=== PATIENT | female | born 1945 | race Caucasian/White ===

== ENCOUNTER 2016-03-25 10:36 | Inpatient (IN) | payer MEDICARE ==
[2016-03-25] VITALS (8 sets, daily range): BP systolic 100–186; BP diastolic 42–78; PULSE 87–133; RESP 12–24; TEMP 100–102.9; O2SAT 95–100
[~2016-03-25] VITALS: Ht 157.5 cm; Wt 115.1 kg
[~2016-03-25 10:36] MED LIST: ASPI325T PO; CALC.25 PO; CARV25TA PO; FURO10S TUBE; FURO8SOL PO; KCL10C PO; LEVO88TA2 PO; LIPI40TA PO; NOVO7030P2 SQ; NOVOLOGMXP SQ; PRAM0.12 PO; PRAM1TAB PO; PROT40TA PO; SERT100 PO; SITA100 PO; [UNRECOGNIZED DRUG - CODE] IP
--- NOTE | 2016-03-25 14:29 | PD ---
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 Patient states that she had noticed a painful lesion and it was soft so she was soaking it and caring for it and she thought that it would go away on its own however over the last 2 days it has become larger and hardened. Denies any vaginal discharge or bleeding. She is uncertain if it has drained she cannot adequately visualize it. She denies any urinary symptoms. She states the pain does radiate into her right lower quadrant. She denies any chest pain or shortness of breath. She has had no nausea or vomiting. She has no other symptoms to report. History Social History Alcohol Use: No Tobacco Use: No Allergies-Medications (Allergen,Severity, Reaction): Coded Allergies: Codeine (Verified Allergy, Severe, HALLUCINATIONS, 10/04/15) Ofloxacin (Verified Allergy, Severe, FLOXIN, 10/04/15) Reported Meds & Prescriptions Reported Meds & Active Scripts Active Reported Heparin (Heparin Sodium (Porcine)) 1,000 Units/Ml Inj 30 Ml IP ONCE PRN Rocaltrol (Calcitriol) 0.25 Mcg Cap 0.5 Mcg PO DAILY KCl 10 Meq Cap (Potassium Chloride) 10 Meq Capcr 10 Meq PO BID Protonix (Pantoprazole Sodium) 40 Mg Tabdr 40 Mg PO HS Levothyroxine 88 mcg (Levothyroxine Sodium) 88 Mcg Tab 88 Mcg PO DAILY Pramipexole Dihydrochlori (Pramipexole Dihydrochloride) 0.75 Mg Tab 0.75 Mg PO HS Pramipexole Dihydrochlori (Pramipexole Dihydrochloride) 0.125 Mg Tab 0.25 Mg PO DAILY Furosemide 10 Mg/Ml Radha 20 Mg TUBE Furosemide 8 Mg/Ml Radha 40 Mg PO DAILY Aspirin 325 mg (Aspirin) 325 Mg Tab 325 Mg PO DAILY Novolin 70/30 (Insulin Human Isoph/Insulin Regular) 100 Units/Ml Inj 14 Units SQ DAILY@1600 Carvedilol 25 mg (Carvedilol) 25 Mg Tab 1 Tab PO BID Novolog Mix 70/30 (Insulin Aspart Prota 70%/Aspart 30%) 100 Units/Ml Inj 32 Units SQ DAILY Lipitor (Atorvastatin Calcium) 40 Mg Tab 40 Mg PO DAILY Zoloft (Sertraline HCl) 100 Mg Tab 100 Mg PO DAILY Januvia (Sitagliptin Phosphate) 100 Mg Tab 100 Mg PO DAILY Review of Systems Except as stated in HPI: all other systems reviewed are Neg Physical Exam Narrative GENERAL: Well-nourished elderly female patient, lying in bed, in no acute distress SKIN: Warm and dry. HEAD: Atraumatic. Normocephalic. EYES: Pupils equal and round. No scleral icterus. No injection or drainage. ENT: No nasal bleeding or discharge. Mucous membranes pink and moist. NECK: Trachea midline. No JVD. CARDIOVASCULAR: Tachycardic rate and rhythm. No murmur appreciated. RESPIRATORY: No accessory muscle use. Diminished to auscultation. Breath sounds equal bilaterally. GASTROINTESTINAL: Abdomen soft and nondistended. Patient does have tenderness to palpation along the lower abdomen. No rebound or guarding. Patient also has her peritoneal catheter dressing is intact.. Hepatic and splenic margins not palpable. GENITOURINARY: Assessment done in presence of female tech. There is swelling of the right side of the perineum, specifically the labia majora. No obvious discharge. There is associated lymphadenopathy. Patient also has a darkened ecchymotic-looking area on the posterior thigh not far from this area and I am uncertain if there is any relation. MUSCULOSKELETAL: No obvious deformities. No clubbing. No cyanosis. NEUROLOGICAL: Awake and alert. No obvious cranial nerve deficits. Motor grossly within normal limits. Normal speech. PSYCHIATRIC: Appropriate mood and affect; insight and judgment normal. Data Data Last Documented VS Vital Signs Date Time Temp Pulse Resp B/P Pulse Ox O2 Delivery O2 Flow Rate FiO2 03/25/16 10:40 100.0 133 24 186/78 95 Room Air Orders Electrocardiogram (03/25/16 14:34) Complete Blood Count With Diff (03/25/16 14:34) Comprehensive Metabolic Panel (03/25/16 14:34) Prothrombin Time / Inr (Pt) (03/25/16 14:34) Act Partial Throm Time (Ptt) (03/25/16 14:34) Lactic Acid Sepsis Protocol (03/25/16 14:34) Magnesium (Mg) (03/25/16 14:34) Ckmb (Isoenzyme) Profile (03/25/16 14:34) Troponin I (03/25/16 14:34) Urinalysis - C+S If Indicated (03/25/16 14:34) Blood Culture (03/25/16 14:34) Chest, Single Ap (03/25/16 14:34) Blood Glucose (03/25/16 14:34) Ecg Monitoring (03/25/16 14:34) Iv Access Insert/Monitor (03/25/16 14:34) Oximetry (03/25/16 14:34) Oxygen Administration (03/25/16 14:34) Labs Laboratory Tests Test 03/25/16 14:45 White Blood Count 14.4 TH/MM3 Red Blood Count 3.07 MIL/MM3 Hemoglobin 9.8 GM/DL Hematocrit 29.4 % Mean Corpuscular Volume 95.5 FL Mean Corpuscular Hemoglobin 31.9 PG Mean Corpuscular Hemoglobin 33.4 % Concent Red Cell Distribution Width 13.8 % Platelet Count 190 TH/MM3 Mean Platelet Volume 9.0 FL Neutrophils (%) (Auto) 87.8 % Lymphocytes (%) (Auto) 3.0 % Monocytes (%) (Auto) 8.8 % Eosinophils (%) (Auto) 0.1 % Basophils (%) (Auto) 0.3 % Neutrophils # (Auto) 12.6 TH/MM3 Lymphocytes # (Auto) 0.4 TH/MM3 Monocytes # (Auto) 1.3 TH/MM3 Eosinophils # (Auto) 0.0 TH/MM3 Basophils # (Auto) 0.0 TH/MM3 CBC Comment AUTO DIFF MDM Medical Decision Making Medical Screen Exam Complete: Yes Emergency Medical Condition: Yes Medical Record Reviewed: Yes Differential Diagnosis Abscess versus cellulitis versus cyst versus peritonitis versus sepsis Narrative Course 71-year-old female presents to the emergency department for evaluation. Patient appears to have swelling of the right labia majora however she is tachycardic with a low-grade temperature. Patient also has abdominal tenderness to palpation in the right lower quadrant. She is on peritoneal dialysis and has history of peritonitis. Workup will be initiated here in the emergency department triage. Once a medical bed becomes available, patient will be transferred. Diagnosis Primary Impression: Labial swelling Additional Impressions: Abdominal pain Qualified Code: R10.30 - Lower abdominal pain Tachycardia End stage kidney disease Condition: Stable Ashley Summers Mar 25, 2016 14:29
[2016-03-25 15:02] LABS: AUTOMATED NEUTROPHIL # 12.6 TH/MM3 (1.8-7.7); BASOPHIL % 0.3 % (0.0-2.0); EOSINOPHIL % 0.1 % (0.0-4.0); HEMATOCRIT 29.4 % (35.0-46.0); LYMPHOCYTE # 0.4 TH/MM3 (1.0-4.8); MEAN CELL VOLUME 95.5 FL (80.0-100.0); MEAN CORPUSCULAR HEMOGLOBIN 31.9 PG (27.0-34.0); MEAN CORPUSCULAR HGB CONC 33.4 % (32.0-36.0); MONO % 8.8 % (0.0-8.0); NEUT % 87.8 % (16.0-70.0); PLATELET COUNT 190 TH/MM3 (150-450); RED BLOOD COUNT 3.07 MIL/MM3 (4.00-5.30); RED CELL DISTRIBUTION WIDTH 13.8 % (11.6-17.2); WHITE BLOOD COUNT 14.4 TH/MM3 (4.0-11.0)
[2016-03-25 15:09] LABS: HEMO FLAGS AUTO DIFF
--- NOTE | 2016-03-25 15:16 | RADRPT ---
EXAM DATE/TIME: 03/25/2016 14:45 [facility] COMPARISON: No previous studies available for comparison. INDICATIONS : Fever, Evaluate heart and lungs. MEDICAL HISTORY : Hypertension. SURGICAL HISTORY : CABG. Carotid stent. ENCOUNTER: Initial ACUITY: 1 day PAIN SCORE: 0/10 LOCATION: chest FINDINGS: A single view of the chest demonstrates the lungs to be symmetrically aerated without evidence of mas s, infiltrate or effusion. The patient is post median sternotomy. The cardiomediastinal contours dem onstrate mild cardiomegaly. Osseous structures are intact. CONCLUSION: 1. Mild cardiomegaly. 2. Postsurgical changes. 3. No acute abnormality. Surya Christianson MD on March 25, 2016 at 15:13 Board Certified Radiologist. This report was verified electronically.
[2016-03-25 15:24] LABS: APTT (PATIENT) 30.3 SEC (24.3-30.1); PROTHROMBIN TIME - PATIENT 11.5 SEC (9.8-11.6)
[2016-03-25 15:25] LABS: ALT (GPT) 40 U/L (10-53); ANION GAP 14 MEQ/L (5-15); AST (GOT) 49 U/L (15-37); BICARBONATE 23.9 MEQ/L (21.0-32.0); BLOOD UREA NITROGEN 52 MG/DL (7-18); CHLORIDE 92 MEQ/L (98-107); GLOMERULAR FILTRATION RATE 7 ML/MIN (>89); MAGNESIUM 1.5 MG/DL (1.5-2.5); SODIUM (NA) 130 MEQ/L (136-145)
[2016-03-25 15:29] LABS: ALKALINE PHOSPHATASE 118 U/L (45-117); CREATINE KINASE 271 U/L (26-192); TOTAL BILIRUBIN ADULT 0.6 MG/DL (0.2-1.0)
[2016-03-25 15:41] LABS: CKMB 0.8 NG/ML (0.5-3.6)
[2016-03-25 15:55] LABS: BANDS 20 % (0-6); DOHLE BODIES PRESENT (NONE SEEN); NEUTROPHIL # MANUAL DIFF 13.2 TH/MM3 (1.8-7.7); PLATELET ESTIMATE SMEAR NORMAL (NORMAL); PLATELET MORPHOLOGY NORMAL (NORMAL); POLYS (SEG NEUTROPHILS) 72 % (16-70); SCAN/DIFF FINAL DIFF MANUAL; TOXIC GRANULATION 1+ (NORMAL); WBC DIFF SAMPLE 100
[2016-03-25] MEDS ORDERED: ACETAMINOPHEN 325 MG TAB PO ONE (16:00)
--- NOTE | 2016-03-25 16:04 | PD ---
Physical Exam Time Seen by Provider: 13:30 Narrative Initial evaluation the patient was performed by Ashley Summers DNP. See her note for initial evaluation and documentation. The patient reports she's had swelling to her right labia majora 3 days. Reports MAXIMUM TEMPERATURE at the 101.5 at home today. Reports vomiting 2 days; has vomited twice today. She is on peritoneal dialysis daily and completed dialysis last night. Denies vaginal discharge, odor, itch. Denies urinary symptoms. Denies abdominal pain. Does have history of peritonitis. Dr. Lexus Nolasco is her primary care provider. She does not have an TAXICAB COORDINATOR. Allergies to codeine and ofloxacin. History of diabetes, CABG, hypertension. Data Data Last Documented VS Vital Signs Date Time Temp Pulse Resp B/P Pulse Ox O2 Delivery O2 Flow Rate FiO2 03/25/16 16:32 102.9 03/25/16 10:40 133 24 186/78 95 Room Air Orders Electrocardiogram (03/25/16 14:34) Complete Blood Count With Diff (03/25/16 14:34) Comprehensive Metabolic Panel (03/25/16 14:34) Prothrombin Time / Inr (Pt) (03/25/16 14:34) Act Partial Throm Time (Ptt) (03/25/16 14:34) Lactic Acid Sepsis Protocol (03/25/16 14:34) Magnesium (Mg) (03/25/16 14:34) Ckmb (Isoenzyme) Profile (03/25/16 14:34) Troponin I (03/25/16 14:34) Urinalysis - C+S If Indicated (03/25/16 14:34) Blood Culture (03/25/16 14:34) Chest, Single Ap (03/25/16 14:34) Blood Glucose (03/25/16 14:34) Ecg Monitoring (03/25/16 14:34) Iv Access Insert/Monitor (03/25/16 14:34) Oximetry (03/25/16 14:34) Oxygen Administration (03/25/16 14:34) CKMB (03/25/16 14:45) CKMB% (03/25/16 14:45) Acetaminophen (Tylenol) (03/25/16 16:00) Vancomycin Inj (Vancomycin Inj) (03/25/16 16:15) Cefepime Inj (Maxipime Inj) (03/25/16 16:15) Clindamycin Inj (Cleocin Inj) (03/25/16 16:15) Consult Gynecology (03/25/16 ) Admit Order (Ed Use Only) (03/25/16 16:43) Labs Laboratory Tests Test 03/25/16 14:45 White Blood Count 14.4 TH/MM3 Red Blood Count 3.07 MIL/MM3 Hemoglobin 9.8 GM/DL Hematocrit 29.4 % Mean Corpuscular Volume 95.5 FL Mean Corpuscular Hemoglobin 31.9 PG Mean Corpuscular Hemoglobin 33.4 % Concent Red Cell Distribution Width 13.8 % Platelet Count 190 TH/MM3 Mean Platelet Volume 9.0 FL Neutrophils (%) (Auto) 87.8 % Lymphocytes (%) (Auto) 3.0 % Monocytes (%) (Auto) 8.8 % Eosinophils (%) (Auto) 0.1 % Basophils (%) (Auto) 0.3 % Neutrophils # (Auto) 12.6 TH/MM3 Lymphocytes # (Auto) 0.4 TH/MM3 Monocytes # (Auto) 1.3 TH/MM3 Eosinophils # (Auto) 0.0 TH/MM3 Basophils # (Auto) 0.0 TH/MM3 CBC Comment AUTO DIFF Differential Total Cells 100 Counted Neutrophils % (Manual) 72 % Band Neutrophils % 20 % Lymphocytes % 1 % Monocytes % 7 % Neutrophils # (Manual) 13.2 TH/MM3 Differential Comment FINAL DIFF MANUAL Toxic Granulation 1+ Dohle Bodies PRESENT Platelet Estimate NORMAL Platelet Morphology Comment NORMAL Red Cell Morphology Comment NORMAL Prothrombin Time 11.5 SEC Prothromb Time International 1.0 RATIO Ratio Activated Partial 30.3 SEC Thromboplast Time Sodium Level 130 MEQ/L Potassium Level 3.0 MEQ/L Chloride Level 92 MEQ/L Carbon Dioxide Level 23.9 MEQ/L Anion Gap 14 MEQ/L Blood Urea Nitrogen 52 MG/DL Creatinine 6.31 MG/DL Estimat Glomerular Filtration 7 ML/MIN Rate Random Glucose 294 MG/DL Lactic Acid Level 2.4 mmol/L Calcium Level 8.7 MG/DL Magnesium Level 1.5 MG/DL Total Bilirubin 0.6 MG/DL Aspartate Amino Transf 49 U/L (AST/SGOT) Alanine Aminotransferase 40 U/L (ALT/SGPT) Alkaline Phosphatase 118 U/L Total Creatine Kinase 271 U/L Creatine Kinase MB 0.8 NG/ML Creatine Kinase MB % 0.3 % Troponin I 0.38 NG/ML Total Protein 7.3 GM/DL Albumin 2.3 GM/DL [facility] Medical Record Reviewed: Yes Supervised Visit with JULIAN: Yes Narrative Course Right labia majora with edema, erythema, tenderness to palpation, warmth to touch. Patient febrile with 100.0 fever. Patient was initially assessed in triage by Ashley frazier DNP. See her note for initial assessment. Patient placed on cardiopulmonary monitor. IV site obtained. Dr. Vargas, my attending physician, recommended to call TAXICAB COORDINATOR hospitalist to evaluate the patient for possible debridement of the area. 1555: I spoke with Dr. Banegas, TAXICAB COORDINATOR hospitalist and she will come to evaluate the patient. 1612: Dr. Vargas recommended to admit Mr. Vancomycin, cefepime, and clindamycin. Peritoneal dialysis dosages verified via up-to-date and all medications recommended no dosage adjustment as necessary. I verified dosages with Dr. Vargas and she agreed with administration of recommended dosages. 1615: Chest x-ray concludes Mild cardiomegaly; 2. Postsurgical changes; 3. No acute abnormality. WBC 14.4. Potassium 3.0. BUN 52. Creatinine 6.31. GFR 7. Lactic acid 2.4. 1630: Dr. Banegas evaluated the patient and recommended the patient to be admitted and a consult placed to her. 1641: I spoke with Dr. Bagley, [facility]; report was given and the patient will be admitted. Consult to Dr. Banegas, TAXICAB COORDINATOR hospitalist ordered. Physician Communication Physician Communication Dr. Banegas, Hospitalist OBGYN Dr. Bagley, [facility] Diagnosis Primary Impression: Vulval cellulitis Additional Impressions: Labial swelling End stage kidney disease Tachycardia Abdominal pain Qualified Code: R10.30 - Lower abdominal pain Admitting Information Admitting Physician Requests: Admit Willow Lima Ariel HOOKS Mar 25, 2016 16:04
--- NOTE | 2016-03-25 16:13 | EKG ---
Date Performed: 03/25/2016 Time Performed: 15:08:57 PTAGE: 71 years EKG: SINUS TACHYCARDIA POSSIBLE LEFT ATRIAL ENLARGEMENT MODERATE INTRAVENTRICULAR CONDUCTION DEL AY Nonspecific ST-T wave changes ABNORMAL ECG COMPARED TO PRIOR ELECTROCARDIOGRAM, Rate has increased and ST-T wave changes are more marked. PREVIOUS TRACING : 09/19/2008 15.40 DOCTOR: Colten Kramer Interpretating Date/Time 03/25/2016 16:11:21
[2016-03-25] MEDS ORDERED: CLINDAMYCIN INJ 600 MG in SODIUM CHLORIDE 0.9% INJ 100 ML IV ONE (16:15)
[2016-03-25] MEDS ORDERED: VANCOMYCIN INJ 1,000 MG in SODIUM CHLOR 0.9% 250 ML INJ 250 ML IV ONE (16:15)
[2016-03-25] MEDS ORDERED: CEFEPIME INJ 2,000 MG in SODIUM CHLORIDE 0.9% INJ 100 ML IV ONE (16:15)
[2016-03-25] MEDS ORDERED: ACETAMINOPHEN 325 MG TAB PO PRN (16:45)
[2016-03-25] MEDS ORDERED: SODIUM CHLORIDE 0.9% FLUSH 5 ML FLUSH FLUSH PRN (16:45)
[2016-03-25] MEDS ORDERED: MAGNESIUM HYDROXIDE SUSP 30 ML CUP PO PRN (16:45)
[2016-03-25] MEDS ORDERED: ONDANSETRON HCL 4 MG/2 ML VIAL IVP PRN (16:45)
[2016-03-25] MEDS ORDERED: NALOXONE HCL 0.4 MG/ML AMP IV PRN (16:45)
--- NOTE | 2016-03-25 16:51 | PD.CONS ---
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 consult requested secondary to vulvar swelling; This patient is a 71-year-old 2 para 2 her last menstrual period was at age between 46 and 51 she has had no irregular spotting or bleeding since that time presently comes to the emergency room with pain in her vaginal area fever and chills and aching legs She states that the swelling in her vagina began about 4 days ago no medication did not see her doctor the pain began about 3 days ago and has progressively gotten worse Associated with fever or chills positive nausea and vomiting she denies any vaginal discharge odors or itching States that she did have something like this when she was younger [employer]ER [employer] ASSEM[employer]ER history onset at age 14 cycles last 4-5 days the interval is every 28-30 days No history of any abnormal Pap smears no previous [employer] 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[employer]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 surgery Denies any sexually transmitted diseases Is not sexually active OB history in 1966 and 1972 vaginal delivery 21 of her children Past medical history; patient is allergic to codeine and Floxin She is an insulin-dependent diabetic she is on 30 units of 7030 NovoLog in the morning and 20 units of 7030 NovoLog in the evening History of hypertension she is on no medications as her blood pressure has been normal Heart disease Surgery includes knee replacement gallbladder and breast reduction Her social history is negative Her medications include insulins Tarastatin and aspirin and she is on no blood pressure medication On physical exam her temperature is 102.9 pulse is 133 blood pressures 186/78 O2 sat is 95% Well-nourished well-developed white female in no acute distress but reporting pain in the vaginal area Physical examination confined to the external genitalia please see complete history and physical by the emergency room physician Examination of the external genitalia shows swelling of the right labia majora and minora with induration that spreads cephalad towards the mons pubis and towards the right inguinal ligament area This area is not fluctuant is painful to palpation Vaginal area is atrophic There is a small what appears to be hair follicle bump along the lower edge of the labia right labia that feels somewhat fluctuant very small No discharge odors or bleeding Laboratory data her white count is 14.4 Potassium is 3.0 Lactic acid is 2.4 Her SGOT is slightly elevated at 49 Assessment; 71-year-old postmenopausal female with a right vulvar cellulitis Insulin-dependent diabetes History of hypertension Recommendations; antibiotic coverage for MRSA Warm pads and sits baths Pain management Infectious disease consult Control of the diabetes Correction of the low potassium Monitoring of the blood pressure Blood cultures to rule out bacteremia Urine culture and sensitivity to rule out UTI Chest x-ray If no improvement in the cellulitis with antibiotic coverage over the next 24- 48 hours and it seems to be spreading recommend evaluation by Dr. Bryant [employer] ASSEM[employer]ER oncology Hermila Nelson MD Mar 25, 2016 16:51
[2016-03-25 16:53] LABS: LACTIC ACID GHOST NOT REPORTABLE
--- NOTE | 2016-03-25 17:10 | HHI.HP ---
HPI Service [facility] Hospitalists Primary Care Physician Lexus Nolasco MD Admission Diagnosis vulval cellulitis Chief Complaint: Cellulitis Travel History International Travel<30 Days: No Contact w/Intl Traveler <30 Da: No Traveled to Known Affected Are: No History of Present Illness Ms. Garrison is a pleasant 71 y/o WF with multiple medical problems including IDDM, HTN, CAD, ESRD on peritoneal dialysis since May 2015. [place] [facility] [place] of a painful swollen lesion in her perineal area that started 4 days ago with subjective fever and chills and generalized weakness worsening over last 2 days. Patient states that she had noticed a painful lesion in her right vulvar area which was soft. She was soaking it at home but over the last 2 days it has become larger and hardened. Denies any vaginal discharge or bleeding. She is uncertain if it has drained as she cannot adequately visualize it. She states the pain does radiate into her right lower quadrant. She denies any chest pain or shortness of breath. Pt reports having vomiting 2 days and did vomited twice today. She is on peritoneal dialysis daily and completed dialysis last night. Denies vaginal discharge, odor, itch. Denies urinary symptoms. Denies abdominal pain. Does have history of peritonitis. Dr. Lexus Nolasco is her primary care provider. Pt was noted to have an elevated WBC count of 14.4, elevated Lactic acid of 2.4. She was noted to be tachycardic and febrile at admission as well. Pt was given IV Vancomycin, Cefepime, and Clindamycin in the ER. Review of Systems Constitutional: COMPLAINS OF: Fever, Chills Gastrointestinal: COMPLAINS OF: Nausea, Vomiting Integumentary: COMPLAINS OF: Abnormal pigmentation Past Family Social History Past Medical History CAD Anemia of CKD CHF ESRD on dialysis since May 2015. DM I Major Depression HTN Hyperlipidemia Hypothyroidism Pulmonary HTN Secondary hyperparathyroidism Past Surgical History Breast reduction CABG 1996, 2004 Coronary stent placement Cholecystectomy 1996 Peritoneal catheter 05/2015 Left TKA 2009 Reported Medications -ASA 325mg po daily -Atorvastatin 40mg po daily -Calcitriol 0.25mcg po daily -Coreg 12.5mg po BID Imodium 2 tablets QID PRN diarrhea Humalog 75/25 Kwikpen 28 units SQ in AM and 18units SQ in PM Lasix 40mg po daily -Levoxyl 88mcg po daily NovoLog Mix 70/30 FlexPen 26 units SQ in AM before breakfast and 16 units SQ before dinner -Protonix 40mg po daily Pramipexole Dihydrochloride 0.75mc HS Procrit 10,000units as directed -Sertraline 100mg daily -Vitamin D3 5000unit Allergies: Coded Allergies: Codeine (Verified Allergy, Severe, HALLUCINATIONS, 03/25/16) Ofloxacin (Verified Allergy, Severe, FLOXIN, 03/25/16) Family History Mother had AAA, HTN Father had CAD Several family members with DM Social History No tobacco or alcohol No illicit drug use Retired from [employer] Physical Exam Vital Signs Vital Signs Date Time Temp Pulse Resp B/P Pulse Ox O2 Delivery O2 Flow Rate FiO2 03/25/16 16:32 102.9 03/25/16 10:40 100.0 133 24 186/78 95 Room Air Physical Exam GENERAL: This is a well-nourished, well-developed patient, in no apparent distress. HEENT: Atraumatic. Normocephalic. No temporal or scalp tenderness. No scleral icterus. Airway patent. NECK: Trachea midline, supple, nontender. CARDIO: Regular. RESP: CTA bilaterally. No wheezes, rales, or rhonchi. ABD: +BS, soft, non-tender, nondistended. : Swelling of the right labia majora and minora with induration that spreads cephalad towards the mons pubis and towards the right inguinal ligament area which is painful to palpation EXT: Extremities without clubbing, cyanosis, or edema. NEURO: Awake and alert. Motor and sensory grossly within normal limits. Normal speech. Laboratory Laboratory Tests Test 03/25/16 14:45 White Blood Count 14.4 Red Blood Count 3.07 Hemoglobin 9.8 Hematocrit 29.4 Mean Corpuscular Volume 95.5 Mean Corpuscular Hemoglobin 31.9 Mean Corpuscular Hemoglobin 33.4 Concent Red Cell Distribution Width 13.8 Platelet Count 190 Mean Platelet Volume 9.0 Neutrophils (%) (Auto) 87.8 Lymphocytes (%) (Auto) 3.0 Monocytes (%) (Auto) 8.8 Eosinophils (%) (Auto) 0.1 Basophils (%) (Auto) 0.3 Neutrophils # (Auto) 12.6 Lymphocytes # (Auto) 0.4 Monocytes # (Auto) 1.3 Eosinophils # (Auto) 0.0 Basophils # (Auto) 0.0 CBC Comment AUTO DIFF Differential Total Cells 100 Counted Neutrophils % (Manual) 72 Band Neutrophils % 20 Lymphocytes % 1 Monocytes % 7 Neutrophils # (Manual) 13.2 Differential Comment FINAL DIFF MANUAL Toxic Granulation 1+ Dohle Bodies PRESENT Platelet Estimate NORMAL Platelet Morphology Comment NORMAL Red Cell Morphology Comment NORMAL Prothrombin Time 11.5 Prothromb Time International 1.0 Ratio Activated Partial 30.3 Thromboplast Time Sodium Level 130 Potassium Level 3.0 Chloride Level 92 Carbon Dioxide Level 23.9 Anion Gap 14 Blood Urea Nitrogen 52 Creatinine 6.31 Estimat Glomerular Filtration 7 Rate Random Glucose 294 Lactic Acid Level 2.4 Calcium Level 8.7 Magnesium Level 1.5 Total Bilirubin 0.6 Aspartate Amino Transf 49 (AST/SGOT) Alanine Aminotransferase 40 (ALT/SGPT) Alkaline Phosphatase 118 Total Creatine Kinase 271 Creatine Kinase MB 0.8 Creatine Kinase MB % 0.3 Troponin I 0.38 Total Protein 7.3 Albumin 2.3 Date/Time Procedure Status Source Growth 03/25/16 14:45 Aerobic Blood Culture Received Blood Peripheral Pending 03/25/16 14:45 Anaerobic Blood Culture Received Blood Peripheral Pending Result Diagram: 03/25/16 1445 03/25/16 1445 Imaging Last Impressions Chest X-Ray 03/25/16 1434 Signed Impressions: Service Date/Time: Friday, March 25, 2016 14:45 - CONCLUSION: 1. Mild cardiomegaly. 2. Postsurgical changes. 3. No acute abnormality. Surya Christianson MD Septic Shock Reassessment Lungs: Clear Skin: Warm Assessment and Plan Problem List: (1) Vulval cellulitis Status: Acute Plan: - Pt admitted with cellulitis of the right labia/vulva and into the right inguinal region which began around 4 days ago - Pt had a noted elevated WBC count of 14.4 at admission with a Lactic acid of 2.4 - Pt was given IV Vancomycin, Cefepime and Clindamycin - BOOTH MANAGER has evaluated the pt and has consulted ID - Cont. Vancomycin with pharmacy to dose - Check CT abd/pelvis to assess for abscess - Tylenol PRN for fever - Zofran PRN - Pain control PRN - Warm compresses - Supportive care - DVT prophylaxis with SCDs (2) Labial swelling Status: Acute Plan: - See above (3) ESRD (end stage renal disease) on dialysis Status: Chronic Plan: - Pt is on PD since 05/2015 - Consult Nephrology - Monitor labs - Pt has not been eating and drinking well and electrolyte abnormality is likely related to some degree of dehydration in the setting of her ESRD - Encourage oral intake - Monitor labs closely (4) DM (diabetes mellitus) Status: Chronic Plan: - NovoLog SSI - Accu checks (5) Hypothyroidism Status: Chronic Plan: - Home meds continued (6) Hypertension Status: Chronic Plan: - Home meds continued (7) Anemia Status: Chronic Plan: - Related to pts ESRD - Labs are stable currently - Monitor - Pt receives Procrit periodically Assessment and Plan Patient examined. Assessment and plan formulated with Sharon Swenson PA-C. I agree with the above. Physician Certification 2 Midnight Certification Type: Admission for Inpatient Services Order for Inpatient Services The services are ordered in accordance with Medicare regulations or non- Medicare payer requirements, as applicable. In the case of services not specified as inpatient-only, they are appropriately provided as inpatient services in accordance with the 2-midnight benchmark. Estimated LOS (days): 3 3 days is the estimated time the patient will need to remain in the hospital, assuming treatment plan goals are met and no additional complications. Post-Hospital Plan: Not yet determined Problem Qualifiers (1) DM (diabetes mellitus): Sharon Swenson Mar 25, 2016 17:10 Kong Bagley DO Mar 28, 2016 22:48
--- NOTE | 2016-03-25 17:14 | PD ---
Data Data Last Documented VS Vital Signs Date Time Temp Pulse Resp B/P Pulse Ox O2 Delivery O2 Flow Rate FiO2 03/25/16 16:32 102.9 03/25/16 10:40 133 24 186/78 95 Room Air Orders Electrocardiogram (03/25/16 14:34) Complete Blood Count With Diff (03/25/16 14:34) Comprehensive Metabolic Panel (03/25/16 14:34) Prothrombin Time / Inr (Pt) (03/25/16 14:34) Act Partial Throm Time (Ptt) (03/25/16 14:34) Lactic Acid Sepsis Protocol (03/25/16 14:34) Magnesium (Mg) (03/25/16 14:34) Ckmb (Isoenzyme) Profile (03/25/16 14:34) Troponin I (03/25/16 14:34) Urinalysis - C+S If Indicated (03/25/16 14:34) Blood Culture (03/25/16 14:34) Chest, Single Ap (03/25/16 14:34) Blood Glucose (03/25/16 14:34) Ecg Monitoring (03/25/16 14:34) Iv Access Insert/Monitor (03/25/16 14:34) Oximetry (03/25/16 14:34) Oxygen Administration (03/25/16 14:34) CKMB (03/25/16 14:45) CKMB% (03/25/16 14:45) Acetaminophen (Tylenol) (03/25/16 16:00) Vancomycin Inj (Vancomycin Inj) (03/25/16 16:15) Cefepime Inj (Maxipime Inj) (03/25/16 16:15) Clindamycin Inj (Cleocin Inj) (03/25/16 16:15) Consult Gynecology (03/25/16 ) Admit Order (Ed Use Only) (03/25/16 16:43) Us Soft Tissue (03/25/16 ) Complete Blood Count With Diff (03/26/16 06:00) Basic Metabolic Panel (Bmp) (03/26/16 06:00) Magnesium (Mg) (03/26/16 06:00) Labs Laboratory Tests Test 03/25/16 14:45 White Blood Count 14.4 TH/MM3 Red Blood Count 3.07 MIL/MM3 Hemoglobin 9.8 GM/DL Hematocrit 29.4 % Mean Corpuscular Volume 95.5 FL Mean Corpuscular Hemoglobin 31.9 PG Mean Corpuscular Hemoglobin 33.4 % Concent Red Cell Distribution Width 13.8 % Platelet Count 190 TH/MM3 Mean Platelet Volume 9.0 FL Neutrophils (%) (Auto) 87.8 % Lymphocytes (%) (Auto) 3.0 % Monocytes (%) (Auto) 8.8 % Eosinophils (%) (Auto) 0.1 % Basophils (%) (Auto) 0.3 % Neutrophils # (Auto) 12.6 TH/MM3 Lymphocytes # (Auto) 0.4 TH/MM3 Monocytes # (Auto) 1.3 TH/MM3 Eosinophils # (Auto) 0.0 TH/MM3 Basophils # (Auto) 0.0 TH/MM3 CBC Comment AUTO DIFF Differential Total Cells 100 Counted Neutrophils % (Manual) 72 % Band Neutrophils % 20 % Lymphocytes % 1 % Monocytes % 7 % Neutrophils # (Manual) 13.2 TH/MM3 Differential Comment FINAL DIFF MANUAL Toxic Granulation 1+ Dohle Bodies PRESENT Platelet Estimate NORMAL Platelet Morphology Comment NORMAL Red Cell Morphology Comment NORMAL Prothrombin Time 11.5 SEC Prothromb Time International 1.0 RATIO Ratio Activated Partial 30.3 SEC Thromboplast Time Sodium Level 130 MEQ/L Potassium Level 3.0 MEQ/L Chloride Level 92 MEQ/L Carbon Dioxide Level 23.9 MEQ/L Anion Gap 14 MEQ/L Blood Urea Nitrogen 52 MG/DL Creatinine 6.31 MG/DL Estimat Glomerular Filtration 7 ML/MIN Rate Random Glucose 294 MG/DL Lactic Acid Level 2.4 mmol/L Calcium Level 8.7 MG/DL Magnesium Level 1.5 MG/DL Total Bilirubin 0.6 MG/DL Aspartate Amino Transf 49 U/L (AST/SGOT) Alanine Aminotransferase 40 U/L (ALT/SGPT) Alkaline Phosphatase 118 U/L Total Creatine Kinase 271 U/L Creatine Kinase MB 0.8 NG/ML Creatine Kinase MB % 0.3 % Troponin I 0.38 NG/ML Total Protein 7.3 GM/DL Albumin 2.3 GM/DL MDM Supervised Visit with JULIAN: Yes Narrative Course The history, exam, and medical decision-making in the associated midlevel provider note were completed with my assistance. I reviewed and agree with the findings presented. I attest that I had a [id number] encounter with the patient on the same day, and personally performed and documented my assessment and findings in the medical record. *My assessment and Findings: This is a dialysis patient who presents to the emergency department with a vulvar cellulitis and abscess, septic with a fever and bandemia. She was placed on a monitor and an IV was established. She was given vancomycin, cefepime and clindamycin. Dr. Banegas on-call for the hospitalists came to see the patient and agreed with continued antibiotics. If she doesn't improve she'll consider incision and drainage in the operating room tomorrow. Patient will be admitted under the [facility] for further management. Diagnosis Primary Impression: Vulval cellulitis Additional Impressions: End stage kidney disease Labial swelling Tachycardia Abdominal pain Qualified Code: R10.30 - Lower abdominal pain Lita Meyers MD Mar 25, 2016 17:14
[2016-03-25] MEDS ORDERED: HYDROmorphone HCL PF 1 MG/ML VIAL IV PUSH ONE (17:15)
[2016-03-25] MEDS ORDERED: DIATRIZOATE MEGLUM/DIATRIZOATE SOD 9 ML CUP ONE (18:22)
[2016-03-25] MEDS ORDERED: DIATRIZOATE MEGLUM/DIATRIZOATE SOD 9 ML CUP PO ONE (18:45)
--- NOTE | 2016-03-25 19:14 | RADRPT ---
EXAM DATE/TIME: 03/25/2016 17:25 [facility] COMPARISON: No previous studies available for comparison. INDICATIONS : Right labia abscess. MEDICAL HISTORY : Hypertension. Hypercholesterolemia. CHF. Peritoneal dialysis. Coronary artery disease. SURGICAL HISTORY : CABG. Cholecystectomy. Left knee replacement. Breast reduction 1979. ENCOUNTER: Initial ACUITY: 4-6 days PAIN SCORE: 7/10 LOCATION: Right labia. AREA EVALUATED: Right labia. FINDINGS: Diffuse soft tissue swelling noted within the right labia and right groin. MASSES: None. FLUID COLLECTIONS: None. OTHER: Negative. CONCLUSION: Diffuse soft tissue swelling in the right labia and right groin. Enrique Snyder MD on March 25, 2016 at 19:11 Board Certified Radiologist. This report was verified electronically.
[2016-03-25] MEDS ORDERED: NOVOLOGMXP SQ ×2 (19:17)
[2016-03-25] MEDS ORDERED: SERT-129 PO (19:18)
[2016-03-25] MEDS ORDERED: MIRA0.75 PO (19:18)
[2016-03-25] MEDS ORDERED: PANT40TA3 PO (19:21)
[2016-03-25] MEDS ORDERED: ROCA0.5C PO (19:21)
[2016-03-25] MEDS ORDERED: FURO1TAB61 PO (19:21)
[2016-03-25] MEDS ORDERED: POTA1TAB4 PO (19:21)
[2016-03-25] MEDS ORDERED: LEVO88TA2 PO (19:21)
[2016-03-25] MEDS ORDERED: ASPI325T PO (19:22)
[2016-03-25] MEDS ORDERED: ATOR40TA16 PO (19:22)
--- NOTE | 2016-03-25 20:05 | RADRPT ---
EXAM DATE/TIME: 03/25/2016 19:39 [facility] COMPARISON: No previous studies available for comparison. INDICATIONS : Right labia cellulitis extending into the right inguinal region. ORAL CONTRAST: Prescribed oral contrast ingested. RADIATION DOSE: 20.68 CTDIvol (mGy) MEDICAL HISTORY : Cardiovascular disease. Hypertension. diabetes, dialysis, renal failure SURGICAL HISTORY : Cholecystectomy. ENCOUNTER: Initial ACUITY: 1 day PAIN SCALE: 5/10 LOCATION: abdomen TECHNIQUE: Volumetric scanning of the abdomen and pelvis was performed. Using automated exposure control and ad justment of the mA and/or kV according to patient size, radiation dose was kept as low as reasonably achievable to obtain optimal diagnostic quality images. FINDINGS: LOWER LUNGS: The visualized lower lungs are clear. LIVER: Homogeneous density without lesion. There is no dilation of the biliary tree. Cholecystectomy. SPLEEN: Normal size without lesion. PANCREAS: Within normal limits. KIDNEYS: Normal in size and shape. There is no mass, stone, or hydronephrosis. ADRENAL GLANDS: Within normal limits. VASCULAR: There is no aortic aneurysm. BOWEL/MESENTERY: The stomach, small bowel, and colon demonstrate no acute abnormality. There is no free intraperitone al air or fluid. Dialysis catheter with tip in the pelvis. Scattered diverticulosis. Minimal pelvic a scites. ABDOMINAL WALL: Within normal limits. RETROPERITONEUM: There is no lymphadenopathy. BLADDER: No wall thickening or mass. REPRODUCTIVE: Within normal limits. INGUINAL: There is no lymphadenopathy or hernia. MUSCULOSKELETAL: Cellulitic changes in the right groin and right perineum extending into the right labia. No abscess o r fluid collection. CONCLUSION: 1. Cellulitic changes in the right groin, right perineum and right labia. No abscess or fluid collect ion. 2. Dialysis catheter and minimal pelvic ascites. 3. Diverticulosis without diverticulitis. 4. Status post cholecystectomy. Enrique Snyder MD on March 25, 2016 at 20:02 Board Certified Radiologist. This report was verified electronically.
[2016-03-25] MEDS: ATORVASTATIN 40 MG TAB PO SCH (20:56)
[2016-03-25] MEDS: CARVEDILOL 12.5 MG TAB PO SCH (20:56)
[2016-03-25] MEDS: INSULIN ASPART SUPPLEMENTAL SCALE SQ SCH (20:56)
[2016-03-25] MEDS: PRAMIPEXOLE DIHYDROCHLORIDE 0.25 MG TAB PO SCH (20:56)
[2016-03-25] MEDS: SODIUM CHLORIDE 0.9% FLUSH 5 ML FLUSH FLUSH SCH (20:57)
[2016-03-25] MEDS ORDERED: HEPARIN SODIUM - IV 10,000 UNITS/10 ML VIAL IVF PRN (22:45)
[2016-03-25] MEDS ORDERED: SODIUM CHLORIDE 0.9% 10 ML VIAL IV PRN (22:45)
[2016-03-25] MEDS ORDERED: POTASSIUM CHLORIDE 20 MEQ CONTROLLED RELEASE TAB PO ONE (23:30)
[2016-03-25] MEDS: HYDROmorphone HCL PF 1 MG/ML VIAL IV PUSH PRN (23:30)
[2016-03-26] VITALS (7 sets, daily range): BP systolic 91–142; BP diastolic 43–64; PULSE 84–107; RESP 18–22; TEMP 98.3–99.2; O2SAT 96–100
[2016-03-26] MEDS: HYDROmorphone HCL PF 1 MG/ML VIAL IV PUSH PRN ×3 (04:27→18:36)
[2016-03-26 04:34] LABS: AUTOMATED NEUTROPHIL # 8.9 TH/MM3 (1.8-7.7); BASOPHIL % 0.2 % (0.0-2.0); EOSINOPHIL % 0.2 % (0.0-4.0); HEMATOCRIT 29.2 % (35.0-46.0); HEMO FLAGS DIFF FINAL; LYMPH % 3.2 % (9.0-44.0); LYMPHOCYTE # 0.3 TH/MM3 (1.0-4.8); MEAN CELL VOLUME 97.2 FL (80.0-100.0); MEAN CORPUSCULAR HEMOGLOBIN 32.2 PG (27.0-34.0); MEAN CORPUSCULAR HGB CONC 33.1 % (32.0-36.0); MONO % 10.9 % (0.0-8.0); NEUT % 85.5 % (16.0-70.0); PLATELET COUNT 163 TH/MM3 (150-450); WHITE BLOOD COUNT 10.5 TH/MM3 (4.0-11.0)
[2016-03-26 05:27] LABS: MAGNESIUM 1.5 MG/DL (1.5-2.5)
[2016-03-26] MEDS: LEVOTHYROXINE SODIUM 88 MCG TAB PO SCH (06:33)
[2016-03-26] MEDS: INSULIN ASPART SUPPLEMENTAL SCALE SQ SCH ×4 (06:34→22:00)
[2016-03-26] MEDS: PANTOPRAZOLE SOD 40 MG DELAYED RELEASE TAB PO SCH (09:39)
[2016-03-26] MEDS: CARVEDILOL 12.5 MG TAB PO SCH ×2 (09:40→21:00)
[2016-03-26] MEDS: ASPIRIN EC 325 MG TABEC PO SCH (09:40)
[2016-03-26] MEDS: SERTRALINE HCL 100 MG TAB PO SCH (09:40)
[2016-03-26] MEDS: CHOLECALCIFEROL (VIT D3) 5000 UNIT CAP PO SCH (09:40)
[2016-03-26] MEDS: SODIUM CHLORIDE 0.9% FLUSH 5 ML FLUSH FLUSH SCH (09:42)
--- NOTE | 2016-03-26 12:09 | PD.CONS ---
HPI Service Nephrology Consult Requested By Reason for Consult ESRD on PD Primary Care Physician Lexus Nolasco MD History of Present Illness This is a 71 y/o female who came to ER for vaginal pain and fever. Admitted for vulvar abscess, she was admitted for treatment. PMH of HTN, ESRD on PD, DM I, secondary hyperparathyroidism, we were consulted for renal management. She is in no distress. PD has been going well, discussed PD regimen with outpatient clinic. She is a full code. (Brenna Lopez) Review of Systems Genitourinary: DENIES: Urinary frequency, Urgency, Hematuria, Vaginal discharge Integumentary: COMPLAINS OF: Rash (Brenna Lopez) Past Family Social History Allergies: Coded Allergies: Codeine (Verified Allergy, Severe, HALLUCINATIONS, 03/25/16) Ofloxacin (Verified Allergy, Severe, FLOXIN, 03/25/16) Past Medical History ESRD on dialysis since May 2015. CAD Anemia of CKD CHF DM I Major Depression HTN Hyperlipidemia Hypothyroidism Pulmonary HTN Secondary hyperparathyroidism Past Surgical History Breast reduction CABG 1996, 2004 Coronary stent placement Cholecystectomy 1996 Peritoneal catheter 05/2015 Left TKA 2009 Reported Medications -ASA 325mg po daily -Atorvastatin 40mg po daily -Calcitriol 0.25mcg po daily -Coreg 12.5mg po BID Imodium 2 tablets QID PRN diarrhea Humalog 75/25 Kwikpen 28 units SQ in AM and 18units SQ in PM Lasix 40mg po daily -Levoxyl 88mcg po daily NovoLog Mix 70/30 FlexPen 26 units SQ in AM before breakfast and 16 units SQ before dinner -Protonix 40mg po daily Pramipexole Dihydrochloride 0.75mc HS Procrit 10,000units as directed -Sertraline 100mg daily -Vitamin D3 5000unit Active Ordered Medications Current Medications Medications (Trade) Dose Ordered Sig/Hilary Route Start Time Stop Time Status Last Admin (NS Flush) 2 ml UNSCH PRN FLUSH 03/25/16 16:45 (NS Flush) 2 ml BID FLUSH 03/25/16 21:00 03/26/16 09:42 (Tylenol) 650 mg Q4H PRN PO 03/25/16 16:45 (Zofran Inj) 4 mg Q6H PRN IVP 03/25/16 16:45 (Milk Of Magnesia Liq) 30 ml Q12H PRN PO 03/25/16 16:45 (Narcan Inj) 0.4 mg UNSCH PRN IV 03/25/16 16:45 (Zoloft) 100 mg DAILY PO 03/26/16 09:00 03/26/16 09:40 (Coreg) 12.5 mg Q12HR PO 03/25/16 21:00 03/26/16 09:40 (Ecotrin Ec) 325 mg DAILY PO 03/26/16 09:00 03/26/16 09:40 (Lipitor) 40 mg HS PO 03/25/16 21:00 03/25/16 20:56 (Rocaltrol) 0.25 mcg DAILY PO 03/26/16 09:00 (Synthroid) 88 mcg DAILY@0600 PO 03/26/16 06:00 03/26/16 06:33 (Protonix) 40 mg DAILY PO 03/26/16 09:00 03/26/16 09:39 (Vitamin D3) 5,000 units DAILY PO 03/26/16 09:00 03/26/16 09:40 Pramipexole Dihydrochloride 0.75 mg 0.75 mg HS PO 03/25/16 21:00 03/25/16 20:56 (Vancomycin Inj/ NS 250 ml Inj) 250 ml @ 250 mls/hr Q24H IV 03/26/16 17:00 (Dilaudid Pf Inj) 0.5 mg Q4H PRN IV PUSH 03/25/16 18:00 03/26/16 08:37 Family History Mother had AAA, HTN Father had CAD Several family members with DM Social History in past year Lives locally with sister no smoking history functionally independent retired full 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 (Brenna Lopez) Physical Exam Vital Signs Vital Signs Date Time Temp Pulse Resp B/P Pulse Ox O2 Delivery O2 Flow Rate FiO2 03/26/16 09:42 17 03/26/16 09:38 90 18 117/55 97 Nasal Cannula 2 03/26/16 08:44 98.3 105 22 135/60 96 Nasal Cannula 1 03/26/16 06:22 98.4 107 18 142/64 98 Room Air 03/25/16 23:34 92 18 145/63 100 Room Air 03/25/16 20:58 93 18 158/68 99 Nasal Cannula 2 03/25/16 19:54 87 18 148/63 98 Nasal Cannula 2 03/25/16 19:18 87 18 144/62 96 03/25/16 18:00 92 18 100/46 96 Room Air 03/25/16 17:57 100.0 93 12 106/42 95 Nasal Cannula 2 03/25/16 16:32 102.9 Physical Exam Young appearing elderly female awake/oriented x 3 S1/s2, regular rate/rhythm, no murmurs Lungs clear abdomen round, soft; PD catheter lower quad no extremity edema deferred vaginal exam Laboratory Laboratory Tests Test 03/25/16 03/25/16 03/26/16 14:45 18:31 04:00 White Blood Count 14.4 10.5 Red Blood Count 3.07 3.00 Hemoglobin 9.8 9.7 Hematocrit 29.4 29.2 Mean Corpuscular Volume 95.5 97.2 Mean Corpuscular Hemoglobin 31.9 32.2 Mean Corpuscular Hemoglobin 33.4 33.1 Concent Red Cell Distribution Width 13.8 14.0 Platelet Count 190 163 Mean Platelet Volume 9.0 9.1 Neutrophils (%) (Auto) 87.8 85.5 Lymphocytes (%) (Auto) 3.0 3.2 Monocytes (%) (Auto) 8.8 10.9 Eosinophils (%) (Auto) 0.1 0.2 Basophils (%) (Auto) 0.3 0.2 Neutrophils # (Auto) 12.6 8.9 Lymphocytes # (Auto) 0.4 0.3 Monocytes # (Auto) 1.3 1.1 Eosinophils # (Auto) 0.0 0.0 Basophils # (Auto) 0.0 0.0 CBC Comment AUTO DIFF DIFF FINAL Differential Total Cells 100 Counted Neutrophils % (Manual) 72 Band Neutrophils % 20 Lymphocytes % 1 Monocytes % 7 Neutrophils # (Manual) 13.2 Differential Comment FINAL DIFF MANUAL Toxic Granulation 1+ Dohle Bodies PRESENT Platelet Estimate NORMAL Platelet Morphology Comment NORMAL Red Cell Morphology Comment NORMAL Prothrombin Time 11.5 Prothromb Time International 1.0 Ratio Activated Partial 30.3 Thromboplast Time Sodium Level 130 128 Potassium Level 3.0 4.0 Chloride Level 92 92 Carbon Dioxide Level 23.9 24.0 Anion Gap 14 12 Blood Urea Nitrogen 52 58 Creatinine 6.31 6.56 Estimat Glomerular Filtration 7 6 Rate Random Glucose 294 352 Lactic Acid Level 2.4 1.3 Calcium Level 8.7 8.1 Magnesium Level 1.5 1.5 Total Bilirubin 0.6 Aspartate Amino Transf 49 (AST/SGOT) Alanine Aminotransferase 40 (ALT/SGPT) Alkaline Phosphatase 118 Total Creatine Kinase 271 Creatine Kinase MB 0.8 Creatine Kinase MB % 0.3 Troponin I 0.38 Total Protein 7.3 Albumin 2.3 Date/Time Procedure Status Source Growth 03/25/16 14:45 Aerobic Blood Culture - Preliminary Resulted Blood Peripheral NO GROWTH IN 1 DAY 03/25/16 14:45 Anaerobic Blood Culture - Preliminary Resulted Blood Peripheral NO GROWTH IN 1 DAY (Brenna Lopez) Result Diagram: 03/26/16 0400 03/26/16 0400 Imaging Last 24 hours Impressions Chest X-Ray 03/25/16 1434 Signed Impressions: Service Date/Time: Friday, March 25, 2016 14:45 - CONCLUSION: 1. Mild cardiomegaly. 2. Postsurgical changes. 3. No acute abnormality. Surya Christianson MD (Brenna Lopez) Assessment and Plan Problem List: (1) ESRD (end stage renal disease) on dialysis Plan: Nightly PD (outpatient regimen consists of 4 cycles, 2500 ml fill volume , 9 hr time, no last fill, 1.5% dextrose solution) K low, oral replacement given no current dialysis concerns check phosphorus periodically continue calcitriol for secondary hyperparathyroidism (2) Vulval cellulitis Plan: given cefepime and clindamycin, now on vancomycin to cover MRSA SOLUTIONS DEVELOPMENT ANALYST following, appreciate recommendations pain control,sitz bath monitor drug levels when appropriate (3) DM (diabetes mellitus) Plan: continue insulin as ordered monitor glucose, goal 140-180 mg/dL (4) Hypertension Plan: oral medications as ordered follow blood pressure, adjust medications as needed (5) Anemia Plan: check iron profile may give a dose of epogen (Brenna Lopez) Assessment and Plan patient was seen and examined. Agree with above assessment and plan. Continue CCPD. Orders were reviewed. On antibiotic for Vulval cellulitis (Filemon Mar MD) Problem Qualifiers (1) DM (diabetes mellitus): Brenna Lopez Mar 26, 2016 12:09 Filemon Mar MD Mar 26, 2016 16:34
[2016-03-26] MEDS: PIPERACIL-TAZO 2.25 GM PREMIX 50 ML IV SCH (13:42)
[2016-03-26] MEDS: CALCITRIOL 0.25 MCG CAP PO SCH (13:42)
[2016-03-26] MEDS: INSULIN DETEMIR 100 UNITS/ML VIAL SQ SCH ×2 (13:43→22:00)
--- NOTE | 2016-03-26 13:59 | HHI.PR ---
Subjective Remarks Pt reports that she is still having a lot of discomfort in the groin area Pt has been afebrile Objective Vitals Vital Signs Date Time Temp Pulse Resp B/P Pulse Ox O2 Delivery O2 Flow Rate FiO2 03/26/16 11:00 98.5 92 20 108/63 100 03/26/16 09:42 17 03/26/16 09:38 90 18 117/55 97 Nasal Cannula 2 03/26/16 08:44 98.3 105 22 135/60 96 Nasal Cannula 1 03/26/16 06:22 98.4 107 18 142/64 98 Room Air 03/25/16 23:34 92 18 145/63 100 Room Air 03/25/16 20:58 93 18 158/68 99 Nasal Cannula 2 03/25/16 19:54 87 18 148/63 98 Nasal Cannula 2 03/25/16 19:18 87 18 144/62 96 03/25/16 18:00 92 18 100/46 96 Room Air 03/25/16 17:57 100.0 93 12 106/42 95 Nasal Cannula 2 03/25/16 16:32 102.9 Result Diagram: 03/26/16 0400 03/26/16 0400 Other Results Laboratory Tests Test 03/25/16 03/25/16 03/26/16 14:45 18:31 04:00 White Blood Count 14.4 TH/MM3 10.5 TH/MM3 Red Blood Count 3.07 MIL/MM3 3.00 MIL/MM3 Hemoglobin 9.8 GM/DL 9.7 GM/DL Hematocrit 29.4 % 29.2 % Mean Corpuscular Volume 95.5 FL 97.2 FL Mean Corpuscular Hemoglobin 31.9 PG 32.2 PG Mean Corpuscular Hemoglobin 33.4 % 33.1 % Concent Red Cell Distribution Width 13.8 % 14.0 % Platelet Count 190 TH/MM3 163 TH/MM3 Mean Platelet Volume 9.0 FL 9.1 FL Neutrophils (%) (Auto) 87.8 % 85.5 % Lymphocytes (%) (Auto) 3.0 % 3.2 % Monocytes (%) (Auto) 8.8 % 10.9 % Eosinophils (%) (Auto) 0.1 % 0.2 % Basophils (%) (Auto) 0.3 % 0.2 % Neutrophils # (Auto) 12.6 TH/MM3 8.9 TH/MM3 Lymphocytes # (Auto) 0.4 TH/MM3 0.3 TH/MM3 Monocytes # (Auto) 1.3 TH/MM3 1.1 TH/MM3 Eosinophils # (Auto) 0.0 TH/MM3 0.0 TH/MM3 Basophils # (Auto) 0.0 TH/MM3 0.0 TH/MM3 CBC Comment AUTO DIFF DIFF FINAL Differential Total Cells 100 Counted Neutrophils % (Manual) 72 % Band Neutrophils % 20 % Lymphocytes % 1 % Monocytes % 7 % Neutrophils # (Manual) 13.2 TH/MM3 Differential Comment FINAL DIFF MANUAL Toxic Granulation 1+ Dohle Bodies PRESENT Platelet Estimate NORMAL Platelet Morphology Comment NORMAL Red Cell Morphology Comment NORMAL Prothrombin Time 11.5 SEC Prothromb Time International 1.0 RATIO Ratio Activated Partial 30.3 SEC Thromboplast Time Sodium Level 130 MEQ/L 128 MEQ/L Potassium Level 3.0 MEQ/L 4.0 MEQ/L Chloride Level 92 MEQ/L 92 MEQ/L Carbon Dioxide Level 23.9 MEQ/L 24.0 MEQ/L Anion Gap 14 MEQ/L 12 MEQ/L Blood Urea Nitrogen 52 MG/DL 58 MG/DL Creatinine 6.31 MG/DL 6.56 MG/DL Estimat Glomerular Filtration 7 ML/MIN 6 ML/MIN Rate Random Glucose 294 MG/DL 352 MG/DL Lactic Acid Level 2.4 mmol/L 1.3 mmol/L Calcium Level 8.7 MG/DL 8.1 MG/DL Magnesium Level 1.5 MG/DL 1.5 MG/DL Total Bilirubin 0.6 MG/DL Aspartate Amino Transf 49 U/L (AST/SGOT) Alanine Aminotransferase 40 U/L (ALT/SGPT) Alkaline Phosphatase 118 U/L Total Creatine Kinase 271 U/L Creatine Kinase MB 0.8 NG/ML Creatine Kinase MB % 0.3 % Troponin I 0.38 NG/ML Total Protein 7.3 GM/DL Albumin 2.3 GM/DL Imaging Last Impressions Chest X-Ray 03/25/16 1434 Signed Impressions: Service Date/Time: Friday, March 25, 2016 14:45 - CONCLUSION: 1. Mild cardiomegaly. 2. Postsurgical changes. 3. No acute abnormality. Surya Christianson MD Soft Tissue Ultrasound 03/25/16 0000 Signed Impressions: Service Date/Time: Friday, March 25, 2016 17:25 - CONCLUSION: Diffuse soft tissue swelling in the right labia and right groin. Enrique Snyder MD Abdomen/Pelvis CT 03/25/16 0000 Signed Impressions: Service Date/Time: Friday, March 25, 2016 19:39 - CONCLUSION: 1. Cellulitic changes in the right groin, right perineum and right labia. No abscess or fluid collection. 2. Dialysis catheter and minimal pelvic ascites. 3. Diverticulosis without diverticulitis. 4. Status post cholecystectomy. Enrique Snyder MD Last Impressions Chest X-Ray 03/25/16 1434 Signed Impressions: Service Date/Time: Friday, March 25, 2016 14:45 - CONCLUSION: 1. Mild cardiomegaly. 2. Postsurgical changes. 3. No acute abnormality. Surya Christianson MD Objective Remarks General: NAD, AAOx3 Chest: CTA bilaterally Cardiac: Regular Abd: +BS, soft ND/NT : erythema, tenderness and swelling of the right labia and right inguinal area Ext: No edema A/P Problem List: (1) Vulval cellulitis Status: Acute Plan: - Pt admitted with cellulitis of the right labia/vulva and into the right inguinal region which began around 4 days ago - Pt had a noted elevated WBC count of 14.4 at admission with a Lactic acid of 2.4 - Pt was given IV Vancomycin, Cefepime and Clindamycin - HEALTH UNIT CLERK has evaluated - Appreciate ID consultation - Cont. Vancomycin with pharmacy to dose - Zosyn added (03/26/16) - CT abd/pelvis (03/25/16) --> Cellulitic changes in the right groin, right perineum and right labia. No abscess or fluid collection. Dialysis catheter and minimal pelvic ascites. Diverticulosis without diverticulitis. Status post cholecystectomy. - Tylenol PRN for fever - Zofran PRN - Pain control PRN - Warm compresses - Supportive care - DVT prophylaxis with SCDs (2) Labial swelling Status: Acute Plan: - See above (3) ESRD (end stage renal disease) on dialysis Status: Chronic Plan: - Pt is on PD since 05/2015 - Appreciate Nephrology consultation - Monitor labs - Pt has not been eating and drinking well and electrolyte abnormality is likely related to some degree of dehydration in the setting of her ESRD - Encourage oral intake - Monitor labs closely (4) DM (diabetes mellitus) Status: Chronic Plan: - NovoLog SSI - Add Levemir 15units BID - Accu checks (5) Hypothyroidism Status: Chronic Plan: - Home meds continued (6) Hypertension Status: Chronic Plan: - Home meds continued (7) Anemia Status: Chronic Plan: - Related to pts ESRD - Labs are stable currently - Monitor - Pt receives Procrit periodically Assessment and Plan Patient examined. Assessment and plan formulated with Sharon Swenson PA-C. I agree with the above. Problem Qualifiers (1) DM (diabetes mellitus): Sharon Swenson Mar 26, 2016 13:59 oKng Bagley DO Mar 28, 2016 16:08
[2016-03-26] MEDS ORDERED: VANCOMYCIN INJ 1,000 MG in SODIUM CHLOR 0.9% 250 ML INJ 250 ML IV SCH (17:00)
[2016-03-26 20:27] LABS: C. DIFF EPI 027 PRESUMPTIVE NEGATIVE (NEGATIVE); C. DIFF TOXIN PCR NEGATIVE (NEGATIVE)
--- NOTE | 2016-03-26 21:48 | PD.ID.CON ---
History of Present Illness Service ID Consult Requested By Dr Bagley Reason for Consult R labial infection Primary Care Physician Lexus Nolasco MD Diagnoses: History of Present Illness 71 year-old morbidly obese female with history diabetes, end-stage renal disease on peritoneal dialysis, presents yday to emergency department for evaluation of a painful swollen R labia over last 2 days. She has subjective fever and chills and generalized weakness worsening No vaginal discharge or bleeding. 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 Very weak TUBES/LINES/DRAINS: SKIN: No jaundice, rashes, or lesions. Skin temperature appropriate. Not diaphoretic. HEAD: Atraumatic. Normocephalic. EYES: Pupils equal and round and reactive. Extraocular motions intact. No scleral icterus. No injection or drainage. Fundi not examined. ENT: Hearing grossly normal. Nose without bleeding or purulent drainage. Oral mucosae without visible erythema, exudates, masses, or lesions. NECK: Trachea midline. Supple, nontender. CARDIOVASCULAR: Regular rate and rhythm without murmurs, gallops, or rubs. No JVD. Peripheral pulses symmetric. RESPIRATORY/CHEST: Symmetric, unlabored respirations. Clear to auscultation. Breath sounds equal bilaterally. No wheezes, rales, or rhonchi. GASTROINTESTINAL: Abdomen soft, non-tender, nondistended. No hepato-splenomegaly , or palpable masses. No guarding. Bowel sounds present. PD cath in place RLQ with clear peritoneal fluid in tubing GENITOURINARY: Without palpable bladder distension. R labia major is erthematous, indurated very tender to palpation no crepitus no purulence or fluctuance Erythema spreding to inner thigh area MUSCULOSKELETAL: Extremities without clubbing, cyanosis, or edema. No mottling or clubbing. LYMPHATICS: No palpable inguinal, cervical or supraclavicular adenopathy. NEUROLOGICAL: Lethargic. Motor and sensory grossly within normal limits. Follows commands. Normal speech. Moves all extremities. PSYCHIATRIC: flat affect Laboratory Laboratory Tests Test 03/26/16 03/26/16 04:00 18:30 White Blood Count 10.5 Red Blood Count 3.00 Hemoglobin 9.7 Hematocrit 29.2 Mean Corpuscular Volume 97.2 Mean Corpuscular Hemoglobin 32.2 Mean Corpuscular Hemoglobin 33.1 Concent Red Cell Distribution Width 14.0 Platelet Count 163 Mean Platelet Volume 9.1 Neutrophils (%) (Auto) 85.5 Lymphocytes (%) (Auto) 3.2 Monocytes (%) (Auto) 10.9 Eosinophils (%) (Auto) 0.2 Basophils (%) (Auto) 0.2 Neutrophils # (Auto) 8.9 Lymphocytes # (Auto) 0.3 Monocytes # (Auto) 1.1 Eosinophils # (Auto) 0.0 Basophils # (Auto) 0.0 CBC Comment DIFF FINAL Differential Comment Sodium Level 128 Potassium Level 4.0 Chloride Level 92 Carbon Dioxide Level 24.0 Anion Gap 12 Blood Urea Nitrogen 58 Creatinine 6.56 Estimat Glomerular Filtration 6 Rate Random Glucose 352 Calcium Level 8.1 Magnesium Level 1.5 Stool C. difficile Toxin (PCR) NEGATIVE Stl C. difficile Toxin PRESUMPTIVE Epiderm 027 NEGATIVE Date/Time Procedure Status Source Growth 03/25/16 14:45 Aerobic Blood Culture - Preliminary Resulted Blood Peripheral NO GROWTH IN 1 DAY 03/25/16 14:45 Anaerobic Blood Culture - Preliminary Resulted Blood Peripheral NO GROWTH IN 1 DAY Result Diagram: 03/26/16 0400 03/26/16 0400 Imaging Last Impressions Chest X-Ray 03/25/16 1434 Signed Impressions: Service Date/Time: Friday, March 25, 2016 14:45 - CONCLUSION: 1. Mild cardiomegaly. 2. Postsurgical changes. 3. No acute abnormality. Surya Christianson MD Soft Tissue Ultrasound 03/25/16 0000 Signed Impressions: Service Date/Time: Friday, March 25, 2016 17:25 - CONCLUSION: Diffuse soft tissue swelling in the right labia and right groin. Enrique Snyder MD Abdomen/Pelvis CT 03/25/16 0000 Signed Impressions: Service Date/Time: Friday, March 25, 2016 19:39 - CONCLUSION: 1. Cellulitic changes in the right groin, right perineum and right labia. No abscess or fluid collection. 2. Dialysis catheter and minimal pelvic ascites. 3. Diverticulosis without diverticulitis. 4. Status post cholecystectomy. Enrique Snyder MD Assessment and Plan Assessment and Plan Labial cellulitis, phlegmone R Sepsis, E.coli bacteremia - 2/2 to above Abcx associated diarrhea, C.diff negative Multiple med problems, including ESRD/PD and morbid obesity - switched to zosyn, vanocmyicn - monito clinically for the need of debridement Discussed Condition With Dr Kevyn mcculloughtr Radha Robbins MD Mar 26, 2016 21:48
[2016-03-26] MEDS: PRAMIPEXOLE DIHYDROCHLORIDE 0.25 MG TAB PO SCH (23:29)
[2016-03-26] MEDS: ATORVASTATIN 40 MG TAB PO SCH (23:30)
[2016-03-27] VITALS (7 sets, daily range): BP systolic 94–127; BP diastolic 49–59; PULSE 55–88; RESP 16–20; TEMP 97.6–101.4; O2SAT 91–98
[2016-03-27] MEDS: PIPERACIL-TAZO 2.25 GM PREMIX 50 ML IV SCH ×4 (01:34→21:00)
[2016-03-27] MEDS: HYDROmorphone HCL PF 1 MG/ML VIAL IV PUSH PRN ×2 (01:36→09:14)
[2016-03-27] MEDS: SODIUM CHLORIDE 0.9% FLUSH 5 ML FLUSH FLUSH SCH ×3 (01:36→20:48)
[2016-03-27] MEDS: LEVOTHYROXINE SODIUM 88 MCG TAB PO SCH (06:08)
[2016-03-27 07:24] LABS: AUTOMATED NEUTROPHIL # 6.9 TH/MM3 (1.8-7.7); BASOPHIL % 0.3 % (0.0-2.0); EOSINOPHIL # 0.1 TH/MM3 (0-0.4); EOSINOPHIL % 1.4 % (0.0-4.0); HEMATOCRIT 24.1 % (35.0-46.0); HEMO FLAGS DIFF FINAL; LYMPH % 4.5 % (9.0-44.0); LYMPHOCYTE # 0.4 TH/MM3 (1.0-4.8); MEAN CELL VOLUME 95.3 FL (80.0-100.0); MEAN CORPUSCULAR HEMOGLOBIN 31.6 PG (27.0-34.0); MEAN CORPUSCULAR HGB CONC 33.1 % (32.0-36.0); NEUT % 81.8 % (16.0-70.0); PLATELET COUNT 166 TH/MM3 (150-450); RED BLOOD COUNT 2.52 MIL/MM3 (4.00-5.30); WHITE BLOOD COUNT 8.4 TH/MM3 (4.0-11.0)
[2016-03-27] MEDS: INSULIN ASPART SUPPLEMENTAL SCALE SQ SCH ×4 (07:27→20:51)
[2016-03-27 07:33] LABS: ANION GAP 13 MEQ/L (5-15); BICARBONATE 25.4 MEQ/L (21.0-32.0); BLOOD UREA NITROGEN 60 MG/DL (7-18); CHLORIDE 91 MEQ/L (98-107); GLOMERULAR FILTRATION RATE 7 ML/MIN (>89); MAGNESIUM 1.4 MG/DL (1.5-2.5); POTASSIUM 3.8 MEQ/L (3.5-5.1); SODIUM (NA) 129 MEQ/L (136-145); TRANSFERRIN IRON PROFILE 101 MG/DL (200-360)
[2016-03-27] MEDS: SERTRALINE HCL 100 MG TAB PO SCH (09:00)
[2016-03-27] MEDS: CHOLECALCIFEROL (VIT D3) 5000 UNIT CAP PO SCH (09:00)
[2016-03-27] MEDS: PANTOPRAZOLE SOD 40 MG DELAYED RELEASE TAB PO SCH (09:01)
[2016-03-27] MEDS: INSULIN DETEMIR 100 UNITS/ML VIAL SQ SCH ×2 (09:01→20:50)
[2016-03-27] MEDS: CARVEDILOL 12.5 MG TAB PO SCH ×2 (09:01→20:47)
[2016-03-27] MEDS: CALCITRIOL 0.25 MCG CAP PO SCH (09:01)
[2016-03-27] MEDS: ASPIRIN EC 325 MG TABEC PO SCH (09:01)
[2016-03-27] MEDS ORDERED: MAGNESIUM OXIDE 400 MG TAB PO ONE (09:30)
[2016-03-27] MEDS: ACETAMINOPHEN/HYDROcodone 325 MG/5 MG TAB PO PRN (11:20)
[2016-03-27] MEDS: FERROUS SULFATE 325 MG (65 MG ELEMENTAL IRON) TAB PO SCH (11:20)
--- NOTE | 2016-03-27 13:17 | HHI.NPPN ---
Subjective General Problems: Hypertension Renal Failure: Chronic, End Stage Renal Disease Interval History PD going well. Now with bacteremia. Vaginal pain continues. (Brenna Lopez) Review of Systems Skin Skin Remarks vaginal abscess, labial swelling (Brenna Lopez) Objective Data Data 03/26/16 03/27/16 19:00 07:00 Intake Total 580 ml Balance 580 ml Intake Oral 480 ml IV Total 100 ml # Voids 0 # Bowel Movements 1 1 Vital Signs Date Time Temp Pulse Resp B/P Pulse Ox O2 Delivery O2 Flow Rate FiO2 03/27/16 08:00 98.7 82 17 127/59 95 03/27/16 04:00 97.6 78 18 121/55 97 03/27/16 02:36 18 03/27/16 01:00 99.8 55 17 106/49 96 03/27/16 00:00 99.0 82 20 94/51 98 03/26/16 19:45 99.2 92 20 91/46 100 03/26/16 18:00 95 131/57 03/26/16 16:00 99.2 84 20 119/43 100 (Brenna Lopez) -: 03/27/16 0629 03/27/16 0639 Imaging Last 48 hours Impressions Chest X-Ray 03/25/16 1434 Signed Impressions: Service Date/Time: Friday, March 25, 2016 14:45 - CONCLUSION: 1. Mild cardiomegaly. 2. Postsurgical changes. 3. No acute abnormality. Surya Christianson MD Tubes & Lines: Tenckhoff Catheter (Brenna Lopez) Physical Exam General Appearance: Well Developed, Well Nourished, No Acute Distress, Comfortable, Obese (Brenna Lopez) Throat Throat Exam: Oral Mucosa [place] & Moist (Brenna Lopez) Neck Neck Exam: Neck Supple (Brenna Lopez) Pulmonary Resp Exam: Clear Bilaterally, Breath Sounds Equal, No Distress (Brenna Lopez) Cardiology CV Exam: Regular, Normal Sinus Rhythm, Good Perfusion (Brenna Lopez) Gastrointestinal/Abdomen GI Exam: Soft, Non-Tender, Bowel Sounds Present (Brenna Lopez) Musculoskeletal MS Exam: Joints Intact, Good Strength (Brenna Lopez) Integumentary Skin Exam: Clear, Warm, Dry, Intact (Brenna Lopez) Extremeties Extremities Exam: No Edema, Pedal Pulses Palpable (Brenna Lopez) Neurologic Neuro Exam: Alert, Awake, Oriented, Speech Clear, Moving All Extremities ( Brenna Lopez) Psychiatric Psych Exam: Appropriate Responses (Brenna Lopez) Assessment/Plan Assessment Summary: Anemia of CKD, Hypertension, Diabetes Mellitus, End Stage Renal Disease Electrolyte Assessment: Hypocalcemia, Hyponatremia Problem List: (1) ESRD (end stage renal disease) on dialysis Plan: continue Nightly PD (outpatient regimen consists of 4 cycles, 2500 ml fill volume, 9 hr time, no last fill, 1.5% dextrose solution) K corrected, magnesium replaced no current dialysis concerns check phosphorus periodically continue calcitriol for secondary hyperparathyroidism (2) Vulval cellulitis Plan: with sepsis, + E coli in 1/4 bottles Abx per ID: now on Zosyn and vancomycin , monitor levels when appropriate DESIGN ENGINEER following, appreciate recommendations pain control,sitz bath will send for peritoneal fluid culture (3) DM (diabetes mellitus) Plan: continue insulin as ordered monitor glucose, goal 140-180 mg/dL (4) Hypertension Plan: oral medications as ordered follow blood pressure, adjust medications as needed (5) Anemia Plan: labs indicating iron deficiency avoid Venofer in light of sepsis, oral iron started follow hemoglobin, may given a dose of Epogen (Brenna Lopez) Plan patient was seen and examined. Bacteremia is noted. Also peritoneal WBC more than 100. Dialysate apparently cloudy as per brim ironer hand. Also a lot of fibrin. May have peritonitis. Antibiotics can be given IP. Vancomycin can be given once weekly IP. (Filemon Mar MD) Problem Qualifiers (1) DM (diabetes mellitus): Brenna Lopez Mar 27, 2016 13:17 Filemon Mar MD Mar 27, 2016 14:58
[2016-03-27 14:10] LABS: PERITONEAL HISTIOCYTES 5 %; PERITONEAL LYMPHS 8 %; PERITONEAL MONOS 10 %; PERITONEAL POLYS(SEGS) 75 %; PERITONEAL WBC 106 /MM3 (0-10)
--- NOTE | 2016-03-27 16:13 | HHI.PR ---
Subjective Remarks No new complaints. Objective Vitals Vital Signs Date Time Temp Pulse Resp B/P Pulse Ox O2 Delivery O2 Flow Rate FiO2 03/27/16 08:00 98.7 82 17 127/59 95 03/27/16 04:00 97.6 78 18 121/55 97 03/27/16 02:36 18 03/27/16 01:00 99.8 55 17 106/49 96 03/27/16 00:00 99.0 82 20 94/51 98 03/26/16 19:45 99.2 92 20 91/46 100 03/26/16 18:00 95 131/57 03/26/16 03/26/16 03/27/16 15:00 23:00 07:00 Intake Total 580 ml Balance 580 ml Intake Oral 480 ml IV Total 100 ml # Voids 0 # Bowel Movements 1 1 Result Diagram: 03/27/16 0629 03/27/16 0639 Other Results Laboratory Tests Test 03/25/16 03/26/16 03/26/16 03/27/16 18:31 04:00 18:30 06:29 Lactic Acid Level 1.3 mmol/L White Blood Count 10.5 TH/MM3 8.4 TH/MM3 Red Blood Count 3.00 MIL/MM3 2.52 MIL/MM3 Hemoglobin 9.7 GM/DL 8.0 GM/DL Hematocrit 29.2 % 24.1 % Mean Corpuscular Volume 97.2 FL 95.3 FL Mean Corpuscular Hemoglobin 32.2 PG 31.6 PG Mean Corpuscular Hemoglobin 33.1 % 33.1 % Concent Red Cell Distribution Width 14.0 % 14.0 % Platelet Count 163 TH/MM3 166 TH/MM3 Mean Platelet Volume 9.1 FL 8.8 FL Neutrophils (%) (Auto) 85.5 % 81.8 % Lymphocytes (%) (Auto) 3.2 % 4.5 % Monocytes (%) (Auto) 10.9 % 12.0 % Eosinophils (%) (Auto) 0.2 % 1.4 % Basophils (%) (Auto) 0.2 % 0.3 % Neutrophils # (Auto) 8.9 TH/MM3 6.9 TH/MM3 Lymphocytes # (Auto) 0.3 TH/MM3 0.4 TH/MM3 Monocytes # (Auto) 1.1 TH/MM3 1.0 TH/MM3 Eosinophils # (Auto) 0.0 TH/MM3 0.1 TH/MM3 Basophils # (Auto) 0.0 TH/MM3 0.0 TH/MM3 CBC Comment DIFF FINAL DIFF FINAL Differential Comment Sodium Level 128 MEQ/L Potassium Level 4.0 MEQ/L Chloride Level 92 MEQ/L Carbon Dioxide Level 24.0 MEQ/L Anion Gap 12 MEQ/L Blood Urea Nitrogen 58 MG/DL Creatinine 6.56 MG/DL Estimat Glomerular Filtration 6 ML/MIN Rate Random Glucose 352 MG/DL Calcium Level 8.1 MG/DL Magnesium Level 1.5 MG/DL Stool C. difficile Toxin (PCR) NEGATIVE Stl C. difficile Toxin PRESUMPTIVE Epiderm 027 NEGATIVE Test 03/27/16 03/27/16 06:39 08:45 Sodium Level 129 MEQ/L Potassium Level 3.8 MEQ/L Chloride Level 91 MEQ/L Carbon Dioxide Level 25.4 MEQ/L Anion Gap 13 MEQ/L Blood Urea Nitrogen 60 MG/DL Creatinine 6.13 MG/DL Estimat Glomerular Filtration 7 ML/MIN Rate Random Glucose 250 MG/DL Calcium Level 7.6 MG/DL Phosphorus Level 4.9 MG/DL Magnesium Level 1.4 MG/DL Iron Level 8 MCG/DL Total Iron Binding Capacity 141 MCG/DL Percent Iron Saturation 5.7 % Albumin 1.6 GM/DL Peritoneal Fluid WBC 106 /MM3 Peritoneal Fluid RBC 0 /MM3 Peritoneal Fluid Neutrophils 75 % Peritoneal Fluid Lymphocytes 8 % Peritoneal Fluid Monocytes 10 % Peritoneal Fluid Histiocytes 5 % Peritoneal Fluid Other Cells 2 % Imaging Last Impressions Chest X-Ray 03/25/16 1434 Signed Impressions: Service Date/Time: Friday, March 25, 2016 14:45 - CONCLUSION: 1. Mild cardiomegaly. 2. Postsurgical changes. 3. No acute abnormality. Surya Christianson MD Soft Tissue Ultrasound 03/25/16 0000 Signed Impressions: Service Date/Time: Friday, March 25, 2016 17:25 - CONCLUSION: Diffuse soft tissue swelling in the right labia and right groin. Enrique Snyder MD Abdomen/Pelvis CT 03/25/16 0000 Signed Impressions: Service Date/Time: Friday, March 25, 2016 19:39 - CONCLUSION: 1. Cellulitic changes in the right groin, right perineum and right labia. No abscess or fluid collection. 2. Dialysis catheter and minimal pelvic ascites. 3. Diverticulosis without diverticulitis. 4. Status post cholecystectomy. Enrique Snyder MD Last Impressions Chest X-Ray 03/25/16 1434 Signed Impressions: Service Date/Time: Friday, March 25, 2016 14:45 - CONCLUSION: 1. Mild cardiomegaly. 2. Postsurgical changes. 3. No acute abnormality. Surya Christianson MD Objective Remarks General: NAD, AAOx3 Chest: CTA bilaterally Cardiac: Regular Abd: +BS, soft ND/NT : erythema, tenderness and swelling of the right labia and right inguinal area Ext: No edema A/P Problem List: (1) Vulval cellulitis Status: Acute Plan: - Pt admitted with cellulitis of the right labia/vulva and into the right inguinal region which began around 4 days ago - Pt had a noted elevated WBC count of 14.4 at admission with a Lactic acid of 2.4 - Pt was given IV Vancomycin, Cefepime and Clindamycin - BRAND ADVISOR has evaluated - Appreciate ID consultation - Cont. Vancomycin (started 03/25/16) - Zosyn added (started 03/26/16) - CT abd/pelvis (03/25/16) --> Cellulitic changes in the right groin, right perineum and right labia. No abscess or fluid collection. Dialysis catheter and minimal pelvic ascites. Diverticulosis without diverticulitis. Status post cholecystectomy. - Blood cultures with one out of 4 growing E. coli - Peritoneal fluid culture is pending. - Tylenol PRN for fever - Zofran PRN - Pain control PRN - Warm compresses - Supportive care - DVT prophylaxis with SCDs (2) Bacteremia Status: Acute Plan: - Blood cultures with one out of 4 growing E. coli, likely secondary to above. - Per Nephrology notes the pts dialysate was reportedly cloudy with over peritoneal WBC count over 100. - There is concern for possible peritonitis. - Peritoneal fluid culture is pending. - ID following. - Cont. abx recommendations per ID (3) ESRD (end stage renal disease) on dialysis Status: Chronic Plan: - Pt is on PD since 05/2015 - Appreciate Nephrology consultation - Monitor labs - Pt has not been eating and drinking well and electrolyte abnormality is likely related to some degree of dehydration in the setting of her ESRD - Encourage oral intake - Monitor labs closely (4) DM (diabetes mellitus) Status: Chronic Plan: - NovoLog SSI - Add Levemir 15units BID - Accu checks (5) Hypothyroidism Status: Chronic Plan: - Home meds continued (6) Hypertension Status: Chronic Plan: - Home meds continued (7) Anemia Status: Chronic Plan: - Related to pts ESRD - Labs are stable currently - Monitor - Pt receives Procrit periodically Assessment and Plan Patient examined. Assessment and plan formulated with Sharon Swenson PA-C. I agree with the above. Problem Qualifiers (1) DM (diabetes mellitus): Sharon Swenson Mar 27, 2016 16:13 Kong Bagley DO Mar 28, 2016 16:09
[2016-03-27] MEDS: ACETAMINOPHEN/HYDROcodone 325 MG/10 MG TAB PO PRN (17:39)
[2016-03-27] MEDS ORDERED: HYDROmorphone HCL PF 1 MG/ML VIAL IV PUSH PRN (18:00)
[2016-03-27] MEDS ORDERED: PROMETHAZINE HCL 25 MG SUPP RECTAL PRN (18:00)
--- NOTE | 2016-03-27 20:14 | HHI.IDPN ---
Subjective Subjective Remarks feels about the same No fever No diarrhea BP stable Antibiotics zosyn, vancomycin Allergies: Coded Allergies: Codeine (Verified Allergy, Severe, HALLUCINATIONS, 03/25/16) Ofloxacin (Verified Allergy, Severe, FLOXIN, 03/25/16) Objective . Vital Signs Date Time Temp Pulse Resp B/P Pulse Ox O2 Delivery O2 Flow Rate FiO2 03/27/16 16:00 98.0 80 16 102/51 94 03/27/16 12:00 98.4 82 16 107/53 94 03/27/16 08:00 98.7 82 17 127/59 95 03/27/16 04:00 97.6 78 18 121/55 97 03/27/16 02:36 18 03/27/16 01:00 99.8 55 17 106/49 96 03/27/16 00:00 99.0 82 20 94/51 98 03/26/16 03/26/16 03/27/16 15:00 23:00 07:00 Intake Total 580 ml Balance 580 ml Intake Oral 480 ml IV Total 100 ml # Voids 0 # Bowel Movements 1 1 . Laboratory Tests Test 03/26/16 03/27/16 04:00 06:29 White Blood Count 10.5 TH/MM3 8.4 TH/MM3 Red Blood Count 3.00 MIL/MM3 2.52 MIL/MM3 Hemoglobin 9.7 GM/DL 8.0 GM/DL Hematocrit 29.2 % 24.1 % Mean Corpuscular Volume 97.2 FL 95.3 FL Mean Corpuscular Hemoglobin 32.2 PG 31.6 PG Mean Corpuscular Hemoglobin 33.1 % 33.1 % Concent Red Cell Distribution Width 14.0 % 14.0 % Platelet Count 163 TH/MM3 166 TH/MM3 Mean Platelet Volume 9.1 FL 8.8 FL Neutrophils (%) (Auto) 85.5 % 81.8 % Lymphocytes (%) (Auto) 3.2 % 4.5 % Monocytes (%) (Auto) 10.9 % 12.0 % Eosinophils (%) (Auto) 0.2 % 1.4 % Basophils (%) (Auto) 0.2 % 0.3 % Neutrophils # (Auto) 8.9 TH/MM3 6.9 TH/MM3 Lymphocytes # (Auto) 0.3 TH/MM3 0.4 TH/MM3 Monocytes # (Auto) 1.1 TH/MM3 1.0 TH/MM3 Eosinophils # (Auto) 0.0 TH/MM3 0.1 TH/MM3 Basophils # (Auto) 0.0 TH/MM3 0.0 TH/MM3 CBC Comment DIFF FINAL DIFF FINAL Differential Comment Laboratory Tests Test 03/26/16 03/27/16 04:00 06:39 Sodium Level 128 MEQ/L 129 MEQ/L Potassium Level 4.0 MEQ/L 3.8 MEQ/L Chloride Level 92 MEQ/L 91 MEQ/L Carbon Dioxide Level 24.0 MEQ/L 25.4 MEQ/L Anion Gap 12 MEQ/L 13 MEQ/L Blood Urea Nitrogen 58 MG/DL 60 MG/DL Creatinine 6.56 MG/DL 6.13 MG/DL Estimat Glomerular Filtration 6 ML/MIN 7 ML/MIN Rate Random Glucose 352 MG/DL 250 MG/DL Calcium Level 8.1 MG/DL 7.6 MG/DL Magnesium Level 1.5 MG/DL 1.4 MG/DL Phosphorus Level 4.9 MG/DL Iron Level 8 MCG/DL Total Iron Binding Capacity 141 MCG/DL Percent Iron Saturation 5.7 % Albumin 1.6 GM/DL Microbiology Date/Time Procedure Status Source Growth 03/25/16 14:45 Aerobic Blood Culture - Preliminary Resulted Blood Peripheral Escherichia Coli 03/25/16 14:45 Anaerobic Blood Culture - Preliminary Resulted Blood Peripheral NO GROWTH IN 2 DAYS 03/25/16 14:45 Aerobic Blood Culture - Preliminary Resulted Blood Peripheral NO GROWTH IN 2 DAYS 03/25/16 14:45 Anaerobic Blood Culture - Preliminary Resulted Blood Peripheral NO GROWTH IN 2 DAYS 03/27/16 08:45 Gram Stain - Final Resulted Fluid Peritoneal Fluid 03/27/16 08:45 Body Fluid Culture Resulted Fluid Peritoneal Fluid Pending Imaging Last Impressions Chest X-Ray 03/25/16 1434 Signed Impressions: Service Date/Time: Friday, March 25, 2016 14:45 - CONCLUSION: 1. Mild cardiomegaly. 2. Postsurgical changes. 3. No acute abnormality. Surya Christianson MD Soft Tissue Ultrasound 03/25/16 0000 Signed Impressions: Service Date/Time: Friday, March 25, 2016 17:25 - CONCLUSION: Diffuse soft tissue swelling in the right labia and right groin. Enrique Snyder MD Abdomen/Pelvis CT 03/25/16 0000 Signed Impressions: Service Date/Time: Friday, March 25, 2016 19:39 - CONCLUSION: 1. Cellulitic changes in the right groin, right perineum and right labia. No abscess or fluid collection. 2. Dialysis catheter and minimal pelvic ascites. 3. Diverticulosis without diverticulitis. 4. Status post cholecystectomy. Enrique Snyder MD Physical Exam CONSTITUTIONAL/GENERAL: This is a morbidly obese elderly ill appearing patient , in no apparent distress. SKIN: No jaundice, rashes, or lesions. HEAD: Atraumatic. Normocephalic. EYES: Pupils equal and round and reactive. No scleral icterus. No injection or drainage. ENT: Hearing grossly normal. Nose without bleeding or purulent drainage. Oral mucosae without visible erythema, exudates, masses, or lesions. CARDIOVASCULAR: Regular rate and rhythm without murmurs, gallops, or rubs. No JVD. Peripheral pulses symmetric. RESPIRATORY/CHEST: Symmetric, unlabored respirations. Clear to auscultation. Breath sounds equal bilaterally. No wheezes, rales, or rhonchi. GASTROINTESTINAL: Abdomen soft, non-tender, nondistended. No hepato-splenomegaly , or palpable masses. No guarding. Bowel sounds present. PD cath in place RLQ with clear peritoneal fluid in tubing GENITOURINARY: Without palpable bladder distension. R labia major is much less erthematous, less indurated and less tender to palpation no crepitus no purulence or fluctuance decreased erythema to inner thigh area MUSCULOSKELETAL: Extremities without clubbing, cyanosis, + 2 BLE edema. No mottling or clubbing. NEUROLOGICAL: Awake alert. Non focal. Normal speech Assessment & Plan Remarks Labial cellulitis, phlegmone R - improving Sepsis, E.coli bacteremia - 2/2 to above Abcx associated diarrhea, C.diff negative - switched to zosyn, vanocmyicn - monito clinically for the need of debridement ESRD/PD - fu PD fluid clx (Gstain negative) Discussed Condition With Radha Patiño MD Mar 27, 2016 20:14
[2016-03-27] MEDS: PRAMIPEXOLE DIHYDROCHLORIDE 0.25 MG TAB PO SCH (20:47)
[2016-03-27] MEDS: ATORVASTATIN 40 MG TAB PO SCH (20:47)
[2016-03-28] VITALS: BP 117/55; PULSE 81; RESP 16; TEMP 97.8; O2SAT 96
[2016-03-28] MEDS: LEVOTHYROXINE SODIUM 88 MCG TAB PO SCH (03:57)
[2016-03-28] MEDS: ACETAMINOPHEN/HYDROcodone 325 MG/5 MG TAB PO PRN (03:58)
[2016-03-28] MEDS: PIPERACIL-TAZO 2.25 GM PREMIX 50 ML IV SCH ×3 (03:59→20:10)
[2016-03-28 04:00] VITALS: BP 115/56; PULSE 84; RESP 16; TEMP 98.1; O2SAT 95
[2016-03-28] MEDS: INSULIN ASPART SUPPLEMENTAL SCALE SQ SCH ×4 (05:55→20:18)
[2016-03-28 08:00] VITALS: BP 96/44; PULSE 77; RESP 22; TEMP 100; O2SAT 92
[2016-03-28] MEDS: INSULIN DETEMIR 100 UNITS/ML VIAL SQ SCH ×2 (09:49→20:12)
[2016-03-28] MEDS: CARVEDILOL 12.5 MG TAB PO SCH (09:49)
[2016-03-28] MEDS: SERTRALINE HCL 100 MG TAB PO SCH (09:49)
[2016-03-28] MEDS: ASPIRIN EC 325 MG TABEC PO SCH (09:49)
[2016-03-28] MEDS: PANTOPRAZOLE SOD 40 MG DELAYED RELEASE TAB PO SCH (09:49)
[2016-03-28] MEDS: FERROUS SULFATE 325 MG (65 MG ELEMENTAL IRON) TAB PO SCH (09:50)
[2016-03-28] MEDS: SODIUM CHLORIDE 0.9% FLUSH 5 ML FLUSH FLUSH SCH ×2 (09:50→20:10)
[2016-03-28] MEDS: CALCITRIOL 0.25 MCG CAP PO SCH (09:54)
[2016-03-28] MEDS: CHOLECALCIFEROL (VIT D3) 5000 UNIT CAP PO SCH (09:54)
[2016-03-28 12:00] VITALS: BP 114/45; PULSE 81; RESP 22; TEMP 98.7; O2SAT 91
--- NOTE | 2016-03-28 12:08 | HHI.NPPN ---
Subjective General Problems: Hypertension Renal Failure: Chronic, End Stage Renal Disease Interval History complains of back pain, generally feels very weak. Review of Systems General Constitutional: Fatigue Gastrointestinal Gastrointestinal: Abdominal Pain Musculoskeletal MS: Pain/Stiffness Skin Skin Remarks vaginal abscess, labial swelling Objective Data Data 03/27/16 03/28/16 19:00 07:00 Intake Total 120 ml 120 ml Balance 120 ml 120 ml Intake Oral 120 ml 120 ml # Voids 2 # Bowel Movements 1 3 Vital Signs Date Time Temp Pulse Resp B/P Pulse Ox O2 Delivery O2 Flow Rate FiO2 03/28/16 08:00 100.0 77 22 96/44 92 03/28/16 04:00 98.1 84 16 115/56 95 03/28/16 00:00 97.8 81 16 117/55 96 03/27/16 20:00 101.4 88 17 120/55 91 03/27/16 16:00 98.0 80 16 102/51 94 -: 03/27/16 0629 03/27/16 0639 Tubes & Lines: Tenckhoff Catheter Physical Exam General Appearance: Well Developed, Well Nourished, No Acute Distress, Comfortable, Obese Throat Throat Exam: Oral Mucosa [place] & Moist Neck Neck Exam: Neck Supple Pulmonary Resp Exam: Clear Bilaterally, Breath Sounds Equal, No Distress Cardiology CV Exam: Regular, Normal Sinus Rhythm, Good Perfusion Gastrointestinal/Abdomen GI Exam: Soft, Non-Tender, Bowel Sounds Present Musculoskeletal MS Exam: Joints Intact, Good Strength Integumentary Skin Exam: Clear, Warm, Dry, Intact Extremeties Extremities Exam: No Edema, Pedal Pulses Palpable Neurologic Neuro Exam: Alert, Awake, Oriented, Speech Clear, Moving All Extremities Psychiatric Psych Exam: Appropriate Responses Assessment/Plan Assessment Summary: Anemia of CKD, Hypertension, Diabetes Mellitus, End Stage Renal Disease Electrolyte Assessment: Hypocalcemia, Hyponatremia Problem List: (1) ESRD (end stage renal disease) on dialysis Plan: continue Nightly PD (outpatient regimen consists of 4 cycles, 2500 ml fill volume, 9 hr time, no last fill, 1.5% dextrose solution) continue CCPD. Monitor fluid and electrolytes. (2) Vulval cellulitis Plan: with sepsis, + E coli in 1/4 bottles ID following. On Zosyn, has received IV Vancomycin. May switch to IP antibiotics if ID is OK with it. Dialysate WBC count was more than 100, suggestive of peritonitis. Seen by Gynecology. Supportive care, sitz baths recommended. (3) DM (diabetes mellitus) Plan: continue insulin as ordered monitor glucose, goal 140-180 mg/dL (4) Hypertension Plan: oral medications as ordered follow blood pressure, adjust medications as needed (5) Anemia Plan: labs indicating iron deficiency avoid IV Iron in light of sepsis, oral iron started Monitor Hemoglobin. Epogen dose ordered today. Problem Qualifiers (1) DM (diabetes mellitus): Filemon Mar MD Mar 28, 2016 12:08
[2016-03-28] MEDS ORDERED: EPOETIN ALFA 20,000 UNITS/ML VIAL SQ ONE (13:00)
[2016-03-28 16:00] VITALS: BP 109/84; PULSE 81; RESP 20; TEMP 98.2; O2SAT 97
--- NOTE | 2016-03-28 16:14 | HHI.PR ---
Subjective Remarks No new complaints. Poor PO intake. sleepy today but readily awakens to voice. Objective Vitals Vital Signs Date Time Temp Pulse Resp B/P Pulse Ox O2 Delivery O2 Flow Rate FiO2 03/28/16 12:00 98.7 81 22 114/45 91 03/28/16 08:00 100.0 77 22 96/44 92 03/28/16 04:00 98.1 84 16 115/56 95 03/28/16 00:00 97.8 81 16 117/55 96 03/27/16 20:00 101.4 88 17 120/55 91 03/27/16 03/27/16 03/28/16 15:00 23:00 07:00 Intake Total 120 ml 120 ml Balance 120 ml 120 ml Intake Oral 120 ml 120 ml # Voids 1 1 # Bowel Movements 1 3 Result Diagram: 03/27/16 0629 03/27/16 0639 Imaging Last Impressions Chest X-Ray 03/25/16 1434 Signed Impressions: Service Date/Time: Friday, March 25, 2016 14:45 - CONCLUSION: 1. Mild cardiomegaly. 2. Postsurgical changes. 3. No acute abnormality. Surya Christianson MD Soft Tissue Ultrasound 03/25/16 0000 Signed Impressions: Service Date/Time: Friday, March 25, 2016 17:25 - CONCLUSION: Diffuse soft tissue swelling in the right labia and right groin. Enrique Snyder MD Abdomen/Pelvis CT 03/25/16 0000 Signed Impressions: Service Date/Time: Friday, March 25, 2016 19:39 - CONCLUSION: 1. Cellulitic changes in the right groin, right perineum and right labia. No abscess or fluid collection. 2. Dialysis catheter and minimal pelvic ascites. 3. Diverticulosis without diverticulitis. 4. Status post cholecystectomy. Enrique Snyder MD Last Impressions Chest X-Ray 03/25/16 1434 Signed Impressions: Service Date/Time: Friday, March 25, 2016 14:45 - CONCLUSION: 1. Mild cardiomegaly. 2. Postsurgical changes. 3. No acute abnormality. Surya Christianson MD Objective Remarks General: NAD, AAOx3 Chest: CTA bilaterally Cardiac: Regular Abd: +BS, soft ND/NT : erythema, tenderness and swelling of the right labia and right inguinal area Ext: No edema A/P Problem List: (1) Vulval cellulitis Status: Acute Plan: - comgmt with [employer], ID - Pt admitted with cellulitis of the right labia/vulva and into the right inguinal region which began around 4 days ago - Pt had a noted elevated WBC count of 14.4 at admission with a Lactic acid of 2.4 - Pt was given IV Vancomycin, Cefepime and Clindamycin - CT abd/pelvis (03/25/16) --> Cellulitic changes in the right groin, right perineum and right labia. No abscess or fluid collection. Dialysis catheter and minimal pelvic ascites. Diverticulosis without diverticulitis. Status post cholecystectomy. - Blood cultures with one out of 4 growing E. coli - peritoneal WBC - Peritoneal fluid culture --> NGTD - Cont. Vancomycin (started 03/25/16) - Zosyn added (started 03/26/16) - Tylenol PRN for fever - Zofran PRN - Pain control PRN - Warm compresses - Supportive care - DVT prophylaxis with SCDs (2) Bacteremia Status: Acute Plan: - Blood cultures with one out of 4 growing E. coli, likely secondary to above. - Per Nephrology notes the pts dialysate was reportedly cloudy with over peritoneal WBC count over 100. - see above - Cont. abx recommendations per ID (3) ESRD (end stage renal disease) on dialysis Status: Chronic Plan: - comgmt with nephrology - Pt is on PD since 05/2015 - Monitor labs - Pt has not been eating and drinking well and electrolyte abnormality is likely related to some degree of dehydration in the setting of her ESRD - Encourage oral intake - Monitor labs closely (4) DM (diabetes mellitus) Status: Chronic Plan: - NovoLog SSI - decrease Levemir to 8 units BID - Accu checks (5) Hypothyroidism Status: Chronic Plan: - Home meds continued (6) Hypertension Status: Chronic Plan: - Home meds continued (7) Anemia Status: Chronic Plan: - Related to pts ESRD - received epogen (03/28/16) - repeat CBC in AM Assessment and Plan Patient examined. Assessment and plan formulated with Sharon Swenson PA-C. I agree with the above. Problem Qualifiers (1) DM (diabetes mellitus): Kong Bagley DO Mar 28, 2016 16:14
[2016-03-28] MEDS: ACETAMINOPHEN/HYDROcodone 325 MG/10 MG TAB PO PRN (18:42)
[2016-03-28 20:00] VITALS: BP 142/69; PULSE 87; RESP 18; TEMP 99.1; O2SAT 94
[2016-03-28] MEDS: ATORVASTATIN 40 MG TAB PO SCH (20:09)
[2016-03-28] MEDS: PRAMIPEXOLE DIHYDROCHLORIDE 0.25 MG TAB PO SCH (20:09)
[2016-03-28] MEDS: CARVEDILOL 6.25 MG TAB PO SCH (20:09)
[2016-03-29] VITALS (9 sets, daily range): BP systolic 95–150; BP diastolic 40–65; PULSE 72–88; RESP 16–22; TEMP 96.7–99.4; O2SAT 95–98
[2016-03-29] MEDS: LEVOTHYROXINE SODIUM 88 MCG TAB PO SCH (05:39)
[2016-03-29] MEDS: PIPERACIL-TAZO 2.25 GM PREMIX 50 ML IV SCH ×3 (05:39→20:53)
[2016-03-29] MEDS: INSULIN ASPART SUPPLEMENTAL SCALE SQ SCH ×4 (05:41→21:03)
[2016-03-29 07:44] LABS: AUTOMATED NEUTROPHIL # 7.7 TH/MM3 (1.8-7.7); BASOPHIL % 0.4 % (0.0-2.0); EOSINOPHIL # 0.2 TH/MM3 (0-0.4); EOSINOPHIL % 1.8 % (0.0-4.0); HEMATOCRIT 23.8 % (35.0-46.0); LYMPH % 3.4 % (9.0-44.0); LYMPHOCYTE # 0.3 TH/MM3 (1.0-4.8); MEAN CORPUSCULAR HGB CONC 33.7 % (32.0-36.0); MONO % 9.5 % (0.0-8.0); NEUT % 84.9 % (16.0-70.0); PLATELET COUNT 192 TH/MM3 (150-450); RED CELL DISTRIBUTION WIDTH 14.6 % (11.6-17.2); WHITE BLOOD COUNT 9.1 TH/MM3 (4.0-11.0)
[2016-03-29 08:11] LABS: BICARBONATE 27.8 MEQ/L (21.0-32.0); MAGNESIUM 1.7 MG/DL (1.5-2.5); POTASSIUM 3.6 MEQ/L (3.5-5.1)
[2016-03-29 08:16] LABS: HEMO FLAGS AUTO DIFF
[2016-03-29 08:34] LABS: CALCIUM-PROTEIN CORRECTED 7.6 MG/DL (8.5-10.1)
--- NOTE | 2016-03-29 09:02 | HHI.NPPN ---
Subjective General Problems: Hypertension Renal Failure: Chronic, End Stage Renal Disease Interval History Lethargic, weak appearing. Negative UF with dialysis. Used 1.5 % dextrose PD solution, will use 2.5 % dextrose PD solution today. Given Epogen yesterday. Hemoglobin low. Review of Systems General Constitutional: Fatigue Gastrointestinal Gastrointestinal: Abdominal Pain Musculoskeletal MS: Pain/Stiffness Skin Skin Remarks vaginal abscess, labial swelling Objective Data Data 03/28/16 03/29/16 19:00 07:00 Intake Total 120 ml 290 ml Balance 120 ml 290 ml Intake Oral 120 ml 290 ml # Bowel Movements 2 Vital Signs Date Time Temp Pulse Resp B/P Pulse Ox O2 Delivery O2 Flow Rate FiO2 03/29/16 08:00 98.8 82 20 140/65 97 03/29/16 04:00 99.0 82 16 129/53 97 03/29/16 00:00 99.4 81 16 121/50 95 03/28/16 20:00 99.1 87 18 142/69 94 03/28/16 16:00 98.2 81 20 109/84 97 03/28/16 12:00 98.7 81 22 114/45 91 -: 03/29/16 0606 03/29/16 0606 Tubes & Lines: Tenckhoff Catheter Physical Exam General Appearance: Well Developed, Well Nourished, No Acute Distress, Comfortable, Obese Throat Throat Exam: Oral Mucosa [place] & Moist Neck Neck Exam: Neck Supple Pulmonary Resp Exam: Clear Bilaterally, Breath Sounds Equal, No Distress Cardiology CV Exam: Regular, Normal Sinus Rhythm, Good Perfusion Gastrointestinal/Abdomen GI Exam: Soft, Non-Tender, Bowel Sounds Present Musculoskeletal MS Exam: Joints Intact, Good Strength Integumentary Skin Exam: Clear, Warm, Dry, Intact Extremeties Extremities Exam: No Edema, Pedal Pulses Palpable Neurologic Neuro Exam: Alert, Awake, Oriented, Speech Clear, Moving All Extremities Psychiatric Psych Exam: Appropriate Responses Assessment/Plan Assessment Summary: Anemia of CKD, Hypertension, Diabetes Mellitus, End Stage Renal Disease Electrolyte Assessment: Hypocalcemia, Hyponatremia Problem List: (1) ESRD (end stage renal disease) on dialysis Plan: continue Nightly PD (outpatient regimen consists of 4 cycles, 2500 ml fill volume, 9 hr time, no last fill, 1.5% dextrose solution). To use 2.5 % dextrose PD solution today. continue CCPD. Monitor fluid and electrolytes. (2) Vulval cellulitis Plan: with sepsis, + E coli in 1/4 bottles ID following. On Zosyn, has received IV Vancomycin. May switch to IP antibiotics if ID is OK with it. Dialysate WBC count was more than 100, suggestive of peritonitis. Dialysate is not cloudy, had some fibrin a few days ago, added heparin. Seen by Gynecology. Supportive care, sitz baths recommended. (3) DM (diabetes mellitus) Plan: continue insulin as ordered monitor glucose, goal 140-180 mg/dL (4) Hypertension Plan: oral medications as ordered follow blood pressure, adjust medications as needed (5) Anemia Plan: labs indicating iron deficiency avoid IV Iron in light of sepsis, oral iron started Monitor Hemoglobin. Epogen given on 03/28: 44908 units SC. Consider 1 unit of PRBC. Problem Qualifiers (1) DM (diabetes mellitus): Filemon Mar MD Mar 29, 2016 09:02
[2016-03-29 09:35] LABS: PLATELET ESTIMATE SMEAR NORMAL (NORMAL); PLATELET MORPHOLOGY NORMAL (NORMAL); SCAN/DIFF AUTO DIFF CONFIRMED
[2016-03-29] MEDS: CARVEDILOL 6.25 MG TAB PO SCH ×2 (10:00→20:44)
[2016-03-29] MEDS: FERROUS SULFATE 325 MG (65 MG ELEMENTAL IRON) TAB PO SCH (10:00)
[2016-03-29] MEDS: SERTRALINE HCL 100 MG TAB PO SCH (10:00)
[2016-03-29] MEDS: ASPIRIN EC 325 MG TABEC PO SCH (10:00)
[2016-03-29] MEDS: PANTOPRAZOLE SOD 40 MG DELAYED RELEASE TAB PO SCH (10:01)
[2016-03-29] MEDS: INSULIN DETEMIR 100 UNITS/ML VIAL SQ SCH (10:01)
[2016-03-29] MEDS: CALCITRIOL 0.25 MCG CAP PO SCH (10:10)
[2016-03-29] MEDS: CHOLECALCIFEROL (VIT D3) 5000 UNIT CAP PO SCH (10:10)
[2016-03-29] MEDS: SODIUM CHLORIDE 0.9% FLUSH 5 ML FLUSH FLUSH SCH ×2 (10:12→21:00)
[2016-03-29] MEDS: ACETAMINOPHEN/HYDROcodone 325 MG/5 MG TAB PO PRN ×2 (10:12→21:02)
--- NOTE | 2016-03-29 13:11 | HHI.PR ---
Subjective Remarks Pt remains sleepy and fatigued. Poor PO intake. Pt does readily awaken & answers questions appropriately. Objective Vitals Vital Signs Date Time Temp Pulse Resp B/P Pulse Ox O2 Delivery O2 Flow Rate FiO2 03/29/16 12:00 97.1 88 20 97/44 97 110/43 03/29/16 08:00 98.8 82 20 140/65 97 03/29/16 04:00 99.0 82 16 129/53 97 03/29/16 00:00 99.4 81 16 121/50 95 03/28/16 20:00 99.1 87 18 142/69 94 03/28/16 16:00 98.2 81 20 109/84 97 03/28/16 03/28/16 03/29/16 15:00 23:00 07:00 Intake Total 120 ml 240 ml 50 ml Balance 120 ml 240 ml 50 ml Intake Oral 120 ml 240 ml 50 ml # Bowel Movements 2 0 Result Diagram: 03/29/16 0606 03/29/16 0606 Imaging Last Impressions Chest X-Ray 03/25/164 Signed Impressions: Service Date/Time: Friday, March 25, 2016 14:45 - CONCLUSION: 1. Mild cardiomegaly. 2. Postsurgical changes. 3. No acute abnormality. Surya Christianson MD Soft Tissue Ultrasound 03/25/16 0000 Signed Impressions: Service Date/Time: Friday, March 25, 2016 17:25 - CONCLUSION: Diffuse soft tissue swelling in the right labia and right groin. Enrique Snyder MD Abdomen/Pelvis CT 03/25/16 0000 Signed Impressions: Service Date/Time: Friday, March 25, 2016 19:39 - CONCLUSION: 1. Cellulitic changes in the right groin, right perineum and right labia. No abscess or fluid collection. 2. Dialysis catheter and minimal pelvic ascites. 3. Diverticulosis without diverticulitis. 4. Status post cholecystectomy. Enrique Snyder MD Last Impressions Chest X-Ray 03/25/16 1434 Signed Impressions: Service Date/Time: Friday, March 25, 2016 14:45 - CONCLUSION: 1. Mild cardiomegaly. 2. Postsurgical changes. 3. No acute abnormality. Surya Christianson MD Objective Remarks General: NAD, AAOx3 Chest: CTA bilaterally Cardiac: Regular Abd: +BS, soft ND/NT : erythema, tenderness and swelling of the right labia and right inguinal area Ext: No edema A/P Problem List: (1) Anemia Status: Chronic Plan: - Related to pts ESRD - received epogen (03/28/16) - Hg 8.0 (03/29/16) - transfuse 1 units PRBC to avoid volume overload - repeat CBC in AM - pt may require additional 1 unit PRBC - case d/w Dr. Mar (03/29/16) (2) Vulval cellulitis Status: Acute Plan: - comgmt with [employer], ID - Pt admitted with cellulitis of the right labia/vulva and into the right inguinal region which began around 4 days ago - Pt had a noted elevated WBC count of 14.4 at admission with a Lactic acid of 2.4 - Pt was given IV Vancomycin, Cefepime and Clindamycin - CT abd/pelvis (03/25/16) --> Cellulitic changes in the right groin, right perineum and right labia. No abscess or fluid collection. Dialysis catheter and minimal pelvic ascites. Diverticulosis without diverticulitis. Status post cholecystectomy. - Blood cultures with one out of 4 growing E. coli - peritoneal WBC - Peritoneal fluid culture --> NGTD - Cont. Vancomycin (started 03/25/16) - Zosyn added (started 03/26/16) - Tylenol PRN for fever - Zofran PRN - Pain control PRN - Warm compresses - Supportive care - DVT prophylaxis with SCDs (3) Bacteremia Status: Acute Plan: - Blood cultures with one out of 4 growing E. coli, likely secondary to above. - Per Nephrology notes the pts dialysate was reportedly cloudy with over peritoneal WBC count over 100. - see above - Cont. abx recommendations per ID (4) ESRD (end stage renal disease) on dialysis Status: Chronic Plan: - comgmt with nephrology - Pt is on PD since 05/2015 - Monitor labs - Pt has not been eating and drinking well and electrolyte abnormality is likely related to some degree of dehydration in the setting of her ESRD - Encourage oral intake - Monitor labs closely (5) DM (diabetes mellitus) Status: Chronic Plan: - NovoLog SSI - poor PO intake - stop Levemir - Accu checks (6) Hypothyroidism Status: Chronic Plan: - Home meds continued (7) Hypertension Status: Chronic Plan: - Home meds continued Problem Qualifiers (1) Anemia: Qualified Code: N18.9 - Anemia in chronic kidney disease (2) DM (diabetes mellitus): Kong Bagley DO Mar 29, 2016 13:11
[2016-03-29] MEDS: ATORVASTATIN 40 MG TAB PO SCH (20:53)
[2016-03-29] MEDS: PRAMIPEXOLE DIHYDROCHLORIDE 0.25 MG TAB PO SCH (20:53)
[2016-03-30 00:02] VITALS: BP 141/65; PULSE 83; RESP 18; TEMP 100.1; O2SAT 96
[2016-03-30 04:00] VITALS: BP 116/50; PULSE 87; RESP 18; TEMP 99.2; O2SAT 95
[2016-03-30] MEDS: LEVOTHYROXINE SODIUM 88 MCG TAB PO SCH (05:25)
[2016-03-30] MEDS: PIPERACIL-TAZO 2.25 GM PREMIX 50 ML IV SCH ×3 (05:25→20:27)
[2016-03-30] MEDS: INSULIN ASPART SUPPLEMENTAL SCALE SQ SCH ×4 (06:35→20:27)
[2016-03-30 07:12] LABS: BASOPHIL % 0.1 % (0.0-2.0); EOSINOPHIL # 0.1 TH/MM3 (0-0.4); EOSINOPHIL % 1.3 % (0.0-4.0); HEMATOCRIT 25.3 % (35.0-46.0); HEMO FLAGS DIFF FINAL; LYMPH % 2.2 % (9.0-44.0); LYMPHOCYTE # 0.2 TH/MM3 (1.0-4.8); MEAN CELL VOLUME 92.2 FL (80.0-100.0); MEAN CORPUSCULAR HEMOGLOBIN 31.1 PG (27.0-34.0); MEAN CORPUSCULAR HGB CONC 33.7 % (32.0-36.0); MONO % 4.4 % (0.0-8.0); PLATELET COUNT 186 TH/MM3 (150-450); RED BLOOD COUNT 2.75 MIL/MM3 (4.00-5.30); RED CELL DISTRIBUTION WIDTH 17.2 % (11.6-17.2); WHITE BLOOD COUNT 10.8 TH/MM3 (4.0-11.0)
[2016-03-30 07:44] LABS: BICARBONATE 26.2 MEQ/L (21.0-32.0); MAGNESIUM 1.7 MG/DL (1.5-2.5); POTASSIUM 3.8 MEQ/L (3.5-5.1)
[2016-03-30 07:58] LABS: CALCIUM-PROTEIN CORRECTED 7.7 MG/DL (8.5-10.1)
[2016-03-30 08:00] VITALS: BP 115/56; PULSE 74; RESP 22; TEMP 97.5; O2SAT 97
[2016-03-30] MEDS: PANTOPRAZOLE SOD 40 MG DELAYED RELEASE TAB PO SCH (08:36)
[2016-03-30] MEDS: ASPIRIN EC 325 MG TABEC PO SCH (08:36)
[2016-03-30] MEDS: CALCITRIOL 0.25 MCG CAP PO SCH (08:36)
[2016-03-30] MEDS: CARVEDILOL 6.25 MG TAB PO SCH ×2 (08:37→20:27)
[2016-03-30] MEDS: SERTRALINE HCL 100 MG TAB PO SCH (08:37)
[2016-03-30] MEDS: CHOLECALCIFEROL (VIT D3) 5000 UNIT CAP PO SCH (08:37)
[2016-03-30] MEDS: SODIUM CHLORIDE 0.9% FLUSH 5 ML FLUSH FLUSH SCH ×2 (08:37→20:27)
[2016-03-30] MEDS: FERROUS SULFATE 325 MG (65 MG ELEMENTAL IRON) TAB PO SCH (08:37)
[2016-03-30] MEDS: ACETAMINOPHEN/HYDROcodone 325 MG/5 MG TAB PO PRN ×2 (08:41→20:26)
--- NOTE | 2016-03-30 09:35 | HHI.PR ---
Subjective Remarks awake. no new complaints Objective Vitals heart reg lung cta abd dialysis catheter. rlq tender right labial erythema/induration/tenderness extending to right medial thigh/groin with denuded buttock skin/breakdown. Vital Signs Date Time Temp Pulse Resp B/P Pulse Ox O2 Delivery O2 Flow Rate FiO2 03/30/16 08:00 97.5 74 22 115/56 97 03/30/16 04:00 99.2 87 18 116/50 95 03/30/16 00:02 100.1 83 18 141/65 96 03/29/16 20:00 98.3 73 18 106/50 98 03/29/16 18:26 96.8 73 22 108/46 98 03/29/16 16:32 97.7 72 16 95/42 98 03/29/16 16:03 96.7 72 16 104/40 98 03/29/16 12:00 97.1 88 20 97/44 97 110/43 03/29/16 03/29/16 03/30/16 15:00 23:00 07:00 Intake Total 120 ml 305 ml 360 ml Balance 120 ml 305 ml 360 ml Intake Oral 120 ml 240 ml 360 ml IV Total 65 ml # Bowel Movements 2 1 5 Result Diagram: 03/30/16 0625 03/30/16 0625 Imaging Last Impressions Chest X-Ray 03/25/161433 Signed Impressions: Service Date/Time: Friday, March 25, 2016 14:45 - CONCLUSION: 1. Mild cardiomegaly. 2. Postsurgical changes. 3. No acute abnormality. Surya Christianson MD Soft Tissue Ultrasound 03/25/16 0000 Signed Impressions: Service Date/Time: Friday, March 25, 2016 17:25 - CONCLUSION: Diffuse soft tissue swelling in the right labia and right groin. Enrique Snyder MD Abdomen/Pelvis CT 03/25/16 0000 Signed Impressions: Service Date/Time: Friday, March 25, 2016 19:39 - CONCLUSION: 1. Cellulitic changes in the right groin, right perineum and right labia. No abscess or fluid collection. 2. Dialysis catheter and minimal pelvic ascites. 3. Diverticulosis without diverticulitis. 4. Status post cholecystectomy. Enrique Snyder MD Last Impressions Chest X-Ray 03/25/161433 Signed Impressions: Service Date/Time: Friday, March 25, 2016 14:45 - CONCLUSION: 1. Mild cardiomegaly. 2. Postsurgical changes. 3. No acute abnormality. Surya Christianson MD A/P Problem List: (1) Vulval cellulitis Status: Acute Plan: - comgmt with [employer], ID - Pt admitted with cellulitis of the right labia/vulva and into the right inguinal region which began around 4 days ago - Pt had a noted elevated WBC count of 14.4 at admission with a Lactic acid of 2.4 - Pt was given IV Vancomycin, Cefepime and Clindamycin - CT abd/pelvis (03/25/16) --> Cellulitic changes in the right groin, right perineum and right labia. No abscess or fluid collection. Dialysis catheter and minimal pelvic ascites. Diverticulosis without diverticulitis. Status post cholecystectomy. - Blood cultures with one out of 4 growing E. coli - peritoneal WBC 106 - Peritoneal fluid culture --> NGTD - Cont. Vancomycin (started 03/25/16) and Zosyn added (started 03/26/16) per ID - Pain control PRN - Warm compresses - Supportive care - DVT prophylaxis with SCDs -PT consult (2) Bacteremia Status: Acute Plan: - Blood cultures with one out of 4 growing E. coli, likely secondary to above. - Per Nephrology notes the pts dialysate was reportedly cloudy with over peritoneal WBC count over 100. - see above - Cont. abx recommendations per ID (3) Anemia Status: Chronic Plan: - Related to pts ESRD - received epogen (03/28/16) - Hg 8.0 (03/29/16) - 1 units PRBC (4) ESRD (end stage renal disease) on dialysis Status: Chronic Plan: - comgmt with nephrology - Pt is on PD since 05/2015 - Monitor labs - Pt has not been eating and drinking well and electrolyte abnormality is likely related to some degree of dehydration in the setting of her ESRD - Encourage oral intake - Monitor labs closely (5) DM (diabetes mellitus) Status: Chronic Plan: - NovoLog SSI - poor PO intake - stop Levemir - Accu checks (6) Hypothyroidism Status: Chronic Plan: - Home meds continued (7) Hypertension Status: Chronic Plan: - Home meds continued Problem Qualifiers (1) Anemia: Qualified Code: N18.9 - Anemia in chronic kidney disease (2) DM (diabetes mellitus): Humza Mejia MD Mar 30, 2016 09:35
--- NOTE | 2016-03-30 10:11 | HHI.NPPN ---
Subjective General Problems: Hypertension Renal Failure: Chronic, End Stage Renal Disease Interval History patient is weak appearing. Needs physical therapy. Received 1 unit of PRBC yesterday. Review of Systems General Constitutional: Fatigue Gastrointestinal Gastrointestinal: Abdominal Pain Musculoskeletal MS: Pain/Stiffness Skin Skin Remarks vaginal abscess, labial swelling Objective Data Data 03/29/16 03/30/16 19:00 07:00 Intake Total 425 ml 360 ml Balance 425 ml 360 ml Intake Oral 360 ml 360 ml IV Total 65 ml # Bowel Movements 3 5 Vital Signs Date Time Temp Pulse Resp B/P Pulse Ox O2 Delivery O2 Flow Rate FiO2 03/30/16 08:00 97.5 74 22 115/56 97 03/30/16 04:00 99.2 87 18 116/50 95 03/30/16 00:02 100.1 83 18 141/65 96 03/29/16 20:00 98.3 73 18 106/50 98 03/29/16 18:26 96.8 73 22 108/46 98 03/29/16 16:32 97.7 72 16 95/42 98 03/29/16 16:03 96.7 72 16 104/40 98 03/29/16 12:00 97.1 88 20 97/44 97 110/43 -: 03/30/16 0625 03/30/16 0625 Tubes & Lines: Tenckhoff Catheter Physical Exam General Appearance: Well Developed, Well Nourished, No Acute Distress, Comfortable, Obese Throat Throat Exam: Oral Mucosa [place] & Moist Neck Neck Exam: Neck Supple Pulmonary Resp Exam: Clear Bilaterally, Breath Sounds Equal, No Distress Cardiology CV Exam: Regular, Normal Sinus Rhythm, Good Perfusion Gastrointestinal/Abdomen GI Exam: Soft, Non-Tender, Bowel Sounds Present Musculoskeletal MS Exam: Joints Intact, Good Strength Integumentary Skin Exam: Clear, Warm, Dry, Intact Extremeties Extremities Exam: No Edema, Pedal Pulses Palpable Neurologic Neuro Exam: Alert, Awake, Oriented, Speech Clear, Moving All Extremities Psychiatric Psych Exam: Appropriate Responses Assessment/Plan Assessment Summary: Anemia of CKD, Hypertension, Diabetes Mellitus, End Stage Renal Disease Electrolyte Assessment: Hypocalcemia, Hyponatremia Problem List: (1) ESRD (end stage renal disease) on dialysis Plan: Continue CCPD. Used 2.5 % dextrose PD solution yesterday. (2) Vulval cellulitis Plan: with sepsis, + E coli in 1/4 bottles ID following. On Zosyn, has received IV Vancomycin. May switch to IP antibiotics if ID is OK with it. Dialysate WBC count was more than 100, suggestive of peritonitis. Dialysate is not cloudy, had some fibrin a few days ago, added heparin. Seen by Gynecology. Supportive care, sitz baths recommended. (3) DM (diabetes mellitus) Plan: continue insulin as ordered monitor glucose, goal 140-180 mg/dL (4) Hypertension Plan: oral medications as ordered follow blood pressure, adjust medications as needed (5) Anemia Plan: labs indicating iron deficiency avoid IV Iron in light of sepsis, oral iron started Monitor Hemoglobin. Epogen given on 03/28: 70901 units SC. Consider 1 unit of PRBC. (6) Hyponatremia Plan: needs to restrict fluid intake. Problem Qualifiers (1) DM (diabetes mellitus): (2) Anemia: Qualified Code: N18.9 - Anemia in chronic kidney disease Filemon Mar MD Mar 30, 2016 10:11
[2016-03-30 12:00] VITALS: BP 103/53; PULSE 68; RESP 20; TEMP 98; O2SAT 99
[2016-03-30 16:00] VITALS: BP 113/57; PULSE 71; RESP 16; TEMP 97.2; O2SAT 97
[2016-03-30] MEDS: ATORVASTATIN 40 MG TAB PO SCH (20:26)
[2016-03-30] MEDS: PRAMIPEXOLE DIHYDROCHLORIDE 0.25 MG TAB PO SCH (20:26)
[2016-03-30 20:38] VITALS: BP 114/53; PULSE 78; RESP 20; TEMP 96; O2SAT 96
[2016-03-31] VITALS: BP 110/51; PULSE 80; RESP 16; TEMP 97.9; O2SAT 94
[2016-03-31 04:00] VITALS: BP 116/50; PULSE 76; RESP 16; TEMP 98; O2SAT 99
[2016-03-31] MEDS: LEVOTHYROXINE SODIUM 88 MCG TAB PO SCH (06:43)
[2016-03-31] MEDS: PIPERACIL-TAZO 2.25 GM PREMIX 50 ML IV SCH ×3 (06:43→20:48)
[2016-03-31] MEDS: INSULIN ASPART SUPPLEMENTAL SCALE SQ SCH ×4 (06:43→20:58)
[2016-03-31 07:42] LABS: BICARBONATE 28.2 MEQ/L (21.0-32.0); POTASSIUM 3.5 MEQ/L (3.5-5.1)
[2016-03-31 07:51] VITALS: BP 151/64; PULSE 76; RESP 20; TEMP 98.9; O2SAT 98
[2016-03-31 07:58] LABS: CALCIUM-PROTEIN CORRECTED 8.1 MG/DL (8.5-10.1)
--- NOTE | 2016-03-31 09:48 | HHI.PR ---
Subjective Remarks was oob for 4 hrs yesterday Objective Vitals heart reg lung cta abd pd cath. lower abdomen tender ext no edema right labia/groin/inner thigh swollen/red/indurated some blistering and sloughing of skin buttock/perineum overall seems less indurated and red. Vital Signs Date Time Temp Pulse Resp B/P Pulse Ox O2 Delivery O2 Flow Rate FiO2 03/31/16 07:51 98.9 76 20 151/64 98 Automatic Cuff 03/31/16 04:00 98.0 76 16 116/50 99 03/31/16 00:00 97.9 80 16 110/51 94 03/30/16 20:38 96.0 78 20 114/53 96 03/30/16 16:00 97.2 71 16 113/57 97 03/30/16 12:00 98.0 68 20 103/53 99 03/30/16 03/30/16 03/31/16 15:00 23:00 07:00 Intake Total 220 ml Output Total 0 ml Balance 220 ml Intake Oral 120 ml IV Total 100 ml Peritoneal Fluid 0 ml # Bowel Movements 1 Result Diagram: 03/30/16 0625 03/31/16 0630 Imaging Last Impressions Chest X-Ray 03/25/16 1434 Signed Impressions: Service Date/Time: Friday, March 25, 2016 14:45 - CONCLUSION: 1. Mild cardiomegaly. 2. Postsurgical changes. 3. No acute abnormality. Surya Christianson MD Soft Tissue Ultrasound 03/25/16 0000 Signed Impressions: Service Date/Time: Friday, March 25, 2016 17:25 - CONCLUSION: Diffuse soft tissue swelling in the right labia and right groin. Enrique Snyder MD Abdomen/Pelvis CT 03/25/16 0000 Signed Impressions: Service Date/Time: Friday, March 25, 2016 19:39 - CONCLUSION: 1. Cellulitic changes in the right groin, right perineum and right labia. No abscess or fluid collection. 2. Dialysis catheter and minimal pelvic ascites. 3. Diverticulosis without diverticulitis. 4. Status post cholecystectomy. Enrique Snyder MD Last Impressions Chest X-Ray 03/25/16 1434 Signed Impressions: Service Date/Time: Friday, March 25, 2016 14:45 - CONCLUSION: 1. Mild cardiomegaly. 2. Postsurgical changes. 3. No acute abnormality. 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 No abscess or fluid collection. Dialysis catheter and minimal pelvic ascites. Diverticulosis without diverticulitis. Status post cholecystectomy. - Blood cultures with one out of 4 growing E. coli - peritoneal WBC 106 - Peritoneal fluid culture --> NGTD - Cont. Vancomycin (started 03/25/16) and Zosyn added (started 03/26/16) per ID -local wound care for skin breakdown. - Pain control PRN - DVT prophylaxis with SCDs -PT consulted (2) Bacteremia Status: Acute Plan: - Blood cultures with one out of 4 growing E. coli, likely secondary to above. - Cont. abx recommendations per ID (3) Anemia Status: Chronic Plan: - Related to pts ESRD - received epogen (03/28/16) - Hg 8.0 (03/29/16) - 1 units PRBC (4) ESRD (end stage renal disease) on dialysis Status: Chronic Plan: - comgmt with nephrology - Pt is on PD since 05/2015 - Monitor labs - Pt has not been eating and drinking well and electrolyte abnormality is likely related to some degree of dehydration in the setting of her ESRD - Encourage oral intake - Monitor labs closely (5) DM (diabetes mellitus) Status: Chronic Plan: hyperglycemia resume levemir and titrate ssi (6) Hypothyroidism Status: Chronic Plan: - Home meds continued (7) Hypertension Status: Chronic Plan: - Home meds continued Problem Qualifiers (1) Anemia: Qualified Code: N18.9 - Anemia in chronic kidney disease (2) DM (diabetes mellitus): Humza Mejia MD Mar 31, 2016 09:47
[2016-03-31] MEDS: SERTRALINE HCL 100 MG TAB PO SCH (09:50)
[2016-03-31] MEDS: INSULIN DETEMIR 100 UNITS/ML VIAL SQ SCH ×2 (09:50→20:58)
[2016-03-31] MEDS: PANTOPRAZOLE SOD 40 MG DELAYED RELEASE TAB PO SCH (09:50)
[2016-03-31] MEDS: FERROUS SULFATE 325 MG (65 MG ELEMENTAL IRON) TAB PO SCH (09:50)
[2016-03-31] MEDS: ASPIRIN EC 325 MG TABEC PO SCH (09:50)
[2016-03-31] MEDS: CALCITRIOL 0.25 MCG CAP PO SCH (09:50)
[2016-03-31] MEDS: CARVEDILOL 6.25 MG TAB PO SCH ×2 (09:50→20:49)
[2016-03-31] MEDS: CHOLECALCIFEROL (VIT D3) 5000 UNIT CAP PO SCH (09:50)
[2016-03-31] MEDS: SODIUM CHLORIDE 0.9% FLUSH 5 ML FLUSH FLUSH SCH ×2 (09:58→20:48)
--- NOTE | 2016-03-31 11:14 | HHI.NPPN ---
Subjective General Problems: Hypertension Renal Failure: Chronic, End Stage Renal Disease Interval History patient was seen and examined. Lethargic, weak appearing. Review of Systems General Constitutional: Fatigue Gastrointestinal Gastrointestinal: Abdominal Pain Musculoskeletal MS: Pain/Stiffness Skin Skin Remarks vaginal abscess, labial swelling Objective Data Data 03/30/16 03/31/16 19:00 07:00 Intake Total 220 ml Output Total 0 ml Balance 220 ml Intake Oral 120 ml IV Total 100 ml Peritoneal Fluid 0 ml # Bowel Movements 1 Vital Signs Date Time Temp Pulse Resp B/P Pulse Ox O2 Delivery O2 Flow Rate FiO2 03/31/16 07:51 98.9 76 20 151/64 98 Automatic Cuff 03/31/16 04:00 98.0 76 16 116/50 99 03/31/16 00:00 97.9 80 16 110/51 94 03/30/16 20:38 96.0 78 20 114/53 96 03/30/16 16:00 97.2 71 16 113/57 97 03/30/16 12:00 98.0 68 20 103/53 99 -: 03/30/16 0625 03/31/16 0630 Tubes & Lines: Tenckhoff Catheter Physical Exam General Appearance: Well Developed, Well Nourished, No Acute Distress, Comfortable, Obese Throat Throat Exam: Oral Mucosa [place] & Moist Neck Neck Exam: Neck Supple Pulmonary Resp Exam: Clear Bilaterally, Breath Sounds Equal, No Distress Cardiology CV Exam: Regular, Normal Sinus Rhythm, Good Perfusion Gastrointestinal/Abdomen GI Exam: Soft, Non-Tender, Bowel Sounds Present Musculoskeletal MS Exam: Joints Intact, Good Strength Integumentary Skin Exam: Clear, Warm, Dry, Intact Extremeties Extremities Exam: No Edema, Pedal Pulses Palpable Neurologic Neuro Exam: Alert, Awake, Oriented, Speech Clear, Moving All Extremities Psychiatric Psych Exam: Appropriate Responses Assessment/Plan Assessment Summary: Anemia of CKD, Hypertension, Diabetes Mellitus, End Stage Renal Disease Electrolyte Assessment: Hypocalcemia, Hyponatremia Problem List: (1) ESRD (end stage renal disease) on dialysis Plan: Continue CCPD. Monitor fluid and electrolytes. (2) Vulval cellulitis Plan: with sepsis, + E coli in 1/4 bottles ID following. On Zosyn, has received IV Vancomycin. May switch to IP antibiotics if ID is OK with it. Dialysate WBC count was more than 100, suggestive of peritonitis. Dialysate is not cloudy, had some fibrin a few days ago, added heparin. Seen by Gynecology. Supportive care, sitz baths recommended. (3) DM (diabetes mellitus) Plan: continue insulin as ordered monitor glucose, goal 140-180 mg/dL (4) Hypertension Plan: oral medications as ordered follow blood pressure, adjust medications as needed (5) Anemia Plan: labs indicating iron deficiency avoid IV Iron in light of sepsis, oral iron started Monitor Hemoglobin. Epogen given on 03/28: 08345 units SC. Consider 1 unit of PRBC. (6) Hyponatremia Plan: needs to restrict fluid intake. Plan continue physical therapy. Needs ID followup. Problem Qualifiers (1) DM (diabetes mellitus): (2) Anemia: Qualified Code: N18.9 - Anemia in chronic kidney disease Filemon Mar MD Mar 31, 2016 11:14
[2016-03-31 12:00] VITALS: BP 130/58; PULSE 75; RESP 20; TEMP 98
[2016-03-31] MEDS: ACETAMINOPHEN/HYDROcodone 325 MG/5 MG TAB PO PRN (13:32)
[2016-03-31 16:00] VITALS: BP 101/49; PULSE 67; RESP 20; TEMP 97.8; O2SAT 92
--- NOTE | 2016-03-31 16:06 | HHI.IDPN ---
Subjective Subjective Remarks feels about the same No fever No diarrhea BP stable + pain Antibiotics zosyn, vancomycin Allergies: Coded Allergies: Codeine (Verified Allergy, Severe, HALLUCINATIONS, 03/25/16) Ofloxacin (Verified Allergy, Severe, FLOXIN, 03/25/16) Objective . Vital Signs Date Time Temp Pulse Resp B/P Pulse Ox O2 Delivery O2 Flow Rate FiO2 03/31/16 07:51 98.9 76 20 151/64 98 Automatic Cuff 03/31/16 04:00 98.0 76 16 116/50 99 03/31/16 00:00 97.9 80 16 110/51 94 03/30/16 20:38 96.0 78 20 114/53 96 03/30/16 03/30/16 03/31/16 15:00 23:00 07:00 Intake Total 220 ml Output Total 0 ml Balance 220 ml Intake Oral 120 ml IV Total 100 ml Peritoneal Fluid 0 ml # Bowel Movements 1 . Laboratory Tests Test 03/30/16 06:25 White Blood Count 10.8 TH/MM3 Red Blood Count 2.75 MIL/MM3 Hemoglobin 8.5 GM/DL Hematocrit 25.3 % Mean Corpuscular Volume 92.2 FL Mean Corpuscular Hemoglobin 31.1 PG Mean Corpuscular Hemoglobin 33.7 % Concent Red Cell Distribution Width 17.2 % Platelet Count 186 TH/MM3 Mean Platelet Volume 8.0 FL Neutrophils (%) (Auto) 92.0 % Lymphocytes (%) (Auto) 2.2 % Monocytes (%) (Auto) 4.4 % Eosinophils (%) (Auto) 1.3 % Basophils (%) (Auto) 0.1 % Neutrophils # (Auto) 10.0 TH/MM3 Lymphocytes # (Auto) 0.2 TH/MM3 Monocytes # (Auto) 0.5 TH/MM3 Eosinophils # (Auto) 0.1 TH/MM3 Basophils # (Auto) 0.0 TH/MM3 CBC Comment DIFF FINAL Differential Comment Laboratory Tests Test 03/30/16 03/31/16 06:25 06:30 Sodium Level 127 MEQ/L 127 MEQ/L Potassium Level 3.8 MEQ/L 3.5 MEQ/L Chloride Level 88 MEQ/L 88 MEQ/L Carbon Dioxide Level 26.2 MEQ/L 28.2 MEQ/L Anion Gap 13 MEQ/L 11 MEQ/L Blood Urea Nitrogen 60 MG/DL 60 MG/DL Creatinine 5.08 MG/DL 5.24 MG/DL Estimat Glomerular Filtration 8 ML/MIN 8 ML/MIN Rate Random Glucose 225 MG/DL 302 MG/DL Calcium Level 7.0 MG/DL 7.4 MG/DL Protein Corrected Calcium 7.7 MG/DL 8.1 MG/DL Phosphorus Level 6.8 MG/DL Magnesium Level 1.7 MG/DL Total Protein 5.8 GM/DL 5.9 GM/DL Imaging Last Impressions Chest X-Ray 03/25/16 1434 Signed Impressions: Service Date/Time: Friday, March 25, 2016 14:45 - CONCLUSION: 1. Mild cardiomegaly. 2. Postsurgical changes. 3. No acute abnormality. Surya Christianson MD Soft Tissue Ultrasound 03/25/16 0000 Signed Impressions: Service Date/Time: Friday, March 25, 2016 17:25 - CONCLUSION: Diffuse soft tissue swelling in the right labia and right groin. Enrique Snyder MD Abdomen/Pelvis CT 03/25/16 0000 Signed Impressions: Service Date/Time: Friday, March 25, 2016 19:39 - CONCLUSION: 1. Cellulitic changes in the right groin, right perineum and right labia. No abscess or fluid collection. 2. Dialysis catheter and minimal pelvic ascites. 3. Diverticulosis without diverticulitis. 4. Status post cholecystectomy. Enrique Snyder MD Physical Exam CONSTITUTIONAL/GENERAL: This is a morbidly obese elderly ill appearing patient , in no apparent distress. SKIN: No jaundice, rashes, or lesions. HEAD: Atraumatic. Normocephalic. EYES: Pupils equal and round and reactive. No scleral icterus. No injection or drainage. ENT: Hearing grossly normal. Nose without bleeding or purulent drainage. Oral mucosae without visible erythema, exudates, masses, or lesions. CARDIOVASCULAR: Regular rate and rhythm without murmurs, gallops, or rubs. No JVD. Peripheral pulses symmetric. RESPIRATORY/CHEST: Symmetric, unlabored respirations. Clear to auscultation. Breath sounds equal bilaterally. No wheezes, rales, or rhonchi. GASTROINTESTINAL: Abdomen soft, non-tender, nondistended. No hepato-splenomegaly , or palpable masses. No guarding. Bowel sounds present. PD cath in place RLQ with clear peritoneal fluid in tubing GENITOURINARY: Without palpable bladder distension. R labia major is moderately erthematous, indurated and tender to palpation Induration, erythema of R groin area with small dusky area + palpable fluctuance no crepitus no purulence or fluctuance decreased erythema to inner thigh area MUSCULOSKELETAL: Extremities without clubbing, cyanosis, + 2 BLE edema. No mottling or clubbing. NEUROLOGICAL: Awake alert. Non focal. Normal speech Assessment & Plan Remarks Labial cellulitis, phlegmone R - improving ? 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
[2016-03-31] MEDS ORDERED: VANCOMYCIN INJ 1,000 MG in SODIUM CHLOR 0.9% 250 ML INJ 250 ML IV ONE (17:00)
[2016-03-31 20:00] VITALS: BP 132/56; PULSE 71; RESP 18; TEMP 96.5; O2SAT 97
[2016-03-31] MEDS: PRAMIPEXOLE DIHYDROCHLORIDE 0.25 MG TAB PO SCH (20:49)
[2016-03-31] MEDS: ATORVASTATIN 40 MG TAB PO SCH (20:49)
[2016-04-01] VITALS (7 sets, daily range): BP systolic 114–159; BP diastolic 54–68; PULSE 56–79; RESP 16–20; TEMP 96.1–98.4; O2SAT 94–100
[2016-04-01] MEDS: PIPERACIL-TAZO 2.25 GM PREMIX 50 ML IV SCH ×3 (05:02→21:56)
[2016-04-01] MEDS: ACETAMINOPHEN/HYDROcodone 325 MG/10 MG TAB PO PRN (05:02)
[2016-04-01] MEDS: LEVOTHYROXINE SODIUM 88 MCG TAB PO SCH (05:02)
[2016-04-01] MEDS: INSULIN ASPART SUPPLEMENTAL SCALE SQ SCH ×4 (06:57→21:58)
[2016-04-01] MEDS: CARVEDILOL 6.25 MG TAB PO SCH ×2 (08:24→21:00)
[2016-04-01] MEDS: SODIUM CHLORIDE 0.9% FLUSH 5 ML FLUSH FLUSH SCH ×2 (08:24→21:57)
[2016-04-01] MEDS: PANTOPRAZOLE SOD 40 MG DELAYED RELEASE TAB PO SCH (08:24)
[2016-04-01] MEDS: CHOLECALCIFEROL (VIT D3) 5000 UNIT CAP PO SCH (08:24)
[2016-04-01] MEDS: CALCITRIOL 0.25 MCG CAP PO SCH (08:24)
[2016-04-01] MEDS: ASPIRIN EC 325 MG TABEC PO SCH (08:24)
[2016-04-01] MEDS: FERROUS SULFATE 325 MG (65 MG ELEMENTAL IRON) TAB PO SCH (08:24)
[2016-04-01] MEDS: SERTRALINE HCL 100 MG TAB PO SCH (08:24)
[2016-04-01] MEDS: INSULIN DETEMIR 100 UNITS/ML VIAL SQ SCH ×2 (08:35→21:58)
--- NOTE | 2016-04-01 09:25 | HHI.PR ---
Subjective Remarks pt feels extremely weak. Objective Vitals heart reg lung cta abd pd cath. lower abd tender right labia swollen, small area of dusky skin and area of induration right inner thigh induration/redness better buttock excoriation/denuded skin. Vital Signs Date Time Temp Pulse Resp B/P Pulse Ox O2 Delivery O2 Flow Rate FiO2 04/01/16 08:00 98.4 69 20 145/65 97 Automatic Cuff 04/01/16 06:02 16 04/01/16 04:00 97.7 79 16 159/68 94 04/01/16 00:00 98.0 71 18 137/62 98 03/31/16 20:00 96.5 71 18 132/56 97 03/31/16 16:00 97.8 67 20 101/49 92 03/31/16 12:00 98.0 75 20 130/58 03/31/16 12:00 03/31/16 03/31/16 04/01/16 15:00 23:00 07:00 Intake Total 120 ml 521 ml 120 ml Output Total 412 ml Balance -292 ml 521 ml 120 ml Intake Oral 120 ml 240 ml 120 ml IV Total 281 ml Output Urine Total 0 ml Hemodialysis 412 ml # Voids 1 # Bowel Movements 1 1 Result Diagram: 03/30/16 0625 03/31/16 0630 Imaging Last Impressions Chest X-Ray 03/25/16 1434 Signed Impressions: Service Date/Time: Friday, March 25, 2016 14:45 - CONCLUSION: 1. Mild cardiomegaly. 2. Postsurgical changes. 3. No acute abnormality. Surya Christianson MD Soft Tissue Ultrasound 03/25/16 0000 Signed Impressions: Service Date/Time: Friday, March 25, 2016 17:25 - CONCLUSION: Diffuse soft tissue swelling in the right labia and right groin. Enrique Snyder MD Abdomen/Pelvis CT 03/25/16 0000 Signed Impressions: Service Date/Time: Friday, March 25, 2016 19:39 - CONCLUSION: 1. Cellulitic changes in the right groin, right perineum and right labia. No abscess or fluid collection. 2. Dialysis catheter and minimal pelvic ascites. 3. Diverticulosis without diverticulitis. 4. Status post cholecystectomy. Enrique Snyder MD Last Impressions Chest X-Ray 03/25/16 1434 Signed Impressions: Service Date/Time: Friday, March 25, 2016 14:45 - CONCLUSION: 1. Mild cardiomegaly. 2. Postsurgical changes. 3. No acute abnormality. Surya Christianson MD A/P Problem List: (1) Cellulitis of labia Status: Acute Plan: - Pt admitted with cellulitis of the right labia and into the right groin /inner thigh - Pt had a noted elevated WBC count of 14.4 at admission with a Lactic acid of 2.4 - Pt was given IV Vancomycin, Cefepime and Clindamycin - CT abd/pelvis (03/25/16) --> Cellulitic changes in the right groin, right perineum and right labia. No abscess or fluid collection. Dialysis catheter and minimal pelvic ascites. Diverticulosis without diverticulitis. - Blood cultures with one out of 4 growing E. coli - peritoneal WBC 106 - Peritoneal fluid culture --> NGTD - Vancomycin started 03/25/16nd Zosyn added (started 03/26/16) per ID - local wound care for skin breakdown. - Discussed with ID 03/31 who feels the right labia/groin cellulitis is evolving into abscess collection and recommended re-consult to gynecology for possible drainage...reconsult placed and pending - Pain control PRN - DVT prophylaxis with SCDs -PT consulted (2) Bacteremia Status: Acute Plan: see above (3) Anemia Status: Chronic Plan: - Related to pts ESRD - received epogen (03/28/16) - Hg 8.0 (03/29/16) - 1 units PRBC (4) ESRD (end stage renal disease) on dialysis Status: Chronic Plan: - comgmt with nephrology - Pt is on PD since 05/2015 - Pt has not been eating and drinking well and electrolyte abnormality is likely related to some degree of dehydration in the setting of her ESRD -hyponatremia. will add salt tab - Encourage oral intake - Monitor labs closely (5) DM (diabetes mellitus) Status: Chronic Plan: hyperglycemia resume levemir and titrate ssi (6) Hypothyroidism Status: Chronic Plan: - Home meds continued (7) Hypertension Status: Chronic Plan: - Home meds continued Problem Qualifiers (1) Anemia: Qualified Code: N18.9 - Anemia in chronic kidney disease (2) DM (diabetes mellitus): Humza Mejia MD Apr 01, 2016 09:25
[2016-04-01] MEDS ORDERED: SODIUM CHLORIDE 1 GRAM TAB PO ONE (09:30)
--- NOTE | 2016-04-01 11:04 | HHI.NPPN ---
Subjective General Problems: Hypertension Renal Failure: Chronic, End Stage Renal Disease Interval History Sitting up in chair. Having groin pain. PD going well. (Brenna Lopez ) Review of Systems General Constitutional: Fatigue (Brenna Lopez) Gastrointestinal Gastrointestinal: Abdominal Pain (Brenna Lopez) Skin Skin Remarks vaginal abscess, labial swelling with pain (Brenna Lopez) Objective Data Data 03/31/16 04/01/16 19:00 07:00 Intake Total 120 ml 641 ml Output Total 412 ml Balance -292 ml 641 ml Intake Oral 120 ml 360 ml IV Total 281 ml Output Urine Total 0 ml Hemodialysis 412 ml # Voids 1 # Bowel Movements 2 Vital Signs Date Time Temp Pulse Resp B/P Pulse Ox O2 Delivery O2 Flow Rate FiO2 04/01/16 08:00 98.4 69 20 145/65 97 Automatic Cuff 04/01/16 06:02 16 04/01/16 04:00 97.7 79 16 159/68 94 04/01/16 00:00 98.0 71 18 137/62 98 03/31/16 20:00 96.5 71 18 132/56 97 03/31/16 16:00 97.8 67 20 101/49 92 03/31/16 12:00 98.0 75 20 130/58 03/31/16 12:00 (Brenna Lopez) -: 03/30/16 0625 03/31/16 0630 Tubes & Lines: Tenckhoff Catheter (Brenna Lopez) Physical Exam General Appearance: Well Developed, Well Nourished, No Acute Distress, Comfortable, Obese (Brenna Lopez) Throat Throat Exam: Oral Mucosa [place] & Moist (Brenna Lopez) Neck Neck Exam: Neck Supple (Brenna Lopez) Pulmonary Resp Exam: Clear Bilaterally, Breath Sounds Equal, No Distress (Brenna Lopez) Cardiology CV Exam: Regular, Normal Sinus Rhythm, Good Perfusion (Brenna Lopez) Gastrointestinal/Abdomen GI Exam: Soft, Non-Tender, Bowel Sounds Present (Brenna Lopez) Genitourinary Remarks deferred vaginal exam (Brenna Lopez) Musculoskeletal MS Exam: Joints Intact, Good Strength (Brenna Lopez) Integumentary Skin Exam: Clear, Warm, Dry, Intact (Brenna Lopez) Extremeties Extremities Exam: No Edema, Pedal Pulses Palpable (Brenna Lopez) Neurologic Neuro Exam: Alert, Awake, Oriented, Speech Clear, Moving All Extremities ( Brenna Lopez) Psychiatric Psych Exam: Appropriate Responses (Brenna Lopez) Assessment/Plan Assessment Summary: Anemia of CKD, Hypertension, Diabetes Mellitus, End Stage Renal Disease Electrolyte Assessment: Hypocalcemia, Hyponatremia Problem List: (1) ESRD (end stage renal disease) on dialysis Plan: Continue CCPD, currently ongoing without complication will recheck PD fluid cell count monitor PD catheter electrolytes stable aside from hyponatremia, see below continue current plan (2) Vulval cellulitis Plan: with sepsis, + E coli in 1/4 bottles ID following. On Zosyn and IV Vancomycin. May switch to IP antibiotics if ID is in agreement Dialysate WBC count elevated, suggestive of peritonitis. Dialysate is not cloudy , had some fibrin a few days ago, added heparin. 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 (3) Anemia Plan: labs indicating iron deficiency avoid IV Iron in light of sepsis,on oral iron replacement Monitor Hemoglobin. Epogen given (20,000 units SC) on 03/28 transfuse PRN (4) DM (diabetes mellitus) Plan: blood sugars are elevated continue insulin, Levemir dosage increased monitor glucose, goal 140-180 mg/dL (5) Hypertension Plan: oral medications as ordered follow blood pressure, adjust medications as needed (6) Hyponatremia Plan: needs to restrict fluid intake. (Brenna Lopez) Plan patient was seen and examined. ID following. We will repeat dialysate cell count. Gynecology reconsulted. (Filemon Mar MD) Problem Qualifiers (1) Anemia: Qualified Code: N18.9 - Anemia in chronic kidney disease (2) DM (diabetes mellitus): Brenna Lopez Apr 01, 2016 11:04 Filemon Mar MD Apr 02, 2016 08:14
--- NOTE | 2016-04-01 16:48 | PD.CONS ---
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 Vitale be done if there was not sufficient improvement Recommend that Dr. Vitale evaluate the patient for a possible oncologic process will place the consult And discussed the patient with her attending Hermila Nelson MD Apr 01, 2016 16:48
[2016-04-01] MEDS: ATORVASTATIN 40 MG TAB PO SCH (21:58)
[2016-04-01] MEDS: PRAMIPEXOLE DIHYDROCHLORIDE 0.25 MG TAB PO SCH (21:58)
[2016-04-02] VITALS: BP 145/63; PULSE 66; RESP 16; TEMP 97.7; O2SAT 95
[2016-04-02 04:00] VITALS: BP 140/62; PULSE 69; RESP 18; TEMP 97; O2SAT 94
[2016-04-02] MEDS: PIPERACIL-TAZO 2.25 GM PREMIX 50 ML IV SCH ×3 (05:34→22:30)
[2016-04-02] MEDS: LEVOTHYROXINE SODIUM 88 MCG TAB PO SCH (05:35)
[2016-04-02] MEDS: ACETAMINOPHEN/HYDROcodone 325 MG/10 MG TAB PO PRN (05:36)
[2016-04-02] MEDS: INSULIN ASPART SUPPLEMENTAL SCALE SQ SCH ×4 (05:44→22:37)
[2016-04-02 07:18] LABS: BICARBONATE 26.4 MEQ/L (21.0-32.0); POTASSIUM 3.1 MEQ/L (3.5-5.1)
[2016-04-02 08:00] VITALS: BP 155/67; PULSE 68; RESP 16; TEMP 97.4; O2SAT 96
[2016-04-02] MEDS ORDERED: POTASSIUM CHLORIDE 20 MEQ CONTROLLED RELEASE TAB PO ONE ×2 (08:00→21:15)
[2016-04-02] MEDS: FERROUS SULFATE 325 MG (65 MG ELEMENTAL IRON) TAB PO SCH (08:34)
[2016-04-02] MEDS: SERTRALINE HCL 100 MG TAB PO SCH (08:34)
[2016-04-02] MEDS: ASPIRIN EC 325 MG TABEC PO SCH (08:34)
[2016-04-02] MEDS: CALCITRIOL 0.25 MCG CAP PO SCH (08:34)
[2016-04-02] MEDS: CHOLECALCIFEROL (VIT D3) 5000 UNIT CAP PO SCH (08:34)
[2016-04-02] MEDS: PANTOPRAZOLE SOD 40 MG DELAYED RELEASE TAB PO SCH (08:34)
[2016-04-02] MEDS: SODIUM CHLORIDE 1 GRAM TAB PO SCH (08:34)
[2016-04-02] MEDS: INSULIN DETEMIR 100 UNITS/ML VIAL SQ SCH ×2 (08:34→22:37)
[2016-04-02] MEDS: CARVEDILOL 6.25 MG TAB PO SCH ×2 (08:34→22:31)
[2016-04-02] MEDS: SODIUM CHLORIDE 0.9% FLUSH 5 ML FLUSH FLUSH SCH ×2 (08:59→22:38)
--- NOTE | 2016-04-02 10:03 | PD.CONS ---
HPI Chief Complaint vulvar swelling Date Seen: Apr 02, 2016 Time Seen: 09:03 Travel History International Travel<30 Days: No Contact w/Intl Traveler<30Days: No Known Affected Area: No History of Present Illness HPI Patient seen and examined this morning. 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 Patient states she feels the same as yesterday. Endorses some drainage. Voiding without pain or difficulty. States she is in significant pain in her vaginal area. Otherwise, denies any other complaints/concerns. Denies fever/chills, headache, lightheadedness/dizziness, chest pain, SOB, abdominal pain. Para: 2 : 2 Allergies-Medications (Allergen,Severity, Reaction): Coded Allergies: Codeine (Verified Allergy, Severe, HALLUCINATIONS, 03/25/16) Ofloxacin (Verified Allergy, Severe, FLOXIN, 03/25/16) Home Meds Reported Medications Aspirin 325 Mg Ubv041 Mg PO HS #30 TAB Ref 0 03/25/16 Atorvastatin 40 Mg Tab40 Mg PO DAILY #30 TAB Ref 0 03/25/16 Calcitriol (Rocaltrol)0.5 Mcg Cap0.5 Mcg PO DAILY #30 CAP Ref 0 03/25/16 Furosemide (Lasix)80 Mg Tab80 Mg PO BID #60 TAB Ref 0 03/25/16 Levothyroxine 88 Mcg Tab88 Mcg PO DAILY #30 TAB Ref 0 03/25/16 Pantoprazole 40 Mg Tab40 Mg PO HS #30 TAB Ref 0 03/25/16 Potassium Chloride ER (K-Tab)20 Meq Tab20 Meq PO DAILY #30 TAB Ref 0 03/25/16 Pramipexole (Mirapex)0.75 Mg Tab0.75 Mg PO HS #30 TAB Ref 0 03/25/16 Sertraline 100 Mg Agp142 Mg PO DAILY #30 TAB Ref 0 03/25/16 Insulin Aspart Protam-Asp 70-30 Inj (Novolog Mix 70-30 Inj)1,000 Unit/10 Ml Vial20 Units SQ AC DINNER #10 ML Ref 0 03/25/16 Insulin Aspart Protam-Asp 70-30 Inj (Novolog Mix 70-30 Inj)1,000 Unit/10 Ml Vial30 Units SQ AC BREAKFAST #10 ML Ref 0 03/25/16 Review of Systems General / Constitutional: No: Fever, Weight Loss, Chills HENT: No: Headaches, Lightheadedness Cardiovascular: No: Chest Pain or Discomfort Respiratory: No: Cough, Short of Breath Gastrointestinal: No: Nausea, Vomiting, Abdominal Pain Genitourinary: No: Urgency, Frequency, Dysuria Skin: Rash, Itching Neurologic: No: Weakness, Dizziness Physical Exam Narrative GENERAL: Well-nourished, well-developed patient. NAD CARDIOVASCULAR: Regular rate and rhythm without murmurs, gallops, or rubs. RESPIRATORY: Breath sounds equal bilaterally. No accessory muscle use. ABDOMEN/GI: Abdomen soft, non-tender, bowel sounds present, no rebound, no guarding GENITOURINARY: Swollen right labia majora and minora. Induration of right labia. Not fluctuant. Painful to palpation. Indurated and crusted area of lower abdomen. Buttock is erythematous and excoriated. No discharge or vaginal bleeding. EXTREMITIES: No cyanosis or edema. Data Data Vital Signs Reviewed: Yes Orders Peritoneal Cell Count + Diff (04/01/16 11:04) Consult Police And Fire Dispatcher Oncology (04/01/16 ) Consult General Surgery (04/01/16 ) Optifoam Ag, Non-Adhesive 4x4 (04/01/16 19:11) (Hub Use Only)Inp Phy Cons/Ref (04/01/16 ) Potassium Chloride (Kcl) (04/02/16 08:00) Insulin Detemir Inj (Levemir Inj) (04/02/16 21:00) Insulin Detemir Inj (Levemir Inj) (04/02/16 09:00) Underpad, Ultrabsorb Bg (04/02/16 09:05) Sevelamer (Renvela) (04/02/16 12:00) Labs Laboratory Tests Test 04/01/16 04/02/16 11:10 06:00 Random Vancomycin Level 26.0 Sodium Level 128 Potassium Level 3.1 Chloride Level 89 Carbon Dioxide Level 26.4 Anion Gap 13 Blood Urea Nitrogen 58 Creatinine 5.36 Estimat Glomerular Filtration 8 Rate Random Glucose 231 Calcium Level 7.5 MDM Interpretation(s) 71 y/o postmenopausal female with vulvar cellulitis - Continue Zosyn, redosing Vancomycin- appreciate ID recs - Consulted Gen surgery for I&D of possible abscess - Continue wound care - Pain management Admitting diagnosis: vulval cellulitis Saran Arias MD R1 Apr 02, 2016 10:03
--- NOTE | 2016-04-02 10:25 | HHI.PR ---
Subjective Remarks weak. refused ngt for nutrition. family present Objective Vitals weak appearing oriented right groin shows fluctuance with superficial skin sloughing/denuded and some dusky blue area...will redness and induration extending along right inguinal area to flank PD catheter Vital Signs Date Time Temp Pulse Resp B/P Pulse Ox O2 Delivery O2 Flow Rate FiO2 04/02/16 08:00 97.4 68 16 155/67 96 04/02/16 04:00 97.0 69 18 140/62 94 04/02/16 00:00 97.7 66 16 145/63 95 04/01/16 20:00 97.5 58 18 115/56 95 04/01/16 16:00 98.2 62 20 114/54 100 04/01/16 12:00 96.1 56 20 119/57 100 04/01/16 04/01/16 04/02/16 15:00 23:00 07:00 Intake Total 0 ml 240 ml 150 ml Output Total 0 ml Balance 0 ml 240 ml 150 ml Intake Oral 0 ml 240 ml 150 ml Output Urine Total 0 ml # Bowel Movements 1 Result Diagram: 03/30/16 0625 04/02/16 0600 Imaging Last Impressions Chest X-Ray 03/25/16 1434 Signed Impressions: Service Date/Time: Friday, March 25, 2016 14:45 - CONCLUSION: 1. Mild cardiomegaly. 2. Postsurgical changes. 3. No acute abnormality. Surya Christianson MD Soft Tissue Ultrasound 03/25/16 0000 Signed Impressions: Service Date/Time: Friday, March 25, 2016 17:25 - CONCLUSION: Diffuse soft tissue swelling in the right labia and right groin. Enrique Snyder MD Abdomen/Pelvis CT 03/25/16 0000 Signed Impressions: Service Date/Time: Friday, March 25, 2016 19:39 - CONCLUSION: 1. Cellulitic changes in the right groin, right perineum and right labia. No abscess or fluid collection. 2. Dialysis catheter and minimal pelvic ascites. 3. Diverticulosis without diverticulitis. 4. Status post cholecystectomy. Enrique Snyder MD Last Impressions Chest X-Ray 03/25/16 1434 Signed Impressions: Service Date/Time: Friday, March 25, 2016 14:45 - CONCLUSION: 1. Mild cardiomegaly. 2. Postsurgical changes. 3. No acute abnormality. Surya Christianson MD A/P Problem List: (1) Cellulitis of labia Status: Acute Plan: - Pt admitted with cellulitis of the right labia and into the right groin /inner thigh - Pt had a noted elevated WBC count of 14.4 at admission with a Lactic acid of 2.4 - Pt was given IV Vancomycin, Cefepime and Clindamycin - CT abd/pelvis (03/25/16) --> Cellulitic changes in the right groin, right perineum and right labia. No abscess or fluid collection. Dialysis catheter and minimal pelvic ascites. Diverticulosis without diverticulitis. - Blood cultures with one out of 4 growing E. coli - peritoneal WBC 106 - Peritoneal fluid culture --> NGTD - Vancomycin started 03/25/16nd Zosyn added (started 03/26/16) per ID - local wound care for skin breakdown. - Discussed with ID 03/31 who feels the right labia/groin cellulitis is evolving into abscess collection - Pt seen at bedide with Dr Rodas today....Pt will need to proceed to OR tomorrow for exploration of her infection and drainage as needed. -she is very malnourished with poor po. difficult to do tpn...discussed dht and tf's..pt refusing so far but family interested. - Pain control PRN - DVT prophylaxis with SCDs -PT consulted (2) Bacteremia Status: Acute Plan: see above (3) Anemia Status: Chronic Plan: - Related to pts ESRD - received epogen (03/28/16) - Hg 8.0 (03/29/16) - 1 units PRBC (4) ESRD (end stage renal disease) on dialysis Status: Chronic Plan: - comgmt with nephrology - Pt is on PD since 05/2015 - Pt has not been eating and drinking well and electrolyte abnormality is likely related to some degree of dehydration in the setting of her ESRD -hyponatremia. will add salt tab - Encourage oral intake - Monitor labs closely (5) DM (diabetes mellitus) Status: Chronic Plan: hyperglycemia resume levemir and titrate ssi (6) Hypothyroidism Status: Chronic Plan: - Home meds continued (7) Hypertension Status: Chronic Plan: - Home meds continued Problem Qualifiers (1) Anemia: Qualified Code: N18.9 - Anemia in chronic kidney disease (2) DM (diabetes mellitus): Humza Mejia MD Apr 02, 2016 10:25
--- NOTE | 2016-04-02 10:36 | PD.CONS ---
HPI Service General surgery Consult Requested By Dr. Mejia Reason for Consult Labial and perineal abscess Primary Care Physician Lexus Nolasco MD History of Present Illness This is a 71-year-old female with end-stage renal disease on peritoneal dialysis who developed right labial and inner thigh cellulitis about 1 week ago. She has been treated with IV antibiotics since that time. She has been seen by infectious disease. Over the last couple of days it was noted that she may have developing abscesses and therefore I was consulted to consider incision and drainage. On admission on March 25 the patient had soft tissue ultrasound showing diffuse edema and a CT of the pelvis showing evidence of cellulitis but no abscess in the right groin, right perineum, and right labia. She has had no further imaging. The patient is currently accompanied by her sister and cousin. Reportedly she has had poor appetite and poor oral intake. Review of Systems Constitutional: DENIES: Fever, Chills Eyes: DENIES: Eye inflammation, Eye pain Respiratory: DENIES: Cough, Wheezing Cardiovascular: DENIES: Chest pain Gastrointestinal: DENIES: Abdominal pain Integumentary: DENIES: Pruritus, Rash Past Family Social History Past Medical History CAD Anemia of CKD CHF ESRD on dialysis since May 2015. DM I Major Depression HTN Hyperlipidemia Hypothyroidism Pulmonary HTN Secondary hyperparathyroidism Past Surgical History Breast reduction CABG 1996, 2004 Coronary stent placement Cholecystectomy 1996 Peritoneal catheter 05/2015 Left TKA 2009 Reported Medications Reported Meds & Active Scripts Active Reported Aspirin 325 Mg Tab 325 Mg PO HS Atorvastatin (Atorvastatin Calcium) 40 Mg Tab 40 Mg PO DAILY Rocaltrol (Calcitriol) 0.5 Mcg Cap 0.5 Mcg PO DAILY Lasix (Furosemide) 80 Mg Tab 80 Mg PO BID Levothyroxine (Levothyroxine Sodium) 88 Mcg Tab 88 Mcg PO DAILY Pantoprazole (Pantoprazole Sodium) 40 Mg Tab 40 Mg PO HS K-Tab (Potassium Chloride) 20 Meq Tab 20 Meq PO DAILY Mirapex (Pramipexole Dihydrochloride) 0.75 Mg Tab 0.75 Mg PO HS Sertraline (Sertraline HCl) 100 Mg Tab 100 Mg PO DAILY Novolog Mix 70-30 Inj (Insulin Aspart Prota 70%/Aspart 30%) 1,000 Unit/10 Ml Vial 20 Units SQ AC DINNER Novolog Mix 70-30 Inj (Insulin Aspart Prota 70%/Aspart 30%) 1,000 Unit/10 Ml Vial 30 Units SQ AC BREAKFAST Allergies: Coded Allergies: Codeine (Verified Allergy, Severe, HALLUCINATIONS, 03/25/16) Ofloxacin (Verified Allergy, Severe, FLOXIN, 03/25/16) Active Ordered Medications Current Medications Medications (Trade) Dose Ordered Sig/Hilary Route Start Time Stop Time Status Last Admin (NS Flush) 2 ml UNSCH PRN FLUSH 03/25/16 16:45 03/28/16 14:07 (NS Flush) 2 ml BID FLUSH 03/25/16 21:00 04/02/16 08:59 (Tylenol) 650 mg Q4H PRN PO 03/25/16 16:45 03/27/16 20:47 (Zofran Inj) 4 mg Q6H PRN IVP 03/25/16 16:45 03/27/16 11:45 (Milk Of Magnesia Liq) 30 ml Q12H PRN PO 03/25/16 16:45 (Narcan Inj) 0.4 mg UNSCH PRN IV 03/25/16 16:45 (Zoloft) 100 mg DAILY PO 03/26/16 09:00 04/02/16 08:34 (Ecotrin Ec) 325 mg DAILY PO 03/26/16 09:00 04/02/16 08:34 (Lipitor) 40 mg HS PO 03/25/16 21:00 04/01/16 21:58 (Rocaltrol) 0.25 mcg DAILY PO 03/26/16 09:00 04/02/16 08:34 (Synthroid) 88 mcg DAILY@0600 PO 03/26/16 06:00 04/02/16 05:35 (Protonix) 40 mg DAILY PO 03/26/16 09:00 04/02/16 08:34 (Vitamin D3) 5,000 units DAILY PO 03/26/16 09:00 04/02/16 08:34 (Mirapex) 0.75 mg HS PO 03/25/16 21:00 04/01/16 21:58 ([place] 5-325 Mg) 1 tab Q4H PRN PO 03/26/16 14:00 03/31/16 13:32 Ferrous Sulfate 325 mg 325 mg DAILY PO 03/27/16 09:30 04/02/16 08:34 (Zosyn 2.25 Gm Premix) 50 ml @ 100 mls/hr Q8H IV 03/27/16 21:00 04/02/16 05:34 (Phenergan Supp) 25 mg Q6H PRN RECTAL 03/27/16 18:00 ([place] 10-325 Mg) 1 tab Q6H PRN PO 03/27/16 18:00 04/02/16 05:36 (Coreg) 6.25 mg Q12HR PO 03/28/16 21:00 04/02/16 08:34 (Sodium Chloride) 1 gm DAILY PO 04/02/16 09:00 04/02/16 08:34 (Levemir Inj) 30 units HS SQ 04/02/16 21:00 (Levemir Inj) 20 units DAILY SQ 04/02/16 09:00 04/02/16 08:34 (Renvela) 1,600 mg TIDAC PO 04/02/16 12:00 Family History Noncontributory Social History No tobacco or alcohol No illicit drug use Physical Exam Vital Signs Vital Signs Date Time Temp Pulse Resp B/P Pulse Ox O2 Delivery O2 Flow Rate FiO2 04/02/16 08:00 97.4 68 16 155/67 96 04/02/16 04:00 97.0 69 18 140/62 94 04/02/16 00:00 97.7 66 16 145/63 95 04/01/16 20:00 97.5 58 18 115/56 95 04/01/16 16:00 98.2 62 20 114/54 100 04/01/16 12:00 96.1 56 20 119/57 100 Physical Exam GENERAL: Awake and alert. No acute distress. Cooperative. HEAD: Normocephalic. Atraumatic. EYES: Pupils equal round and reactive to light bilaterally. No scleral icterus. CHEST: Lungs clear to auscultation bilaterally with no wheezing or rhonchi. No respiratory distress. CARDIOVASCULAR: Regular rate and rhythm. ABDOMEN: round, soft. PD cath in place. EXTREMITIES: No cyanosis or edema. SKIN: mild induration right pannus, induration and fluctuance in right mons, right inner thigh and perineum. A couple of areas of skin necrosis. Laboratory Laboratory Tests Test 04/01/16 04/02/16 11:10 06:00 Random Vancomycin Level 26.0 Sodium Level 128 Potassium Level 3.1 Chloride Level 89 Carbon Dioxide Level 26.4 Anion Gap 13 Blood Urea Nitrogen 58 Creatinine 5.36 Estimat Glomerular Filtration 8 Rate Random Glucose 231 Calcium Level 7.5 Result Diagram: 03/30/16 0625 04/02/16 0600 Assessment and Plan Assessment and Plan 71 yo F with multiple medical comorbidities with groin and perineal abscesses. I recommend OR for I and D. I discussed this with Dr. Mejia as well as the patient and family. They agree and she desires to proceed. I will check EKG , CXR, and am labs due to her comorbidities. She is on ASA but we can proceed with this relatively small procedure. ClarkHaroldo MD Apr 02, 2016 10:36
--- NOTE | 2016-04-02 11:04 | RADRPT ---
EXAM DATE/TIME: 04/02/2016 10:31 [facility] COMPARISON: CHEST SINGLE AP, March 25, 2016, 14:45. INDICATIONS: Pulmonary disease. MEDICAL HISTORY: Congestive heart failure. Diabetes mellitus type II. Hypertension. GERD. SURGICAL HISTORY: CABG. ENCOUNTER: Subsequent ACUITY: 1 week PAIN SCORE: 0/10 LOCATION: Bilateral chest FINDINGS: Median sternotomy wires are noted status post cardiac surgery. The heart is enlarged. Moderate pulm onary vascular congestion is noted bilaterally. CONCLUSION: 1. Moderate pulmonary vascular congestion bilaterally. 2. Cardiomegaly. Leonides Root MD on April 02, 2016 at 10:59 Board Certified Radiologist. This report was verified electronically.
--- NOTE | 2016-04-02 11:50 | HHI.NPPN ---
Subjective General Problems: Hypertension Renal Failure: Chronic, End Stage Renal Disease Interval History Pt is fatigued. Family at bedside. PD going well. (Brenna Lopez) Review of Systems General Constitutional: Fatigue (Brenna Lopez) Gastrointestinal Gastrointestinal: Abdominal Pain (Brenna Lopez) Skin Skin Remarks vaginal abscess, labial swelling with pain (Brenna Lopez) Objective Data Data 04/01/16 04/02/16 19:00 07:00 Intake Total 0 ml 390 ml Output Total 0 ml Balance 0 ml 390 ml Intake Oral 0 ml 390 ml Output Urine Total 0 ml # Bowel Movements 1 Vital Signs Date Time Temp Pulse Resp B/P Pulse Ox O2 Delivery O2 Flow Rate FiO2 04/02/16 08:00 97.4 68 16 155/67 96 04/02/16 04:00 97.0 69 18 140/62 94 04/02/16 00:00 97.7 66 16 145/63 95 04/01/16 20:00 97.5 58 18 115/56 95 04/01/16 16:00 98.2 62 20 114/54 100 04/01/16 12:00 96.1 56 20 119/57 100 (Brenna Lopez) -: 03/30/16 0625 04/02/16 0600 Imaging Last 72 hours Impressions Chest X-Ray 04/02/16 0000 Signed Impressions: Service Date/Time: March 10:31 - CONCLUSION: 1. Moderate pulmonary vascular congestion bilaterally. 2. Cardiomegaly. Leonides Root MD Tubes & Lines: Tenckhoff Catheter (Brenna Lopez) Physical Exam General Appearance: Well Developed, Well Nourished, No Acute Distress, Comfortable, Obese (Brenna Lopez) Throat Throat Exam: Oral Mucosa [place] & Moist (Brenna Lopez) Neck Neck Exam: Neck Supple (Brnena Lopez) Pulmonary Resp Exam: Clear Bilaterally, Breath Sounds Equal, No Distress (Brenna Lopez) Cardiology CV Exam: Regular, Normal Sinus Rhythm, Good Perfusion (Brenna Lopez) Gastrointestinal/Abdomen GI Exam: Soft, Non-Tender, Bowel Sounds Present (Brenna Lopez) Genitourinary Remarks deferred vaginal exam (Brenna Lopez) Musculoskeletal MS Exam: Joints Intact, Good Strength (Brenna Lopez) Integumentary Skin Exam: Clear, Warm, Dry, Intact (Brenna Lopez) Extremeties Extremities Exam: No Edema, Pedal Pulses Palpable (Brenna Lopez) Neurologic Neuro Exam: Alert, Awake, Oriented, Speech Clear, Moving All Extremities ( Brenna Lopez) Psychiatric Psych Exam: Appropriate Responses (Brenna Lopez) Assessment/Plan Assessment Summary: Anemia of CKD, Hypertension, Diabetes Mellitus, End Stage Renal Disease Electrolyte Assessment: Hypocalcemia, Hyponatremia Problem List: (1) ESRD (end stage renal disease) on dialysis Plan: Continue CCPD, currently ongoing without complication some lower extremity present , on 2.5% PD fluid monitor PD catheter K stable phosphorus elevated, she was not on binders at home, Renvela started and we discussed medication timing continue current plan (2) Vulval cellulitis Plan: with sepsis, + E coli in 1/4 bottles ID following. On Zosyn and IV Vancomycin. May switch to IP antibiotics if ID is in agreement Pending repeat PD cell count, previously suggesting peritonitis. Dialysate is not cloudy, had some fibrin a few days ago, added heparin. 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 (3) Anemia Plan: labs indicating iron deficiency avoid IV Iron in light of sepsis,on oral iron replacement Monitor Hemoglobin. Epogen SQ weekly, will give a dose today transfuse PRN (4) DM (diabetes mellitus) Plan: blood sugars elevated but improved continue insulin monitor glucose, goal 140-180 mg/dL (5) Hypertension Plan: oral medications as ordered follow blood pressure, adjust medications as needed (6) Hyponatremia Plan: needs to restrict fluid intake. (Brenna Lopez) Plan patient was seen and examined. Repeat dialysate cell count is higher, resistant peritonitis? Very low albumin, discussed with Dr. Mejia. Fluid overload is noted. May have to temporarily switch her to HD for fluid removal, better management of uremia. We will get Vascath placed. (Filemon Mar MD) Problem Qualifiers (1) Anemia: Qualified Code: N18.9 - Anemia in chronic kidney disease (2) DM (diabetes mellitus): Brenna Lopez Apr 02, 2016 11:50 Filemon Mar MD Apr 02, 2016 20:30
[2016-04-02] MEDS: SEVELAMER CARBONATE 800 MG TAB PO SCH ×2 (12:20→16:41)
[2016-04-02] MEDS: ACETAMINOPHEN/HYDROcodone 325 MG/5 MG TAB PO PRN (12:21)
[2016-04-02] MEDS ORDERED: ALBUMIN HUMAN 25% 25 GM/100 ML BAGP IV SCH (12:30)
[2016-04-02 12:46] VITALS: BP 142/65; PULSE 62; RESP 16; TEMP 96.9; O2SAT 99
[2016-04-02] MEDS ORDERED: EPOETIN ALFA 20,000 UNITS/ML VIAL SQ ONE (14:00)
[2016-04-02 16:00] VITALS: BP 140/63; PULSE 65; RESP 16; TEMP 98.3; O2SAT 92
--- NOTE | 2016-04-02 17:46 | HHI.IDPN ---
Subjective Subjective Remarks feels about the same No fever No diarrhea co pain, unchanged Dr Rodas saw the pt who is plannoing to I+D the abscess poor po intake Antibiotics zosyn, vancomycin (through 26 from 04/01) Allergies: Coded Allergies: Codeine (Verified Allergy, Severe, HALLUCINATIONS, 03/25/16) Ofloxacin (Verified Allergy, Severe, FLOXIN, 03/25/16) Objective . Vital Signs Date Time Temp Pulse Resp B/P Pulse Ox O2 Delivery O2 Flow Rate FiO2 04/02/16 16:00 98.3 65 16 140/63 92 04/02/16 12:46 96.9 62 16 142/65 99 04/02/16 08:00 97.4 68 16 155/67 96 04/02/16 04:00 97.0 69 18 140/62 94 04/02/16 00:00 97.7 66 16 145/63 95 04/01/16 20:00 97.5 58 18 115/56 95 04/01/16 04/01/16 04/02/16 15:00 23:00 07:00 Intake Total 0 ml 240 ml 150 ml Output Total 0 ml Balance 0 ml 240 ml 150 ml Intake Oral 0 ml 240 ml 150 ml Output Urine Total 0 ml # Bowel Movements 1 . Laboratory Tests Test 04/02/16 04/02/16 06:00 16:32 Sodium Level 128 MEQ/L Potassium Level 3.1 MEQ/L 3.4 MEQ/L Chloride Level 89 MEQ/L Carbon Dioxide Level 26.4 MEQ/L Anion Gap 13 MEQ/L Blood Urea Nitrogen 58 MG/DL Creatinine 5.36 MG/DL Estimat Glomerular Filtration 8 ML/MIN Rate Random Glucose 231 MG/DL Calcium Level 7.5 MG/DL Imaging Last Impressions Chest X-Ray 04/02/16 0000 Signed Impressions: Service Date/Time: March 10:31 - CONCLUSION: 1. Moderate pulmonary vascular congestion bilaterally. 2. Cardiomegaly. Leonides Root MD Soft Tissue Ultrasound 03/25/16 0000 Signed Impressions: Service Date/Time: Friday, March 25, 2016 17:25 - CONCLUSION: Diffuse soft tissue swelling in the right labia and right groin. Enrique Snyder MD Abdomen/Pelvis CT 03/25/16 0000 Signed Impressions: Service Date/Time: Friday, March 25, 2016 19:39 - CONCLUSION: 1. Cellulitic changes in the right groin, right perineum and right labia. No abscess or fluid collection. 2. Dialysis catheter and minimal pelvic ascites. 3. Diverticulosis without diverticulitis. 4. Status post cholecystectomy. Enrique Snyder MD Physical Exam CONSTITUTIONAL/GENERAL: This is a morbidly obese elderly ill appearing patient , in no apparent distress. SKIN: No jaundice, rashes, Anasarca HEAD: Atraumatic. Normocephalic. EYES: Pupils equal and round and reactive. No scleral icterus. No injection or drainage. CARDIOVASCULAR: Regular rate and rhythm without murmurs, gallops, or rubs. No JVD. Peripheral pulses symmetric. RESPIRATORY/CHEST: Symmetric, unlabored respirations. Clear to auscultation. Breath sounds equal bilaterally. No wheezes, rales, or rhonchi. GASTROINTESTINAL: Abdomen soft, mildly tender, distended. No hepato-splenomegaly , or palpable masses. No guarding. Bowel sounds present. PD cath in place RLQ with clear peritoneal fluid in tubing GENITOURINARY: Without palpable bladder distension. R labia major is markedly erthematous, indurated and tender to palpation; 2 dusky lesions present Induration, erythema of R groin area with small dusky area + palpable fluctuance no crepitus + purulence no fluctuance decreased erythema to inner thigh area MUSCULOSKELETAL: Extremities without clubbing, cyanosis, + 4 tight BLE edema. No mottling or clubbing. NEUROLOGICAL: Awake alert. Non focal. Normal speech Assessment & Plan Remarks Labial cellulitis, phlegmone R - improving ? Forming abscess Sepsis, E.coli bacteremia - 2/2 to above Abcx associated diarrhea, C.diff negative ESRD/PD - fu PD fluid clx (Gstain negative) Massively fluid overload Hypoalbunemia, profound - cont zosyn, - redose vanocmyicn per levels -will fu clx from debridment Discussed Condition With Radha Buchanan MD Apr 02, 2016 17:46
[2016-04-02 19:35] LABS: PERITONEAL LYMPHS 2 %; PERITONEAL MONOS 6 %; PERITONEAL POLYS(SEGS) 92 %; PERITONEAL WBC 415 /MM3 (0-10)
[2016-04-02 20:00] VITALS: BP 140/67; PULSE 68; RESP 16; TEMP 96.8; O2SAT 98
[2016-04-02] MEDS ORDERED: SODIUM CHLOR 0.9% 1000 ML INJ 1,000 ML IV PRN ×2 (20:31)
[2016-04-02] MEDS ORDERED: NITROGLYCERIN 0.4 MG SL 25 TABS/BTL SL PRN (20:45)
[2016-04-02] MEDS ORDERED: cloNIDine HCL 0.1 MG TAB PO PRN (20:45)
[2016-04-02] MEDS ORDERED: ONDANSETRON HCL 4 MG/2 ML VIAL IV PRN (20:45)
[2016-04-02] MEDS ORDERED: ACETAMINOPHEN 325 MG TAB PO PRN (20:45)
[2016-04-02] MEDS ORDERED: MANNITOL 12.5 GM/50 ML VIAL IV PRN (20:45)
[2016-04-02] MEDS ORDERED: diphenhydrAMINE HCL 25 MG CAP PO PRN (20:45)
[2016-04-02] MEDS ORDERED: SODIUM CHLORIDE 0.9% FLUSH 5 ML FLUSH IVF PRN (20:45)
[2016-04-02] MEDS ORDERED: GELATIN 12 MM/7 MM FOAM TOP PRN (20:45)
[2016-04-02] MEDS ORDERED: HEPARIN SODIUM - IV 10,000 UNITS/10 ML VIAL IVF PRN (20:45)
[2016-04-02] MEDS ORDERED: ALBUMIN HUMAN 25% 25 GM/100 ML BAGP IV PRN (20:45)
[2016-04-02] MEDS: PRAMIPEXOLE DIHYDROCHLORIDE 0.25 MG TAB PO SCH (22:31)
[2016-04-02] MEDS: ATORVASTATIN 40 MG TAB PO SCH (22:31)
[2016-04-03] VITALS: BP 154/60; PULSE 65; RESP 16; TEMP 98.6; O2SAT 94
[2016-04-03 04:00] VITALS: BP 151/62; PULSE 98; RESP 15; TEMP 98.8; O2SAT 95
[2016-04-03] MEDS: LEVOTHYROXINE SODIUM 88 MCG TAB PO SCH (05:08)
[2016-04-03] MEDS: PIPERACIL-TAZO 2.25 GM PREMIX 50 ML IV SCH (05:28)
[2016-04-03] MEDS: INSULIN ASPART SUPPLEMENTAL SCALE SQ SCH ×4 (05:34→23:05)
[2016-04-03] MEDS: ASPIRIN EC 325 MG TABEC PO SCH (07:41)
[2016-04-03] MEDS: SEVELAMER CARBONATE 800 MG TAB PO SCH ×4 (07:42→23:43)
[2016-04-03 08:00] VITALS: BP 164/70; PULSE 75; RESP 16; TEMP 97.5; O2SAT 95
[2016-04-03 08:00] LABS: HEMATOCRIT 26.1 % (35.0-46.0); MEAN CELL VOLUME 91.8 FL (80.0-100.0); MEAN CORPUSCULAR HEMOGLOBIN 30.3 PG (27.0-34.0); PLATELET COUNT 168 TH/MM3 (150-450); RED BLOOD COUNT 2.84 MIL/MM3 (4.00-5.30); RED CELL DISTRIBUTION WIDTH 16.1 % (11.6-17.2); REVIEW FLAG FINAL
[2016-04-03] MEDS: INSULIN DETEMIR 100 UNITS/ML VIAL SQ SCH ×2 (08:06→23:17)
[2016-04-03] MEDS: CARVEDILOL 6.25 MG TAB PO SCH ×2 (08:06→21:00)
[2016-04-03 08:23] LABS: BICARBONATE 24.7 MEQ/L (21.0-32.0); POTASSIUM 3.4 MEQ/L (3.5-5.1)
--- NOTE | 2016-04-03 08:43 | HHI.PR ---
Subjective Remarks awake and alert. on stretcher getting ready for surgery Objective Vitals heart reg lung cta abd s/nt ext right labia/groing/inguinal/inner thigh erythema/induration with some fluctuance and skin necrosis in right groin Vital Signs Date Time Temp Pulse Resp B/P Pulse Ox O2 Delivery O2 Flow Rate FiO2 04/03/16 04:00 98.8 98 15 151/62 95 04/03/16 00:00 98.6 65 16 154/60 94 04/02/16 20:00 96.8 68 16 140/67 98 04/02/16 16:00 98.3 65 16 140/63 92 04/02/16 12:46 96.9 62 16 142/65 99 04/02/16 04/02/16 04/03/16 15:00 23:00 07:00 Intake Total 240 ml 120 ml Output Total 258 ml Balance -18 ml 120 ml Intake Oral 240 ml 120 ml Hemodialysis 258 ml # Voids 1 0 1 # Bowel Movements 1 0 0 Result Diagram: 04/03/1612 04/03/16 0712 Imaging Last Impressions Chest X-Ray 03/25/161433 Signed Impressions: Service Date/Time: Friday, March 25, 2016 14:45 - CONCLUSION: 1. Mild cardiomegaly. 2. Postsurgical changes. 3. No acute abnormality. Surya Christianson MD Soft Tissue Ultrasound 03/25/16 0000 Signed Impressions: Service Date/Time: Friday, March 25, 2016 17:25 - CONCLUSION: Diffuse soft tissue swelling in the right labia and right groin. Enrique Snyder MD Abdomen/Pelvis CT 03/25/16 0000 Signed Impressions: Service Date/Time: Friday, March 25, 2016 19:39 - CONCLUSION: 1. Cellulitic changes in the right groin, right perineum and right labia. No abscess or fluid collection. 2. Dialysis catheter and minimal pelvic ascites. 3. Diverticulosis without diverticulitis. 4. Status post cholecystectomy. Enrique Snyder MD Last Impressions Chest X-Ray 03/25/164 Signed Impressions: Service Date/Time: Friday, March 25, 2016 14:45 - CONCLUSION: 1. Mild cardiomegaly. 2. Postsurgical changes. 3. No acute abnormality. Surya Christianson MD A/P Problem List: (1) Cellulitis of labia Status: Acute Plan: - Pt admitted with cellulitis of the right labia and into the right groin /inner thigh - Pt had a noted elevated WBC count of 14.4 at admission with a Lactic acid of 2.4 - Pt was given IV Vancomycin, Cefepime and Clindamycin - CT abd/pelvis (03/25/16) --> Cellulitic changes in the right groin, right perineum and right labia. No abscess or fluid collection. Dialysis catheter and minimal pelvic ascites. Diverticulosis without diverticulitis. - Blood cultures with one out of 4 growing E. coli - peritoneal WBC 106 - Peritoneal fluid culture --> NGTD - Vancomycin started 03/25/16nd Zosyn added (started 03/26/16) per ID - local wound care for skin breakdown. - Discussed with ID 03/31 who feels the right labia/groin cellulitis is evolving into abscess collection - Pt seen at bedide with Dr Rodas 04/02....Pt will need to proceed to OR for exploration of her wounds, drainage of abscess, debridement of necrotic tissues -she is very malnourished with poor po. -I discussed at length with pt about poor wound healing. I discussed changing her dialysis to hemodialysis and if needed placing a peg for nutrition. she wanted to proceed with the plan as above. - Pain control PRN - DVT prophylaxis with SCDs -PT consulted (2) Bacteremia Status: Acute Plan: see above (3) Anemia Status: Chronic Plan: - Related to pts ESRD - received epogen (03/28/16) - Hg 8.0 (03/29/16) - 1 units PRBC (4) ESRD (end stage renal disease) on dialysis Status: Chronic Plan: - comgmt with nephrology - Pt is on PD since 05/2015 - Pt has not been eating and drinking well and electrolyte abnormality is likely related to some degree of dehydration in the setting of her ESRD -hyponatremia. will add salt tab - Encourage oral intake - Monitor labs closely (5) DM (diabetes mellitus) Status: Chronic Plan: hyperglycemia resume levemir and titrate ssi (6) Hypothyroidism Status: Chronic Plan: - Home meds continued (7) Hypertension Status: Chronic Plan: - Home meds continued Problem Qualifiers (1) Anemia: Qualified Code: N18.9 - Anemia in chronic kidney disease (2) DM (diabetes mellitus): Humza Mejia MD Apr 03, 2016 08:42
[2016-04-03] MEDS: SERTRALINE HCL 100 MG TAB PO SCH (09:00)
[2016-04-03] MEDS: SODIUM CHLORIDE 1 GRAM TAB PO SCH (09:00)
[2016-04-03] MEDS: SODIUM CHLORIDE 0.9% FLUSH 5 ML FLUSH FLUSH SCH ×2 (09:00→23:17)
[2016-04-03] MEDS: FERROUS SULFATE 325 MG (65 MG ELEMENTAL IRON) TAB PO SCH (09:00)
[2016-04-03] MEDS: CALCITRIOL 0.25 MCG CAP PO SCH (09:00)
[2016-04-03] MEDS: PANTOPRAZOLE SOD 40 MG DELAYED RELEASE TAB PO SCH (09:00)
[2016-04-03] MEDS: CHOLECALCIFEROL (VIT D3) 5000 UNIT CAP PO SCH (09:00)
--- NOTE | 2016-04-03 09:37 | PD.RAD ---
Post Procedure Progress Note Pre Procedure Diagnosis: (1) ESRD (end stage renal disease) on dialysis Post Procedure Diagnosis: (1) ESRD (end stage renal disease) on dialysis Procedure Date: Apr 03, 2016 Supervising Radiologist: Godfrey Griffith Proceduralist/Assist: Marilee Wyatt RT(R), Ad Durand RT(R) Anesthesia: Local Plan of Activity Patient to Unit: Nursing Unit Patient Condition: Fair See PACS Report for procedural detail/treatment Central Venous Access Device Procedure 1 Left Internal Jugular Hemodialysis Catheter Non-Tunneled Placement dual lumen Estonian: 15 Godfrey Griffith MD Apr 03, 2016 09:37
[2016-04-03] MEDS ORDERED: SODIUM CHLORID 0.9% 500 ML INJ 500 ML IV ONE (09:41)
[2016-04-03] MEDS ORDERED: ONDANSETRON HCL 4 MG/2 ML VIAL IV PUSH ONE (09:41)
[2016-04-03] MEDS ORDERED: PROPOFOL 200 MG/20 ML AMP IV ONE (09:41)
[2016-04-03] MEDS ORDERED: NEOSTIGMINE 3 MG/3 ML SYR IV ONE (09:41)
[2016-04-03] MEDS ORDERED: HEPARIN SODIUM - IV 10,000 UNITS/10 ML VIAL IVF PRN (09:45)
[2016-04-03] MEDS ORDERED: SODIUM CHLORIDE 0.9% FLUSH 5 ML FLUSH IVF PRN (09:45)
[2016-04-03] MEDS ORDERED: FAMOTIDINE 20 MG/2 ML VIAL ONE (10:23)
--- NOTE | 2016-04-03 10:54 | HHI.NPPN ---
Subjective General Problems: Hypertension Renal Failure: Chronic, End Stage Renal Disease Interval History Going for surgical I&D today. She is not feeling well, lethargic. Has fluid overload. (Brenna Lopez) Review of Systems General Constitutional: Fatigue (Brenna Lopez) Gastrointestinal Gastrointestinal: Abdominal Pain (Brenna Lopez) Skin Skin Remarks vaginal abscess, labial swelling with pain (Brenna Lopez) Objective Data Data 04/02/16 04/03/16 19:00 07:00 Intake Total 240 ml 120 ml Output Total 258 ml Balance -18 ml 120 ml Intake Oral 240 ml 120 ml Hemodialysis 258 ml # Voids 1 1 # Bowel Movements 1 0 Vital Signs Date Time Temp Pulse Resp B/P Pulse Ox O2 Delivery O2 Flow Rate FiO2 04/03/16 08:00 97.5 75 16 164/70 95 Manual Cuff/Auscultation 04/03/16 04:00 98.8 98 15 151/62 95 04/03/16 00:00 98.6 65 16 154/60 94 04/02/16 20:00 96.8 68 16 140/67 98 04/02/16 16:00 98.3 65 16 140/63 92 04/02/16 12:46 96.9 62 16 142/65 99 (Brenna Lopez) -: 04/03/16 0712 04/03/16 0712 Imaging Last 72 hours Impressions Chest X-Ray 04/02/16 0000 Signed Impressions: Service Date/Time: March 10:31 - CONCLUSION: 1. Moderate pulmonary vascular congestion bilaterally. 2. Cardiomegaly. Leonides Root MD Tubes & Lines: Tenckhoff Catheter (Brenna Lopez) Physical Exam General Appearance: Well Developed, Well Nourished, No Acute Distress, Comfortable, Obese (Brenna Lopez) Throat Throat Exam: Oral Mucosa [place] & Moist (Brenna Lopez) Neck Neck Exam: Neck Supple (Brenna Lopez) Pulmonary Resp Exam: Clear Bilaterally, Breath Sounds Equal, No Distress (Brenna Lopez) Cardiology CV Exam: Regular, Normal Sinus Rhythm, Good Perfusion (Brenna Lopez) Gastrointestinal/Abdomen GI Exam: Soft, Non-Tender, Bowel Sounds Present (Brenna Lopez) Genitourinary Remarks deferred vaginal exam (Brenna Lopez) Musculoskeletal MS Exam: Joints Intact, Good Strength (Brenna Lopez) Integumentary Skin Exam: Clear, Warm, Dry, Intact (Brenna Lopez) Extremeties Extremities Exam: No Edema, Pedal Pulses Palpable (Brenna Lopez) Neurologic Neuro Exam: Speech Clear, Moving All Extremities Neuro Remarks lethargic (Brenna Lopez) Psychiatric Psych Exam: Appropriate Responses (Brenna Lopez) Assessment/Plan Discussed Condition With: Patient Assessment Summary: Anemia of CKD, Fluid/Volume Overload, Hypertension, Diabetes Mellitus, End Stage Renal Disease Electrolyte Assessment: Hypocalcemia, Hyponatremia Problem List: (1) ESRD (end stage renal disease) on dialysis Plan: On CCPD, however she is not doing well and has signs of fluid overload PD cell count increased, ? peritonitis vascath placed, will do hemodialysis today for fluid removal, orders entered K low, replacement given phosphorus improving, on Renvela monitor PD catheter labs in am, likely dialyze tomorrow as well (2) Vulval cellulitis Plan: with sepsis, + E coli in 1/4 bottles ID following. On Zosyn and IV Vancomycin. May switch to IP antibiotics if ID is in agreement Repeat PD cell count higher, suggesting peritonitis. discussed with ID to OR today for I&D. (3) Anemia Plan: labs indicating iron deficiency avoid IV Iron in light of sepsis,on oral iron replacement Monitor Hemoglobin. Epogen SQ weekly transfuse PRN (4) DM (diabetes mellitus) Plan: blood sugars elevated but improved continue insulin monitor glucose, goal 140-180 mg/dL (5) Hypertension Plan: oral medications as ordered follow blood pressure, adjust medications as needed (6) Hyponatremia Plan: stable needs to restrict fluid intake. (Brenna Lopez) Plan patient was seen and examined during dialysis. HD started today, hopefully on a temporary basis. Dialysis again tomorrow. Discussed with Dr. Robbins. Concerned about increase in dialysate cell count. Ongoing peritonitis? Consider Diflucan. (Filemon Mar MD) Problem Qualifiers (1) Anemia: Qualified Code: N18.9 - Anemia in chronic kidney disease (2) DM (diabetes mellitus): Brenna Lopez Apr 03, 2016 10:54 Filemon Mar MD Apr 03, 2016 16:19
[2016-04-03] MEDS ORDERED: BUPIVACAINE HCL PF 0.5% 30 ML VIAL ONE (11:10)
[2016-04-03] MEDS ORDERED: MIDAZOLAM HCL 2 MG/2 ML VIAL ONE (11:17)
--- NOTE | 2016-04-03 13:10 | PD.OP ---
cc: Haroldo Rodas MD Operative Report Date of Surgery: Apr 03, 2016 Preoperative Diagnosis: (1) Abscess of right thigh (2) Abscess of right groin Postoperative Diagnosis: (1) Abscess of right thigh (2) Abscess of right groin Procedure: Incision and debridement skin and subcutaneous tissue right inguinal abscess with wound VAC placement Incision and debridement skin and subcutaneous tissues tissue right upper inner thigh abscess Anesthesia: YOEL Surgeon: Haroldo Rodas Bottom Cager(s): Kathryn Barboza CFA Operation and Findings: EBL: 50 cc Operative findings: The patient had extensive necrotic skin and especially subcutaneous tissue in the right inguinal region. This tracked along the right inguinal canal and into the superior aspect of the right labia. The wound up being fairly large therefore I placed one VAC. In the right upper inner thigh/ lower labia there was also necrotic skin and subcutaneous tissue which I debrided. There was another small wound near the this one which was debrided. Procedure in detail: The patient was taken to the operating room and placed in supine position. She was placed in [facility]. Gen. endotracheal anesthesia was induced. The perineum and groin was prepped and draped in usual sterile fashion. In the right inguinal area there was an area of necrotic skin. This was debrided. The subcutaneous tissue was noted to be a large amount of necrotic tissue. Therefore the skin required incision and debridement superior medially. The necrotic subcutaneous tissue tracked along the inguinal canal for about 10 cm. It also tracked towards the superior labia. I opened this up sufficiently and debrided the necrotic fat. Hemostasis was achieved and due to the size I opted to place a small wound VAC. This was placed with good seal. In the right upper inner thigh/lower labia there was no area of necrotic skin. This was debrided and underneath again was necrotic subcutaneous tissue fairly extensive. This was debrided and hemostasis achieved. A smaller area medially to this required superficial debridement. These wounds were irrigated with peroxide and saline solution. There were packed with damp gauze. A sterile dressing and mesh panties were applied. The patient tolerated procedure well was x-rayed and taken to PACU in stable condition. Clark,Haroldo PATEL Apr 03, 2016 13:10
--- NOTE | 2016-04-03 13:24 | RADRPT ---
EXAM DATE/TIME: 04/03/2016 08:46 [place] COMPARISON: No previous studies available for comparison. INDICATIONS : Patient with fluid overload in need of temporary dialysis catheter placement. MEDICAL HISTORY : CAD Anemia of CKD HTN CHF ESRD Diabetes Hyperlipidemia Pulmonary HTN Secondary hyperparathyroidism SURGICAL HISTORY : PD catheter placement 06/04 Breast reduction CABG 1996, 2004 Coronary stent placement [id number] Left knee replacement ENCOUNTER: Initial ACUITY: 1 day PAIN SCORE: 10/10 LOCATION: Right groin and inner thigh FLUORO TIME: 0.5 minutes ACCESS: Left internal jugular vein DEVICE(S): 1.) 14 [place] dual lumen 20 cm Schon catheter PROCEDURE : 1. Ultrasound guided venipuncture. 2. Fluoroscopic guidance. 3. Central line placement. The risks, benefits and alternatives to the procedure were explained and verbal and written consent w as obtained. The site was prepped in sterile fashion. Full sterile technique was used, including ca p, mask, sterile gloves and gown and a large sterile sheet. Hand hygiene and 2% chlorhexidine prep w as utilized per protocol for cutaneous antisepsis with appropriate dry time for site. The skin and subcutaneous tissues were infiltrated with local anesthetic solution. A suitable site a hira the vein was selected with ultrasound and fluoroscopic guidance. A small incision was made. Th e vein was accessed under direct ultrasound visualization using the micropuncture technique. The hernan ropuncture set was exchanged for a 0.035 wire. The tract was dilated. The catheter was advanced int o position under direct fluoroscopic visualization. The catheter was fixed in place with suture and a sterile dressing was applied. The patient tolerated the procedure well and there were no complications. CONCLUSION: Uncomplicated line placement as above. Godfrey Griffith MD on April 03, 2016 at 13:22 Board Certified Radiologist. This report was verified electronically.
[2016-04-03] MEDS ORDERED: fentaNYL CITRATE 250 MCG/5 ML AMP ONE (13:32)
[2016-04-03] MEDS ORDERED: DEXTROSE 50% IN WATER 50 ML VIAL(D50) ONE (13:46)
[2016-04-03] MEDS: cefTAZidime INJ 1,000 MG in SODIUM CHLORIDE 0.9% INJ 100 ML IV SCH (13:52)
[2016-04-03] MEDS ORDERED: DEXTROSE 50% IN WATER 50 ML VIAL(D50) IV ONE (14:00)
[2016-04-03] MEDS ORDERED: DO NOT ADM ANY ANTICOAGULANT DRUGS XX PRN (14:00)
[2016-04-03] MEDS: metroNIDAZOLE 500 MG INJ 100 ML IV SCH ×2 (14:25→23:17)
--- NOTE | 2016-04-03 14:54 | HHI.PR ---
Addendum to Inpatient Note Additional Information attempted to see the pt She is in OR will see her tomorrow ABx were changed dw Radha Hernandez MD Apr 03, 2016 14:54
[2016-04-03] MEDS: GENTAMICIN SULFATE (DIALYSIS USE ONLY) 20 MG/2 ML VIAL IV PRN (17:09)
[2016-04-03] MEDS: HEPARIN SODIUM - IV 10,000 UNITS/10 ML VIAL PRN (17:10)
[2016-04-03 17:56] VITALS: O2SAT 99
[2016-04-03 18:00] VITALS: BP 108/50; PULSE 60; RESP 14; TEMP 97; O2SAT 99
[2016-04-03 20:00] VITALS: BP 136/63; PULSE 68; RESP 16; TEMP 97.1; O2SAT 93
[2016-04-03] MEDS ORDERED: POTASSIUM CHLORIDE 20 MEQ CONTROLLED RELEASE TAB PO ONE (21:00)
--- NOTE | 2016-04-03 22:57 | EKG ---
Date Performed: 04/02/2016 Time Performed: 10:55:49 PTAGE: 71 years EKG: SINUS BRADYCARDIA INTRAVENTRICULAR CONDUCTION DELAY NONSPECIFIC ST-T WAVE CHANGES Compared to previous tracing, the sinus tachycardia has resolved. The marked inferolateral ST-T depression lopez s resolved. The sinus bradycardia is new. Significant serial changes have occurred and clinical cor relation will be important. ABNORMAL ECG PREVIOUS TRACING : 03/25/2016 15.08 DOCTOR: Jada Hutton Interpretating Date/Time 04/03/2016 22:57:08
[2016-04-03] MEDS: ATORVASTATIN 40 MG TAB PO SCH (23:15)
[2016-04-03] MEDS: ACETAMINOPHEN/HYDROcodone 325 MG/10 MG TAB PO PRN (23:16)
[2016-04-03] MEDS: PRAMIPEXOLE DIHYDROCHLORIDE 0.25 MG TAB PO SCH (23:16)
[2016-04-04] VITALS (7 sets, daily range): BP systolic 122–154; BP diastolic 60–93; PULSE 58–87; RESP 16–18; TEMP 97.1–99.4; O2SAT 93–98
[2016-04-04] MEDS: metroNIDAZOLE 500 MG INJ 100 ML IV SCH ×3 (05:00→21:52)
[2016-04-04] MEDS: INSULIN ASPART SUPPLEMENTAL SCALE SQ SCH ×4 (05:03→20:28)
[2016-04-04] MEDS: LEVOTHYROXINE SODIUM 88 MCG TAB PO SCH (06:01)
[2016-04-04 07:10] LABS: BICARBONATE 27.2 MEQ/L (21.0-32.0); MAGNESIUM 1.8 MG/DL (1.5-2.5); POTASSIUM 3.6 MEQ/L (3.5-5.1)
[2016-04-04 07:29] LABS: CALCIUM-PROTEIN CORRECTED 8.2 MG/DL (8.5-10.1)
[2016-04-04] MEDS: PANTOPRAZOLE SOD 40 MG DELAYED RELEASE TAB PO SCH (09:41)
[2016-04-04] MEDS: CALCITRIOL 0.25 MCG CAP PO SCH (09:41)
[2016-04-04] MEDS: SODIUM CHLORIDE 1 GRAM TAB PO SCH (09:42)
[2016-04-04] MEDS: SODIUM CHLORIDE 0.9% FLUSH 5 ML FLUSH FLUSH SCH ×2 (09:42→20:23)
[2016-04-04] MEDS: CARVEDILOL 6.25 MG TAB PO SCH ×2 (09:42→20:22)
[2016-04-04] MEDS: FERROUS SULFATE 325 MG (65 MG ELEMENTAL IRON) TAB PO SCH (09:42)
[2016-04-04] MEDS: CHOLECALCIFEROL (VIT D3) 5000 UNIT CAP PO SCH (09:42)
[2016-04-04] MEDS: ASPIRIN EC 325 MG TABEC PO SCH (09:42)
[2016-04-04] MEDS: SERTRALINE HCL 100 MG TAB PO SCH (09:42)
--- NOTE | 2016-04-04 09:54 | HHI.PR ---
Subjective Remarks somewhat lethargic but responds. Objective Vitals mild lethargy heart reg lung cta abd pd cath vascath in chest right groin redness/swelling better and has right groin wound vac. right inner thigh swelling redness better. buttock excoriations. Vital Signs Date Time Temp Pulse Resp B/P Pulse Ox O2 Delivery O2 Flow Rate FiO2 04/04/16 08:00 97.1 64 18 141/93 93 04/04/16 04:00 97.3 58 16 130/61 94 04/04/16 00:57 18 04/04/16 00:00 97.6 71 16 122/77 93 04/03/16 20:00 97.1 68 16 136/63 93 04/03/16 18:00 97.0 60 14 108/50 99 04/03/16 17:56 99 21 04/03/16 14:30 98.0 55 13 102/39 100 Nasal Cannula 2 04/03/16 14:15 60 12 111/42 100 Nasal Cannula 2 04/03/16 14:00 61 15 116/36 100 Nasal Cannula 4 04/03/16 13:45 63 13 132/36 99 Nasal Cannula 4 04/03/16 13:30 61 14 119/39 100 Nasal Cannula 4 04/03/16 13:18 98.3 61 15 130/49 100 T-Piece 15 04/03/16 04/03/16 04/04/16 15:00 23:00 07:00 Intake Total 400 ml 120 ml Output Total 150 ml 2500 ml Balance 250 ml -2500 ml 120 ml Intake Oral 0 ml 120 ml Other 400 ml Hemodialysis 2500 ml Estimated Blood Loss 150 ml # Voids 1 1 1 # Bowel Movements 1 1 0 Result Diagram: 04/03/16 0712 04/04/16 0545 Imaging Last Impressions Chest X-Ray 03/25/16 1434 Signed Impressions: Service Date/Time: Friday, March 25, 2016 14:45 - CONCLUSION: 1. Mild cardiomegaly. 2. Postsurgical changes. 3. No acute abnormality. Surya Christianson MD Soft Tissue Ultrasound 03/25/16 0000 Signed Impressions: Service Date/Time: Friday, March 25, 2016 17:25 - CONCLUSION: Diffuse soft tissue swelling in the right labia and right groin. Enrique Snyder MD Abdomen/Pelvis CT 03/25/16 0000 Signed Impressions: Service Date/Time: Friday, March 25, 2016 19:39 - CONCLUSION: 1. Cellulitic changes in the right groin, right perineum and right labia. No abscess or fluid collection. 2. Dialysis catheter and minimal pelvic ascites. 3. Diverticulosis without diverticulitis. 4. Status post cholecystectomy. Enrique Snyder MD Last Impressions Chest X-Ray 03/25/16 1434 Signed Impressions: Service Date/Time: Friday, March 25, 2016 14:45 - CONCLUSION: 1. Mild cardiomegaly. 2. Postsurgical changes. 3. No acute abnormality. Surya Christianson MD A/P Problem List: (1) Cellulitis of labia Status: Acute Plan: - Pt admitted with cellulitis of the right labia and into the right groin /inner thigh - Pt had a noted elevated WBC count of 14.4 at admission with a Lactic acid of 2.4 - Pt was given IV Vancomycin, Cefepime and Clindamycin - CT abd/pelvis (03/25/16) --> Cellulitic changes in the right groin, right perineum and right labia. No abscess or fluid collection. Dialysis catheter and minimal pelvic ascites. Diverticulosis without diverticulitis. - Blood cultures with one out of 4 growing E. coli - peritoneal WBC 106 - Peritoneal fluid culture --> NGTD - Vancomycin started 03/25/16nd Zosyn added (started 03/26/16) per ID - Abx switched to ceftaz and flagyl on 04/03 - local wound care for skin breakdown. - Pt underwent debridement of necrotic skin/fat/abscess to right groin and inner thigh on 04/03..wound vac placed Discussed with ID 03/31 who feels the right labia/groin cellulitis is evolving into abscess collection - Switched to HD and vascath placed on 04/03 -she is very malnourished with poor po. -I discussed at length with pt about poor wound healing. will encourage po intake over the weekend and consider tube feeding if necessary. - Pain control PRN - DVT prophylaxis with SCDs -PT consulted (2) Bacteremia Status: Acute Plan: see above (3) Anemia Status: Chronic Plan: - Related to pts ESRD - received epogen (03/28/16) - Hg 8.0 (03/29/16) - 1 units PRBC (4) ESRD (end stage renal disease) on dialysis Status: Chronic Plan: - comgmt with nephrology - Pt is on PD since 05/2015 - on HD now..?temporary (5) DM (diabetes mellitus) Status: Chronic Plan: hyperglycemia poor po intake resume levemir as tolerated ssi (6) Hypothyroidism Status: Chronic Plan: - Home meds continued (7) Hypertension Status: Chronic Plan: - Home meds continued Problem Qualifiers (1) Anemia: Qualified Code: N18.9 - Anemia in chronic kidney disease (2) DM (diabetes mellitus): Humza Mejia MD Apr 04, 2016 09:54
[2016-04-04] MEDS: SODIUM CHLOR 0.9% 1000 ML INJ 1,000 ML IV PRN (10:56)
[2016-04-04] MEDS: HEPARIN SODIUM - IV 10,000 UNITS/10 ML VIAL PRN (10:57)
[2016-04-04] MEDS: GENTAMICIN SULFATE (DIALYSIS USE ONLY) 20 MG/2 ML VIAL IV PRN (10:57)
[2016-04-04] MEDS: EPOETIN ALFA 10,000 UNITS/ML VIAL IV PRN (10:58)
--- NOTE | 2016-04-04 11:13 | HHI.NPPN ---
Subjective General Problems: Hypertension Renal Failure: Chronic, End Stage Renal Disease Review of Systems General Constitutional: Fatigue Gastrointestinal Gastrointestinal: Abdominal Pain Skin Skin Remarks vaginal abscess, labial swelling with pain Objective Data Data 04/03/16 04/04/16 19:00 07:00 Intake Total 400 ml 120 ml Output Total 2650 ml Balance -2250 ml 120 ml Intake Oral 0 ml 120 ml Other 400 ml Hemodialysis 2500 ml Estimated Blood Loss 150 ml # Voids 2 1 # Bowel Movements 2 0 Vital Signs Date Time Temp Pulse Resp B/P Pulse Ox O2 Delivery O2 Flow Rate FiO2 04/04/16 08:00 97.1 64 18 141/93 93 04/04/16 04:00 97.3 58 16 130/61 94 04/04/16 00:57 18 04/04/16 00:00 97.6 71 16 122/77 93 04/03/16 20:00 97.1 68 16 136/63 93 04/03/16 18:00 97.0 60 14 108/50 99 04/03/16 17:56 99 21 04/03/16 14:30 98.0 55 13 102/39 100 Nasal Cannula 2 04/03/16 14:15 60 12 111/42 100 Nasal Cannula 2 04/03/16 14:00 61 15 116/36 100 Nasal Cannula 4 04/03/16 13:45 63 13 132/36 99 Nasal Cannula 4 04/03/16 13:30 61 14 119/39 100 Nasal Cannula 4 04/03/16 13:18 98.3 61 15 130/49 100 T-Piece 15 -: 04/03/16 0712 04/04/16 0545 Microbiology 04/03/16 Gram Stain - Final, Resulted 04/03/16 Body Fluid Culture, Resulted Pending 04/03/16 Fungal Smear, Received Pending 04/03/16 Fungal Culture, Received Pending 04/03/16 Gram Stain - Final, Resulted 04/03/16 Wound Culture, Resulted Pending 04/03/16 Acid Fast Stain, Received Pending 04/03/16 Mycobacterial Culture, Received Pending 04/03/16 Fungal Smear - Final, Resulted NO FUNGAL ELEMENTS SEEN. 04/03/16 Fungal Culture, Resulted Pending Tubes & Lines: Tenckhoff Catheter Physical Exam General Appearance: Well Developed, Well Nourished, No Acute Distress, Comfortable, Obese Throat Throat Exam: Oral Mucosa [place] & Moist Neck Neck Exam: Neck Supple Pulmonary Resp Exam: Clear Bilaterally, Breath Sounds Equal, No Distress Cardiology CV Exam: Regular, Normal Sinus Rhythm, Good Perfusion Gastrointestinal/Abdomen GI Exam: Soft, Non-Tender, Bowel Sounds Present Musculoskeletal MS Exam: Joints Intact, Good Strength Integumentary Skin Exam: Clear, Warm, Dry, Intact Extremeties Extremities Exam: No Edema, Pedal Pulses Palpable Neurologic Neuro Exam: Speech Clear, Moving All Extremities Psychiatric Psych Exam: Appropriate Responses Assessment/Plan Discussed Condition With: Patient Assessment Summary: Anemia of CKD, Fluid/Volume Overload, Hypertension, Diabetes Mellitus, End Stage Renal Disease Electrolyte Assessment: Hypocalcemia, Hyponatremia Problem List: (1) ESRD (end stage renal disease) on dialysis Plan: seen during hemodialysis 2L off on 3K/HCO3 phosphorus improving, on Renvela monitor PD catheter (2) Vulval cellulitis Plan: with sepsis, + E coli in 1/4 bottles ID following. On Zosyn and IV Vancomycin. May switch to IP antibiotics if ID is in agreement Repeat PD cell count higher, suggesting peritonitis. discussed with ID to OR today for I&D. (3) Anemia Plan: labs indicating iron deficiency avoid IV Iron in light of sepsis,on oral iron replacement Monitor Hemoglobin. Epogen SQ weekly transfuse PRN (4) DM (diabetes mellitus) Plan: blood sugars elevated but improved continue insulin monitor glucose, goal 140-180 mg/dL (5) Hypertension Plan: oral medications as ordered follow blood pressure, adjust medications as needed (6) Hyponatremia Plan: stable needs to restrict fluid intake. Plan . Problem Qualifiers (1) Anemia: Qualified Code: N18.9 - Anemia in chronic kidney disease (2) DM (diabetes mellitus): Radha Zavala MD Apr 04, 2016 11:13
[2016-04-04] MEDS: SEVELAMER CARBONATE 800 MG TAB PO SCH ×2 (11:40→16:07)
[2016-04-04] MEDS: cefTAZidime INJ 1,000 MG in SODIUM CHLORIDE 0.9% INJ 100 ML IV SCH (13:41)
--- NOTE | 2016-04-04 17:16 | HHI.PR ---
Subjective Subjective Notes pt without complaint Objective Vitals/I&O Vital Signs Date Time Temp Pulse Resp B/P Pulse Ox O2 Delivery O2 Flow Rate FiO2 04/04/16 13:49 94 04/04/16 08:00 97.1 64 18 141/93 04/03/16 17:56 21 04/03/16 14:30 Nasal Cannula 2 Labs Laboratory Tests Test 04/04/16 05:45 Sodium Level 134 Potassium Level 3.6 Chloride Level 96 Carbon Dioxide Level 27.2 Anion Gap 11 Blood Urea Nitrogen 46 Creatinine 4.75 Estimat Glomerular Filtration 9 Rate Random Glucose 74 Calcium Level 7.3 Protein Corrected Calcium 8.2 Magnesium Level 1.8 Total Protein 5.5 Date/Time Procedure Status Source Growth 04/03/16 12:54 Gram Stain - Final Resulted Wound Other 04/03/16 12:54 Wound Culture - Preliminary Resulted Gram Negative [place] 04/03/16 12:54 Fungal Smear - Final Resulted Wound Other NO FUNGAL ELEMENTS SEEN. 04/03/16 12:54 Fungal Culture Resulted Wound Other Pending 04/03/16 12:54 Fungal Smear Received Fluid Peritoneal Fluid Pending 04/03/16 12:54 Fungal Culture Received Fluid Peritoneal Fluid Pending 04/03/16 12:54 Acid Fast Stain Worksheet Wound Other Pending 04/03/16 12:54 Mycobacterial Culture Worksheet Wound Other Pending Extremities: Perfused Narrative Exam vac in place on labia groin wound moderate amount of drainage A/P Assessment and Plan s/p debridement and drainage groin/labia cont local wound card OR Wednesday for second look Shalom Weller MD Apr 04, 2016 17:16
[2016-04-04] MEDS: PRAMIPEXOLE DIHYDROCHLORIDE 0.25 MG TAB PO SCH (20:22)
[2016-04-04] MEDS: ATORVASTATIN 40 MG TAB PO SCH (20:22)
[2016-04-05] VITALS (8 sets, daily range): BP systolic 137–160; BP diastolic 50–74; PULSE 67–88; RESP 16–20; TEMP 96.5–99.7; O2SAT 92–95
[2016-04-05] MEDS: metroNIDAZOLE 500 MG INJ 100 ML IV SCH ×3 (05:09→22:15)
[2016-04-05] MEDS: LEVOTHYROXINE SODIUM 88 MCG TAB PO SCH (05:09)
[2016-04-05] MEDS: INSULIN ASPART SUPPLEMENTAL SCALE SQ SCH ×4 (06:21→21:00)
[2016-04-05 07:31] LABS: BICARBONATE 27.9 MEQ/L (21.0-32.0); POTASSIUM 4.2 MEQ/L (3.5-5.1)
[2016-04-05 07:52] LABS: CALCIUM-PROTEIN CORRECTED 7.9 MG/DL (8.5-10.1)
[2016-04-05] MEDS: SODIUM CHLORIDE 0.9% FLUSH 5 ML FLUSH FLUSH SCH ×2 (09:45→22:13)
[2016-04-05] MEDS: FERROUS SULFATE 325 MG (65 MG ELEMENTAL IRON) TAB PO SCH (09:45)
[2016-04-05] MEDS: SEVELAMER CARBONATE 800 MG TAB PO SCH ×3 (09:45→16:07)
[2016-04-05] MEDS: SERTRALINE HCL 100 MG TAB PO SCH (09:46)
[2016-04-05] MEDS: ASPIRIN EC 325 MG TABEC PO SCH (09:46)
[2016-04-05] MEDS: CALCITRIOL 0.25 MCG CAP PO SCH (09:46)
[2016-04-05] MEDS: INSULIN DETEMIR 100 UNITS/ML VIAL SQ SCH ×2 (09:46→21:00)
[2016-04-05] MEDS: PANTOPRAZOLE SOD 40 MG DELAYED RELEASE TAB PO SCH (09:46)
[2016-04-05] MEDS: SODIUM CHLORIDE 1 GRAM TAB PO SCH (09:46)
[2016-04-05] MEDS: CARVEDILOL 6.25 MG TAB PO SCH ×2 (09:46→22:13)
[2016-04-05] MEDS: CHOLECALCIFEROL (VIT D3) 5000 UNIT CAP PO SCH (09:46)
--- NOTE | 2016-04-05 10:19 | HHI.PR ---
Subjective Remarks more awake. eating a little more. Objective Vitals heart reg lung cta abd pd cath/bs ext right groin edema/erythema better wound vac in place. buttock excoriations Vital Signs Date Time Temp Pulse Resp B/P Pulse Ox O2 Delivery O2 Flow Rate FiO2 04/05/16 07:24 92 21 04/05/16 04:00 99.7 79 16 137/50 93 04/05/16 00:00 99.6 88 16 160/67 94 04/04/16 20:00 99.4 87 18 154/68 94 04/04/16 19:57 94 04/04/16 16:00 98.4 85 18 124/60 98 04/04/16 13:49 94 04/04/16 04/04/16 04/05/16 15:00 23:00 07:00 Intake Total 575 ml 240 ml 103 ml Output Total 2000 ml 0 ml 0 ml Balance -1425 ml 240 ml 103 ml Intake Oral 480 ml 240 ml IV Total 95 ml 103 ml Drainage Total 0 ml 0 ml Hemodialysis 2000 ml # Voids 0 # Bowel Movements 0 Result Diagram: 04/03/16 0712 04/05/16 0616 Imaging Last Impressions Chest X-Ray 03/25/16 1434 Signed Impressions: Service Date/Time: Friday, March 25, 2016 14:45 - CONCLUSION: 1. Mild cardiomegaly. 2. Postsurgical changes. 3. No acute abnormality. Surya Christianson MD Soft Tissue Ultrasound 03/25/16 0000 Signed Impressions: Service Date/Time: Friday, March 25, 2016 17:25 - CONCLUSION: Diffuse soft tissue swelling in the right labia and right groin. Enrique Snyder MD Abdomen/Pelvis CT 03/25/16 0000 Signed Impressions: Service Date/Time: Friday, March 25, 2016 19:39 - CONCLUSION: 1. Cellulitic changes in the right groin, right perineum and right labia. No abscess or fluid collection. 2. Dialysis catheter and minimal pelvic ascites. 3. Diverticulosis without diverticulitis. 4. Status post cholecystectomy. Enrique Snyder MD Last Impressions Chest X-Ray 03/25/16 1434 Signed Impressions: Service Date/Time: Friday, March 25, 2016 14:45 - CONCLUSION: 1. Mild cardiomegaly. 2. Postsurgical changes. 3. No acute abnormality. Surya Christianson MD A/P Problem List: (1) Cellulitis of labia Status: Acute Plan: - Pt admitted with cellulitis of the right labia and into the right groin /inner thigh - Pt had a noted elevated WBC count of 14.4 at admission with a Lactic acid of 2.4 - Pt was given IV Vancomycin, Cefepime and Clindamycin - CT abd/pelvis (03/25/16) --> Cellulitic changes in the right groin, right perineum and right labia. No abscess or fluid collection. Dialysis catheter and minimal pelvic ascites. Diverticulosis without diverticulitis. - Blood cultures with one out of 4 growing E. coli - peritoneal WBC 106 - Peritoneal fluid culture --> NGTD - Vancomycin started 03/25/16nd Zosyn added (started 03/26/16) per ID - Abx switched to ceftaz and flagyl on 04/03 - local wound care for skin breakdown. - Pt underwent debridement of necrotic skin/fat/abscess to right groin and inner thigh on 04/03.. wound vac placed. plan to return to OR 04/06 ..wound cx growing gnr. f/u. - Switched to HD and vascath placed on 04/03 - she is very malnourished with poor po. -I discussed at length with pt about poor wound healing. will encourage po intake . hopefully will not require peg.(can't do if getting PD, but GI says they could place it if necessary.) - DVT prophylaxis with SCDs -PT consulted (2) Bacteremia Status: Acute Plan: see above (3) Anemia Status: Chronic Plan: - Related to pts ESRD - received epogen (03/28/16) - Hg 8.0 (03/29/16) - 1 units PRBC (4) ESRD (end stage renal disease) on dialysis Status: Chronic Plan: - comgmt with nephrology - Pt is on PD since 05/2015 - on HD now..?temporary (5) DM (diabetes mellitus) Status: Chronic Plan: hyperglycemia poor po intake resume levemir as tolerated ssi (6) Hypothyroidism Status: Chronic Plan: - Home meds continued (7) Hypertension Status: Chronic Plan: - Home meds continued Problem Qualifiers (1) Anemia: Qualified Code: N18.9 - Anemia in chronic kidney disease (2) DM (diabetes mellitus): Humza Mejia MD Apr 05, 2016 10:19
[2016-04-05] MEDS: cefTAZidime INJ 1,000 MG in SODIUM CHLORIDE 0.9% INJ 100 ML IV SCH (12:40)
[2016-04-05] MEDS: MEGESTROL ACETATE SUSP 400 MG/10 ML CUP PO SCH (12:40)
--- NOTE | 2016-04-05 12:48 | HHI.NPPN ---
Subjective General Problems: Hypertension Renal Failure: Chronic, End Stage Renal Disease Review of Systems General Constitutional: Fatigue Gastrointestinal Gastrointestinal: Abdominal Pain Skin Skin Remarks vaginal abscess, labial swelling with pain Objective Data Data 04/04/16 04/05/16 19:00 07:00 Intake Total 575 ml 343 ml Output Total 2000 ml 0 ml Balance -1425 ml 343 ml Intake Oral 480 ml 240 ml IV Total 95 ml 103 ml Drainage Total 0 ml Hemodialysis 2000 ml # Voids 0 # Bowel Movements 0 Vital Signs Date Time Temp Pulse Resp B/P Pulse Ox O2 Delivery O2 Flow Rate FiO2 04/05/16 08:00 98.1 73 20 150/68 93 04/05/16 07:24 92 21 04/05/16 04:00 99.7 79 16 137/50 93 04/05/16 00:00 99.6 88 16 160/67 94 04/04/16 20:00 99.4 87 18 154/68 94 04/04/16 19:57 94 04/04/16 16:00 98.4 85 18 124/60 98 04/04/16 13:49 94 -: 04/03/16 0712 04/05/16 0616 Tubes & Lines: Tenckhoff Catheter Physical Exam General Appearance: Well Developed, Well Nourished, No Acute Distress, Comfortable, Obese Throat Throat Exam: Oral Mucosa [place] & Moist Neck Neck Exam: Neck Supple Pulmonary Resp Exam: Clear Bilaterally, Breath Sounds Equal, No Distress Cardiology CV Exam: Regular, Normal Sinus Rhythm, Good Perfusion Gastrointestinal/Abdomen GI Exam: Soft, Non-Tender, Bowel Sounds Present Musculoskeletal MS Exam: Joints Intact, Good Strength Integumentary Skin Exam: Clear, Warm, Dry, Intact Extremeties Extremities Exam: No Edema, Pedal Pulses Palpable Neurologic Neuro Exam: Speech Clear, Moving All Extremities Psychiatric Psych Exam: Appropriate Responses Assessment/Plan Discussed Condition With: Patient Assessment Summary: Anemia of CKD, Fluid/Volume Overload, Hypertension, Diabetes Mellitus, End Stage Renal Disease Electrolyte Assessment: Hypocalcemia, Hyponatremia Problem List: (1) ESRD (end stage renal disease) on dialysis Plan: [facility] hemodialysis 2L off on Wednesday phosphorus improving, on Renvela monitor PD catheter (2) Vulval cellulitis Plan: with sepsis, + E coli in 1/4 bottles ID following. On Zosyn and IV Vancomycin. May switch to IP antibiotics if ID is in agreement Repeat PD cell count higher, suggesting peritonitis. discussed with ID to OR today for I&D. (3) Anemia Plan: labs indicating iron deficiency avoid IV Iron in light of sepsis,on oral iron replacement Monitor Hemoglobin. Epogen SQ weekly transfuse PRN (4) DM (diabetes mellitus) Plan: blood sugars elevated but improved continue insulin monitor glucose, goal 140-180 mg/dL (5) Hypertension Plan: oral medications as ordered follow blood pressure, adjust medications as needed (6) Hyponatremia Plan: stable needs to restrict fluid intake. Plan . Problem Qualifiers (1) Anemia: Qualified Code: N18.9 - Anemia in chronic kidney disease (2) DM (diabetes mellitus): Radha Zavala MD Apr 05, 2016 12:48
[2016-04-05] MEDS: ACETAMINOPHEN/HYDROcodone 325 MG/10 MG TAB PO PRN (14:03)
[2016-04-05] MEDS: ATORVASTATIN 40 MG TAB PO SCH (22:13)
[2016-04-05] MEDS: PRAMIPEXOLE DIHYDROCHLORIDE 0.25 MG TAB PO SCH (22:13)
[2016-04-06] VITALS (7 sets, daily range): BP systolic 109–147; BP diastolic 38–67; PULSE 54–72; RESP 16; TEMP 97.4–98.6; O2SAT 93–100
[2016-04-06] MEDS: INSULIN ASPART SUPPLEMENTAL SCALE SQ SCH ×3 (05:10→22:02)
[2016-04-06] MEDS: CARVEDILOL 6.25 MG TAB PO SCH ×2 (05:16→22:03)
[2016-04-06] MEDS: metroNIDAZOLE 500 MG INJ 100 ML IV SCH ×4 (05:19→22:04)
[2016-04-06] MEDS: LEVOTHYROXINE SODIUM 88 MCG TAB PO SCH (05:47)
[2016-04-06] MEDS: SODIUM CHLORIDE 0.9% FLUSH 5 ML FLUSH FLUSH SCH ×2 (07:39→22:03)
[2016-04-06] MEDS: CALCITRIOL 0.25 MCG CAP PO SCH (07:39)
[2016-04-06] MEDS: SEVELAMER CARBONATE 800 MG TAB PO SCH ×2 (07:39→15:23)
[2016-04-06] MEDS: INSULIN DETEMIR 100 UNITS/ML VIAL SQ SCH ×2 (07:47→22:02)
[2016-04-06] MEDS: SERTRALINE HCL 100 MG TAB PO SCH (07:49)
[2016-04-06] MEDS ORDERED: PROPOFOL 200 MG/20 ML AMP IV ONE (08:49)
[2016-04-06] MEDS ORDERED: NEOSTIGMINE 3 MG/3 ML SYR IV ONE (08:49)
[2016-04-06] MEDS ORDERED: ONDANSETRON HCL 4 MG/2 ML VIAL IV PUSH ONE (08:49)
[2016-04-06] MEDS ORDERED: ePHEDrine/NS 50 MG/5 ML SYR IV ONE (08:49)
--- NOTE | 2016-04-06 10:08 | HHI.NPPN ---
Subjective General Problems: Hypertension Renal Failure: Chronic, End Stage Renal Disease Additional Remarks Patient is alert, no SOB, mild abd. pain. Review of Systems General Constitutional: Fatigue Gastrointestinal Gastrointestinal: Abdominal Pain Skin Skin Remarks vaginal abscess, labial swelling with pain Objective Data Data 04/05/16 04/06/16 19:00 07:00 Intake Total 415 ml 480 ml Balance 415 ml 480 ml Intake Oral 240 ml 480 ml IV Total 175 ml # Voids 0 0 # Bowel Movements 1 0 Vital Signs Date Time Temp Pulse Resp B/P Pulse Ox O2 Delivery O2 Flow Rate FiO2 04/06/16 09:56 94 Nasal Cannula 1.00 04/06/16 08:00 98.1 67 16 126/55 96 04/06/16 04:00 98.1 65 16 127/67 94 04/06/16 00:00 98.6 72 16 147/59 93 04/05/16 20:00 97.9 67 16 151/70 93 04/05/16 19:21 95 04/05/16 16:00 96.5 79 20 154/74 92 04/05/16 12:00 99.0 79 20 158/67 95 -: 04/03/16 0712 04/05/16 0616 Tubes & Lines: Tenckhoff Catheter Physical Exam General Appearance: No Acute Distress, Comfortable, Obese Throat Throat Exam: Oral Mucosa [place] & Moist Neck Neck Exam: Neck Supple Pulmonary Resp Exam: Clear Bilaterally, Breath Sounds Equal, No Distress Cardiology CV Exam: Regular, Normal Sinus Rhythm, Good Perfusion Gastrointestinal/Abdomen GI Exam: Soft, Non-Tender, Bowel Sounds Present GI Remarks dressing Rt. of umbilicus. Musculoskeletal MS Exam: Joints Intact, Good Strength Integumentary Skin Exam: Clear, Warm, Dry, Intact Extremeties Extremities Exam: Trace Edema Neurologic Neuro Exam: Speech Clear, Moving All Extremities Psychiatric Psych Exam: Appropriate Responses Assessment/Plan Discussed Condition With: Patient Assessment Summary: Anemia of CKD, Fluid/Volume Overload, Hypertension, Diabetes Mellitus, End Stage Renal Disease Electrolyte Assessment: Hypocalcemia, Hyponatremia Problem List: (1) ESRD (end stage renal disease) on dialysis Plan: Patient is still has low urine out put. HD will be in AM. Follow urine out put and BMP. (2) Vulval cellulitis Plan: with sepsis, + E coli in 1/4 bottles ID following. On Zosyn and IV Vancomycin. May switch to IP antibiotics if ID is in agreement Repeat PD cell count higher, suggesting peritonitis. discussed with ID to OR today for I&D. (3) Anemia Plan: labs indicating iron deficiency avoid IV Iron in light of sepsis,on oral iron replacement Monitor Hemoglobin. Epogen SQ weekly transfuse PRN (4) DM (diabetes mellitus) Plan: blood sugars elevated but improved continue insulin monitor glucose, goal 140-180 mg/dL (5) Hypertension Plan: oral medications as ordered follow blood pressure, adjust medications as needed (6) Hyponatremia Plan: stable needs to restrict fluid intake. Plan . Problem Qualifiers (1) Anemia: Qualified Code: N18.9 - Anemia in chronic kidney disease (2) DM (diabetes mellitus): Phil Mack MD Apr 06, 2016 10:08
[2016-04-06] MEDS ORDERED: BUPIVACAINE HCL PF 0.5% 30 ML VIAL ONE (11:22)
--- NOTE | 2016-04-06 12:00 | HHI.PR ---
Subjective Subjective Notes She has minimal pain at areas of wounds. Objective Vitals/I&O Vital Signs Date Time Temp Pulse Resp B/P Pulse Ox O2 Delivery O2 Flow Rate FiO2 04/06/16 09:56 94 Nasal Cannula 1.00 04/06/16 08:00 98.1 67 16 126/55 04/05/16 07:24 21 Labs Date/Time Procedure Status Source Growth 04/03/16 12:54 Gram Stain - Final Resulted Wound Other 04/03/16 12:54 Wound Culture - Preliminary Resulted Escherichia Coli Group D Enterococcus 04/03/16 12:54 Fungal Smear - Final Resulted Wound Other NO FUNGAL ELEMENTS SEEN. 04/03/16 12:54 Fungal Culture Resulted Wound Other Pending 04/03/16 12:54 Acid Fast Stain - Final Resulted Wound Other NO ACID FAST BACILLI SEEN 04/03/16 12:54 Mycobacterial Culture Resulted Wound Other Pending Narrative Exam NAD, awake and alert Vac in place good seal A/P Assessment and Plan 71 yo F with right inguinal, thigh soft tissue infections, s/p drainage and debridement. Proceed to OR today for washout and vac change. Haroldo Rodas MD Apr 06, 2016 12:00
[2016-04-06] MEDS: cefTAZidime INJ 1,000 MG in SODIUM CHLORIDE 0.9% INJ 100 ML IV SCH ×2 (12:02→12:04)
[2016-04-06] MEDS ORDERED: FAMOTIDINE 20 MG/2 ML VIAL ONE (12:10)
--- NOTE | 2016-04-06 13:06 | PD.CONS ---
Consult Service Palliative Care Consult Requested By Dr. Mejia. Primary Care Physician Lexus Nolasco MD Reason for Consultation a. To assist with evaluation and management of symptoms including: postsurgical vulvar pain. b. To assist medical decision maker(s) with: better understanding of current medical conditions; weighing benefits/burdens of medical treatment options; making medical treatment decisions. (Jeannine Woods) HPI History of Present Illness Mrs. Garrison is a 71 y/o female with a medical history significant for HTN, Diabetes mellitus, CAD s/p CABG x2 and ESRD, on dialysis since May 2015. Patient presented to the ED on 03/25/16 with reports of perianal pain, fever, n/ v, chills and generalized weakness for the prior 2 days. patient was admitted for management of right labia/vulvar cellulitis and sepsis. Upon admission, patient was found to be tachycardic and febrile with temp max 102.9. WBC 14.4 and lactic acid 2.4. Pt was given IV Vancomycin, Cefepime, and Clindamycin in the ER. [facility] -Dr. Nelson and ID -Dr. Robbins consulted. Recommended [facility] oncology is no improvement. Neprhologhy Consulted, patient to continue with peritoneal dialysis. Patient placed on Zosyn and vancomycin. Additional studies as follow: * CT abdomen/pelvis 03/25/16 suggesting cellulitic changes in the right groin, right perineum and labia. No abscess or fluid collection. Dialysis catheter and minimal pelvic ascites. * CXR 03/25/16 showing mild cardiomegaly. No acute changes. * Blood culture 03/25/16 growing E. Coli. * Wound culture 04/03/16 growing E. Coli and group D enterococcus * Peritoneal fluid 03/27/16 with no growth in 72 hours * Peritoneal fluid 04/03/16 with no growth in 48 hours * Peritoneal WBC 106 * CXR 04/02/16 suggesting moderate pulmonary vascular congestion. On 04/03/16, patient underwent incision and debridement skin and subcutaneous tissue of right inguinal abscess and right upper inner thigh abscess with wound VAC placement. Patient returning to OR this afternoon for I&D. Nephrology following, patient switched to HD and vascath placed on 04/03/16. Repeat PD cell count higher, concerns of peritonitis. Concerns regarding patients poor PO intake, albumin 1.6. Palliative care has been consulted for clarification of goals of care in the setting of ESRD, profound physical deconditioning and malnutrition. . Function/Cognitive Trajectory Patient living independently at baseline. Steady gait with no ambulatory aids. Fully independent with ADL's. Patient does not drive, her sister takes her grocery shopping and to doctors appointment. . (Jeannine Woods) Review of Systems Constitutional: COMPLAINS OF: Fatigue, Change in appetite, Pain, Generalized weakness Endocrine: DENIES: Heat/cold intolerance Eyes: DENIES: Eye inflammation, Eye pain Ears, nose, mouth, throat: DENIES: Hearing loss, Nasal discharge, Throat pain Respiratory: DENIES: Apneas, Cough, Wheezing Cardiovascular: COMPLAINS OF: Dyspnea on Exertion, Lower Extremity Edema, DENIES: Chest pain Gastrointestinal: COMPLAINS OF: Constipation, Anorexia, DENIES: Diarrhea, Nausea, Vomiting, Difficulty Swallowing Genitourinary: DENIES: Vaginal discharge Musculoskeletal: DENIES: Stiffness, Joint Swelling Integumentary: DENIES: Abnormal pigmentation Hematologic/Lymphatics: DENIES: Bruising Neurologic: DENIES: Abnormal gait, Localized weakness, Seizures, Speech Problems, Tremor Psychiatric: DENIES: Anxiety, Agitation (Jeannine Woods) Past Family Social History Coded Allergies: Codeine (Verified Allergy, Severe, HALLUCINATIONS, 03/25/16) Ofloxacin (Verified Allergy, Severe, FLOXIN, 03/25/16) *MDRO Multi-Drug Resistant Organism (Verified Adverse Reaction, Unknown, ) 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 Past Surgical History Peritoneal catheter 2016 Left LKA 2009 CABG, 1996 and 2004 Cholecystectomy 1996 Coronary stent placement Breast reduction . Reported Medications ASA 325mg po daily Atorvastatin 40mg po daily Calcitriol 0.25mcg po daily Coreg 12.5mg po BID Imodium 2 tablets QID PRN diarrhea Humalog 75/25 Kwikpen 28 units SQ in AM and 18units SQ in PM Lasix 40mg po daily Levoxyl 88mcg po daily NovoLog Mix 70/30 FlexPen 26 units SQ in AM before breakfast and 16 units SQ before dinner Protonix 40mg po daily Pramipexole Dihydrochloride 0.75mc HS Procrit 10,000units as directed Sertraline 100mg daily Vitamin D3 5000unit . Current Medications Medications (Trade) Dose Ordered Sig/Hilary Route Start Time Stop Time Status Last Admin (NS Flush) 2 ml UNSCH PRN FLUSH 03/25/16 16:45 03/28/16 14:07 (NS Flush) 2 ml BID FLUSH 03/25/16 21:00 04/06/16 07:39 (Tylenol) 650 mg Q4H PRN PO 03/25/16 16:45 03/27/16 20:47 (Zofran Inj) 4 mg Q6H PRN IVP 03/25/16 16:45 03/27/16 11:45 (Milk Of Magnesia Liq) 30 ml Q12H PRN PO 03/25/16 16:45 (Narcan Inj) 0.4 mg UNSCH PRN IV 03/25/16 16:45 (Zoloft) 100 mg DAILY PO 03/26/16 09:00 04/06/16 07:49 (Ecotrin Ec) 325 mg DAILY PO 03/26/16 09:00 04/05/16 09:46 (Lipitor) 40 mg HS PO 03/25/16 21:00 04/05/16 22:13 (Rocaltrol) 0.25 mcg DAILY PO 03/26/16 09:00 04/05/16 09:46 (Synthroid) 88 mcg DAILY@0600 PO 03/26/16 06:00 04/05/16 05:09 (Protonix) 40 mg DAILY PO 03/26/16 09:00 04/05/16 09:46 (Vitamin D3) 5,000 units DAILY PO 03/26/16 09:00 04/05/16 09:46 (Mirapex) 0.75 mg HS PO 03/25/16 21:00 04/05/16 22:13 ([place] 5-325 Mg) 1 tab Q4H PRN PO 03/26/16 14:00 04/02/16 12:21 (Ferrous Sulfate) 325 mg DAILY PO 03/27/16 09:30 04/05/16 09:45 (Phenergan Supp) 25 mg Q6H PRN RECTAL 03/27/16 18:00 ([place] 10-325 Mg) 1 tab Q6H PRN PO 03/27/16 18:00 04/05/16 14:03 (Coreg) 6.25 mg Q12HR PO 03/28/16 21:00 04/06/16 05:16 (Sodium Chloride) 1 gm DAILY PO 04/02/16 09:00 04/05/16 09:46 Sevelamer Carbonate 1600 mg 1,600 mg TIDAC PO 04/02/16 12:00 04/05/16 16:07 (NS 1000 ml Inj) 1,000 ml @ 0 mls/hr Q0M PRN IV 04/02/16 20:31 04/04/16 10:56 Heparin Sodium (Porcine) 8000 units 8,000 units UNSCH PRN IVF 04/02/16 20:45 Sodium Chloride 1,000 ml @ 200 mls/hr Q5H PRN IV 04/02/16 20:31 04/04/16 10:56 (NS 1000 ml Inj) 1,000 ml @ 0 mls/hr Q0M PRN IV 04/02/16 20:31 (Mannitol Inj) 12.5 gm UNSCH PRN IV 04/02/16 20:45 (Albumin 25% Inj) 25 gm UNSCH PRN IV 04/02/16 20:45 (NS Flush) 5 ml UNSCH PRN IVF 04/02/16 20:45 04/04/16 10:57 (Heparin Inj) UNSCH PRN .XX 04/02/16 20:45 04/04/16 10:57 (Gentamicin (Dialysis) Inj) 20 mg UNSCH PRN IV 04/02/16 20:45 04/04/16 10:57 (Zofran Inj) 4 mg UNSCH PRN IV 04/02/16 20:45 (Tylenol) 650 mg UNSCH PRN PO 04/02/16 20:45 (Benadryl) 25 mg UNSCH PRN PO 04/02/16 20:45 (Nitrostat Sl) 0.4 mg UNSCH PRN SL 04/02/16 20:45 (Catapres) 0.1 mg UNSCH PRN PO 04/02/16 20:45 (Epogen Inj) 10,000 units UNSCH PRN IV 04/02/16 20:45 04/04/16 10:58 (Gelfoam 12 Mm/7 Mm Top) 1 foam UNSCH PRN TOP 04/02/16 20:45 (NS Flush) UNSCH PRN IVF 04/03/16 09:45 Heparin Sodium (Porcine) UNSCH PRN IVF 04/03/16 09:45 Metronidazole 100 ml @ 100 mls/hr Q8HR IV 04/03/16 14:00 04/06/16 05:19 (Fortaz Inj/NS Inj) 100 ml @ 200 mls/hr Q24H IV 04/03/16 13:00 04/05/16 12:40 (Dilaudid Pf Inj) 0.5 mg Q2H PRN IV PUSH 04/03/16 13:00 (Levemir Inj) 20 units DAILY SQ 04/05/16 09:00 04/05/16 09:46 (Levemir Inj) 30 units HS SQ 04/05/16 21:00 (Megace Liq) 800 mg DAILY PO 04/05/16 12:00 04/05/16 12:40 Family History 1 daughter, alive and well Father -CAD Mother -AAA and HTN Substance Use Tobacco: none Alcohol: none Prescription med abuse: none Illicits: none . Psychosocial History Originally from [place]. Moved to [place] in the 's. , last year secondary to brain aneurysm. Patient is now retired. 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 Has 1 daughter, Terri who lives in [place]. Sister Leticia resides locally. . Spiritual/Cultural Factors Yarsani. No lutheran affiliation. . (Jeannine Woods) Living Will: Never completed Health Care Surrogate: Never completed Durable Power of Reserve Officer: Never completed Health Care Surrogate(s): None HCS or living will completed. . Documented care wishes: No living will completed. . Today's verbally stated goals: FULL CODE. Continue current aggressive care to include HD/PD and surgical interventions for vulvar abscess/wound. . Family/friends goals: No family present during my visit. . Ethical and Legal Issues No living will or HCS completed. . (Jeannine Woods) Physical Exam Vital Signs Date Time Temp Pulse Resp B/P Pulse Ox O2 Delivery O2 Flow Rate FiO2 04/06/16 09:56 94 Nasal Cannula 1.00 04/06/16 08:00 98.1 67 16 126/55 96 04/06/16 04:00 98.1 65 16 127/67 94 04/06/16 00:00 98.6 72 16 147/59 93 04/05/16 20:00 97.9 67 16 151/70 93 04/05/16 19:21 95 04/05/16 16:00 96.5 79 20 154/74 92 04/05/16 12:00 99.0 79 20 158/67 95 04/05/16 04/06/16 18:59 06:59 Intake Total 415 ml 480 ml Balance 415 ml 480 ml Intake Oral 240 ml 480 ml IV Total 175 ml # Voids 0 0 # Bowel Movements 1 0 Exam CONSTITUTIONAL/GENERAL: This is an adequately nourished patient, in no apparent distress. TUBES/LINES/DRAINS: LIJ hemodialysis catheter. PIV's. Wound vac to right groin/ labia. SKIN: Pale. No jaundice. Moderate erythema and edema to right groin/inner thigh. Scattered ecchymoses on upper extremities. Skin temperature appropriate. Not diaphoretic. HEAD: Atraumatic. Normocephalic. EYES: Pupils equal and round and reactive. Extraocular motions intact. No scleral icterus. No injection or drainage. Fundi not examined. ENT: Hearing grossly normal. Nose without bleeding or purulent drainage. Throat without visible erythema, exudates, masses, or lesions. NECK: Trachea midline. Supple, nontender. CARDIOVASCULAR: Regular rate and rhythm without murmurs, gallops, or rubs. No JVD. Peripheral pulses symmetric. RESPIRATORY/CHEST: Symmetric, unlabored respirations. Clear to auscultation. Breath sounds equal bilaterally. No wheezes, rales, or rhonchi. GASTROINTESTINAL: Abdominal PD cath in place. Abdomen round, large, soft, non- tender. No hepato-splenomegaly, or palpable masses. No guarding. Bowel sounds present. GENITOURINARY: Without palpable bladder distension. Wound vac on right groin/ labia with moderate amount of drainage. MUSCULOSKELETAL: Weak. Extremities without clubbing, cyanosis, or edema. No mottling or clubbing. NEUROLOGICAL: Awake and alert. Motor and sensory grossly within normal limits. Follows commands. Moves all extremities. PSYCHIATRIC: Calm with no obvious anxiety/depression. no apparent hallucinations or other psychotic thought process. (Jeannine Woods) Diagnostic Tests Laboratory Laboratory Tests Test 04/04/16 04/05/16 05:45 06:16 Sodium Level 134 MEQ/L 133 MEQ/L (136-145) (136-145) Potassium Level 3.6 MEQ/L 4.2 MEQ/L (3.5-5.1) (3.5-5.1) Chloride Level 96 MEQ/L 94 MEQ/L (98-107) (98-107) Carbon Dioxide Level 27.2 MEQ/L 27.9 MEQ/L (21.0-32.0) (21.0-32.0) Anion Gap 11 MEQ/L (5-15) 11 MEQ/L (5-15) Blood Urea Nitrogen 46 MG/DL (7-18) 34 MG/DL (7-18) Creatinine 4.75 MG/DL 4.26 MG/DL (0.50-1.00) (0.50-1.00) Estimat Glomerular Filtration 9 ML/MIN (>89) 10 ML/MIN (>89) Rate Random Glucose 74 MG/DL 191 MG/DL (74-106) (74-106) Calcium Level 7.3 MG/DL 7.1 MG/DL (8.5-10.1) (8.5-10.1) Protein Corrected Calcium 8.2 MG/DL 7.9 MG/DL (8.5-10.1) (8.5-10.1) Magnesium Level 1.8 MG/DL (1.5-2.5) Total Protein 5.5 GM/DL 5.6 GM/DL (6.4-8.2) (6.4-8.2) (Jeannine Woods) Result Diagram: 04/03/16 0712 04/05/16 0616 Microbiology Microbiology Date/Time Procedure Status Source Growth 04/03/16 12:54 Gram Stain - Final Resulted Fluid Peritoneal Fluid 04/03/16 12:54 Body Fluid Culture - Preliminary Resulted Fluid Peritoneal Fluid NO GROWTH IN 48 HOURS. 04/03/16 12:54 Fungal Smear - Final Resulted Fluid Peritoneal Fluid NO FUNGAL ELEMENTS SEEN. 04/03/16 12:54 Fungal Culture Resulted Fluid Peritoneal Fluid Pending 04/03/16 12:54 Gram Stain - Final Resulted Wound Other 04/03/16 12:54 Wound Culture - Preliminary Resulted Escherichia Coli Group D Enterococcus 04/03/16 12:54 Acid Fast Stain - Final Resulted Wound Other NO ACID FAST BACILLI SEEN 04/03/16 12:54 Mycobacterial Culture Resulted Wound Other Pending 04/03/16 12:54 Fungal Smear - Final Resulted Wound Other NO FUNGAL ELEMENTS SEEN. 04/03/16 12:54 Fungal Culture Resulted Wound Other Pending Imaging Last Impressions Catheter Placement X-Ray 04/03/16 0000 Signed Impressions: Service Date/Time: Sunday, April 03, 2016 08:46 - CONCLUSION: Uncomplicated line placement as above. Godfrey Griffith MD Chest X-Ray 04/02/16 0000 Signed Impressions: Service Date/Time: March 10:31 - CONCLUSION: 1. Moderate pulmonary vascular congestion bilaterally. 2. Cardiomegaly. Leonides Root MD Soft Tissue Ultrasound 03/25/16 0000 Signed Impressions: Service Date/Time: Friday, March 25, 2016 17:25 - CONCLUSION: Diffuse soft tissue swelling in the right labia and right groin. Enrique Snyder MD Abdomen/Pelvis CT 03/25/16 0000 Signed Impressions: Service Date/Time: Friday, March 25, 2016 19:39 - CONCLUSION: 1. Cellulitic changes in the right groin, right perineum and right labia. No abscess or fluid collection. 2. Dialysis catheter and minimal pelvic ascites. 3. Diverticulosis without diverticulitis. 4. Status post cholecystectomy. Enrique Snyder MD Procedures * 04/03/16 - Left IJ hemodialysis catheter placement. * 04/03/16 -Incision and debridement skin and subcutaneous tissue right inguinal abscess with wound VAC placement * 04/03/16 -Incision and debridement skin and subcutaneous tissues tissue right upper inner thigh abscess . (Jeannine Woods) Patient/Family Conference Present at Family Conference: no family at bedside. Family Conference Location: Bedside Issues Discussed: * Palliative care role, purpose, approach * Additional medical, psychosocial, and spiritual history * Patients general health, functional status, and cognitive changes in the months leading up to the current hospitalization * Patient/family understanding of the current medical problems * Patient/family understanding of prognosis * Patients goals of care as best understood from advance directives and/or conversations and/or values * Current medical treatment options and benefits/burdens of those options * Questions answered to the best of my ability * Palliative care contact information provided (Jeannine Woods) Assessment and Plan Disease Oriented Problem List: (1) ESRD (end stage renal disease) on dialysis (2) Anemia (3) Abscess of right groin Symptom Scale: (1) Pain 0-10 Scale: 7 Comment: Acute pain to right groin/vulva secondary to abscess/cellulitis s/p surgical debridement and wound vac placement. (2) Decrease in appetite Comment: Progressive during this hospitalization. (3) Weakness Comment: Generalized weakness secondary to current hospitalization. Pertinent Non-Medical Issues Psychosocial: . Residing independently prior to this hospitalization. 1 daughter who resides in [place]. Spiritual: judaism. No lutheran affiliation. Legal: No living will or HCS completed. Ethical issues impacting care: No living will or HCS completed. . Important Contacts Daughter Terri Verdugo . . Prognosis Mrs. Garrison is a 71 y/o female with a medical history significant for HTN, Diabetes mellitus, CAD s/p CABG x2 and ESRD, on dialysis since May 2015. Patient presented to the ED on 03/25/16 and admitted for management of sepsis, vulvar cellulitis. Patient is s/p incision and debridement skin and subcutaneous tissue of right inguinal abscess and right upper inner thigh abscess with wound VAC placement. Patient returning to OR 04/06/16 for I&D. Nephrology following, patient switched to HD and vascath placed on 04/03/16. Repeat PD cell count higher, concerns of peritonitis. Additional concerns regarding impaired wound healing secondary to ERSD, DM, malnutrition with albumin 1.6 and profound physical deconditioning. Patient is at high risk for complications, continue decline and . She is at high risk for developing significant symptom burden. . Code Status: Full Code Plan * FULL CODE * Patient alert and oriented x4, decisional. No Living will or HCS completed. Patient . [place] per [place] statute, patient's healthcare proxy would be her children for which she has 2, only 1 surviving -Daughter Terri. patient wishing to complete HCS and living will during this hospitalization, left forms in room for pt to review and discuss with daughter. * 04/06/16. Met with patient. Goal of care is for continuation of current care to include HD/PD and surgical interventions for management of right groin/ vulvar abscess/wound. Patient to further discuss with her daughter Terri and sister Leticia artificial nutrition via NG/PEG in the setting of PO intake. Discussed that NG tube is temporary and that PEG may not be an option secondary to peritoneal dialysis. Patient to consider discharge to rehab facility for physical strengthening with the goal of returning home for independent living. Patient fully functional and independent prior to this hospitalization. * Right groin/vulvar pain, acute -secondary to abscess/cellulitis s/p surgical debridement and wound vac placement. No history of chronic pain. [place] 5/325 and 10/325 available PRN. Has used 1 dose of 10/325 yesterday. Hydromorphone 0.5mg IV available as needed. None used thus far. Both hydrocodone and hydromorphone are safe to use in renally impaired/dialysis patients. No additional medications or dose adjustments recommended at this time. Patient was encouraged to request medication for pain management. -Morphine not recommended because of known accumulation of potentially toxic metabolites in the setting of ESRD. * Malnutrition. Albumin 1.6. Decreased oral intake. Fair appetite at baseline. Patient reports her appetite is coming back. Discussed concerns related to poor wound healing secondary to malnutrition. Discussed NG tube vs. PEG tube. Discussed that NG tube is temporary and that PEG may not be an option secondary to peritoneal dialysis. Patient to further discuss with her daughter. * Generalized weakness -profound physical deconditioning, multifactorial secondary to hospitalization, acute infectious process and lethargy. Working with PT. Will likely need rehab at discharge. * Palliative care contact information provided. * Palliative care will continue to f/u patient during this hospitalization for further clarification of goals of care, completion of advanced directives and symptom management. . (Jeannine Woods) Time Spent Total Floor Time (mins): 75 (Total time to include review and summarization of available medical records, physical exam and goals of care conversation with patient. ) Face to Face Time (mins): 45 >50% Counseling/Coord of Care: Yes (Jeannine Woods) Thank you for the opportunity to participate in the care of Ms. Garrison. (Jeannine Woods) Attestation To help prompt me to consider important information that might be impacting today's encounter and assessment, information from prior notes written by myself or my colleagues may have been "brought forward" into today's note. My signature on this note, however, is an attestation that I personally performed the exam, history, and/or decision-making noted today, and, unless otherwise indicated, the interactions with patient, family, and staff as well as the review of records all occurred today. I also attest that the listed assessment and stated plan reflect my best clinical judgment today based on the combination of historical information, prior notes, and today's exam/ interactions. When time spent is documented, it refers only to time spent today by the signer, or if indicated, combined time spent today by collaborating physician/nurse practitioner. (Jeannine Woods) Collaborating MD Comments Chart reviewed. Case discussed with palliative care AUTO BUMPER STRAIGHTENER. Above AUTO BUMPER STRAIGHTENER note reviewed and I concur. . (Kee Solo MD) Jeannine Woods Apr 06, 2016 12:57 Kee Solo MD May 09, 2016 14:55
--- NOTE | 2016-04-06 14:06 | PD.OP ---
cc: Haroldo Rodas MD Operative Report Date of Surgery: Apr 06, 2016 Preoperative Diagnosis: (1) Abscess of right thigh (2) Abscess of right groin (3) Right groin wound Postoperative Diagnosis: (1) Abscess of right thigh (2) Abscess of right groin (3) Necrotizing fasciitis (4) Right groin wound Procedure: Incision and debridement skin, subcu tissue, fascia, muscle of right inguinal wound and right labial/buttock wound Anesthesia: YOEL Surgeon: Haroldo Rodas First Assistant Manager(s): Davon Operation and Findings: EBL: 20 cc Operative findings: The patient had necrotic fat in the inguinal wound extending somewhat laterally and also inferiorly into the labia. There was some fascia and muscle of the abductor thigh muscles involved. The right upper thigh/buttock wound also had necrotic fat and muscle. It tracked towards the tunneling from the superior wound in the labia. A smaller wound inferiorly was also debrided. Wound VAC sponges were placed at each site and a Y connector used. Procedure in detail: The patient was taken to the operating room placed in the supine position. She was placed in [facility]. Gen. endotracheal anesthesia was induced. The groin was prepped and draped in usual sterile fashion. The right inguinal wound was evaluated. There was necrotic fat extensively which was debrided. The the incision was carried further laterally due to tracking of the wound. Inferiorly the wound was tracking up tolerated the labia in the inguinal canal. Fascia and muscle from abductor thigh muscles was involved somewhat and gently debrided. Hemostasis was achieved. It was irrigated with peroxide and saline solution. Inferiorly at the superior thigh/ buttock the wound also had a pretty extensive necrosis of fat. This was debrided. Just next to this was a smaller wound which was debrided. The wound VAC sponge was placed in all sites. The 2 lower wounds were bridged. The wound VAC was placed with good seal and a Y connector was used. The patient procedure was extubated and taken to PACU in stable condition. I am going to check a soft tissue ultrasound of the right lower abdominal wall as there is present significant induration in this area. Haroldo Rodas MD Apr 06, 2016 14:06
[2016-04-06] MEDS ORDERED: *morphine SULFATE 8 MG/ML PERIprocedure ONLY ONE (14:23)
[2016-04-06] MEDS ORDERED: DO NOT ADM ANY ANTICOAGULANT DRUGS XX PRN (14:30)
[2016-04-06] MEDS: ACETAMINOPHEN/HYDROcodone 325 MG/10 MG TAB PO PRN (15:21)
[2016-04-06] MEDS: FERROUS SULFATE 325 MG (65 MG ELEMENTAL IRON) TAB PO SCH (15:22)
[2016-04-06] MEDS: SODIUM CHLORIDE 1 GRAM TAB PO SCH (15:22)
[2016-04-06] MEDS: ASPIRIN EC 325 MG TABEC PO SCH (15:22)
[2016-04-06] MEDS: MEGESTROL ACETATE SUSP 400 MG/10 ML CUP PO SCH (15:29)
[2016-04-06] MEDS: PANTOPRAZOLE SOD 40 MG DELAYED RELEASE TAB PO SCH (15:29)
[2016-04-06] MEDS: CHOLECALCIFEROL (VIT D3) 5000 UNIT CAP PO SCH (15:36)
--- NOTE | 2016-04-06 15:51 | RADRPT ---
EXAM DATE/TIME: 04/06/2016 14:50 [facility] COMPARISON: CT ABDOMEN & PELVIS W/O CONTRAST, March 25, 2016, 19:39. ULTRASOUND SOFT TISSUE, March 25, 2016, 17:25. INDICATIONS : Abscess. MEDICAL HISTORY : Congestive heart failure. Hypercholesterolemia. Hypertension. Thyroid disease. CAD. Dyspnea. GERD. Re nal failure. Shingles. Diabetes. PTSD. Depression. SURGICAL HISTORY : Coronary artery stent. CABG. Cholecystectomy. Retinopathy shots. AV shunt. Cardiac cath. Peritoneal d ialysis. Total left knee replacement. Blood transfusions. Breast reduction. ENCOUNTER: Subsequent ACUITY: 1 week PAIN SCORE: 3/10 LOCATION: Right lower quadrant /flank. AREA EVALUATED: Right lower quadrant/flank. FINDINGS: MASSES: None. FLUID COLLECTIONS: None. OTHER: There is nonspecific edema in the subcutaneous soft tissues. CONCLUSION: Nonspecific edema in the subcutaneous soft tissues. No loculated fluid collections to indicate an abs cess. Phong Johnson MD on April 06, 2016 at 15:48 Board Certified Radiologist. This report was verified electronically.
[2016-04-06 18:19] LABS: BASOPHIL % 0.3 % (0.0-2.0); EOSINOPHIL # 0.1 TH/MM3 (0-0.4); EOSINOPHIL % 0.7 % (0.0-4.0); HEMATOCRIT 24.2 % (35.0-46.0); LYMPH % 4.4 % (9.0-44.0); LYMPHOCYTE # 0.7 TH/MM3 (1.0-4.8); MEAN CELL VOLUME 94.6 FL (80.0-100.0); MEAN CORPUSCULAR HEMOGLOBIN 30.6 PG (27.0-34.0); MEAN CORPUSCULAR HGB CONC 32.4 % (32.0-36.0); MONO % 5.8 % (0.0-8.0); NEUT % 88.8 % (16.0-70.0); PLATELET COUNT 128 TH/MM3 (150-450); RED BLOOD COUNT 2.56 MIL/MM3 (4.00-5.30); RED CELL DISTRIBUTION WIDTH 16.6 % (11.6-17.2); WHITE BLOOD COUNT 15.8 TH/MM3 (4.0-11.0)
[2016-04-06 18:54] LABS: BANDS 5 % (0-6); EOSINOPHILS 1 % (0-4); POLYS (SEG NEUTROPHILS) 88 % (16-70); WBC DIFF SAMPLE 100
[2016-04-06 18:56] LABS: PLATELET ESTIMATE SMEAR LOW (NORMAL); PLATELET MORPHOLOGY NORMAL (NORMAL); SCAN/DIFF FINAL DIFF MANUAL
[2016-04-06 19:00] LABS: HEMO FLAGS AUTO DIFF; NEUTROPHIL # MANUAL DIFF 14.7 TH/MM3 (1.8-7.7)
--- NOTE | 2016-04-06 19:07 | HHI.IDPN ---
Subjective Subjective Remarks sp 2 extensived perineal debridement s by Dr Rodas Feels much better growing bowel jose from op clx afebrile started on HD Antibiotics zosyn, vancomycin (through 26 from 04/01) Allergies: Coded Allergies: Codeine (Verified Allergy, Severe, HALLUCINATIONS, 03/25/16) Ofloxacin (Verified Allergy, Severe, FLOXIN, 03/25/16) Objective . Vital Signs Date Time Temp Pulse Resp B/P Pulse Ox O2 Delivery O2 Flow Rate FiO2 04/06/16 16:00 98.0 69 16 109/38 100 118/43 04/06/16 14:30 98.5 61 14 146/54 99 Nasal Cannula 2 04/06/16 14:15 60 14 131/64 99 Nasal Cannula 2 04/06/16 14:00 98.5 65 14 109/45 99 Nasal Cannula 4 04/06/16 09:56 94 Nasal Cannula 1.00 04/06/16 08:00 98.1 67 16 126/55 96 04/06/16 04:00 98.1 65 16 127/67 94 04/06/16 00:00 98.6 72 16 147/59 93 04/05/16 20:00 97.9 67 16 151/70 93 04/05/16 19:21 95 04/05/16 04/05/16 04/06/16 15:00 23:00 07:00 Intake Total 415 ml 480 ml 0 ml Balance 415 ml 480 ml 0 ml Intake Oral 240 ml 480 ml 0 ml IV Total 175 ml # Voids 0 0 # Bowel Movements 1 0 0 . Laboratory Tests Test 04/06/16 17:53 White Blood Count 15.8 TH/MM3 Red Blood Count 2.56 MIL/MM3 Hemoglobin 7.8 GM/DL Hematocrit 24.2 % Mean Corpuscular Volume 94.6 FL Mean Corpuscular Hemoglobin 30.6 PG Mean Corpuscular Hemoglobin 32.4 % Concent Red Cell Distribution Width 16.6 % Platelet Count 128 TH/MM3 Mean Platelet Volume 8.1 FL Neutrophils (%) (Auto) 88.8 % Lymphocytes (%) (Auto) 4.4 % Monocytes (%) (Auto) 5.8 % Eosinophils (%) (Auto) 0.7 % Basophils (%) (Auto) 0.3 % Neutrophils # (Auto) 14.0 TH/MM3 Lymphocytes # (Auto) 0.7 TH/MM3 Monocytes # (Auto) 0.9 TH/MM3 Eosinophils # (Auto) 0.1 TH/MM3 Basophils # (Auto) 0.0 TH/MM3 CBC Comment AUTO DIFF Differential Total Cells 100 Counted Neutrophils % (Manual) 88 % Band Neutrophils % 5 % Lymphocytes % 6 % Eosinophils % 1 % Neutrophils # (Manual) 14.7 TH/MM3 Differential Comment FINAL DIFF MANUAL Platelet Estimate LOW Platelet Morphology Comment NORMAL Ovalocytes Red Cell Morphology Comment NORMAL Laboratory Tests Test 04/05/16 06:16 Sodium Level 133 MEQ/L Potassium Level 4.2 MEQ/L Chloride Level 94 MEQ/L Carbon Dioxide Level 27.9 MEQ/L Anion Gap 11 MEQ/L Blood Urea Nitrogen 34 MG/DL Creatinine 4.26 MG/DL Estimat Glomerular Filtration 10 ML/MIN Rate Random Glucose 191 MG/DL Calcium Level 7.1 MG/DL Protein Corrected Calcium 7.9 MG/DL Total Protein 5.6 GM/DL Imaging Last Impressions Soft Tissue Ultrasound 04/06/16 0000 Signed Impressions: Service Date/Time: Wednesday, April 06, 2016 14:50 - CONCLUSION: Nonspecific edema in the subcutaneous soft tissues. No loculated fluid collections to indicate an abscess. Phong Johnson MD Catheter Placement X-Ray 04/03/16 0000 Signed Impressions: Service Date/Time: Sunday, April 03, 2016 08:46 - CONCLUSION: Uncomplicated line placement as above. Godfrey Griffith MD Chest X-Ray 04/02/16 0000 Signed Impressions: Service Date/Time: March 10:31 - CONCLUSION: 1. Moderate pulmonary vascular congestion bilaterally. 2. Cardiomegaly. Leonides Root MD Abdomen/Pelvis CT 03/25/16 0000 Signed Impressions: Service Date/Time: Friday, March 25, 2016 19:39 - CONCLUSION: 1. Cellulitic changes in the right groin, right perineum and right labia. No abscess or fluid collection. 2. Dialysis catheter and minimal pelvic ascites. 3. Diverticulosis without diverticulitis. 4. Status post cholecystectomy. Enrique Snyder MD Physical Exam CONSTITUTIONAL/GENERAL: This is a morbidly obese elderly ill appearing patient , in no apparent distress. LINES: Vascath L IJ in place - site OK SKIN: No jaundice, rashes, Anasarca HEAD: Atraumatic. Normocephalic. EYES: Pupils equal and round and reactive. No scleral icterus. No injection or drainage. CARDIOVASCULAR: Regular rate and rhythm without murmurs, gallops, or rubs. No JVD. Peripheral pulses symmetric. RESPIRATORY/CHEST: Symmetric, unlabored respirations. Clear to auscultation. Breath sounds equal bilaterally. No wheezes, rales, or rhonchi. GASTROINTESTINAL: Abdomen soft, mildly tender, distended. No hepato-splenomegaly , or palpable masses. No guarding. Bowel sounds present. PD cath in place RLQ with clear peritoneal fluid in tubing GENITOURINARY: Without palpable bladder distension. VAC in place R perineal area with serosang dc MUSCULOSKELETAL: Extremities without clubbing, cyanosis, much improved BLE edema, 2+ soft; tree bark marking+ No mottling or clubbing. NEUROLOGICAL: Awake alert. Non focal. Normal speech Assessment & Plan Remarks Necrotizing fascitis infection of R labia and R perineal area bowel jsoe sp debridement, VAC -Incision and debridement skin, subcu tissue, fascia, muscle of right inguinal wound and right labial/buttock wound Sepsis, E.coli bacteremia - 2/2 to above Abcx associated diarrhea, C.diff negative ESRD/PD - switched to HD Massively fluid overload: improved with HD Hypoalbunemia, profound - cont zosyn, - dc vanocmyicn - anticipate transition to po abx prior to dc Discussed Condition With Radha Patiño MD Apr 06, 2016 19:07
[2016-04-06] MEDS: PRAMIPEXOLE DIHYDROCHLORIDE 0.25 MG TAB PO SCH (22:03)
[2016-04-06] MEDS: ATORVASTATIN 40 MG TAB PO SCH (22:03)
[2016-04-07] VITALS (8 sets, daily range): BP systolic 97–131; BP diastolic 34–70; PULSE 65–83; RESP 16–18; TEMP 96.8–98.8; O2SAT 92–100
[2016-04-07] MEDS: metroNIDAZOLE 500 MG INJ 100 ML IV SCH ×3 (06:32→23:47)
[2016-04-07] MEDS: LEVOTHYROXINE SODIUM 88 MCG TAB PO SCH (06:32)
[2016-04-07] MEDS: INSULIN ASPART SUPPLEMENTAL SCALE SQ SCH ×4 (06:33→21:51)
[2016-04-07] MEDS: SEVELAMER CARBONATE 800 MG TAB PO SCH ×3 (08:00→17:29)
[2016-04-07] MEDS: CHOLECALCIFEROL (VIT D3) 5000 UNIT CAP PO SCH (09:00)
[2016-04-07] MEDS: MEGESTROL ACETATE SUSP 400 MG/10 ML CUP PO SCH (09:00)
[2016-04-07] MEDS: INSULIN DETEMIR 100 UNITS/ML VIAL SQ SCH ×2 (09:00→21:51)
[2016-04-07] MEDS: SODIUM CHLORIDE 0.9% FLUSH 5 ML FLUSH FLUSH SCH ×2 (09:00→21:52)
[2016-04-07] MEDS: CALCITRIOL 0.25 MCG CAP PO SCH (09:00)
--- NOTE | 2016-04-07 10:30 | HHI.PR ---
Subjective Remarks Pt seen down in dialysis. She underwent Incision and debridement skin, subcutaneous tissue, fascia, muscle of right inguinal wound and right labial/buttock wound on 04/06/[address] Rodas Pt with wound vac in place. Overall she states that she feels like she is improving. Still with poor appetite. Objective Vitals Vital Signs Date Time Temp Pulse Resp B/P Pulse Ox O2 Delivery O2 Flow Rate FiO2 04/07/16 10:10 94 Nasal Cannula 1.00 04/07/16 04:00 96.8 69 18 122/70 93 04/07/16 00:00 97.7 65 16 131/56 99 04/06/16 22:33 94 Nasal Cannula 1.00 04/06/16 20:00 97.4 54 16 138/67 100 04/06/16 16:00 98.0 69 16 109/38 100 118/43 04/06/16 14:30 98.5 61 14 146/54 99 Nasal Cannula 2 04/06/16 14:15 60 14 131/64 99 Nasal Cannula 2 04/06/16 14:00 98.5 65 14 109/45 99 Nasal Cannula 4 04/06/16 04/06/16 04/07/16 15:00 23:00 07:00 Intake Total 460 ml 240 ml Output Total 100 ml Balance 360 ml 240 ml Intake Oral 60 ml 240 ml Other 400 ml Estimated Blood Loss 100 ml # Voids 1 Result Diagram: 04/06/16 1753 04/05/16 0616 Other Results Laboratory Tests Test 04/06/16 17:53 White Blood Count 15.8 TH/MM3 Red Blood Count 2.56 MIL/MM3 Hemoglobin 7.8 GM/DL Hematocrit 24.2 % Mean Corpuscular Volume 94.6 FL Mean Corpuscular Hemoglobin 30.6 PG Mean Corpuscular Hemoglobin 32.4 % Concent Red Cell Distribution Width 16.6 % Platelet Count 128 TH/MM3 Mean Platelet Volume 8.1 FL Neutrophils (%) (Auto) 88.8 % Lymphocytes (%) (Auto) 4.4 % Monocytes (%) (Auto) 5.8 % Eosinophils (%) (Auto) 0.7 % Basophils (%) (Auto) 0.3 % Neutrophils # (Auto) 14.0 TH/MM3 Lymphocytes # (Auto) 0.7 TH/MM3 Monocytes # (Auto) 0.9 TH/MM3 Eosinophils # (Auto) 0.1 TH/MM3 Basophils # (Auto) 0.0 TH/MM3 CBC Comment AUTO DIFF Differential Total Cells 100 Counted Neutrophils % (Manual) 88 % Band Neutrophils % 5 % Lymphocytes % 6 % Eosinophils % 1 % Neutrophils # (Manual) 14.7 TH/MM3 Differential Comment FINAL DIFF MANUAL Platelet Estimate LOW Platelet Morphology Comment NORMAL Ovalocytes Red Cell Morphology Comment NORMAL Imaging Last Impressions Soft Tissue Ultrasound 04/06/16 0000 Signed Impressions: Service Date/Time: Wednesday, April 06, 2016 14:50 - CONCLUSION: Nonspecific edema in the subcutaneous soft tissues. No loculated fluid collections to indicate an abscess. Phong Johnson MD Catheter Placement X-Ray 04/03/16 0000 Signed Impressions: Service Date/Time: Sunday, April 03, 2016 08:46 - CONCLUSION: Uncomplicated line placement as above. Godfrey Griffith MD Chest X-Ray 04/02/16 0000 Signed Impressions: Service Date/Time: March 10:31 - CONCLUSION: 1. Moderate pulmonary vascular congestion bilaterally. 2. Cardiomegaly. Leonides Root MD Abdomen/Pelvis CT 03/25/16 0000 Signed Impressions: Service Date/Time: Friday, March 25, 2016 19:39 - CONCLUSION: 1. Cellulitic changes in the right groin, right perineum and right labia. No abscess or fluid collection. 2. Dialysis catheter and minimal pelvic ascites. 3. Diverticulosis without diverticulitis. 4. Status post cholecystectomy. Enrique Snyder MD Last Impressions Chest X-Ray 03/25/16 1434 Signed Impressions: Service Date/Time: Friday, March 25, 2016 14:45 - CONCLUSION: 1. Mild cardiomegaly. 2. Postsurgical changes. 3. No acute abnormality. Surya Christianson MD Soft Tissue Ultrasound 03/25/16 0000 Signed Impressions: Service Date/Time: Friday, March 25, 2016 17:25 - CONCLUSION: Diffuse soft tissue swelling in the right labia and right groin. Enrique Snyder MD Last Impressions Chest X-Ray 03/25/16 1434 Signed Impressions: Service Date/Time: Friday, March 25, 2016 14:45 - CONCLUSION: 1. Mild cardiomegaly. 2. Postsurgical changes. 3. No acute abnormality. Surya Christianson MD Objective Remarks General: NAD, AAOx3 Chest: CTA Cardiac: Regular Abd: +BS, soft, wound vac in place in right groin area Ext: No edema A/P Problem List: (1) Cellulitis of labia Status: Acute Plan: - Pt admitted with cellulitis of the right labia and into the right groin /inner thigh - Pt had a noted elevated WBC count of 14.4 at admission with a Lactic acid of 2.4 - Pt was given IV Vancomycin, Cefepime and Clindamycin - CT abd/pelvis (03/25/16) --> Cellulitic changes in the right groin, right perineum and right labia. No abscess or fluid collection. Dialysis catheter and minimal pelvic ascites. Diverticulosis without diverticulitis. - Blood cultures with one out of 4 growing E. coli - peritoneal WBC 106 - Peritoneal fluid culture --> NGTD - Vancomycin started 03/25/16nd Zosyn added (started 03/26/16) per ID - Abx switched to Ceftaz and Flagyl on 04/03 - Pt underwent debridement of necrotic skin/fat/abscess to right groin and inner thigh on 04/03. Wound vac placed. - Wound cx growing (04/03) E. coli and VRE - Switched to HD and Vascath placed on 04/03 - Pt returned to OR on 04/06 and had repeat incision and debridement skin, subcu tissue, fascia, muscle of right inguinal wound and right labial/buttock wound - She is very malnourished with poor po. - Cont. to encourage po intake. She hopefully will not require peg.(can't do if getting PD, but GI says they could place it if necessary.) - DVT prophylaxis with SCDs (2) Bacteremia Status: Acute Plan: - See above (3) Anemia Status: Chronic Plan: - Related to pts ESRD - received epogen (03/28/16) - Hg 8.0 (03/29/16) - 1 units PRBC on 03/29/16 - Hgb decreased to 7.8 on 04/06, await repeat labs today (4) ESRD (end stage renal disease) on dialysis Status: Chronic Plan: - comgmt with nephrology - Pt was started on PD in 05/2015 - Pt had Vas cath placed on 04/03 and is on HD currently.?temporary (5) DM (diabetes mellitus) Status: Chronic Plan: - Poor po intake but stable blood sugars - NovoLog SSI - Levemir 20 units SQ daily - Accu checks (6) Hypothyroidism Status: Chronic Plan: - Home meds continued (7) Hypertension Status: Chronic Plan: - Home meds continued Assessment and Plan Patient examined. Assessment and plan formulated with Sharon Swenson PA-C. I agree with the above. Problem Qualifiers (1) Anemia: Qualified Code: N18.9 - Anemia in chronic kidney disease (2) DM (diabetes mellitus): Qualified Code: E10.8 - Type 1 diabetes mellitus with complication (3) Hypertension: Qualified Code: I10 - Essential hypertension Sharon Swenson Apr 07, 2016 10:30 Kong Bagley DO Apr 09, 2016 06:38
[2016-04-07] MEDS: GENTAMICIN SULFATE (DIALYSIS USE ONLY) 20 MG/2 ML VIAL IV PRN (10:50)
[2016-04-07] MEDS: EPOETIN ALFA 10,000 UNITS/ML VIAL IV PRN (10:50)
[2016-04-07] MEDS: HEPARIN SODIUM - IV 10,000 UNITS/10 ML VIAL PRN (10:51)
--- NOTE | 2016-04-07 13:27 | HHI.PR ---
Addendum to Inpatient Note Addendum Reason: Additional Documentation Additional Information cluture + for VRE - dapto added - monitor CKs at least weekly while on dapto Radha Robbins MD Apr 07, 2016 13:27
[2016-04-07] MEDS: ACETAMINOPHEN/HYDROcodone 325 MG/10 MG TAB PO PRN (13:34)
[2016-04-07] MEDS: PANTOPRAZOLE SOD 40 MG DELAYED RELEASE TAB PO SCH (13:35)
[2016-04-07] MEDS: ASPIRIN EC 325 MG TABEC PO SCH (13:35)
[2016-04-07] MEDS: SERTRALINE HCL 100 MG TAB PO SCH (13:35)
[2016-04-07] MEDS: FERROUS SULFATE 325 MG (65 MG ELEMENTAL IRON) TAB PO SCH (13:35)
[2016-04-07] MEDS: DAPTOmycin INJ 500 MG in SODIUM CHLORIDE 0.9% INJ 100 ML IV SCH (13:36)
[2016-04-07] MEDS: SODIUM CHLORIDE 1 GRAM TAB PO SCH (13:36)
[2016-04-07] MEDS: CARVEDILOL 6.25 MG TAB PO SCH ×2 (13:36→21:00)
[2016-04-07] MEDS: cefTAZidime INJ 1,000 MG in SODIUM CHLORIDE 0.9% INJ 100 ML IV SCH (14:31)
--- NOTE | 2016-04-07 14:54 | HHI.HCPN ---
Reason for visit a. To assist with evaluation and management of symptoms including: postsurgical vulvar pain and debility. b. To assist medical decision maker(s) with: better understanding of current medical conditions; weighing benefits/burdens of medical treatment options; making medical treatment decisions. (Jeannine Woods) Subjective/Interval History Patient seen in her room. She was sitting up in bed eating lunch. Daughter Terri and sister Leticia at bedside. Patient endorsing perineal pain that is sharp and well localized. Currently rated at 8/10. Also endorsing oral pain but denies odynophagia or dysphagia. Pt feels that her tong is "raw" as she is a heavy mouth breather. Pt reports that her appetite is somewhat improving, ate 90% of dinner yesterday. No acute events overnight. Went to OR yesterday for I & D of labia and right groin, wound vac change. Afebrile, stable BP. HD today. Patient reports that she is scheduled for OR tomorrow. Spoke with patient, daughter Terri and sister Leticia at bedside. Medical update provided. In this visit, reviewed the role of palliative care in advanced illness in regards to pain and symptom management as well as support surrounding goals of care and advanced care planning. Family familiar with palliative care services as pt's spouse last year. Reviewed patient's functional status prior to this acute event. daughter tells me that patient was fully functional and independent prior to this hospitalization. patient's goal is to return to independent living, however, is aware that she may require rehab for straightening. Discussed code status in the setting of ESRD, patient and family wishing for FULL code but would like to set time limitations/trail periods. Encouraged pt and family to discuss this limitations and to put them in writing. provided HCS and living will forms for pt and family to complete. Palliative care contact information provided to family. All questions were answered in great detail. . Family/friend interactions See interval note. . (Jeannine Woods) Advance Directives Living Will: Never completed Health Care Surrogate: Never completed Durable Power of Telephonic Case Manager: Never completed (Jeannine Woods) Advance Directive Specifics Health Care Surrogate(s): None HCS or living will completed. . Documented care wishes: No living will completed. . Significant change in goals: FULL CODE. goals remain unchanged. . (Jeannine Woods) Objective Vital Signs Date Time Temp Pulse Resp B/P Pulse Ox O2 Delivery O2 Flow Rate FiO2 04/07/16 13:28 97.9 79 16 107/34 100 04/07/16 10:10 94 Nasal Cannula 1.00 04/07/16 08:00 97.9 67 16 119/53 100 04/07/16 04:00 96.8 69 18 122/70 93 04/07/16 00:00 97.7 65 16 131/56 99 04/06/16 22:33 94 Nasal Cannula 1.00 04/06/16 20:00 97.4 54 16 138/67 100 04/06/16 16:00 98.0 69 16 109/38 100 118/43 04/06/16 14:30 98.5 61 14 146/54 99 Nasal Cannula 2 Intake & Output 04/07/16 04/07/16 07:00 19:00 Intake Total 240 ml Output Total 2700 ml Balance 240 ml -2700 ml Intake Oral 240 ml Hemodialysis 2700 ml # Voids 1 Physical Exam CONSTITUTIONAL/GENERAL: This is an adequately nourished patient, in no apparent distress. TUBES/LINES/DRAINS: LIJ hemodialysis catheter. PIV's. Wound vac to right groin/ labia. SKIN: Pale. No jaundice. Moderate erythema and edema to right groin/inner thigh. Scattered ecchymoses on upper extremities. Skin temperature appropriate. Not diaphoretic. HEAD: Atraumatic. Normocephalic. EYES: Pupils equal and round and reactive. No injection or drainage. ENT: Hearing grossly normal. Nose without bleeding or purulent drainage. Throat without visible erythema, exudates, masses, or lesions. Erythema to tongue without sores or lesions noted. NECK: Trachea midline. Supple, nontender. CARDIOVASCULAR: Regular rate and rhythm without murmurs, gallops, or rubs. No JVD. Peripheral pulses symmetric. RESPIRATORY/CHEST: Symmetric, unlabored respirations. Clear to auscultation. Breath sounds equal bilaterally. No wheezes, rales, or rhonchi. GASTROINTESTINAL: Abdominal PD cath in place. Abdomen round, large, soft, non- tender. No guarding. Bowel sounds present. GENITOURINARY: Without palpable bladder distension. Wound vac on right groin/ labia with moderate amount of drainage. MUSCULOSKELETAL: Weak. Extremities without clubbing, cyanosis, or edema. No mottling or clubbing. NEUROLOGICAL: Awake and alert. Motor and sensory grossly within normal limits. Follows commands. Moves all extremities. PSYCHIATRIC: Calm with no obvious anxiety/depression. no apparent hallucinations or other psychotic thought process. . (Jeannine Woods) Diagnostic Tests Laboratory Laboratory Tests Test 04/05/16 04/06/16 06:16 17:53 Sodium Level 133 MEQ/L (136-145) Potassium Level 4.2 MEQ/L (3.5-5.1) Chloride Level 94 MEQ/L (98-107) Carbon Dioxide Level 27.9 MEQ/L (21.0-32.0) Anion Gap 11 MEQ/L (5-15) Blood Urea Nitrogen 34 MG/DL (7-18) Creatinine 4.26 MG/DL (0.50-1.00) Estimat Glomerular Filtration 10 ML/MIN (>89) Rate Random Glucose 191 MG/DL (74-106) Calcium Level 7.1 MG/DL (8.5-10.1) Protein Corrected Calcium 7.9 MG/DL (8.5-10.1) Total Protein 5.6 GM/DL (6.4-8.2) White Blood Count 15.8 TH/MM3 (4.0-11.0) Red Blood Count 2.56 MIL/MM3 (4.00-5.30) Hemoglobin 7.8 GM/DL (11.6-15.3) Hematocrit 24.2 % (35.0-46.0) Mean Corpuscular Volume 94.6 FL (80.0-100.0) Mean Corpuscular Hemoglobin 30.6 PG (27.0-34.0) Mean Corpuscular Hemoglobin 32.4 % Concent (32.0-36.0) Red Cell Distribution Width 16.6 % (11.6-17.2) Platelet Count 128 TH/MM3 (150-450) Mean Platelet Volume 8.1 FL (7.0-11.0) Neutrophils (%) (Auto) 88.8 % (16.0-70.0) Lymphocytes (%) (Auto) 4.4 % (9.0-44.0) Monocytes (%) (Auto) 5.8 % (0.0-8.0) Eosinophils (%) (Auto) 0.7 % (0.0-4.0) Basophils (%) (Auto) 0.3 % (0.0-2.0) Neutrophils # (Auto) 14.0 TH/MM3 (1.8-7.7) Lymphocytes # (Auto) 0.7 TH/MM3 (1.0-4.8) Monocytes # (Auto) 0.9 TH/MM3 (0-0.9) Eosinophils # (Auto) 0.1 TH/MM3 (0-0.4) Basophils # (Auto) 0.0 TH/MM3 (0-0.2) CBC Comment AUTO DIFF Differential Total Cells 100 Counted Neutrophils % (Manual) 88 % (16-70) Band Neutrophils % 5 % (0-6) Lymphocytes % 6 % (9-44) Eosinophils % 1 % (0-4) Neutrophils # (Manual) 14.7 TH/MM3 (1.8-7.7) Differential Comment FINAL DIFF MANUAL Platelet Estimate LOW (NORMAL) Platelet Morphology Comment NORMAL (NORMAL) Ovalocytes (NORMAL) Red Cell Morphology Comment NORMAL (NORMAL) (Jeannine Woods) Result Diagram: 04/06/16 1753 04/05/16 0616 Procedures * 04/06/16 - Debridement of labia and right groin with would vac change. * 04/03/16 - Left IJ hemodialysis catheter placement. * 04/03/16 - Incision and debridement skin and subcutaneous tissue right inguinal abscess with wound VAC placement. * 04/03/16 - Incision and debridement skin and subcutaneous tissues tissue right upper inner thigh abscess. . (Jeannine Woods) Assessment and Plan Disease Oriented Problem List: (1) ESRD (end stage renal disease) on dialysis (2) Anemia (3) Abscess of right groin Symptom Scale: (1) Pain 0-10 Scale: 7 Comment: Acute pain to right groin/vulva secondary to abscess/cellulitis s/p surgical debridement and wound vac placement. (2) Decrease in appetite Comment: Progressive during this hospitalization. (3) Weakness Comment: Generalized weakness secondary to current hospitalization. Pertinent Non-Medical Issues Psychosocial: . Residing independently prior to this hospitalization. 1 daughter who resides in [place]. Spiritual: zoroastrianism. No congregation affiliation. Legal: No living will or HCS completed. Ethical issues impacting care: No living will or HCS completed. . Important Contacts Daughter Terri Verdugo . . Prognosis Mrs. Garrison is a 71 y/o female with a medical history significant for HTN, Diabetes mellitus, CAD s/p CABG x2 and ESRD, on dialysis since May 2015. Patient presented to the ED on 03/25/16 and admitted for management of sepsis, vulvar cellulitis. Patient is s/p incision and debridement skin and subcutaneous tissue of right inguinal abscess and right upper inner thigh abscess with wound VAC placement. Patient returning to OR 04/06/16 for I&D. Nephrology following, patient switched to HD and vascath placed on 04/03/16. Repeat PD cell count higher, concerns of peritonitis. Additional concerns regarding impaired wound healing secondary to ERSD, DM, malnutrition with albumin 1.6 and profound physical deconditioning. Patient is at high risk for complications, continue decline and . She is at high risk for developing significant symptom burden. . Code Status: Full Code Plan * FULL CODE * Patient alert and oriented x4, decisional. No Living will or HCS completed. Patient . As per [place] statute, patient's healthcare proxy would be her children for which she has 2, only 1 surviving -Daughter Terri. patient wishing to complete HCS and living will during this hospitalization, left forms in room for pt and family to discuss and complete. * 04/07/16. Met with patient. Goal of care is for continuation of current care to include HD/PD and surgical interventions for management of right groin/ vulvar abscess/wound. Met with patient, daughter Terri and sister Leticia at bedside. Patient's goal is to return to independent living, however, is aware that she may require rehab for straightening. Discussed code status in the setting of ESRD, patient and family wishing for FULL code but would like to set time limitations/trail periods. Encouraged pt and family to discuss this limitations and to put them in writing. provided HCS and living will forms for pt and family to complete. Palliative care contact information provided to family. All questions were answered in great detail. * Right groin/vulvar pain, acute -secondary to abscess/cellulitis s/p surgical debridement and wound vac placement. No history of chronic pain. [place] 5/325 and 10/325 available PRN. Has used 1 dose of 10/325 yesterday. Hydromorphone 0.5mg IV available as needed. None used thus far. Both hydrocodone and hydromorphone are safe to use in renally impaired/dialysis patients. No additional medications or dose adjustments recommended at this time. Patient was encouraged to request medication for pain management. -Morphine not recommended because of known accumulation of potentially toxic metabolites in the setting of ESRD. * Malnutrition. Albumin 1.6. Decreased oral intake. Fair appetite at baseline. Patient reports her appetite is improving. Discussed concerns related to poor wound healing secondary to malnutrition. Discussed NG tube vs. PEG tube. Discussed that NG tube is temporary and that PEG may not be an option secondary to peritoneal dialysis. Patient to further discuss with her family. * Generalized weakness -profound physical deconditioning, multifactorial secondary to hospitalization, acute infectious process and lethargy. Working with PT. Will likely need rehab at discharge. * Oral discomfort/Glossitis, likely secondary to dry mouth vs. allergic reaction to food/med vs. anemia of chronic disease. No fungal plaques or sores noted. Encouraged pt to avoid irritants such as hot or spicy foods. * Palliative care contact information provided. * Palliative care will continue to f/u patient during this hospitalization for further clarification of goals of care, completion of advanced directives and symptom management. . (Jeannine Woods) Time Spent Total Floor Time (mins): 40 (Total care to include review and summarization of medical records, physical exam and bedside conversation with pt & family. ) Face to Face Time (mins): 30 >50% Counseling/Coord of Care: Yes (Jeannine Woods) Attestation To help prompt me to consider important information that might be impacting today's encounter and assessment, information from prior notes written by myself or my colleagues may have been "brought forward" into today's note. My signature on this note, however, is an attestation that I personally performed the exam, history, and/or decision-making noted today, and, unless otherwise indicated, the interactions with patient, family, and staff as well as the review of records all occurred today. I also attest that the listed assessment and stated plan reflect my best clinical judgment today based on the combination of historical information, prior notes, and today's exam/ interactions. When time spent is documented, it refers only to time spent today by the signer, or if indicated, combined time spent today by collaborating physician/nurse practitioner. (Jeannine Woods) Collaborating MD Comments Chart reviewed. Case discussed with palliative care FEED HANDLER. Above FEED HANDLER note reviewed and I concur. . (Kee Solo MD) Jeannine Woods Apr 07, 2016 14:54 Kee Solo MD May 10, 2016 07:41
[2016-04-07] MEDS: HYDROmorphone HCL PF 1 MG/ML VIAL IV PUSH PRN (15:05)
--- NOTE | 2016-04-07 16:42 | HHI.NPPN ---
Subjective General Problems: Hypertension Renal Failure: Chronic, End Stage Renal Disease Additional Remarks Patient is alert, started eating some, has mild abd. pain. Review of Systems General Constitutional: Fatigue Gastrointestinal Gastrointestinal: Abdominal Pain Skin Skin Remarks vaginal abscess, labial swelling with pain Objective Data Data 04/06/16 04/07/16 19:00 07:00 Intake Total 460 ml 240 ml Output Total 100 ml Balance 360 ml 240 ml Intake Oral 60 ml 240 ml Other 400 ml Estimated Blood Loss 100 ml # Voids 1 Vital Signs Date Time Temp Pulse Resp B/P Pulse Ox O2 Delivery O2 Flow Rate FiO2 04/07/16 13:28 97.9 79 16 107/34 100 04/07/16 10:10 94 Nasal Cannula 1.00 04/07/16 08:00 97.9 67 16 119/53 100 04/07/16 04:00 96.8 69 18 122/70 93 04/07/16 00:00 97.7 65 16 131/56 99 04/06/16 22:33 94 Nasal Cannula 1.00 04/06/16 20:00 97.4 54 16 138/67 100 -: 04/06/16 1753 04/05/16 0616 Tubes & Lines: Tenckhoff Catheter Physical Exam General Appearance: No Acute Distress, Comfortable, Obese Throat Throat Exam: Oral Mucosa [place] & Moist Neck Neck Exam: Neck Supple Pulmonary Resp Exam: Clear Bilaterally, Breath Sounds Equal, No Distress Cardiology CV Exam: Regular, Normal Sinus Rhythm, Good Perfusion Gastrointestinal/Abdomen GI Exam: Soft, Non-Tender, Bowel Sounds Present GI Remarks dressing Rt. of umbilicus. Musculoskeletal MS Exam: Joints Intact, Good Strength Integumentary Skin Exam: Clear, Warm, Dry, Intact Extremeties Extremities Exam: Trace Edema Neurologic Neuro Exam: Speech Clear, Moving All Extremities Psychiatric Psych Exam: Appropriate Responses Assessment/Plan Discussed Condition With: Patient Assessment Summary: Anemia of CKD, Fluid/Volume Overload, Hypertension, Diabetes Mellitus, End Stage Renal Disease Electrolyte Assessment: Hypocalcemia, Hyponatremia Problem List: (1) ESRD (end stage renal disease) on dialysis Plan: HD was done in AM. Will need PermCath and out patient HD arrangements. Family wants her to go back on PD if possible. (2) Vulval cellulitis Plan: with sepsis, + E coli in 1/4 bottles ID following. On Zosyn and IV Vancomycin. May switch to IP antibiotics if ID is in agreement Repeat PD cell count higher, suggesting peritonitis. discussed with ID to OR today for I&D. (3) Anemia Plan: labs indicating iron deficiency avoid IV Iron in light of sepsis,on oral iron replacement Monitor Hemoglobin. Epogen SQ weekly transfuse PRN (4) DM (diabetes mellitus) Plan: blood sugars elevated but improved continue insulin monitor glucose, goal 140-180 mg/dL (5) Hypertension Plan: oral medications as ordered follow blood pressure, adjust medications as needed (6) Hyponatremia Plan: stable needs to restrict fluid intake. Plan . Problem Qualifiers (1) Anemia: Qualified Code: N18.9 - Anemia in chronic kidney disease (2) DM (diabetes mellitus): Phil Mack MD Apr 07, 2016 16:42
[2016-04-07] MEDS: PRAMIPEXOLE DIHYDROCHLORIDE 0.25 MG TAB PO SCH (21:51)
[2016-04-07] MEDS: ATORVASTATIN 40 MG TAB PO SCH (21:52)
[2016-04-07 21:54] LABS: AUTOMATED NEUTROPHIL # 12.8 TH/MM3 (1.8-7.7); BASOPHIL # 0.1 TH/MM3 (0-0.2); BASOPHIL % 0.4 % (0.0-2.0); EOSINOPHIL # 0.1 TH/MM3 (0-0.4); EOSINOPHIL % 0.9 % (0.0-4.0); HEMATOCRIT 22.4 % (35.0-46.0); LYMPH % 5.8 % (9.0-44.0); LYMPHOCYTE # 0.9 TH/MM3 (1.0-4.8); MEAN CELL VOLUME 94.6 FL (80.0-100.0); MEAN CORPUSCULAR HEMOGLOBIN 30.3 PG (27.0-34.0); MONO % 7.1 % (0.0-8.0); NEUT % 85.8 % (16.0-70.0); PLATELET COUNT 129 TH/MM3 (150-450); RED BLOOD COUNT 2.37 MIL/MM3 (4.00-5.30); RED CELL DISTRIBUTION WIDTH 16.1 % (11.6-17.2); WHITE BLOOD COUNT 14.9 TH/MM3 (4.0-11.0)
[2016-04-07 22:02] LABS: HEMO FLAGS AUTO DIFF
[2016-04-07 22:25] LABS: PLATELET ESTIMATE SMEAR LOW (NORMAL); PLATELET MORPHOLOGY NORMAL (NORMAL); SCAN/DIFF AUTO DIFF CONFIRMED
[2016-04-07 22:29] LABS: BICARBONATE 29.9 MEQ/L (21.0-32.0); POTASSIUM 4.3 MEQ/L (3.5-5.1)
[2016-04-07 22:53] LABS: CALCIUM-PROTEIN CORRECTED 7.9 MG/DL (8.5-10.1)
[2016-04-08] VITALS (9 sets, daily range): BP systolic 100–130; BP diastolic 56–66; PULSE 66–79; RESP 16–18; TEMP 97.7–99.1; O2SAT 98–100
[2016-04-08] MEDS: ACETAMINOPHEN/HYDROcodone 325 MG/10 MG TAB PO PRN ×2 (03:34→22:54)
[2016-04-08] MEDS: SODIUM CHLORID 0.9% 500 ML IV SCH ×2 (04:45→21:25)
[2016-04-08] MEDS: LACTATED RINGER'S 1000 ML IV SCH (04:45)
[2016-04-08] MEDS: INSULIN ASPART SUPPLEMENTAL SCALE SQ SCH ×4 (06:07→21:00)
[2016-04-08] MEDS: LEVOTHYROXINE SODIUM 88 MCG TAB PO SCH (06:08)
[2016-04-08] MEDS: metroNIDAZOLE 500 MG INJ 100 ML IV SCH ×4 (06:08→21:23)
[2016-04-08] MEDS: SEVELAMER CARBONATE 800 MG TAB PO SCH ×3 (07:42→21:22)
[2016-04-08 08:42] LABS: AUTOMATED NEUTROPHIL # 12.6 TH/MM3 (1.8-7.7); BASOPHIL # 0.1 TH/MM3 (0-0.2); BASOPHIL % 0.6 % (0.0-2.0); EOSINOPHIL # 0.2 TH/MM3 (0-0.4); EOSINOPHIL % 1.2 % (0.0-4.0); HEMATOCRIT 21.5 % (35.0-46.0); LYMPH % 5.9 % (9.0-44.0); LYMPHOCYTE # 0.9 TH/MM3 (1.0-4.8); MEAN CELL VOLUME 95.7 FL (80.0-100.0); MEAN CORPUSCULAR HEMOGLOBIN 30.5 PG (27.0-34.0); MEAN CORPUSCULAR HGB CONC 31.9 % (32.0-36.0); MONO % 8.3 % (0.0-8.0); PLATELET COUNT 126 TH/MM3 (150-450); RED BLOOD COUNT 2.25 MIL/MM3 (4.00-5.30); RED CELL DISTRIBUTION WIDTH 16.6 % (11.6-17.2)
[2016-04-08] MEDS: ASPIRIN EC 325 MG TABEC PO SCH (09:00)
[2016-04-08] MEDS: SERTRALINE HCL 100 MG TAB PO SCH (09:00)
[2016-04-08] MEDS: FERROUS SULFATE 325 MG (65 MG ELEMENTAL IRON) TAB PO SCH (09:00)
[2016-04-08] MEDS: INSULIN DETEMIR 100 UNITS/ML VIAL SQ SCH ×2 (09:00→21:22)
[2016-04-08] MEDS: MEGESTROL ACETATE SUSP 400 MG/10 ML CUP PO SCH (09:00)
[2016-04-08] MEDS: SODIUM CHLORIDE 1 GRAM TAB PO SCH (09:00)
[2016-04-08] MEDS: CHOLECALCIFEROL (VIT D3) 5000 UNIT CAP PO SCH (09:00)
[2016-04-08] MEDS: PANTOPRAZOLE SOD 40 MG DELAYED RELEASE TAB PO SCH (09:00)
[2016-04-08 09:05] LABS: MAGNESIUM 1.9 MG/DL (1.5-2.5); POTASSIUM 4.3 MEQ/L (3.5-5.1)
[2016-04-08 09:06] LABS: HEMO FLAGS DIFF FINAL
[2016-04-08 09:28] LABS: CALCIUM-PROTEIN CORRECTED 8.2 MG/DL (8.5-10.1)
[2016-04-08] MEDS: CALCITRIOL 0.25 MCG CAP PO SCH (09:56)
[2016-04-08] MEDS: CARVEDILOL 6.25 MG TAB PO SCH ×2 (09:56→21:21)
[2016-04-08] MEDS: SODIUM CHLORIDE 0.9% FLUSH 5 ML FLUSH FLUSH SCH ×2 (09:57→21:00)
--- NOTE | 2016-04-08 11:16 | HHI.PR ---
Subjective Remarks No new complaints. Objective Vitals Vital Signs Date Time Temp Pulse Resp B/P Pulse Ox O2 Delivery O2 Flow Rate FiO2 04/08/16 08:30 99 Nasal Cannula 2.00 04/08/16 08:00 98.2 78 16 130/58 99 04/08/16 04:00 97.7 75 18 100/64 100 04/08/16 00:00 97.7 75 16 114/63 100 04/07/16 20:44 92 Nasal Cannula 2.50 04/07/16 20:00 98.4 83 16 97/56 97 04/07/16 16:00 98.8 81 16 98/45 97 04/07/16 13:28 97.9 79 16 107/34 100 04/07/16 04/07/16 04/08/16 15:00 23:00 07:00 Intake Total 480 ml 441 ml 100 ml Output Total 2700 ml Balance -2220 ml 441 ml 100 ml Intake Oral 480 ml 200 ml IV Total 241 ml 100 ml Hemodialysis 2700 ml Result Diagram: 04/08/16 0750 04/08/16 0750 Imaging Last Impressions Soft Tissue Ultrasound 04/06/16 0000 Signed Impressions: Service Date/Time: Wednesday, April 06, 2016 14:50 - CONCLUSION: Nonspecific edema in the subcutaneous soft tissues. No loculated fluid collections to indicate an abscess. Phong Johnson MD Catheter Placement X-Ray 04/03/16 0000 Signed Impressions: Service Date/Time: Sunday, April 03, 2016 08:46 - CONCLUSION: Uncomplicated line placement as above. Godfrey Griffith MD Chest X-Ray 04/02/16 0000 Signed Impressions: Service Date/Time: March 10:31 - CONCLUSION: 1. Moderate pulmonary vascular congestion bilaterally. 2. Cardiomegaly. Leonides Root MD Abdomen/Pelvis CT 03/25/16 0000 Signed Impressions: Service Date/Time: Friday, March 25, 2016 19:39 - CONCLUSION: 1. Cellulitic changes in the right groin, right perineum and right labia. No abscess or fluid collection. 2. Dialysis catheter and minimal pelvic ascites. 3. Diverticulosis without diverticulitis. 4. Status post cholecystectomy. Enrique Snyder MD Last Impressions Chest X-Ray 03/25/16 1434 Signed Impressions: Service Date/Time: Friday, March 25, 2016 14:45 - CONCLUSION: 1. Mild cardiomegaly. 2. Postsurgical changes. 3. No acute abnormality. Surya Christianson MD Soft Tissue Ultrasound 03/25/16 0000 Signed Impressions: Service Date/Time: Friday, March 25, 2016 17:25 - CONCLUSION: Diffuse soft tissue swelling in the right labia and right groin. Enrique Snyder MD Last Impressions Chest X-Ray 03/25/16 1434 Signed Impressions: Service Date/Time: Friday, March 25, 2016 14:45 - CONCLUSION: 1. Mild cardiomegaly. 2. Postsurgical changes. 3. No acute abnormality. Surya Christianson MD Objective Remarks General: NAD, AAOx3 Chest: CTA Cardiac: Regular Abd: +BS, soft, wound vac in place in right groin area Ext: edema at RUE A/P Problem List: (1) Cellulitis of labia Status: Acute Plan: - Pt admitted with cellulitis of the right labia and into the right groin /inner thigh - Pt had a noted elevated WBC count of 14.4 at admission with a Lactic acid of 2.4 - Pt was given IV Vancomycin, Cefepime and Clindamycin - CT abd/pelvis (03/25/16) --> Cellulitic changes in the right groin, right perineum and right labia. No abscess or fluid collection. Dialysis catheter and minimal pelvic ascites. Diverticulosis without diverticulitis. - Blood cultures (03/25/16) with one out of 4 growing E. coli - peritoneal WBC 106 - Peritoneal fluid culture --> no growth - Wound culture (04/03/16) --> E. Coli and Enterococcus - Zosyn (03/27-04/03/16) - flagyl (04/03 - present) - Ceftazidine (04/08 - present) - Daptomycin (04/07 - present) - Gentamycin prn with HD (04/03 - present) - Pt underwent debridement of necrotic skin/fat/abscess to right groin and inner thigh on 04/03. Wound vac placed. - Pt returned to OR on 04/06 and had repeat incision and debridement skin, subcu tissue, fascia, muscle of right inguinal wound and right labial/buttock wound - Pt going back to OR today (04/08/16) for further debridement & may need repeat debridement on wednesday (04/10/16) - case d/w Dr. Rodas (04/08/16) - Switched to HD and Vascath placed on 04/03 - She is very malnourished with poor po. - Cont. to encourage po intake. She hopefully will not require peg.(can't do if getting PD, but GI says they could place it if necessary.) - overall prognosis is poor - Palliative is following - DVT prophylaxis with SCDs - pt with RUE edema today (04/08/16) - obtain US RUE to r/o DVT (2) Bacteremia Status: Acute Plan: - See above (3) Anemia Status: Chronic Plan: - Related to pts ESRD - received epogen (03/28/16) - Hg 8.0 (03/29/16) - 1 units PRBC on 03/29/16 - Hg has fallen to 6.9 (04/08/16) - will transfuse 2 units PRBCs (4) ESRD (end stage renal disease) on dialysis Status: Chronic Plan: - comgmt with nephrology - Pt was started on PD in 05/2015 - Pt had Vas cath placed on 04/03 and is on HD currently.?temporary (5) DM (diabetes mellitus) Status: Chronic Plan: - Poor po intake but stable blood sugars - NovoLog SSI - Levemir 20 qPM - Accu checks (6) Hypothyroidism Status: Chronic Plan: - Home meds continued (7) Hypertension Status: Chronic Plan: - Home meds continued Assessment and Plan Patient examined. Assessment and plan formulated with Sharon Swenson PA-C. I agree with the above. Problem Qualifiers (1) Anemia: Qualified Code: N18.9 - Anemia in chronic kidney disease (2) DM (diabetes mellitus): Qualified Code: E10.8 - Type 1 diabetes mellitus with complication (3) Hypertension: Qualified Code: I10 - Essential hypertension Kong Bagley DO Apr 08, 2016 11:15
[2016-04-08] MEDS ORDERED: DEXTROSE 50% IN WATER 50 ML SYRINGE ONE (11:24)
[2016-04-08] MEDS ORDERED: ONDANSETRON HCL 4 MG/2 ML VIAL IV PUSH ONE (12:00)
[2016-04-08] MEDS ORDERED: PHENYLEPH/NS 1000 MCG/10 ML SYR IV ONE (12:00)
[2016-04-08] MEDS ORDERED: PROPOFOL 200 MG/20 ML AMP IV ONE (12:00)
[2016-04-08] MEDS ORDERED: SODIUM CHLOR 0.9% 1000 ML INJ 1,000 ML IV ONE (12:00)
[2016-04-08] MEDS ORDERED: CALCIUM CHLORIDE 10% SOLN 1 GRAM/10 ML SYR IV ONE (12:00)
[2016-04-08] MEDS ORDERED: NEOSTIGMINE 3 MG/3 ML SYR IV ONE (12:00)
--- NOTE | 2016-04-08 12:20 | HHI.PR ---
Subjective Subjective Notes She states she feels pretty good overall. Objective Vitals/I&O Vital Signs Date Time Temp Pulse Resp B/P Pulse Ox O2 Delivery O2 Flow Rate FiO2 04/08/16 08:30 99 Nasal Cannula 2.00 04/08/16 08:00 98.2 78 16 130/58 04/05/16 07:24 21 Labs Laboratory Tests Test 04/07/16 04/08/16 21:34 07:50 White Blood Count 14.9 15.0 Red Blood Count 2.37 2.25 Hemoglobin 7.2 6.9 Hematocrit 22.4 21.5 Mean Corpuscular Volume 94.6 95.7 Mean Corpuscular Hemoglobin 30.3 30.5 Mean Corpuscular Hemoglobin 32.0 31.9 Concent Red Cell Distribution Width 16.1 16.6 Platelet Count 129 126 Mean Platelet Volume 8.1 7.9 Neutrophils (%) (Auto) 85.8 84.0 Lymphocytes (%) (Auto) 5.8 5.9 Monocytes (%) (Auto) 7.1 8.3 Eosinophils (%) (Auto) 0.9 1.2 Basophils (%) (Auto) 0.4 0.6 Neutrophils # (Auto) 12.8 12.6 Lymphocytes # (Auto) 0.9 0.9 Monocytes # (Auto) 1.1 1.2 Eosinophils # (Auto) 0.1 0.2 Basophils # (Auto) 0.1 0.1 CBC Comment AUTO DIFF DIFF FINAL Differential Comment AUTO DIFF CONFIRMED Platelet Estimate LOW Platelet Morphology Comment NORMAL Sodium Level 134 133 Potassium Level 4.3 4.3 Chloride Level 95 94 Carbon Dioxide Level 29.9 31.0 Anion Gap 9 8 Blood Urea Nitrogen 36 41 Creatinine 4.57 5.21 Estimat Glomerular Filtration 9 8 Rate Random Glucose 158 76 Calcium Level 7.0 7.2 Protein Corrected Calcium 7.9 8.2 Total Protein 5.4 5.3 Magnesium Level 1.9 Date/Time Procedure Status Source Growth 04/03/16 12:54 Gram Stain - Final Resulted Fluid Peritoneal Fluid 04/03/16 12:54 Body Fluid Culture - Preliminary Resulted Fluid Peritoneal Fluid NO GROWTH IN 48 HOURS. 04/03/16 12:54 Fungal Smear - Final Resulted Wound Other NO FUNGAL ELEMENTS SEEN. 04/03/16 12:54 Fungal Culture Resulted Wound Other Pending 04/03/16 12:54 Acid Fast Stain - Final Resulted Wound Other NO ACID FAST BACILLI SEEN 04/03/16 12:54 Mycobacterial Culture Resulted Wound Other Pending Narrative Exam NAD, awake and alert Vac in place good seal A/P Assessment and Plan 71 yo F with right inguinal, thigh soft tissue infections, s/p drainage and debridement. Proceed to OR today for washout and vac change. Haroldo Rodas MD Apr 08, 2016 12:20
[2016-04-08] MEDS ORDERED: KETAMINE HCL 500 MG/5 ML VIAL ONE (12:22)
[2016-04-08] MEDS: cefTAZidime INJ 1,000 MG in SODIUM CHLORIDE 0.9% INJ 100 ML IV SCH ×2 (12:45→13:00)
--- NOTE | 2016-04-08 13:51 | RADRPT ---
EXAM DATE/TIME: 04/08/2016 11:35 [facility] COMPARISON: No previous studies available for comparison. INDICATIONS : Swelling. MEDICAL HISTORY : Congestive heart failure. Hypertension. Hypercholesterolemia. 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 Renal failure. SURGICAL HISTORY : CABG Cholecystectomy. Left total knee replacement. Breast reduction. ENCOUNTER: Initial ACUITY: 1 day PAIN SCORE: 7/10 LOCATION: Left arm. FINDINGS: There is occlusive thrombus in the distal side vein close to the IV site. No other thrombus is ident ified. CONCLUSION: Thrombus distal cephalic vein close to the IV site. Jose Enrique Christianson MD FACR on April 08, 2016 at 13:47 Board Certified Radiologist. This report was verified electronically.
[2016-04-08] MEDS ORDERED: DO NOT ADM ANY ANTICOAGULANT DRUGS XX PRN (15:00)
--- NOTE | 2016-04-08 15:08 | PD.OP ---
cc: Haroldo Rodas MD Operative Report Date of Surgery: Apr 08, 2016 Preoperative Diagnosis: (1) Necrotizing fasciitis Postoperative Diagnosis: (1) Necrotizing fasciitis Procedure: Debridement skin and subcutaneous tissue and muscle right lower abdominal wall, right groin, right upper thigh Wound VAC placement right lower abdomen and wound VAC change right groin and right upper thigh Anesthesia: YOEL Surgeon: Haroldo Rodas Mercury Cell Cleaner(s): Ifeoma Operation and Findings: Estimated blood loss: 250 cc Operative findings: The patient had an area of induration and erythema in the right lower abdominal wall. Deep to this area there was pus and necrotic fat and infection tracking along the abdominal wall fascia towards the groin. The right groin and right upper thigh which had been debrided on Wednesday required only moderate amount of further debridement. Procedure in detail: The patient was taken to the operating room placed in the supine position with the legs in yellowfin stirrups. General endotracheal anesthesia was induced. The right lower abdomen and right groin and upper thigh were prepped and draped in usual sterile fashion. There was an area of erythema and induration in the right lower abdomen. Approximately 12 cm incision was made over this area and dissection carried through subcutaneous tissue with electrocautery. Tracking along the fascia of the anterior abdominal wall was pus and necrotic fat and superficial fascia. This was tracking towards the groin wound. Subcutaneous tissue and some superficial fascia was debridement sharply. Hemostasis was achieved and the wound was copiously irrigated with pulse lavage. A wound VAC was applied in 2 layers, one deep and one superficial and subcutaneous layer. In the right groin the wound connected with the abdominal wound. Moderate further debridement was required of subcutaneous fat and minimal muscle and fascia. Hemostasis was achieved and the area was copiously irrigated with pulse lavage. A wound VAC sponge was placed. In the right upper thigh further debridement of skin and subcutaneous tissue and small amount of underlying muscle was required. Again hemostasis was achieved the wound VAC sponge placed. The right groin and right abdominal wound vacs were placed with a Y connector to the same machine in the right upper thigh VAC was placed to a separate machine. The patient received 2 units of packed red blood cells and a 10 pack of platelets. She was extubated and taken to PACU in stable condition. Haroldo Rodas MD Apr 08, 2016 15:08
[2016-04-08] MEDS ORDERED: MIDAZOLAM HCL 2 MG/2 ML VIAL ONE ×2 (15:24)
[2016-04-08] MEDS ORDERED: *morphine SULFATE 8 MG/ML PERIprocedure ONLY ONE (15:28)
[2016-04-08] MEDS ORDERED: DEXTROSE 50% IN WATER 50 ML VIAL(D50) ONE (15:37)
[2016-04-08 15:57] LABS: AUTOMATED NEUTROPHIL # 19.1 TH/MM3 (1.8-7.7); BASOPHIL # 0.1 TH/MM3 (0-0.2); BASOPHIL % 0.3 % (0.0-2.0); EOSINOPHIL # 0.2 TH/MM3 (0-0.4); EOSINOPHIL % 1.1 % (0.0-4.0); HEMATOCRIT 26.7 % (35.0-46.0); HEMO FLAGS DIFF FINAL; LYMPH % 4.3 % (9.0-44.0); LYMPHOCYTE # 0.9 TH/MM3 (1.0-4.8); MEAN CELL VOLUME 91.4 FL (80.0-100.0); MEAN CORPUSCULAR HEMOGLOBIN 29.7 PG (27.0-34.0); MEAN CORPUSCULAR HGB CONC 32.5 % (32.0-36.0); MONO % 7.4 % (0.0-8.0); NEUT % 86.9 % (16.0-70.0); PLATELET COUNT 138 TH/MM3 (150-450); RED BLOOD COUNT 2.92 MIL/MM3 (4.00-5.30); RED CELL DISTRIBUTION WIDTH 18.1 % (11.6-17.2)
[2016-04-08 16:18] LABS: BICARBONATE 28.6 MEQ/L (21.0-32.0); MAGNESIUM 1.9 MG/DL (1.5-2.5); POTASSIUM 4.6 MEQ/L (3.5-5.1)
[2016-04-08] MEDS ORDERED: DEXTROSE 50% IN WATER 50 ML SYRINGE IV ONE (17:00)
[2016-04-08 17:20] LABS: CALCIUM-PROTEIN CORRECTED 8.5 MG/DL (8.5-10.1)
--- NOTE | 2016-04-08 17:50 | HHI.PR ---
Addendum to Inpatient Note Additional Information Chart reviewwd Pt went to OR again today OP findings: Deep to this area there was pus and necrotic fat and infection tracking along the abdominal wall fascia towards the groin. cont dapto - monitor CKs weekly change fortaz to CFTX cont Flagyl Will be OOT thru Apr 30 Dr Dobbs will be covering for me Radha Robbins MD Apr 08, 2016 17:49
--- NOTE | 2016-04-08 18:51 | HHI.NPPN ---
Subjective General Problems: Hypertension Renal Failure: Chronic, End Stage Renal Disease Additional Remarks Patient is alert, seen after the surgery, has pain at site of surgery, no chest pain. Review of Systems General Constitutional: Fatigue Gastrointestinal Gastrointestinal: Abdominal Pain Skin Skin Remarks vaginal abscess, labial swelling with pain Objective Data Data 04/07/16 04/08/16 19:00 07:00 Intake Total 721 ml 300 ml Output Total 2700 ml Balance -1979 ml 300 ml Intake Oral 480 ml 200 ml IV Total 241 ml 100 ml Hemodialysis 2700 ml Vital Signs Date Time Temp Pulse Resp B/P Pulse Ox O2 Delivery O2 Flow Rate FiO2 04/08/16 17:00 63 15 125/38 99 Nasal Cannula 3 04/08/16 16:30 63 17 122/48 99 Nasal Cannula 3 04/08/16 16:00 67 17 126/51 99 Nasal Cannula 3 04/08/16 15:45 72 15 125/53 100 Nasal Cannula 3 04/08/16 15:30 66 15 154/66 99 Nasal Cannula 3 04/08/16 15:15 67 14 153/65 99 Nasal Cannula 3 04/08/16 15:06 97.6 71 14 153/57 99 Nasal Cannula 3 04/08/16 08:30 99 Nasal Cannula 2.00 04/08/16 08:00 98.2 78 16 130/58 99 04/08/16 04:00 97.7 75 18 100/64 100 04/08/16 00:00 97.7 75 16 114/63 100 04/07/16 20:44 92 Nasal Cannula 2.50 04/07/16 20:00 98.4 83 16 97/56 97 -: 04/08/16 1522 04/08/16 1522 Tubes & Lines: Tenckhoff Catheter Physical Exam General Appearance: No Acute Distress, Comfortable, Obese Throat Throat Exam: Oral Mucosa [place] & Moist Neck Neck Exam: Neck Supple Pulmonary Resp Exam: Clear Bilaterally, Breath Sounds Equal, No Distress Cardiology CV Exam: Regular, Normal Sinus Rhythm, Good Perfusion Gastrointestinal/Abdomen GI Exam: Soft, Non-Tender, Bowel Sounds Present GI Remarks dressing Rt. of umbilicus. Musculoskeletal MS Exam: Joints Intact, Good Strength Integumentary Skin Exam: Clear, Warm, Dry, Intact Extremeties Extremities Exam: Trace Edema Neurologic Neuro Exam: Speech Clear, Moving All Extremities Psychiatric Psych Exam: Appropriate Responses Assessment/Plan Discussed Condition With: Patient Assessment Summary: Anemia of CKD, Fluid/Volume Overload, Hypertension, Diabetes Mellitus, End Stage Renal Disease Electrolyte Assessment: Hypocalcemia, Hyponatremia Problem List: (1) ESRD (end stage renal disease) on dialysis Plan: HD was done yesterday. Will need PermCath and out patient HD arrangements. Family wants her to go back on PD if possible. (2) Vulval cellulitis Plan: with sepsis, + E coli in 1/4 bottles ID following. On Ceftriaxone and Daptomycin. (3) Anemia Plan: labs indicating iron deficiency avoid IV Iron in light of sepsis,on oral iron replacement Monitor Hemoglobin. Epogen SQ weekly transfuse PRN (4) DM (diabetes mellitus) Plan: blood sugars elevated but improved continue insulin monitor glucose, goal 140-180 mg/dL (5) Hypertension Plan: oral medications as ordered follow blood pressure, adjust medications as needed (6) Hyponatremia Plan: stable needs to restrict fluid intake. Plan . Problem Qualifiers (1) Anemia: Qualified Code: N18.9 - Anemia in chronic kidney disease (2) DM (diabetes mellitus): Qualified Code: E10.8 - Type 1 diabetes mellitus with complication (3) Hypertension: Qualified Code: I10 - Essential hypertension Phil Mack MD Apr 08, 2016 18:51 Phil Mack MD Apr 08, 2016 18:51
[2016-04-08] MEDS: ATORVASTATIN 40 MG TAB PO SCH (21:21)
[2016-04-08] MEDS: cefTRIAXone INJ 2,000 MG in SODIUM CHLORIDE 0.9% INJ 100 ML IV SCH (21:22)
[2016-04-08] MEDS: PRAMIPEXOLE DIHYDROCHLORIDE 0.25 MG TAB PO SCH (22:54)
[2016-04-09] VITALS (23 sets, daily range): BP systolic 110–122; BP diastolic 43–66; PULSE 68–106; RESP 14–18; TEMP 98.3–99.1; O2SAT 94–100
[2016-04-09] MEDS: LACTATED RINGER'S 1000 ML IV SCH (04:45)
[2016-04-09] MEDS: LEVOTHYROXINE SODIUM 88 MCG TAB PO SCH (05:50)
[2016-04-09] MEDS: metroNIDAZOLE 500 MG INJ 100 ML IV SCH ×2 (05:51→14:00)
[2016-04-09] MEDS: INSULIN ASPART SUPPLEMENTAL SCALE SQ SCH ×4 (06:19→20:45)
[2016-04-09] MEDS: SEVELAMER CARBONATE 800 MG TAB PO SCH ×3 (08:00→17:13)
[2016-04-09] MEDS: INSULIN DETEMIR 100 UNITS/ML VIAL SQ SCH ×2 (08:11→20:45)
[2016-04-09] MEDS: ACETAMINOPHEN/HYDROcodone 325 MG/5 MG TAB PO PRN ×2 (08:11→20:44)
[2016-04-09] MEDS: SODIUM CHLORIDE 0.9% FLUSH 5 ML FLUSH FLUSH SCH ×2 (09:00→20:43)
[2016-04-09] MEDS: SODIUM CHLORIDE 1 GRAM TAB PO SCH (09:00)
[2016-04-09] MEDS: MEGESTROL ACETATE SUSP 400 MG/10 ML CUP PO SCH (09:00)
--- NOTE | 2016-04-09 09:31 | HHI.PR ---
Subjective Remarks No new clinical complaints. Pt's pain is controlled. continued poor PO intake. Objective Vitals Vital Signs Date Time Temp Pulse Resp B/P Pulse Ox O2 Delivery O2 Flow Rate FiO2 04/09/16 08:00 72 16 120/43 94 04/09/16 06:00 75 04/09/16 05:00 68 04/09/16 04:00 72 04/09/16 04:00 98.3 71 122/52 100 04/09/16 03:00 71 04/09/16 02:00 71 04/09/16 01:00 70 04/09/16 00:00 99.1 79 110/66 98 04/09/16 00:00 68 04/08/16 23:00 79 04/08/16 22:00 75 04/08/16 21:00 68 04/08/16 20:00 66 04/08/16 20:00 98.8 72 121/56 100 04/08/16 19:00 72 04/08/16 18:25 98.4 64 15 119/57 99 Nasal Cannula 2 04/08/16 18:00 66 15 119/57 99 Nasal Cannula 3 04/08/16 17:00 63 15 125/38 99 Nasal Cannula 3 04/08/16 16:30 63 17 122/48 99 Nasal Cannula 3 04/08/16 16:00 67 17 126/51 99 Nasal Cannula 3 04/08/16 15:45 72 15 125/53 100 Nasal Cannula 3 04/08/16 15:30 66 15 154/66 99 Nasal Cannula 3 04/08/16 15:15 67 14 153/65 99 Nasal Cannula 3 04/08/16 15:06 97.6 71 14 153/57 99 Nasal Cannula 3 04/08/16 04/08/16 04/09/16 15:00 23:00 07:00 Intake Total 900 ml Output Total 250 ml Balance 650 ml Packed Cells 500 ml Other 400 ml Output Urine Total 0 ml Estimated Blood Loss 250 ml Result Diagram: 04/08/16 1522 04/08/16 1522 Imaging Last Impressions Upper Extremity Ultrasound 04/08/16 0000 Signed Impressions: Service Date/Time: Friday, April 08, 2016 11:35 - CONCLUSION: Thrombus distal cephalic vein close to the IV site. Jose Enrique Christianson MD FACR Soft Tissue Ultrasound 04/06/16 0000 Signed Impressions: Service Date/Time: Wednesday, April 06, 2016 14:50 - CONCLUSION: Nonspecific edema in the subcutaneous soft tissues. No loculated fluid collections to indicate an abscess. Phong Johnson MD Catheter Placement X-Ray 04/03/16 0000 Signed Impressions: Service Date/Time: Sunday, April 03, 2016 08:46 - CONCLUSION: Uncomplicated line placement as above. Godfrey Griffith MD Chest X-Ray 04/02/16 0000 Signed Impressions: Service Date/Time: March 10:31 - CONCLUSION: 1. Moderate pulmonary vascular congestion bilaterally. 2. Cardiomegaly. Leonides Root MD Abdomen/Pelvis CT 03/25/16 0000 Signed Impressions: Service Date/Time: Friday, March 25, 2016 19:39 - CONCLUSION: 1. Cellulitic changes in the right groin, right perineum and right labia. No abscess or fluid collection. 2. Dialysis catheter and minimal pelvic ascites. 3. Diverticulosis without diverticulitis. 4. Status post cholecystectomy. Enrique Snyder MD Objective Remarks General: NAD, AAOx3 Chest: CTA Cardiac: Regular Abd: +BS, soft, wound vac in place in right groin area Ext: edema at RUE A/P Problem List: (1) Cellulitis of labia Status: Acute Plan: - Pt admitted with cellulitis of the right labia and into the right groin /inner thigh - Pt had a noted elevated WBC count of 14.4 at admission with a Lactic acid of 2.4 - Pt was given IV Vancomycin, Cefepime and Clindamycin - CT abd/pelvis (03/25/16) --> Cellulitic changes in the right groin, right perineum and right labia. No abscess or fluid collection. Dialysis catheter and minimal pelvic ascites. Diverticulosis without diverticulitis. - Blood cultures (03/25/16) with one out of 4 growing E. coli - peritoneal WBC 106 - Peritoneal fluid culture --> no growth - Wound culture (04/03/16) --> E. Coli and Enterococcus - Zosyn (03/27-04/03/16) - flagyl (04/03 - present) - Ceftazidine (04/08 - present) - Daptomycin (04/07 - present) - Gentamycin prn with HD (04/03 - present) - Pt underwent debridement of necrotic skin/fat/abscess to right groin and inner thigh on 04/03. Wound vac placed. - Pt returned to OR on 04/06 and had repeat incision and debridement skin, subcu tissue, fascia, muscle of right inguinal wound and right labial/buttock wound - Pt returned to OR 04/[address] Rodas Debridement skin and subcutaneous tissue and muscle right lower abdominal wall, right groin, right upper thigh Wound VAC placement right lower abdomen and wound VAC change right groin and right upper thigh - Case d/w Dr. Rodas (04/08/16) - Dr. Rodas anticipate bringing pt back to the OR on 04/10 & possibly again - Switched to HD and Vascath placed on 04/03 - She is very malnourished with poor po. - Cont. to encourage po intake. She hopefully will not require peg.(can't do if getting PD, but GI says they could place it if necessary.) - overall prognosis is guarded - Palliative is following - poor PO intake - trial of megace - DVT prophylaxis with SCDs (2) Bacteremia Status: Acute Plan: - See above (3) Anemia Status: Chronic Plan: - Related to pts ESRD - received epogen (03/28/16) - Hg 8.0 (03/29/16) - 1 units PRBC on 03/29/16 - Hg 6.9 (04/08/16), pt transfused 2 units PRBCs - 8.7 (04/09/16) (4) ESRD (end stage renal disease) on dialysis Status: Chronic Plan: - comgmt with nephrology - Pt was started on PD in 05/2015 - Pt had Vas cath placed on 04/03 and is on HD currently.?temporary (5) DM (diabetes mellitus) Status: Chronic Plan: - Poor po intake but stable blood sugars - NovoLog SSI - Levemir 20 qPM - Accu checks (6) Hypothyroidism Status: Chronic Plan: - Home meds continued (7) Hypertension Status: Chronic Plan: - Home meds continued (8) Deep vein thrombosis (DVT) of left upper extremity Status: Acute Plan: - distal cephalic vein - IV site changed - heating pad prn Assessment and Plan Patient examined. Assessment and plan formulated with Sharon ARIAS I agree with the above. Problem Qualifiers (1) Anemia: Qualified Code: N18.9 - Anemia in chronic kidney disease (2) DM (diabetes mellitus): (3) Hypertension: Qualified Code: I10 - Essential hypertension Kong Bagley DO Apr 09, 2016 09:31 - Levemir 20 qPM - Accu checks (6) Hypothyroidism Status: Chronic Plan: - Home meds continued (7) Hypertension Status: Chronic Plan: - Home meds continued Assessment and Plan Patient examined. Assessment and plan formulated with Sharon ARIAS I agree with the above. Problem Qualifiers (1) Anemia: Qualified Code: N18.9 - Anemia in chronic kidney disease (2) DM (diabetes mellitus): Qualified Code: E10.8 - Type 1 diabetes mellitus with complication (3) Hypertension: Qualified Code: I10 - Essential hypertension Kong Bagley DO Apr 09, 2016 09:31
[2016-04-09] MEDS: HEPARIN SODIUM - IV 10,000 UNITS/10 ML VIAL PRN (11:33)
[2016-04-09] MEDS: EPOETIN ALFA 10,000 UNITS/ML VIAL IV PRN (11:33)
[2016-04-09] MEDS: GENTAMICIN SULFATE (DIALYSIS USE ONLY) 20 MG/2 ML VIAL IV PRN (11:34)
[2016-04-09] MEDS: SODIUM CHLOR 0.9% 1000 ML INJ 1,000 ML IV PRN (11:34)
--- NOTE | 2016-04-09 11:52 | HHI.HCPN ---
Reason for visit a. To assist with evaluation and management of symptoms including: postsurgical vulvar pain and debility. b. To assist medical decision maker(s) with: better understanding of current medical conditions; weighing benefits/burdens of medical treatment options; making medical treatment decisions. (Jeannine Woods) Subjective/Interval History Patient seen in hemodialysis room. Patient alert and oriented, endorsing perineal pain, burning sensation that is sharp and well localized. Pain worsened with movement, alleviated with pain medications. Pain currently at 6/ 10. Reports feeling weak, tired and with poor appetite. Has not had much to eat since yesterday secondary to poor appetite. Reports decrease in oral pain since starting Magic mouthwash, although reports increase oral dryness. Denies odynophagia or dysphagia. Denies shortness of breath, nausea, vomiting or abdominal pain. No acute events overnight. Went to OR yesterday for I & D of labia and right groin, wound vac change. OR findings including pus and necrotic fat and infection tracking along the abdominal fascia towards the groin. Patient aware of necrotizing fasciitis infection with abdominal wall involvement, plan to return to OR tomorrow for additional I&D. Afebrile, stable BP. Upper extremity venous ultrasound 04/08/16 suggesting distal cephalic vein thrombus on left arm. Discussed with patient completion of living well and healthcare surrogate paperwork, patient asked me to f/u with daughter as she has the paperwork. Telephone call to patient's daughter Terri, left message and voicemail. 13:50. Met with patient and daughter Terri at bedside. Medical update provided to daughter. Shared concerns regarding wound healing secondary to malnutrition with continued poor PO intake, diabetes, ESRD -HD dependent and profound physical deconditioning. Provided [facility] printed information on necrotizing fasciitis to include treatment and complications. Daughter shared concerns related to pt's multiple surgical interventions and plan for OR tomorrow. Daughter tells me that they haven't had a chance to have a meaningful conversation regarding goals of care and her wishes related to CPR and intubation. Reviewed benefits, risks and limitations of CPR in the setting of ESRD with other concomitant chronic comorbidities. Patient verbalized wishing to set limitations to treatment but she is to discuss it with her family. Encouraged patient and daughter to discuss further and complete living will. HCS and living will paperwork left with daughter. . Family/friend interactions Slight interval note. . (Jeannine Woods) Advance Directives Living Will: Never completed Health Care Surrogate: Never completed Durable Power of [employer] Furn[employer] Tender: Never completed (Jeannine Woods) Advance Directive Specifics Health Care Surrogate(s): None HCS or living will completed. . Documented care wishes: No living will completed. . Significant change in goals: FULL CODE. Goal of care is for continuation of current care to include HD/PD and surgical interventions for management of right groin/vulvar necrotizing fasciitis. . (Jeannine Woods) Objective Vital Signs Date Time Temp Pulse Resp B/P Pulse Ox O2 Delivery O2 Flow Rate FiO2 04/09/16 11:00 74 04/09/16 10:03 69 04/09/16 10:00 91 04/09/16 08:04 70 04/09/16 08:00 72 16 120/43 94 04/09/16 06:00 75 04/09/16 05:00 68 04/09/16 04:00 72 04/09/16 04:00 98.3 71 122/52 100 04/09/16 03:00 71 04/09/16 02:00 71 04/09/16 01:00 70 04/09/16 00:00 99.1 79 110/66 98 04/09/16 00:00 68 04/08/16 23:00 79 04/08/16 22:00 75 04/08/16 21:00 68 04/08/16 20:00 66 04/08/16 20:00 98.8 72 121/56 100 04/08/16 19:00 72 04/08/16 18:25 98.4 64 15 119/57 99 Nasal Cannula 2 04/08/16 18:00 66 15 119/57 99 Nasal Cannula 3 04/08/16 17:00 63 15 125/38 99 Nasal Cannula 3 04/08/16 16:30 63 17 122/48 99 Nasal Cannula 3 04/08/16 16:00 67 17 126/51 99 Nasal Cannula 3 04/08/16 15:45 72 15 125/53 100 Nasal Cannula 3 04/08/16 15:30 66 15 154/66 99 Nasal Cannula 3 04/08/16 15:15 67 14 153/65 99 Nasal Cannula 3 04/08/16 15:06 97.6 71 14 153/57 99 Nasal Cannula 3 Physical Exam CONSTITUTIONAL/GENERAL: This is an adequately nourished patient, in no apparent distress. Sleepy. TUBES/LINES/DRAINS: LIJ hemodialysis catheter. PIV's. Wound vac to right groin/ labia. SKIN: Pale. No jaundice. Moderate erythema and edema to right groin/inner thigh. Scattered ecchymoses on upper extremities. Skin temperature appropriate. Not diaphoretic. HEAD: Atraumatic. Normocephalic. EYES: Pupils equal and round and reactive. No injection or drainage. ENT: Hearing grossly normal. Nose without bleeding or purulent drainage. Throat without visible erythema, exudates, masses, or lesions. Erythema to tongue without sores or lesions noted. Dry lips. NECK: Trachea midline. Supple, nontender. CARDIOVASCULAR: Regular rate and rhythm without murmurs, gallops, or rubs. No JVD. Peripheral pulses symmetric. RESPIRATORY/CHEST: Symmetric, unlabored respirations. Clear to auscultation. Breath sounds equal bilaterally. No wheezes, rales, or rhonchi. GASTROINTESTINAL: Abdominal PD cath in place. Abdomen round, large, soft, non- tender. No guarding. Bowel sounds present. GENITOURINARY: Without palpable bladder distension. Wound vac on right groin/ labia with moderate amount of drainage. MUSCULOSKELETAL: Weak. Extremities without clubbing, cyanosis, or edema. No mottling or clubbing. NEUROLOGICAL: Awake and alert. Motor and sensory grossly within normal limits. Follows commands. Moves all extremities. PSYCHIATRIC: Calm with no obvious anxiety/depression. no apparent hallucinations or other psychotic thought process. . (Jeannine Woods) Diagnostic Tests Laboratory Laboratory Tests Test 04/06/16 04/07/16 04/08/16 04/08/16 17:53 21:34 07:50 12:07 White Blood Count 15.8 TH/MM3 14.9 TH/MM3 15.0 TH/MM3 (4.0-11.0) (4.0-11.0) (4.0-11.0) Red Blood Count 2.56 MIL/MM3 2.37 MIL/MM3 2.25 MIL/MM3 (4.00-5.30) (4.00-5.30) (4.00-5.30) Hemoglobin 7.8 GM/DL 7.2 GM/DL 6.9 GM/DL (11.6-15.3) (11.6-15.3) (11.6-15.3) Hematocrit 24.2 % 22.4 % 21.5 % (35.0-46.0) (35.0-46.0) (35.0-46.0) Mean Corpuscular Volume 94.6 FL 94.6 FL 95.7 FL (80.0-100.0) (80.0-100.0) (80.0-100.0) Mean Corpuscular Hemoglobin 30.6 PG 30.3 PG 30.5 PG (27.0-34.0) (27.0-34.0) (27.0-34.0) Mean Corpuscular Hemoglobin 32.4 % 32.0 % 31.9 % Concent (32.0-36.0) (32.0-36.0) (32.0-36.0) Red Cell Distribution Width 16.6 % 16.1 % 16.6 % (11.6-17.2) (11.6-17.2) (11.6-17.2) Platelet Count 128 TH/MM3 129 TH/MM3 126 TH/MM3 (150-450) (150-450) (150-450) Mean Platelet Volume 8.1 FL 8.1 FL 7.9 FL (7.0-11.0) (7.0-11.0) (7.0-11.0) Neutrophils (%) (Auto) 88.8 % 85.8 % 84.0 % (16.0-70.0) (16.0-70.0) (16.0-70.0) Lymphocytes (%) (Auto) 4.4 % 5.8 % 5.9 % (9.0-44.0) (9.0-44.0) (9.0-44.0) Monocytes (%) (Auto) 5.8 % (0.0-8.0) 7.1 % (0.0-8.0) 8.3 % (0.0-8.0) Eosinophils (%) (Auto) 0.7 % (0.0-4.0) 0.9 % (0.0-4.0) 1.2 % (0.0-4.0) Basophils (%) (Auto) 0.3 % (0.0-2.0) 0.4 % (0.0-2.0) 0.6 % (0.0-2.0) Neutrophils # (Auto) 14.0 TH/MM3 12.8 TH/MM3 12.6 TH/MM3 (1.8-7.7) (1.8-7.7) (1.8-7.7) Lymphocytes # (Auto) 0.7 TH/MM3 0.9 TH/MM3 0.9 TH/MM3 (1.0-4.8) (1.0-4.8) (1.0-4.8) Monocytes # (Auto) 0.9 TH/MM3 1.1 TH/MM3 1.2 TH/MM3 (0-0.9) (0-0.9) (0-0.9) Eosinophils # (Auto) 0.1 TH/MM3 0.1 TH/MM3 0.2 TH/MM3 (0-0.4) (0-0.4) (0-0.4) Basophils # (Auto) 0.0 TH/MM3 0.1 TH/MM3 0.1 TH/MM3 (0-0.2) (0-0.2) (0-0.2) CBC Comment AUTO DIFF AUTO DIFF DIFF FINAL Differential Total Cells 100 Counted Neutrophils % (Manual) 88 % (16-70) Band Neutrophils % 5 % (0-6) Lymphocytes % 6 % (9-44) Eosinophils % 1 % (0-4) Neutrophils # (Manual) 14.7 TH/MM3 (1.8-7.7) Differential Comment FINAL DIFF AUTO DIFF MANUAL CONFIRMED Platelet Estimate LOW (NORMAL) LOW (NORMAL) Platelet Morphology Comment NORMAL NORMAL (NORMAL) (NORMAL) Ovalocytes (NORMAL) Red Cell Morphology Comment NORMAL (NORMAL) Sodium Level 134 MEQ/L 133 MEQ/L (136-145) (136-145) Potassium Level 4.3 MEQ/L 4.3 MEQ/L (3.5-5.1) (3.5-5.1) Chloride Level 95 MEQ/L 94 MEQ/L (98-107) (98-107) Carbon Dioxide Level 29.9 MEQ/L 31.0 MEQ/L (21.0-32.0) (21.0-32.0) Anion Gap 9 MEQ/L (5-15) 8 MEQ/L (5-15) Blood Urea Nitrogen 36 MG/DL (7-18) 41 MG/DL (7-18) Creatinine 4.57 MG/DL 5.21 MG/DL (0.50-1.00) (0.50-1.00) Estimat Glomerular Filtration 9 ML/MIN (>89) 8 ML/MIN (>89) Rate Random Glucose 158 MG/DL 76 MG/DL (74-106) (74-106) Calcium Level 7.0 MG/DL 7.2 MG/DL (8.5-10.1) (8.5-10.1) Protein Corrected Calcium 7.9 MG/DL 8.2 MG/DL (8.5-10.1) (8.5-10.1) Total Protein 5.4 GM/DL 5.3 GM/DL (6.4-8.2) (6.4-8.2) Magnesium Level 1.9 MG/DL (1.5-2.5) Blood Type A POSITIVE Antibody Screen NEGATIVE Crossmatch Leukocyte-Reduced Red Blood Cells Blood Bank Comment Test 04/08/16 04/08/16 04/09/16 13:47 15:22 00:26 Blood Bank Comment White Blood Count 22.0 TH/MM3 (4.0-11.0) Red Blood Count 2.92 MIL/MM3 (4.00-5.30) Hemoglobin 8.7 GM/DL (11.6-15.3) Hematocrit 26.7 % (35.0-46.0) Mean Corpuscular Volume 91.4 FL (80.0-100.0) Mean Corpuscular Hemoglobin 29.7 PG (27.0-34.0) Mean Corpuscular Hemoglobin 32.5 % Concent (32.0-36.0) Red Cell Distribution Width 18.1 % (11.6-17.2) Platelet Count 138 TH/MM3 (150-450) Mean Platelet Volume 7.8 FL (7.0-11.0) Neutrophils (%) (Auto) 86.9 % (16.0-70.0) Lymphocytes (%) (Auto) 4.3 % (9.0-44.0) Monocytes (%) (Auto) 7.4 % (0.0-8.0) Eosinophils (%) (Auto) 1.1 % (0.0-4.0) Basophils (%) (Auto) 0.3 % (0.0-2.0) Neutrophils # (Auto) 19.1 TH/MM3 (1.8-7.7) Lymphocytes # (Auto) 0.9 TH/MM3 (1.0-4.8) Monocytes # (Auto) 1.6 TH/MM3 (0-0.9) Eosinophils # (Auto) 0.2 TH/MM3 (0-0.4) Basophils # (Auto) 0.1 TH/MM3 (0-0.2) CBC Comment DIFF FINAL Differential Comment Sodium Level 137 MEQ/L (136-145) Potassium Level 4.6 MEQ/L (3.5-5.1) Chloride Level 98 MEQ/L (98-107) Carbon Dioxide Level 28.6 MEQ/L (21.0-32.0) Anion Gap 10 MEQ/L (5-15) Blood Urea Nitrogen 41 MG/DL (7-18) Creatinine 4.97 MG/DL (0.50-1.00) Estimat Glomerular Filtration 9 ML/MIN (>89) Rate Random Glucose 64 MG/DL (74-106) Calcium Level 7.3 MG/DL (8.5-10.1) Protein Corrected Calcium 8.5 MG/DL (8.5-10.1) Magnesium Level 1.9 MG/DL (1.5-2.5) Total Creatine Kinase 19 U/L (26-192) 15 U/L (26-192) Troponin I 0.13 NG/ML 0.14 NG/ML (0.02-0.05) (0.02-0.05) Total Protein 5.0 GM/DL (6.4-8.2) (Jeannine Woods) Result Diagram: 04/08/16 1522 04/08/16 1522 Imaging Last Impressions Upper Extremity Ultrasound 04/08/16 0000 Signed Impressions: Service Date/Time: Friday, April 08, 2016 11:35 - CONCLUSION: Thrombus distal cephalic vein close to the IV site. Jose Enrique Christianson MD FACR Soft Tissue Ultrasound 04/06/16 0000 Signed Impressions: Service Date/Time: Wednesday, April 06, 2016 14:50 - CONCLUSION: Nonspecific edema in the subcutaneous soft tissues. No loculated fluid collections to indicate an abscess. Phong Johnson MD Catheter Placement X-Ray 04/03/16 0000 Signed Impressions: Service Date/Time: Sunday, April 03, 2016 08:46 - CONCLUSION: Uncomplicated line placement as above. Godfrey Griffith MD Chest X-Ray 04/02/16 0000 Signed Impressions: Service Date/Time: March 10:31 - CONCLUSION: 1. Moderate pulmonary vascular congestion bilaterally. 2. Cardiomegaly. Leonides Root MD Abdomen/Pelvis CT 03/25/16 0000 Signed Impressions: Service Date/Time: Friday, March 25, 2016 19:39 - CONCLUSION: 1. Cellulitic changes in the right groin, right perineum and right labia. No abscess or fluid collection. 2. Dialysis catheter and minimal pelvic ascites. 3. Diverticulosis without diverticulitis. 4. Status post cholecystectomy. Enrique Snyder MD Procedures * 04/08/16 - Debridement skin and subcutaneous tissue and muscle right lower abdominal wall, right groin, right upper thigh. Wound VAC placement right lower abdomen and wound VAC change right groin and right upper thigh. * 04/06/16 - Debridement of labia and right groin with would vac change. * 04/03/16 - Left IJ hemodialysis catheter placement. * 04/03/16 - Incision and debridement skin and subcutaneous tissue right inguinal abscess with wound VAC placement. * 04/03/16 - Incision and debridement skin and subcutaneous tissues tissue right upper inner thigh abscess. . (Jeannine Woods) Assessment and Plan Disease Oriented Problem List: (1) ESRD (end stage renal disease) on dialysis (2) Anemia (3) Abscess of right groin Symptom Scale: (1) Pain 0-10 Scale: 6 Comment: Acute pain to right groin/vulva secondary to necrotizing fasciitis s/ p surgical debridement and wound vac placement x3. (2) Decrease in appetite 0-10 Scale: Unable to quantify Comment: Progressive during this hospitalization. (3) Weakness 0-10 Scale: Unable to quantify Comment: Generalized weakness secondary to current hospitalization. Pertinent Non-Medical Issues Psychosocial: . Residing independently prior to this hospitalization. 1 daughter who resides in [place]. Spiritual: christian. No mandaeism affiliation. Legal: No living will or HCS completed. Ethical issues impacting care: No living will or HCS completed. . Important Contacts Daughter Terri Verdugo . . Prognosis Mrs. Garrison is a 71 y/o female with a medical history significant for HTN, Diabetes mellitus, CAD s/p CABG x2 and ESRD, on dialysis since May 2015. Patient presented to the ED on 03/25/16 and admitted for management of sepsis, vulvar cellulitis. Patient is s/p incision and debridement skin and subcutaneous tissue of right inguinal abscess and right upper inner thigh abscess with wound VAC placement. Now diagnosed with necrotizing fasciitis, s/p I&D x3. Nephrology following, patient switched to HD and vascath placed on . Repeat PD cell count higher, concerns of peritonitis. Additional concerns regarding impaired wound healing secondary to ERSD, DM, malnutrition with albumin 1.6 and profound physical deconditioning. Patient is at high risk for complications, continue decline and . She is at high risk for developing significant symptom burden with a poor prognosis for increased quality of life. . Code Status: Full Code Plan * FULL CODE * Patient alert and oriented x4, decisional. No Living will or HCS completed. Patient . [place] statute, patient's healthcare proxy would be her children for which she has 2, only 1 surviving -Daughter Terri. patient wishing to complete HCS and living will during this hospitalization, left forms in room for pt and family to discuss and complete. * 04/09/16. Goals of care remain unchanged, FULL CODE and continuation of current care to include HD and surgical interventions for management of right groin/vulvar necrotizing fasciitis. Shared concerns regarding wound healing secondary to malnutrition with continued poor PO intake, diabetes, ESRD -HD dependent and profound physical deconditioning. Discussed code status in the setting of ESRD, patient and family wishing for FULL code but would like to set time limitations/trail periods. Encouraged pt and family to discuss this limitations and to put them in writing/complete LW. Provided HCS and living will forms for pt and family to complete. * Right groin/vulvar pain, acute -secondary to necrotizing fascitis s/p surgical debridement and wound vac placement x3. No history of chronic pain. [place] 5/325 and 10/325 available PRN. Has used 2 doses of 10/325 yesterday and 1 dose of 5/325 today. Hydromorphone 0.5mg IV available as needed, 1 dose given. Both hydrocodone and hydromorphone are safe to use in renally impaired/ dialysis patients. No additional medications or dose adjustments recommended at this time. Patient was encouraged to request medication for pain management. * Malnutrition. Albumin 1.6. Decreased oral intake. Fair appetite at baseline. Discussed concerns related to poor wound healing secondary to malnutrition and diabetes. Discussed NG tube vs. PEG tube. Discussed that NG tube is temporary and that PEG may not be an option secondary to peritoneal dialysis. Patient to further discuss with her family. * Generalized weakness -profound physical deconditioning, multifactorial secondary to hospitalization, acute infectious process and lethargy. Working with PT. Will likely need rehab at discharge. * Oral discomfort/Glossitis, likely secondary to dry mouth vs. allergic reaction to food/med vs. anemia of chronic disease. No fungal plaques or sores noted. Encouraged pt to avoid irritants such as hot or spicy foods. Patient started on magic mouthwash. * Case discussed with Dr. Bagley on 04/07/16. * Palliative care will continue to f/u patient during this hospitalization for further clarification of goals of care, completion of advanced directives and symptom management. . (Jeannine Woods) Time Spent Total Floor Time (mins): 42 (Total time to include review of med records, physical exam, beside conversation with pt and daughter and case discussion with Dr. Bagley. ) Face to Face Time (mins): 35 >50% Counseling/Coord of Care: Yes (Jeannine Woods) Attestation To help prompt me to consider important information that might be impacting today's encounter and assessment, information from prior notes written by myself or my colleagues may have been "brought forward" into today's note. My signature on this note, however, is an attestation that I personally performed the exam, history, and/or decision-making noted today, and, unless otherwise indicated, the interactions with patient, family, and staff as well as the review of records all occurred today. I also attest that the listed assessment and stated plan reflect my best clinical judgment today based on the combination of historical information, prior notes, and today's exam/ interactions. When time spent is documented, it refers only to time spent today by the signer, or if indicated, combined time spent today by collaborating physician/nurse practitioner. (Jeannine Woods) Collaborating MD Comments Chart reviewed. 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 Above BAR MACHINE OPERATOR [employer] note reviewed and I concur. . (Kee Solo MD) Jeannine Woods Apr 09, 2016 11:52 Kee Solo MD May 10, 2016 07:55
--- NOTE | 2016-04-09 12:22 | HHI.PR ---
Subjective Subjective Notes No complaints. Objective Vitals/I&O Vital Signs Date Time Temp Pulse Resp B/P Pulse Ox O2 Delivery O2 Flow Rate FiO2 04/09/16 11:00 74 04/09/16 08:00 16 120/43 94 04/09/16 04:00 98.3 04/08/16 18:25 Nasal Cannula 2 04/05/16 07:24 21 Labs Laboratory Tests Test 04/08/16 04/08/16 04/09/16 13:47 15:22 00:26 Blood Bank Comment White Blood Count 22.0 Red Blood Count 2.92 Hemoglobin 8.7 Hematocrit 26.7 Mean Corpuscular Volume 91.4 Mean Corpuscular Hemoglobin 29.7 Mean Corpuscular Hemoglobin 32.5 Concent Red Cell Distribution Width 18.1 Platelet Count 138 Mean Platelet Volume 7.8 Neutrophils (%) (Auto) 86.9 Lymphocytes (%) (Auto) 4.3 Monocytes (%) (Auto) 7.4 Eosinophils (%) (Auto) 1.1 Basophils (%) (Auto) 0.3 Neutrophils # (Auto) 19.1 Lymphocytes # (Auto) 0.9 Monocytes # (Auto) 1.6 Eosinophils # (Auto) 0.2 Basophils # (Auto) 0.1 CBC Comment DIFF FINAL Differential Comment Sodium Level 137 Potassium Level 4.6 Chloride Level 98 Carbon Dioxide Level 28.6 Anion Gap 10 Blood Urea Nitrogen 41 Creatinine 4.97 Estimat Glomerular Filtration 9 Rate Random Glucose 64 Calcium Level 7.3 Protein Corrected Calcium 8.5 Magnesium Level 1.9 Total Creatine Kinase 19 15 Troponin I 0.13 0.14 Total Protein 5.0 Narrative Exam NAD, sleepy and mildly confused Vacs in place good seal A/P Assessment and Plan 71 yo F with right inguinal, thigh soft tissue infections, s/p drainage and debridement. Plan to proceed again to OR tomorrow for debridement. ClarkHaroldo MD Apr 09, 2016 12:22
[2016-04-09] MEDS: DAPTOmycin INJ 500 MG in SODIUM CHLORIDE 0.9% INJ 100 ML IV SCH ×2 (12:40→15:05)
[2016-04-09] MEDS: SERTRALINE HCL 100 MG TAB PO SCH (12:40)
[2016-04-09] MEDS: PANTOPRAZOLE SOD 40 MG DELAYED RELEASE TAB PO SCH (12:40)
[2016-04-09] MEDS: CHOLECALCIFEROL (VIT D3) 5000 UNIT CAP PO SCH (12:41)
[2016-04-09] MEDS: ASPIRIN EC 325 MG TABEC PO SCH (12:41)
[2016-04-09] MEDS: FERROUS SULFATE 325 MG (65 MG ELEMENTAL IRON) TAB PO SCH (12:41)
[2016-04-09] MEDS: CALCITRIOL 0.25 MCG CAP PO SCH (12:41)
[2016-04-09] MEDS: CARVEDILOL 6.25 MG TAB PO SCH ×2 (12:41→20:44)
--- NOTE | 2016-04-09 14:11 | HHI.IDPN ---
Subjective Subjective Remarks ID [id number] for . Inguinal and perineal necrotizing fascitis on admission. s/p extensive perineal debridement by Dr Rodas Undergoing HD. Feels much better Growing VRE and E.coli from wound cultures E.coli bacteremia transient on admission likely sec to necr fascitis. afebrile No diarrhea No rash Antibiotics Dapto IV Ceftriaxone IV Flagyl Lines Line sites with no e/o infection Past Medical History reviewed Allergies: Coded Allergies: Codeine (Verified Allergy, Severe, HALLUCINATIONS, 03/25/16) Ofloxacin (Verified Allergy, Severe, FLOXIN, 03/25/16) *MDRO Multi-Drug Resistant Organism (Verified Adverse Reaction, Unknown, ) VRE (genitals)-04/03/16 Objective . Vital Signs Date Time Temp Pulse Resp B/P Pulse Ox O2 Delivery O2 Flow Rate FiO2 04/09/16 12:00 98.9 77 14 116/60 95 04/09/16 11:00 74 04/09/16 10:03 69 04/09/16 10:00 91 04/09/16 08:04 70 04/09/16 08:00 72 16 120/43 94 04/09/16 06:00 75 04/09/16 05:00 68 04/09/16 04:00 72 04/09/16 04:00 98.3 71 122/52 100 04/09/16 03:00 71 04/09/16 02:00 71 04/09/16 01:00 70 04/09/16 00:00 99.1 79 110/66 98 04/09/16 00:00 68 04/08/16 23:00 79 04/08/16 22:00 75 04/08/16 21:00 68 04/08/16 20:00 66 04/08/16 20:00 98.8 72 121/56 100 04/08/16 19:00 72 04/08/16 18:25 98.4 64 15 119/57 99 Nasal Cannula 2 04/08/16 18:00 66 15 119/57 99 Nasal Cannula 3 04/08/16 17:00 63 15 125/38 99 Nasal Cannula 3 04/08/16 16:30 63 17 122/48 99 Nasal Cannula 3 04/08/16 16:00 67 17 126/51 99 Nasal Cannula 3 04/08/16 15:45 72 15 125/53 100 Nasal Cannula 3 04/08/16 15:30 66 15 154/66 99 Nasal Cannula 3 04/08/16 15:15 67 14 153/65 99 Nasal Cannula 3 04/08/16 15:06 97.6 71 14 153/57 99 Nasal Cannula 3 04/08/16 04/08/16 04/09/16 15:00 23:00 07:00 Intake Total 900 ml Output Total 250 ml Balance 650 ml Packed Cells 500 ml Other 400 ml Output Urine Total 0 ml Estimated Blood Loss 250 ml . Laboratory Tests Test 04/07/16 04/08/16 04/08/16 21:34 07:50 15:22 White Blood Count 14.9 TH/MM3 15.0 TH/MM3 22.0 TH/MM3 Red Blood Count 2.37 MIL/MM3 2.25 MIL/MM3 2.92 MIL/MM3 Hemoglobin 7.2 GM/DL 6.9 GM/DL 8.7 GM/DL Hematocrit 22.4 % 21.5 % 26.7 % Mean Corpuscular Volume 94.6 FL 95.7 FL 91.4 FL Mean Corpuscular Hemoglobin 30.3 PG 30.5 PG 29.7 PG Mean Corpuscular Hemoglobin 32.0 % 31.9 % 32.5 % Concent Red Cell Distribution Width 16.1 % 16.6 % 18.1 % Platelet Count 129 TH/MM3 126 TH/MM3 138 TH/MM3 Mean Platelet Volume 8.1 FL 7.9 FL 7.8 FL Neutrophils (%) (Auto) 85.8 % 84.0 % 86.9 % Lymphocytes (%) (Auto) 5.8 % 5.9 % 4.3 % Monocytes (%) (Auto) 7.1 % 8.3 % 7.4 % Eosinophils (%) (Auto) 0.9 % 1.2 % 1.1 % Basophils (%) (Auto) 0.4 % 0.6 % 0.3 % Neutrophils # (Auto) 12.8 TH/MM3 12.6 TH/MM3 19.1 TH/MM3 Lymphocytes # (Auto) 0.9 TH/MM3 0.9 TH/MM3 0.9 TH/MM3 Monocytes # (Auto) 1.1 TH/MM3 1.2 TH/MM3 1.6 TH/MM3 Eosinophils # (Auto) 0.1 TH/MM3 0.2 TH/MM3 0.2 TH/MM3 Basophils # (Auto) 0.1 TH/MM3 0.1 TH/MM3 0.1 TH/MM3 CBC Comment AUTO DIFF DIFF FINAL DIFF FINAL Differential Comment AUTO DIFF CONFIRMED Platelet Estimate LOW Platelet Morphology Comment NORMAL Laboratory Tests Test 04/07/16 04/08/16 04/08/16 04/09/16 21:34 07:50 15:22 00:26 Sodium Level 134 MEQ/L 133 MEQ/L 137 MEQ/L Potassium Level 4.3 MEQ/L 4.3 MEQ/L 4.6 MEQ/L Chloride Level 95 MEQ/L 94 MEQ/L 98 MEQ/L Carbon Dioxide Level 29.9 MEQ/L 31.0 MEQ/L 28.6 MEQ/L Anion Gap 9 MEQ/L 8 MEQ/L 10 MEQ/L Blood Urea Nitrogen 36 MG/DL 41 MG/DL 41 MG/DL Creatinine 4.57 MG/DL 5.21 MG/DL 4.97 MG/DL Estimat Glomerular Filtration 9 ML/MIN 8 ML/MIN 9 ML/MIN Rate Random Glucose 158 MG/DL 76 MG/DL 64 MG/DL Calcium Level 7.0 MG/DL 7.2 MG/DL 7.3 MG/DL Protein Corrected Calcium 7.9 MG/DL 8.2 MG/DL 8.5 MG/DL Total Protein 5.4 GM/DL 5.3 GM/DL 5.0 GM/DL Magnesium Level 1.9 MG/DL 1.9 MG/DL Total Creatine Kinase 19 U/L 15 U/L Troponin I 0.13 NG/ML 0.14 NG/ML Imaging Last Impressions Soft Tissue Ultrasound 04/06/16 0000 Signed Impressions: Service Date/Time: Wednesday, April 06, 2016 14:50 - CONCLUSION: Nonspecific edema in the subcutaneous soft tissues. No loculated fluid collections to indicate an abscess. Phong Johnson MD Catheter Placement X-Ray 04/03/16 0000 Signed Impressions: Service Date/Time: Sunday, April 03, 2016 08:46 - CONCLUSION: Uncomplicated line placement as above. Godfrey Griffith MD Chest X-Ray 04/02/16 0000 Signed Impressions: Service Date/Time: March 10:31 - CONCLUSION: 1. Moderate pulmonary vascular congestion bilaterally. 2. Cardiomegaly. Leonides Root MD Abdomen/Pelvis CT 03/25/16 0000 Signed Impressions: Service Date/Time: Friday, March 25, 2016 19:39 - CONCLUSION: 1. Cellulitic changes in the right groin, right perineum and right labia. No abscess or fluid collection. 2. Dialysis catheter and minimal pelvic ascites. 3. Diverticulosis without diverticulitis. 4. Status post cholecystectomy. Enrique Snyder MD Physical Exam CONSTITUTIONAL/GENERAL: This is a morbidly obese elderly ill appearing patient , in no apparent distress. LINES: Vascath L IJ in place - site OK SKIN: No jaundice, rashes, Anasarca HEAD: Atraumatic. Normocephalic. EYES: Pupils equal and round and reactive. No scleral icterus. No injection or drainage. CARDIOVASCULAR: Regular rate and rhythm without murmurs, gallops, or rubs. No JVD. Peripheral pulses symmetric. RESPIRATORY/CHEST: Symmetric, unlabored respirations. Clear to auscultation. Breath sounds equal bilaterally. No wheezes, rales, or rhonchi. GASTROINTESTINAL: Abdomen soft, mildly tender, distended. No hepato-splenomegaly , or palpable masses. No guarding. Bowel sounds present. PD cath in place RLQ with clear peritoneal fluid in tubing GENITOURINARY: Without palpable bladder distension. VAC in place R perineal area with serosang dc MUSCULOSKELETAL: Extremities without clubbing, cyanosis, much improved BLE edema, 2+ soft; tree bark marking+ No mottling or clubbing. NEUROLOGICAL: Awake alert. Non focal. Normal speech Assessment & Plan Remarks Necrotizing fascitis infection of R labia and R perineal area bowel jose sp debridement, VAC -Incision and debridement skin, subcu tissue, fascia, muscle of right inguinal wound and right labial/buttock wound Sepsis, E.coli bacteremia - 2/2 to above Abcx associated diarrhea, C.diff negative ESRD/PD - switched to HD Massively fluid overload: improved with HD Hypoalbunemia, profound Recs: Continue Dapto IV Continue Ceftriaxone IV Change Flagyl to oral. Discussed Condition With Gay Muñiz MD Apr 09, 2016 14:11
[2016-04-09] MEDS: MEGESTROL ACETATE 40 MG TAB PO SCH ×2 (15:34→20:44)
[2016-04-09] MEDS: cefTRIAXone INJ 2,000 MG in SODIUM CHLORIDE 0.9% INJ 100 ML IV SCH (17:14)
--- NOTE | 2016-04-09 19:38 | HHI.NPPN ---
Subjective General Problems: Hypertension Renal Failure: Chronic, End Stage Renal Disease Additional Remarks Patient is alert, abd. pain is better, no SOB. Review of Systems General Constitutional: Fatigue Gastrointestinal Gastrointestinal: Abdominal Pain Skin Skin Remarks vaginal abscess, labial swelling with pain Objective Data Data 04/08/16 04/09/16 19:00 07:00 Intake Total 900 ml Output Total 250 ml Balance 650 ml Packed Cells 500 ml Other 400 ml Output Urine Total 0 ml Estimated Blood Loss 250 ml Vital Signs Date Time Temp Pulse Resp B/P Pulse Ox O2 Delivery O2 Flow Rate FiO2 04/09/16 18:10 70 04/09/16 17:20 73 04/09/16 16:00 99.0 70 16 121/48 95 04/09/16 16:00 80 04/09/16 15:00 82 04/09/16 14:00 77 04/09/16 14:00 80 04/09/16 13:00 81 04/09/16 13:00 81 04/09/16 12:00 80 04/09/16 12:00 98.9 77 14 116/60 95 04/09/16 11:00 74 04/09/16 11:00 74 04/09/16 10:03 69 04/09/16 10:00 91 04/09/16 09:00 106 04/09/16 09:00 106 04/09/16 08:04 70 04/09/16 08:00 72 16 120/43 94 04/09/16 07:00 72 04/09/16 06:00 75 04/09/16 05:00 68 04/09/16 04:00 72 04/09/16 04:00 98.3 71 122/52 100 04/09/16 03:00 71 04/09/16 02:00 71 04/09/16 01:00 70 04/09/16 00:00 99.1 79 110/66 98 04/09/16 00:00 68 04/08/16 23:00 79 04/08/16 22:00 75 04/08/16 21:00 68 04/08/16 20:00 66 04/08/16 20:00 98.8 72 121/56 100 -: 04/08/16 1522 04/08/16 1522 Tubes & Lines: Tenckhoff Catheter Physical Exam General Appearance: No Acute Distress, Comfortable, Obese Throat Throat Exam: Oral Mucosa [place] & Moist Neck Neck Exam: Neck Supple Pulmonary Resp Exam: Clear Bilaterally, Breath Sounds Equal, No Distress Cardiology CV Exam: Regular, Normal Sinus Rhythm, Good Perfusion Gastrointestinal/Abdomen GI Exam: Soft, Non-Tender, Bowel Sounds Present GI Remarks dressing Rt. of umbilicus. Musculoskeletal MS Exam: Joints Intact, Good Strength Integumentary Skin Exam: Clear, Warm, Dry, Intact Extremeties Extremities Exam: Trace Edema Neurologic Neuro Exam: Speech Clear, Moving All Extremities Psychiatric Psych Exam: Appropriate Responses Assessment/Plan Discussed Condition With: Patient Assessment Summary: Anemia of CKD, Fluid/Volume Overload, Hypertension, Diabetes Mellitus, End Stage Renal Disease Electrolyte Assessment: Hypocalcemia, Hyponatremia Problem List: (1) ESRD (end stage renal disease) on dialysis Plan: HD done in AM and 2.5 liters removed. Has poor BF via Vascath, cannot get PermCath as she has high WBC. I will discuss with children's nursery assistant in AM. Will need PermCath and out patient HD arrangements. Family wants her to go back on PD if possible. (2) Vulval cellulitis Plan: with sepsis, + E coli in 1/4 bottles ID following. On Ceftriaxone and Daptomycin. (3) Anemia Plan: labs indicating iron deficiency avoid IV Iron in light of sepsis,on oral iron replacement Monitor Hemoglobin. Epogen SQ weekly transfuse PRN (4) DM (diabetes mellitus) Plan: blood sugars elevated but improved continue insulin monitor glucose, goal 140-180 mg/dL (5) Hypertension Plan: oral medications as ordered follow blood pressure, adjust medications as needed (6) Hyponatremia Plan: stable needs to restrict fluid intake. Plan . Problem Qualifiers (1) Anemia: Qualified Code: N18.9 - Anemia in chronic kidney disease (2) DM (diabetes mellitus): Qualified Code: E10.8 - Type 1 diabetes mellitus with complication (3) Hypertension: Qualified Code: I10 - Essential hypertension Phil Mack MD Apr 09, 2016 19:38
[2016-04-09] MEDS: PRAMIPEXOLE DIHYDROCHLORIDE 0.25 MG TAB PO SCH (20:44)
[2016-04-09] MEDS: ATORVASTATIN 40 MG TAB PO SCH (20:44)
[2016-04-09] MEDS: metroNIDAZOLE 500 MG TAB PO SCH (20:44)
--- NOTE | 2016-04-09 21:05 | EKG ---
Date Performed: 04/08/2016 Time Performed: 21:34:26 PTAGE: 71 years EKG: Sinus rhythm Poor R wave progression - probable normal variant Inferior/lateral ST-T changes may be due to myocar dial ischemia Abnormal ECG PREVIOUS TRACING : 04/08/2016 15.11 DOCTOR: Jeremy Moreira Interpretating Date/Time 04/09/2016 21:02:09
--- NOTE | 2016-04-09 21:16 | EKG ---
Date Performed: 04/08/2016 Time Performed: 15:11:41 PTAGE: 71 years EKG: Sinus rhythm MODERATE INTRAVENTRICULAR CONDUCTION DELAY ST DEVIATION AND MODERATE T-WAVE ABNORMALITY, CONSIDER LA TERAL ISCHEMIA ABNORMAL ECG PREVIOUS TRACING : 04/02/2016 10.55 DOCTOR: Jeremy Moreira Interpretating Date/Time 04/09/2016 21:08:10
[2016-04-10] VITALS (10 sets, daily range): BP systolic 122–157; BP diastolic 50–64; PULSE 68–92; RESP 16–24; TEMP 98.4–99.7; O2SAT 94–100
[2016-04-10] MEDS: LEVOTHYROXINE SODIUM 88 MCG TAB PO SCH (06:00)
[2016-04-10] MEDS: ACETAMINOPHEN/HYDROcodone 325 MG/5 MG TAB PO PRN (06:21)
[2016-04-10] MEDS: metroNIDAZOLE 500 MG TAB PO SCH ×3 (06:21→20:52)
[2016-04-10] MEDS: INSULIN ASPART SUPPLEMENTAL SCALE SQ SCH ×4 (06:23→20:49)
[2016-04-10 07:09] LABS: AUTOMATED NEUTROPHIL # 10.4 TH/MM3 (1.8-7.7); BASOPHIL # 0.1 TH/MM3 (0-0.2); BASOPHIL % 0.5 % (0.0-2.0); EOSINOPHIL # 0.2 TH/MM3 (0-0.4); EOSINOPHIL % 1.5 % (0.0-4.0); HEMATOCRIT 23.9 % (35.0-46.0); HEMO FLAGS DIFF FINAL; LYMPH % 9.1 % (9.0-44.0); LYMPHOCYTE # 1.2 TH/MM3 (1.0-4.8); MEAN CELL VOLUME 91.7 FL (80.0-100.0); MEAN CORPUSCULAR HEMOGLOBIN 30.1 PG (27.0-34.0); MEAN CORPUSCULAR HGB CONC 32.8 % (32.0-36.0); MONO % 9.7 % (0.0-8.0); NEUT % 79.2 % (16.0-70.0); PLATELET COUNT 128 TH/MM3 (150-450); RED BLOOD COUNT 2.61 MIL/MM3 (4.00-5.30); RED CELL DISTRIBUTION WIDTH 18.1 % (11.6-17.2); WHITE BLOOD COUNT 13.1 TH/MM3 (4.0-11.0)
[2016-04-10 07:27] LABS: BICARBONATE 28.1 MEQ/L (21.0-32.0); MAGNESIUM 1.8 MG/DL (1.5-2.5); POTASSIUM 4.5 MEQ/L (3.5-5.1)
[2016-04-10] MEDS: SEVELAMER CARBONATE 800 MG TAB PO SCH ×3 (08:00→17:00)
[2016-04-10] MEDS: CALCITRIOL 0.25 MCG CAP PO SCH (08:25)
[2016-04-10] MEDS: INSULIN DETEMIR 100 UNITS/ML VIAL SQ SCH ×2 (08:25→20:52)
[2016-04-10] MEDS: CARVEDILOL 6.25 MG TAB PO SCH ×2 (08:26→20:48)
[2016-04-10] MEDS: CHOLECALCIFEROL (VIT D3) 5000 UNIT CAP PO SCH (08:26)
[2016-04-10] MEDS: PANTOPRAZOLE SOD 40 MG DELAYED RELEASE TAB PO SCH (08:26)
[2016-04-10] MEDS: MEGESTROL ACETATE 40 MG TAB PO SCH ×2 (08:26→20:48)
[2016-04-10] MEDS: FERROUS SULFATE 325 MG (65 MG ELEMENTAL IRON) TAB PO SCH (08:26)
[2016-04-10] MEDS: SERTRALINE HCL 100 MG TAB PO SCH (08:26)
[2016-04-10] MEDS: ASPIRIN EC 325 MG TABEC PO SCH (08:26)
[2016-04-10] MEDS: SODIUM CHLORIDE 0.9% FLUSH 5 ML FLUSH FLUSH SCH ×2 (08:30→20:48)
[2016-04-10] MEDS: MEGESTROL ACETATE SUSP 400 MG/10 ML CUP PO SCH (09:00)
--- NOTE | 2016-04-10 09:35 | HHI.PR ---
Subjective Remarks No new complaints. Afebrile Her wound vac is not adhering well per nursing staff. pt planned to return to OR today Objective Vitals Vital Signs Date Time Temp Pulse Resp B/P Pulse Ox O2 Delivery O2 Flow Rate FiO2 04/10/16 08:00 99.7 82 24 156/62 94 04/10/16 07:00 82 04/10/16 04:00 98.5 83 18 157/64 96 04/10/16 00:10 98.6 92 20 130/53 94 04/10/16 00:00 92 04/09/16 20:16 97 21 04/09/16 20:00 80 04/09/16 20:00 98.3 80 18 121/44 97 04/09/16 18:10 70 04/09/16 17:20 73 04/09/16 16:00 99.0 70 16 121/48 95 04/09/16 16:00 80 04/09/16 15:00 82 04/09/16 14:00 77 04/09/16 14:00 80 04/09/16 13:00 81 04/09/16 13:00 81 04/09/16 12:00 80 04/09/16 12:00 98.9 77 14 116/60 95 04/09/16 11:00 74 04/09/16 11:00 74 04/09/16 10:03 69 04/09/16 10:00 91 04/09/16 04/09/16 04/10/16 15:00 23:00 07:00 Intake Total 240 ml Output Total 2500 ml Balance -2260 ml Intake Oral 240 ml Hemodialysis 2500 ml # Voids 2 Result Diagram: 04/10/16 0530 04/10/16 0530 Other Results Laboratory Tests Test 04/08/16 04/08/16 04/08/16 04/09/16 12:07 13:47 15:22 00:26 Blood Type A POSITIVE Antibody Screen NEGATIVE Crossmatch Leukocyte-Reduced Red Blood Cells Blood Bank Comment White Blood Count 22.0 TH/MM3 Red Blood Count 2.92 MIL/MM3 Hemoglobin 8.7 GM/DL Hematocrit 26.7 % Mean Corpuscular Volume 91.4 FL Mean Corpuscular Hemoglobin 29.7 PG Mean Corpuscular Hemoglobin 32.5 % Concent Red Cell Distribution Width 18.1 % Platelet Count 138 TH/MM3 Mean Platelet Volume 7.8 FL Neutrophils (%) (Auto) 86.9 % Lymphocytes (%) (Auto) 4.3 % Monocytes (%) (Auto) 7.4 % Eosinophils (%) (Auto) 1.1 % Basophils (%) (Auto) 0.3 % Neutrophils # (Auto) 19.1 TH/MM3 Lymphocytes # (Auto) 0.9 TH/MM3 Monocytes # (Auto) 1.6 TH/MM3 Eosinophils # (Auto) 0.2 TH/MM3 Basophils # (Auto) 0.1 TH/MM3 CBC Comment DIFF FINAL Differential Comment Sodium Level 137 MEQ/L Potassium Level 4.6 MEQ/L Chloride Level 98 MEQ/L Carbon Dioxide Level 28.6 MEQ/L Anion Gap 10 MEQ/L Blood Urea Nitrogen 41 MG/DL Creatinine 4.97 MG/DL Estimat Glomerular Filtration 9 ML/MIN Rate Random Glucose 64 MG/DL Calcium Level 7.3 MG/DL Protein Corrected Calcium 8.5 MG/DL Magnesium Level 1.9 MG/DL Total Creatine Kinase 19 U/L 15 U/L Troponin I 0.13 NG/ML 0.14 NG/ML Total Protein 5.0 GM/DL Test 04/10/16 05:30 White Blood Count 13.1 TH/MM3 Red Blood Count 2.61 MIL/MM3 Hemoglobin 7.9 GM/DL Hematocrit 23.9 % Mean Corpuscular Volume 91.7 FL Mean Corpuscular Hemoglobin 30.1 PG Mean Corpuscular Hemoglobin 32.8 % Concent Red Cell Distribution Width 18.1 % Platelet Count 128 TH/MM3 Mean Platelet Volume 7.8 FL Neutrophils (%) (Auto) 79.2 % Lymphocytes (%) (Auto) 9.1 % Monocytes (%) (Auto) 9.7 % Eosinophils (%) (Auto) 1.5 % Basophils (%) (Auto) 0.5 % Neutrophils # (Auto) 10.4 TH/MM3 Lymphocytes # (Auto) 1.2 TH/MM3 Monocytes # (Auto) 1.3 TH/MM3 Eosinophils # (Auto) 0.2 TH/MM3 Basophils # (Auto) 0.1 TH/MM3 CBC Comment DIFF FINAL Differential Comment Sodium Level 133 MEQ/L Potassium Level 4.5 MEQ/L Chloride Level 98 MEQ/L Carbon Dioxide Level 28.1 MEQ/L Anion Gap 7 MEQ/L Blood Urea Nitrogen 38 MG/DL Creatinine 5.24 MG/DL Estimat Glomerular Filtration 8 ML/MIN Rate Random Glucose 83 MG/DL Calcium Level 7.5 MG/DL Magnesium Level 1.8 MG/DL Imaging Last Impressions Upper Extremity Ultrasound 04/08/16 0000 Signed Impressions: Service Date/Time: Friday, April 08, 2016 11:35 - CONCLUSION: Thrombus distal cephalic vein close to the IV site. Jose Enrique Christianson MD FACR Soft Tissue Ultrasound 04/06/16 0000 Signed Impressions: Service Date/Time: Wednesday, April 06, 2016 14:50 - CONCLUSION: Nonspecific edema in the subcutaneous soft tissues. No loculated fluid collections to indicate an abscess. Phong Johnson MD Catheter Placement X-Ray 04/03/16 0000 Signed Impressions: Service Date/Time: Sunday, April 03, 2016 08:46 - CONCLUSION: Uncomplicated line placement as above. Godfrey Griffith MD Chest X-Ray 04/02/16 0000 Signed Impressions: Service Date/Time: March 10:31 - CONCLUSION: 1. Moderate pulmonary vascular congestion bilaterally. 2. Cardiomegaly. Leonides Root MD Abdomen/Pelvis CT 03/25/16 0000 Signed Impressions: Service Date/Time: Friday, March 25, 2016 19:39 - CONCLUSION: 1. Cellulitic changes in the right groin, right perineum and right labia. No abscess or fluid collection. 2. Dialysis catheter and minimal pelvic ascites. 3. Diverticulosis without diverticulitis. 4. Status post cholecystectomy. Enrique Snyder MD Objective Remarks General: NAD, AAOx3 Chest: CTA Cardiac: Regular Abd: +BS, soft, two wound vacs in place in right groin/peroneal area Ext: Bilateral LE edema A/P Problem List: (1) Cellulitis of labia Status: Acute Plan: - Pt admitted with cellulitis of the right labia and into the right groin /inner thigh - Pt had a noted elevated WBC count of 14.4 at admission with a Lactic acid of 2.4 - Pt was given IV Vancomycin, Cefepime and Clindamycin - CT abd/pelvis (03/25/16) --> Cellulitic changes in the right groin, right perineum and right labia. No abscess or fluid collection. Dialysis catheter and minimal pelvic ascites. Diverticulosis without diverticulitis. - Blood cultures (03/25/16) with one out of 4 growing E. coli - peritoneal WBC 106 - Peritoneal fluid culture --> no growth - Wound culture (04/03/16) --> E. Coli and Enterococcus - Zosyn (03/27-04/03/16) - flagyl IV (04/03 - 04/09) changes to Flagyl po (04/09 - present) - Ceftazidime (04/03 - 04/08) - Ceftriaxone (04/08 - present) - Daptomycin (04/07 - present) - Gentamicin prn with HD (04/03 - present) - Pt underwent debridement of necrotic skin/fat/abscess to right groin and inner thigh on 04/03. Wound vac placed. - Pt returned to OR on 04/06 and had repeat incision and debridement skin, subcu tissue, fascia, muscle of right inguinal wound and right labial/buttock wound - Pt returned to OR 04/[address] Rodas for debridement of skin and subcutaneous tissue and muscle right lower abdominal wall, right groin, right upper thigh and wound VAC placement right lower abdomen and wound VAC change right groin and right upper thigh - Anticipate return to the OR on 04/10 & possibly again 04/13/16 - She is very malnourished with poor po. - Cont. to encourage po intake. She hopefully will not require peg.(can't do if getting PD, but GI says they could place it if necessary.) - overall prognosis is guarded - Palliative is following - trial of Megace - DVT prophylaxis with SCDs (2) Bacteremia Status: Acute Plan: - See above (3) Anemia Status: Chronic Plan: - Related to pts ESRD - received epogen (03/28/16) - Hg 8.0 (03/29/16) - 1 units PRBC on 03/29/16 - Hg 6.9 (04/08/16), pt transfused 2 units PRBCs - Repeat labs today with Hgb 7.9 (04/10/16) - Monitor and transfuse as necessary (4) ESRD (end stage renal disease) on dialysis Status: Chronic Plan: - comgmt with nephrology - Pt was started on PD in 05/2015 - Pt had Vas cath placed on 04/03 and is on HD currently.?temporary - Pt was massively fluid overload which has been improving with HD (5) DM (diabetes mellitus) Status: Chronic Plan: - Poor po intake but stable blood sugars - NovoLog SSI - Levemir 20 qPM - Accu checks (6) Hypothyroidism Status: Chronic Plan: - Home meds continued (7) Hypertension Status: Chronic Plan: - Home meds continued (8) Deep vein thrombosis (DVT) of left upper extremity Status: Acute Plan: - distal cephalic vein - IV site changed - heating pad prn Assessment and Plan Patient examined. Assessment and plan formulated with Sharon Swenson PA-C. I agree with the above. Problem Qualifiers (1) Anemia: Qualified Code: N18.9 - Anemia in chronic kidney disease (2) DM (diabetes mellitus): (3) Hypertension: Qualified Code: I10 - Essential hypertension Sharon Swenson Apr 10, 2016 09:35 Kong Bagley DO Apr 17, 2016 10:31
[2016-04-10] MEDS ORDERED: BUPIVACAINE/EPINEPHRINE 0.25% PF 30 ML VIAL ONE (11:23)
[2016-04-10] MEDS ORDERED: PHENYLEPH/NS 1000 MCG/10 ML SYR IV ONE (12:00)
[2016-04-10] MEDS ORDERED: ONDANSETRON HCL 4 MG/2 ML VIAL IV PUSH ONE (12:00)
[2016-04-10] MEDS ORDERED: PROPOFOL 200 MG/20 ML AMP IV ONE (12:00)
[2016-04-10] MEDS ORDERED: NEOSTIGMINE 3 MG/3 ML SYR IV ONE (12:00)
--- NOTE | 2016-04-10 14:07 | PD.OP ---
cc: Haroldo Rodas MD Operative Report Date of Surgery: Apr 10, 2016 Preoperative Diagnosis: (1) Necrotizing fasciitis (2) Abscess of right thigh (3) Abscess of right groin Postoperative Diagnosis: (1) Necrotizing fasciitis (2) Abscess of right thigh (3) Abscess of right groin Procedure: Debridement of right abdominal wall, right groin, and right upper thigh/buttock wounds with wound VAC change Anesthesia: YOEL Surgeon: Haroldo Rodas Revit Drafter(s): Nehal SAPP Operation and Findings: Estimated blood loss: 30cc cc Operative findings: The right lower abdominal wall, right groin, and right upper thigh/buttock wounds required further debridement. Debridement was primarily of fat with a small amount of fascial debridement. Procedure in detail: The patient was taken to the operating room placed in the supine position with the legs in yellowfin stirrups. General endotracheal anesthesia was induced. The right lower abdomen and right groin and upper thigh were prepped and draped in usual sterile fashion. Fatty tissue in the right lower abdomen wound was further debrided. The incision was extended laterally slightly. There did not appear to be a purulent fluid pocket in the right hip area. The necrotic tissue in the right lower abdomen undermined superiorly and medially. This wound connects with the groin wound. This was tracking towards the groin wound. Hemostasis was achieved and the wound was copiously irrigated with pulse lavage. A wound VAC was applied in 2 layers, one deep and one superficial and subcutaneous layer. In the right groin the wound connected with the abdominal wound. Moderate further debridement was required of subcutaneous fat and minimal muscle and fascia. Hemostasis was achieved and the area was copiously irrigated with pulse lavage. A wound VAC sponge was placed. In the right upper thigh further debridement of skin and subcutaneous tissue and small amount of underlying muscle was required. Again hemostasis was achieved the wound VAC sponge placed. The right groin and right abdominal wound vacs were placed with a Y connector to the same machine in the right upper thigh VAC was placed to a separate machine. She was extubated and taken to PACU in stable condition. Haroldo Rodas MD Apr 10, 2016 14:07
[2016-04-10] MEDS ORDERED: DEXTROSE 50% IN WATER 50 ML SYRINGE ONE (14:14)
[2016-04-10] MEDS ORDERED: fentaNYL CITRATE 250 MCG/5 ML AMP ONE (14:24)
[2016-04-10] MEDS ORDERED: *RESP: ALBUTEROL 2.5 MG/3 ML NEB (PRN) PERIprocedural Use ONLY NEB ONE (14:37)
[2016-04-10] MEDS ORDERED: DEXTROSE 50% IN WATER 50 ML SYRINGE IV ONE ×2 (14:58→16:04)
[2016-04-10] MEDS ORDERED: DO NOT ADM ANY ANTICOAGULANT DRUGS XX PRN (15:00)
[2016-04-10] MEDS ORDERED: *morphine SULFATE 8 MG/ML PERIprocedure ONLY ONE (15:01)
--- NOTE | 2016-04-10 15:03 | HHI.HCPN ---
Reason for visit a. To assist with evaluation and management of symptoms including: postsurgical vulvar pain and debility. b. To assist medical decision maker(s) with: better understanding of current medical conditions; weighing benefits/burdens of medical treatment options; making medical treatment decisions. (Jeannine Woods) Subjective/Interval History Patient seen in her room, she was sitting up in a recliner chair in no acute distress. Patient is forgetful, alert to self and situation. Endorsing perineal pain that has improved from yesterday. Continue reporting poor appetite, has been nothing by mouth since midnight last night secondary to return to OR today. Reports decrease in oral pain since starting Magic mouthwash, although continuous reporting increase oral dryness. Denies odynophagia or dysphagia. Denies shortness of breath, nausea, vomiting or abdominal pain. No acute events overnight. Plan for OR today for I & D of labia and right groin , wound vac change.Max temperature 99.7 today, hypertensive with SBP in the 150s. Labs today showing WBC 13.1, hemoglobin 7.9, platelets 128. Na 133, K4.5 , BUN/creatinine 38/5.24. Hemodialysis done yesterday, 2.5 L removed. Concerns about poor blood flow via Vas-Cath, unable to get PermCath at this time due to leukocytosis. Daughter Terri at bedside. Medical update provided. Daughter share concerns about her mother's forgetfulness and confusion this morning. Reviewed concerns regarding wound healing secondary to malnutrition with continued poor PO intake , diabetes, ESRD -HD dependent and profound physical deconditioning. Patient completed healthcare surrogate paperwork electing her daughter Terri as her healthcare surrogate. Encouraged patient and daughter to further discuss goals of care and continuation of treatment such as cardiac resuscitation, intubation and mechanical ventilation in the setting of her chronic conditions and debilitated state. . Family/friend interactions See interval note. . (Jeannine Woods) Advance Directives Living Will: Never completed Health Care Surrogate: Copy in medical record Durable Power of [place]: Never completed (Jeannine Woods) Advance Directive Specifics Date completed: 04/10/2016. Health Care Surrogate(s): Patient completed healthcare surrogate paperwork and listed her daughter Terri as healthcare surrogate. Copy sent for scanning. . Documented care wishes: No living will completed. . Significant change in goals: Remain unchanged. FULL CODE and continuation of current care to include HD and surgical interventions for management of right groin/vulvar necrotizing fasciitis. (Jeannine Woods) Objective Vital Signs Date Time Temp Pulse Resp B/P Pulse Ox O2 Delivery O2 Flow Rate FiO2 04/10/16 08:00 99.7 82 24 156/62 94 04/10/16 07:00 82 04/10/16 04:00 98.5 83 18 157/64 96 04/10/16 00:10 98.6 92 20 130/53 94 04/10/16 00:00 92 04/09/16 20:16 97 21 04/09/16 20:00 80 04/09/16 20:00 98.3 80 18 121/44 97 04/09/16 18:10 70 04/09/16 17:20 73 04/09/16 16:00 99.0 70 16 121/48 95 04/09/16 16:00 80 04/09/16 15:00 82 Physical Exam CONSTITUTIONAL/GENERAL: This is an adequately nourished patient, in no apparent distress. sleepy and confused/forgetful. TUBES/LINES/DRAINS: LIJ hemodialysis catheter. PIV's. Wound vac to right groin/ labia. SKIN: Pale. No jaundice. Scattered ecchymoses on upper extremities. Skin temperature appropriate. Not diaphoretic. HEAD: Atraumatic. Normocephalic. EYES: Pupils equal and round and reactive. No injection or drainage. ENT: Hearing grossly normal. Nose without bleeding or purulent drainage. Throat without visible erythema, exudates, masses, or lesions. Erythema to tongue without sores or lesions noted. Dry lips. NECK: Trachea midline. Supple, nontender. CARDIOVASCULAR: Regular rate and rhythm without murmurs, gallops, or rubs. No JVD. Peripheral pulses symmetric. RESPIRATORY/CHEST: Symmetric, unlabored respirations. Clear to auscultation. Breath sounds equal bilaterally. No wheezes, rales, or rhonchi. GASTROINTESTINAL: Abdominal PD cath in place. Abdomen round, large, soft, non- tender. No guarding. Bowel sounds present. GENITOURINARY: Without palpable bladder distension. Wound vac on right groin/ labia with moderate amount of drainage. MUSCULOSKELETAL: Weak. Extremities without clubbing, cyanosis, or edema. No mottling or clubbing. NEUROLOGICAL: Awake and alert. Sleepy and confused/forgetful/. Motor and sensory grossly within normal limits. Follows commands. Moves all extremities. PSYCHIATRIC: Calm with no obvious anxiety/depression. no apparent hallucinations or other psychotic thought process. . (Jeannine Woods) Diagnostic Tests Laboratory Laboratory Tests Test 04/07/16 04/08/16 04/08/16 04/08/16 21:34 07:50 12:07 13:47 White Blood Count 14.9 TH/MM3 15.0 TH/MM3 (4.0-11.0) (4.0-11.0) Red Blood Count 2.37 MIL/MM3 2.25 MIL/MM3 (4.00-5.30) (4.00-5.30) Hemoglobin 7.2 GM/DL 6.9 GM/DL (11.6-15.3) (11.6-15.3) Hematocrit 22.4 % 21.5 % (35.0-46.0) (35.0-46.0) Mean Corpuscular Volume 94.6 FL 95.7 FL (80.0-100.0) (80.0-100.0) Mean Corpuscular Hemoglobin 30.3 PG 30.5 PG (27.0-34.0) (27.0-34.0) Mean Corpuscular Hemoglobin 32.0 % 31.9 % Concent (32.0-36.0) (32.0-36.0) Red Cell Distribution Width 16.1 % 16.6 % (11.6-17.2) (11.6-17.2) Platelet Count 129 TH/MM3 126 TH/MM3 (150-450) (150-450) Mean Platelet Volume 8.1 FL 7.9 FL (7.0-11.0) (7.0-11.0) Neutrophils (%) (Auto) 85.8 % 84.0 % (16.0-70.0) (16.0-70.0) Lymphocytes (%) (Auto) 5.8 % 5.9 % (9.0-44.0) (9.0-44.0) Monocytes (%) (Auto) 7.1 % (0.0-8.0) 8.3 % (0.0-8.0) Eosinophils (%) (Auto) 0.9 % (0.0-4.0) 1.2 % (0.0-4.0) Basophils (%) (Auto) 0.4 % (0.0-2.0) 0.6 % (0.0-2.0) Neutrophils # (Auto) 12.8 TH/MM3 12.6 TH/MM3 (1.8-7.7) (1.8-7.7) Lymphocytes # (Auto) 0.9 TH/MM3 0.9 TH/MM3 (1.0-4.8) (1.0-4.8) Monocytes # (Auto) 1.1 TH/MM3 1.2 TH/MM3 (0-0.9) (0-0.9) Eosinophils # (Auto) 0.1 TH/MM3 0.2 TH/MM3 (0-0.4) (0-0.4) Basophils # (Auto) 0.1 TH/MM3 0.1 TH/MM3 (0-0.2) (0-0.2) CBC Comment AUTO DIFF DIFF FINAL Differential Comment AUTO DIFF CONFIRMED Platelet Estimate LOW (NORMAL) Platelet Morphology Comment NORMAL (NORMAL) Sodium Level 134 MEQ/L 133 MEQ/L (136-145) (136-145) Potassium Level 4.3 MEQ/L 4.3 MEQ/L (3.5-5.1) (3.5-5.1) Chloride Level 95 MEQ/L 94 MEQ/L (98-107) (98-107) Carbon Dioxide Level 29.9 MEQ/L 31.0 MEQ/L (21.0-32.0) (21.0-32.0) Anion Gap 9 MEQ/L (5-15) 8 MEQ/L (5-15) Blood Urea Nitrogen 36 MG/DL (7-18) 41 MG/DL (7-18) Creatinine 4.57 MG/DL 5.21 MG/DL (0.50-1.00) (0.50-1.00) Estimat Glomerular Filtration 9 ML/MIN (>89) 8 ML/MIN (>89) Rate Random Glucose 158 MG/DL 76 MG/DL (74-106) (74-106) Calcium Level 7.0 MG/DL 7.2 MG/DL (8.5-10.1) (8.5-10.1) Protein Corrected Calcium 7.9 MG/DL 8.2 MG/DL (8.5-10.1) (8.5-10.1) Total Protein 5.4 GM/DL 5.3 GM/DL (6.4-8.2) (6.4-8.2) Magnesium Level 1.9 MG/DL (1.5-2.5) Blood Type A POSITIVE Antibody Screen NEGATIVE Crossmatch Leukocyte-Reduced Red Blood Cells Blood Bank Comment Test 04/08/16 04/09/16 04/10/16 15:22 00:26 05:30 White Blood Count 22.0 TH/MM3 13.1 TH/MM3 (4.0-11.0) (4.0-11.0) Red Blood Count 2.92 MIL/MM3 2.61 MIL/MM3 (4.00-5.30) (4.00-5.30) Hemoglobin 8.7 GM/DL 7.9 GM/DL (11.6-15.3) (11.6-15.3) Hematocrit 26.7 % 23.9 % (35.0-46.0) (35.0-46.0) Mean Corpuscular Volume 91.4 FL 91.7 FL (80.0-100.0) (80.0-100.0) Mean Corpuscular Hemoglobin 29.7 PG 30.1 PG (27.0-34.0) (27.0-34.0) Mean Corpuscular Hemoglobin 32.5 % 32.8 % Concent (32.0-36.0) (32.0-36.0) Red Cell Distribution Width 18.1 % 18.1 % (11.6-17.2) (11.6-17.2) Platelet Count 138 TH/MM3 128 TH/MM3 (150-450) (150-450) Mean Platelet Volume 7.8 FL 7.8 FL (7.0-11.0) (7.0-11.0) Neutrophils (%) (Auto) 86.9 % 79.2 % (16.0-70.0) (16.0-70.0) Lymphocytes (%) (Auto) 4.3 % 9.1 % (9.0-44.0) (9.0-44.0) Monocytes (%) (Auto) 7.4 % (0.0-8.0) 9.7 % (0.0-8.0) Eosinophils (%) (Auto) 1.1 % (0.0-4.0) 1.5 % (0.0-4.0) Basophils (%) (Auto) 0.3 % (0.0-2.0) 0.5 % (0.0-2.0) Neutrophils # (Auto) 19.1 TH/MM3 10.4 TH/MM3 (1.8-7.7) (1.8-7.7) Lymphocytes # (Auto) 0.9 TH/MM3 1.2 TH/MM3 (1.0-4.8) (1.0-4.8) Monocytes # (Auto) 1.6 TH/MM3 1.3 TH/MM3 (0-0.9) (0-0.9) Eosinophils # (Auto) 0.2 TH/MM3 0.2 TH/MM3 (0-0.4) (0-0.4) Basophils # (Auto) 0.1 TH/MM3 0.1 TH/MM3 (0-0.2) (0-0.2) CBC Comment DIFF FINAL DIFF FINAL Differential Comment Sodium Level 137 MEQ/L 133 MEQ/L (136-145) (136-145) Potassium Level 4.6 MEQ/L 4.5 MEQ/L (3.5-5.1) (3.5-5.1) Chloride Level 98 MEQ/L 98 MEQ/L (98-107) (98-107) Carbon Dioxide Level 28.6 MEQ/L 28.1 MEQ/L (21.0-32.0) (21.0-32.0) Anion Gap 10 MEQ/L (5-15) 7 MEQ/L (5-15) Blood Urea Nitrogen 41 MG/DL (7-18) 38 MG/DL (7-18) Creatinine 4.97 MG/DL 5.24 MG/DL (0.50-1.00) (0.50-1.00) Estimat Glomerular Filtration 9 ML/MIN (>89) 8 ML/MIN (>89) Rate Random Glucose 64 MG/DL 83 MG/DL (74-106) (74-106) Calcium Level 7.3 MG/DL 7.5 MG/DL (8.5-10.1) (8.5-10.1) Protein Corrected Calcium 8.5 MG/DL (8.5-10.1) Magnesium Level 1.9 MG/DL 1.8 MG/DL (1.5-2.5) (1.5-2.5) Total Creatine Kinase 19 U/L (26-192) 15 U/L (26-192) Troponin I 0.13 NG/ML 0.14 NG/ML (0.02-0.05) (0.02-0.05) Total Protein 5.0 GM/DL (6.4-8.2) (Jeannine Woods) Result Diagram: 04/10/16 0530 04/10/16 0530 Imaging Last Impressions Upper Extremity Ultrasound 04/08/16 0000 Signed Impressions: Service Date/Time: Friday, April 08, 2016 11:35 - CONCLUSION: Thrombus distal cephalic vein close to the IV site. Jose Enrique Christianson MD FACR Soft Tissue Ultrasound 04/06/16 0000 Signed Impressions: Service Date/Time: Wednesday, April 06, 2016 14:50 - CONCLUSION: Nonspecific edema in the subcutaneous soft tissues. No loculated fluid collections to indicate an abscess. Phong Johnson MD Catheter Placement X-Ray 04/03/16 0000 Signed Impressions: Service Date/Time: Sunday, April 03, 2016 08:46 - CONCLUSION: Uncomplicated line placement as above. Godfrey Griffith MD Chest X-Ray 04/02/16 0000 Signed Impressions: Service Date/Time: March 10:31 - CONCLUSION: 1. Moderate pulmonary vascular congestion bilaterally. 2. Cardiomegaly. Leonides Root MD Abdomen/Pelvis CT 03/25/16 0000 Signed Impressions: Service Date/Time: Friday, March 25, 2016 19:39 - CONCLUSION: 1. Cellulitic changes in the right groin, right perineum and right labia. No abscess or fluid collection. 2. Dialysis catheter and minimal pelvic ascites. 3. Diverticulosis without diverticulitis. 4. Status post cholecystectomy. Enrique Snyder MD Procedures * 04/08/16 - Debridement skin and subcutaneous tissue and muscle right lower abdominal wall, right groin, right upper thigh. Wound VAC placement right lower abdomen and wound VAC change right groin and right upper thigh. * 04/06/16 - Debridement of labia and right groin with would vac change. * 04/03/16 - Left IJ hemodialysis catheter placement. * 04/03/16 - Incision and debridement skin and subcutaneous tissue right inguinal abscess with wound VAC placement. * 04/03/16 - Incision and debridement skin and subcutaneous tissues tissue right upper inner thigh abscess. . (Jeannine Woods) Assessment and Plan Disease Oriented Problem List: (1) ESRD (end stage renal disease) on dialysis (2) Anemia (3) Abscess of right groin Symptom Scale: (1) Pain 0-10 Scale: 6 Comment: Acute pain to right groin/vulva secondary to necrotizing fasciitis s/ p surgical debridement and wound vac placement x3. (2) Decrease in appetite 0-10 Scale: Unable to quantify Comment: Progressive during this hospitalization. (3) Weakness 0-10 Scale: Unable to quantify Comment: Generalized weakness secondary to current hospitalization. Pertinent Non-Medical Issues Psychosocial: . Residing independently prior to this hospitalization. 1 daughter who resides in [place]. Spiritual: mormon. No muslim affiliation. Legal: No living will or HCS completed. Ethical issues impacting care: No living will or HCS completed. . Important Contacts Daughter Terri Verdugo . . Prognosis Mrs. Garrison is a 71 y/o female with a medical history significant for HTN, Diabetes mellitus, CAD s/p CABG x2 and ESRD, on dialysis since May 2015. Patient presented to the ED on 03/25/16 and admitted for management of sepsis, vulvar cellulitis. Patient is s/p incision and debridement skin and subcutaneous tissue of right inguinal abscess and right upper inner thigh abscess with wound VAC placement. Now diagnosed with necrotizing fasciitis, s/p I&D x3. Nephrology following, patient switched to HD and vascath placed on . Repeat PD cell count higher, concerns of peritonitis. Additional concerns regarding impaired wound healing secondary to ERSD, DM, malnutrition with albumin 1.6 and profound physical deconditioning. Patient is at high risk for complications, continue decline and . She is at high risk for developing significant symptom burden with a poor prognosis for increased quality of life. . Code Status: Full Code Plan * FULL CODE * Patient not capacitated at this time secondary to confusion. Unclear if she will regain. [facility] completed and named her daughter Terri as HCS. * 04/10/16. Goals of care remain unchanged, FULL CODE and continuation of current care to include HD and surgical interventions for management of right groin/vulvar necrotizing fasciitis. Shared concerns regarding wound healing secondary to malnutrition with continued poor PO intake, diabetes, ESRD -HD dependent and profound physical deconditioning. Discussed code status in the setting of ESRD, patient and family wishing for FULL code but would like to set time limitations/trail periods. Encouraged pt and family to discuss this limitations and to put them in writing/complete LW. * Right groin/vulvar pain, acute -secondary to necrotizing fascitis s/p surgical debridement and wound vac placement x3. No history of chronic pain. [place] 5/325 and 10/325 available PRN. 1 dose of 5mg given today. Hydromorphone 0.5mg IV available as needed, none given in the past 24h. Both hydrocodone and hydromorphone are safe to use in renally impaired/dialysis patients. No additional medications or dose adjustments recommended at this time. Patient was encouraged to request medication for pain management. * Malnutrition. Albumin 1.6. Decreased oral intake. Fair appetite at baseline. On trial of Megace. Discussed concerns related to poor wound healing secondary to malnutrition and diabetes. Discussed NG tube vs. PEG tube. Discussed that NG tube is temporary and that PEG may not be an option secondary to peritoneal dialysis. Patient to further discuss with her family. * Generalized weakness -profound physical deconditioning, multifactorial secondary to hospitalization, acute infectious process and lethargy. Working with PT. Will likely need rehab at discharge. * Oral discomfort/Glossitis, likely secondary to dry mouth vs. allergic reaction to food/med vs. anemia of chronic disease. No fungal plaques or sores noted. Encouraged pt to avoid irritants such as hot or spicy foods. Improved since stated on magic mouthwash. * Palliative care will continue to f/u patient during this hospitalization for further clarification of goals of care, completion of advanced directives and symptom management. . (Jeannine Woods) Time Spent Total Floor Time (mins): 40 (Total time to include review of medical records, physical exam, and bedside conversation with daughter Terri.) Face to Face Time (mins): 28 >50% Counseling/Coord of Care: Yes (Jeannine Woods) Attestation To help prompt me to consider important information that might be impacting today's encounter and assessment, information from prior notes written by myself or my colleagues may have been "brought forward" into today's note. My signature on this note, however, is an attestation that I personally performed the exam, history, and/or decision-making noted today, and, unless otherwise indicated, the interactions with patient, family, and staff as well as the review of records all occurred today. I also attest that the listed assessment and stated plan reflect my best clinical judgment today based on the combination of historical information, prior notes, and today's exam/ interactions. When time spent is documented, it refers only to time spent today by the signer, or if indicated, combined time spent today by collaborating physician/nurse practitioner. (Jeannine Woods) Collaborating MD Comments Chart reviewed. Case discussed with palliative care BRAID PATTERN SETTER. Above BRAID PATTERN SETTER note reviewed and I concur. . (Kee Solo MD) Jeannine Woods Apr 10, 2016 15:03 Kee Solo MD May 10, 2016 08:09
[2016-04-10] MEDS: cefTRIAXone INJ 2,000 MG in SODIUM CHLORIDE 0.9% INJ 100 ML IV SCH (19:14)
[2016-04-10] MEDS: PRAMIPEXOLE DIHYDROCHLORIDE 0.25 MG TAB PO SCH (20:48)
[2016-04-10] MEDS: ATORVASTATIN 40 MG TAB PO SCH (20:48)
--- NOTE | 2016-04-10 21:08 | HHI.NPPN ---
Subjective General Problems: Hypertension Renal Failure: Chronic, End Stage Renal Disease Additional Remarks Patient is alert, seen post OP in the RR. Review of Systems General Constitutional: Fatigue Gastrointestinal Gastrointestinal: Abdominal Pain Skin Skin Remarks vaginal abscess, labial swelling with pain Objective Data Data 04/09/16 04/10/16 19:00 07:00 Intake Total 240 ml Output Total 2500 ml Balance -2260 ml Intake Oral 240 ml Hemodialysis 2500 ml # Voids 2 Vital Signs Date Time Temp Pulse Resp B/P Pulse Ox O2 Delivery O2 Flow Rate FiO2 04/10/16 17:30 99.5 68 16 126/54 100 04/10/16 17:00 67 20 131/55 99 Nasal Cannula 2 04/10/16 16:45 73 20 112/45 99 Nasal Cannula 2 04/10/16 16:30 71 20 107/43 99 Nasal Cannula 2 04/10/16 16:15 69 20 108/50 99 Nasal Cannula 2 04/10/16 16:00 65 20 103/47 99 Nasal Cannula 2 04/10/16 15:45 66 20 110/44 99 Nasal Cannula 2 04/10/16 15:30 67 20 104/46 98 Nasal Cannula 2 04/10/16 15:15 71 20 103/46 98 Nasal Cannula 2 04/10/16 15:00 70 20 104/46 99 Nasal Cannula 2 04/10/16 14:45 69 20 91/45 98 Nasal Cannula 2 04/10/16 14:30 70 20 98/46 99 Nasal Cannula 2 04/10/16 14:15 75 20 118/59 98 Nasal Cannula 2 04/10/16 14:09 98.1 77 20 105/58 98 Simple Mask 6 04/10/16 08:00 99.7 82 24 156/62 94 04/10/16 07:00 82 04/10/16 04:00 98.5 83 18 157/64 96 04/10/16 00:10 98.6 92 20 130/53 94 04/10/16 00:00 92 -: 04/10/16 0530 04/10/16 0530 Tubes & Lines: Tenckhoff Catheter Physical Exam General Appearance: No Acute Distress, Comfortable, Obese Throat Throat Exam: Oral Mucosa [place] & Moist Neck Neck Exam: Neck Supple Pulmonary Resp Exam: Clear Bilaterally, Breath Sounds Equal, No Distress Cardiology CV Exam: Regular, Normal Sinus Rhythm, Good Perfusion Gastrointestinal/Abdomen GI Exam: Soft, Non-Tender, Bowel Sounds Present GI Remarks dressing Rt. of umbilicus. Musculoskeletal MS Exam: Joints Intact, Good Strength Integumentary Skin Exam: Clear, Warm, Dry, Intact Extremeties Extremities Exam: Trace Edema Neurologic Neuro Exam: Speech Clear, Moving All Extremities Psychiatric Psych Exam: Appropriate Responses Assessment/Plan Discussed Condition With: Patient Assessment Summary: Anemia of CKD, Fluid/Volume Overload, Hypertension, Diabetes Mellitus, End Stage Renal Disease Electrolyte Assessment: Hypocalcemia, Hyponatremia Problem List: (1) ESRD (end stage renal disease) on dialysis Plan: Patient is for HD in AM. To get PermCath once infection is better. Had low grade fever in AM and also has increase WBC. (2) Vulval cellulitis Plan: with sepsis, + E coli in 1/4 bottles ID following. On Ceftriaxone and Daptomycin. (3) Anemia Plan: labs indicating iron deficiency avoid IV Iron in light of sepsis,on oral iron replacement Monitor Hemoglobin. Epogen SQ weekly transfuse PRN (4) DM (diabetes mellitus) Plan: blood sugars elevated but improved continue insulin monitor glucose, goal 140-180 mg/dL (5) Hypertension Plan: oral medications as ordered follow blood pressure, adjust medications as needed (6) Hyponatremia Plan: stable needs to restrict fluid intake. Plan . Problem Qualifiers (1) Anemia: Qualified Code: N18.9 - Anemia in chronic kidney disease (2) DM (diabetes mellitus): Qualified Code: E10.8 - Type 1 diabetes mellitus with complication (3) Hypertension: Qualified Code: I10 - Essential hypertension Phil Mack MD Apr 10, 2016 21:08
[2016-04-11] VITALS (24 sets, daily range): BP systolic 116–134; BP diastolic 46–55; PULSE 70–97; RESP 18–20; TEMP 98.1–99.8; O2SAT 95–100
[2016-04-11 04:57] LABS: AUTOMATED NEUTROPHIL # 10.7 TH/MM3 (1.8-7.7); BASOPHIL # 0.1 TH/MM3 (0-0.2); BASOPHIL % 0.7 % (0.0-2.0); EOSINOPHIL # 0.1 TH/MM3 (0-0.4); EOSINOPHIL % 0.9 % (0.0-4.0); HEMATOCRIT 21.7 % (35.0-46.0); HEMO FLAGS DIFF FINAL; LYMPH % 8.7 % (9.0-44.0); LYMPHOCYTE # 1.1 TH/MM3 (1.0-4.8); MEAN CELL VOLUME 92.3 FL (80.0-100.0); MEAN CORPUSCULAR HEMOGLOBIN 30.3 PG (27.0-34.0); MEAN CORPUSCULAR HGB CONC 32.8 % (32.0-36.0); NEUT % 80.7 % (16.0-70.0); PLATELET COUNT 123 TH/MM3 (150-450); RED BLOOD COUNT 2.35 MIL/MM3 (4.00-5.30); RED CELL DISTRIBUTION WIDTH 18.2 % (11.6-17.2); WHITE BLOOD COUNT 13.2 TH/MM3 (4.0-11.0)
[2016-04-11 05:25] LABS: BICARBONATE 27.5 MEQ/L (21.0-32.0); MAGNESIUM 2.1 MG/DL (1.5-2.5); POTASSIUM 5.5 MEQ/L (3.5-5.1)
[2016-04-11] MEDS: LEVOTHYROXINE SODIUM 88 MCG TAB PO SCH (05:39)
[2016-04-11] MEDS: HYDROmorphone HCL PF 1 MG/ML VIAL IV PUSH PRN (05:39)
[2016-04-11] MEDS: metroNIDAZOLE 500 MG TAB PO SCH ×3 (05:39→20:03)
[2016-04-11 05:51] LABS: CALCIUM-PROTEIN CORRECTED 8.5 MG/DL (8.5-10.1)
[2016-04-11] MEDS: INSULIN ASPART SUPPLEMENTAL SCALE SQ SCH ×4 (05:58→20:04)
[2016-04-11] MEDS: FERROUS SULFATE 325 MG (65 MG ELEMENTAL IRON) TAB PO SCH (10:39)
[2016-04-11] MEDS: MEGESTROL ACETATE 40 MG TAB PO SCH ×2 (10:39→20:04)
[2016-04-11] MEDS: CHOLECALCIFEROL (VIT D3) 5000 UNIT CAP PO SCH (10:39)
[2016-04-11] MEDS: CARVEDILOL 6.25 MG TAB PO SCH ×2 (10:39→20:04)
[2016-04-11] MEDS: SEVELAMER CARBONATE 800 MG TAB PO SCH ×3 (10:39→17:00)
[2016-04-11] MEDS: SERTRALINE HCL 100 MG TAB PO SCH (10:39)
[2016-04-11] MEDS: PANTOPRAZOLE SOD 40 MG DELAYED RELEASE TAB PO SCH (10:39)
[2016-04-11] MEDS: SODIUM CHLORIDE 0.9% FLUSH 5 ML FLUSH FLUSH SCH ×2 (10:40→20:04)
[2016-04-11] MEDS: MEGESTROL ACETATE SUSP 400 MG/10 ML CUP PO SCH (10:40)
[2016-04-11] MEDS: ASPIRIN EC 325 MG TABEC PO SCH (10:40)
[2016-04-11] MEDS: CALCITRIOL 0.25 MCG CAP PO SCH (10:40)
[2016-04-11] MEDS: SODIUM CHLORIDE 1 GRAM TAB PO SCH ×2 (10:45→10:46)
[2016-04-11] MEDS: INSULIN DETEMIR 100 UNITS/ML VIAL SQ SCH ×2 (11:10→20:04)
--- NOTE | 2016-04-11 13:36 | HHI.PR ---
Subjective Remarks No new complaints. Objective Vitals Vital Signs Date Time Temp Pulse Resp B/P Pulse Ox O2 Delivery O2 Flow Rate FiO2 04/11/16 11:46 100 2.00 04/11/16 11:39 98.8 79 18 134/55 100 04/11/16 08:39 98.5 78 20 122/51 97 04/11/16 07:00 97 1.00 04/11/16 07:00 78 04/11/16 06:00 71 04/11/16 05:00 72 04/11/16 04:00 98.9 74 18 131/50 100 04/11/16 04:00 74 04/11/16 04:00 Room Air 2.00 Nasal Cannula 04/11/16 03:00 76 04/11/16 02:00 70 04/11/16 01:00 76 04/11/16 00:00 Room Air 2.00 Nasal Cannula 04/11/16 00:00 74 04/11/16 00:00 98.1 74 18 125/50 99 04/10/16 23:00 74 04/10/16 22:00 68 04/10/16 21:07 Nasal Cannula 2.00 04/10/16 21:00 71 04/10/16 20:00 75 04/10/16 20:00 98.4 75 18 122/50 98 04/10/16 17:30 99.5 68 16 126/54 100 04/10/16 17:00 98.5 67 20 131/55 99 Nasal Cannula 2 04/10/16 16:45 73 20 112/45 99 Nasal Cannula 2 04/10/16 16:30 71 20 107/43 99 Nasal Cannula 2 04/10/16 16:15 69 20 108/50 99 Nasal Cannula 2 04/10/16 16:00 65 20 103/47 99 Nasal Cannula 2 04/10/16 15:45 66 20 110/44 99 Nasal Cannula 2 04/10/16 15:30 67 20 104/46 98 Nasal Cannula 2 04/10/16 15:15 71 20 103/46 98 Nasal Cannula 2 04/10/16 15:00 70 20 104/46 99 Nasal Cannula 2 04/10/16 14:45 69 20 91/45 98 Nasal Cannula 2 04/10/16 14:30 70 20 98/46 99 Nasal Cannula 2 04/10/16 14:15 75 20 118/59 98 Nasal Cannula 2 04/10/16 14:09 98.1 77 20 105/58 98 Simple Mask 6 04/10/16 04/10/16 04/11/16 15:00 23:00 07:00 Intake Total 200 ml 170 ml 340 ml Output Total 100 ml 250 ml Balance 100 ml 170 ml 90 ml Intake Oral 120 ml 240 ml IV Total 50 ml 100 ml Other 200 ml Output Urine Total 0 ml Drainage Total 250 ml Estimated Blood Loss 100 ml # Bowel Movements 0 Result Diagram: 04/11/168 04/11/168 Imaging Last Impressions Upper Extremity Ultrasound 04/08/16 0000 Signed Impressions: Service Date/Time: Friday, April 08, 2016 11:35 - CONCLUSION: Thrombus distal cephalic vein close to the IV site. Jose Enrique Christianson MD FACR Soft Tissue Ultrasound 04/06/16 0000 Signed Impressions: Service Date/Time: Wednesday, April 06, 2016 14:50 - CONCLUSION: Nonspecific edema in the subcutaneous soft tissues. No loculated fluid collections to indicate an abscess. Phong Johnson MD Catheter Placement X-Ray 04/03/16 0000 Signed Impressions: Service Date/Time: Sunday, April 03, 2016 08:46 - CONCLUSION: Uncomplicated line placement as above. Godfrey Griffith MD Chest X-Ray 04/02/16 0000 Signed Impressions: Service Date/Time: March 10:31 - CONCLUSION: 1. Moderate pulmonary vascular congestion bilaterally. 2. Cardiomegaly. Leonides Root MD Abdomen/Pelvis CT 03/25/16 0000 Signed Impressions: Service Date/Time: Friday, March 25, 2016 19:39 - CONCLUSION: 1. Cellulitic changes in the right groin, right perineum and right labia. No abscess or fluid collection. 2. Dialysis catheter and minimal pelvic ascites. 3. Diverticulosis without diverticulitis. 4. Status post cholecystectomy. Enrique Snyder MD Objective Remarks General: NAD, AAOx3 Chest: CTA Cardiac: Regular Abd: +BS, soft, two wound vacs in place in right groin/peroneal area Ext: Bilateral LE edema A/P Problem List: (1) Cellulitis of labia Status: Acute Plan: - comgmt with General Surgery, Palliative Medicine - Pt admitted with cellulitis of the right labia and into the right groin/inner thigh - Pt had a noted elevated WBC count of 14.4 at admission with a Lactic acid of 2.4 - Pt was given IV Vancomycin, Cefepime and Clindamycin - CT abd/pelvis (03/25/16) --> Cellulitic changes in the right groin, right perineum and right labia. No abscess or fluid collection. Dialysis catheter and minimal pelvic ascites. Diverticulosis without diverticulitis. - Blood cultures (03/25/16) with one out of 4 growing E. coli - peritoneal WBC 106 - Peritoneal fluid culture --> no growth - Wound culture (04/03/16) --> E. Coli and Enterococcus - Zosyn (03/27-04/03/16) - flagyl IV (04/03 - 04/09) changes to Flagyl po (04/09 - present) - Ceftazidime (04/03 - 04/08) - Ceftriaxone (04/08 - present) - Daptomycin (04/07 - present) - Gentamicin prn with HD (04/03 - present) - Flagyl PO (04/09-present) - Pt underwent debridement of necrotic skin/fat/abscess to right groin and inner thigh on 04/03. Wound vac placed. - Pt returned to OR on 04/06 and had repeat incision and debridement skin, subcu tissue, fascia, muscle of right inguinal wound and right labial/buttock wound - Pt returned to OR 04/[address] Rodas for debridement of skin and subcutaneous tissue and muscle right lower abdominal wall, right groin, right upper thigh and wound VAC placement right lower abdomen and wound VAC change right groin and right upper thigh - VAC change and debridement (04/10/16) - possible return to OR 04/13/16 for further debridement and VAC change - megace - encourage PO intake - guarded prognosis - DVT prophylaxis with SCDs (2) Bacteremia Status: Acute Plan: - See above (3) Anemia Status: Chronic Plan: - Related to pts ESRD - received epogen (03/28/16) - Hg 8.0 (03/29/16) - 1 units PRBC on 03/29/16 - Hg 6.9 (04/08/16), pt transfused 2 units PRBCs - Repeat labs today with Hgb 7.9 (04/10/16) - Hg 7.1 (04/11/16) - obtain iron indices and stool hemoccult - transfuse 2 units PRBCs - repeat CBC in AM - observe (4) ESRD (end stage renal disease) on dialysis Status: Chronic Plan: - comgmt with nephrology - Pt was started on PD in 05/2015 - Pt had Vas cath placed on 04/03 and is on HD currently.?temporary (5) DM (diabetes mellitus) Status: Chronic Plan: - Poor po intake but stable blood sugars - NovoLog SSI - Levemir 20 qPM - Accu checks (6) Hypothyroidism Status: Chronic Plan: - Home meds continued (7) Hypertension Status: Chronic Plan: - Home meds continued (8) Deep vein thrombosis (DVT) of left upper extremity Status: Acute Plan: - distal cephalic vein - IV site changed - heating pad prn Problem Qualifiers (1) Anemia: Qualified Code: N18.9 - Anemia in chronic kidney disease (2) DM (diabetes mellitus): (3) Hypertension: Qualified Code: I10 - Essential hypertension Kong Bagley DO Apr 11, 2016 13:35
[2016-04-11] MEDS: DAPTOmycin INJ 500 MG in SODIUM CHLORIDE 0.9% INJ 100 ML IV SCH (14:05)
--- NOTE | 2016-04-11 14:24 | HHI.NPPN ---
Subjective General Problems: Hypertension Renal Failure: Chronic, End Stage Renal Disease Additional Remarks Patient sitting in bed, no acute distress Review of Systems General Constitutional: Fatigue Gastrointestinal Gastrointestinal: Abdominal Pain Skin Skin Remarks vaginal abscess, labial swelling with pain Objective Data Data 04/10/16 04/11/16 19:00 07:00 Intake Total 370 ml 340 ml Output Total 100 ml 250 ml Balance 270 ml 90 ml Intake Oral 120 ml 240 ml IV Total 50 ml 100 ml Other 200 ml Output Urine Total 0 ml Drainage Total 250 ml Estimated Blood Loss 100 ml # Bowel Movements 0 Vital Signs Date Time Temp Pulse Resp B/P Pulse Ox O2 Delivery O2 Flow Rate FiO2 04/11/16 11:46 100 2.00 04/11/16 11:39 98.8 79 18 134/55 100 04/11/16 08:39 98.5 78 20 122/51 97 04/11/16 07:00 97 1.00 04/11/16 07:00 78 04/11/16 06:00 71 04/11/16 05:00 72 04/11/16 04:00 98.9 74 18 131/50 100 04/11/16 04:00 74 04/11/16 04:00 Room Air 2.00 Nasal Cannula 04/11/16 03:00 76 04/11/16 02:00 70 04/11/16 01:00 76 04/11/16 00:00 Room Air 2.00 Nasal Cannula 04/11/16 00:00 74 04/11/16 00:00 98.1 74 18 125/50 99 04/10/16 23:00 74 04/10/16 22:00 68 04/10/16 21:07 Nasal Cannula 2.00 04/10/16 21:00 71 04/10/16 20:00 75 04/10/16 20:00 98.4 75 18 122/50 98 04/10/16 17:30 99.5 68 16 126/54 100 04/10/16 17:00 98.5 67 20 131/55 99 Nasal Cannula 2 04/10/16 16:45 73 20 112/45 99 Nasal Cannula 2 04/10/16 16:30 71 20 107/43 99 Nasal Cannula 2 04/10/16 16:15 69 20 108/50 99 Nasal Cannula 2 04/10/16 16:00 65 20 103/47 99 Nasal Cannula 2 04/10/16 15:45 66 20 110/44 99 Nasal Cannula 2 04/10/16 15:30 67 20 104/46 98 Nasal Cannula 2 04/10/16 15:15 71 20 103/46 98 Nasal Cannula 2 04/10/16 15:00 70 20 104/46 99 Nasal Cannula 2 04/10/16 14:45 69 20 91/45 98 Nasal Cannula 2 04/10/16 14:30 70 20 98/46 99 Nasal Cannula 2 -: 04/11/16 0418 04/11/168 Tubes & Lines: Tenckhoff Catheter Physical Exam General Appearance: No Acute Distress, Comfortable, Obese Throat Throat Exam: Oral Mucosa Katie & Moist Neck Neck Exam: Neck Supple Pulmonary Resp Exam: Clear Bilaterally, Breath Sounds Equal, No Distress Cardiology CV Exam: Regular, Normal Sinus Rhythm, Good Perfusion Gastrointestinal/Abdomen GI Exam: Soft, Non-Tender, Bowel Sounds Present Musculoskeletal MS Exam: Joints Intact, Good Strength Integumentary Skin Exam: Clear, Warm, Dry, Intact Extremeties Extremities Exam: Trace Edema Neurologic Neuro Exam: Speech Clear, Moving All Extremities Psychiatric Psych Exam: Appropriate Responses Assessment/Plan Discussed Condition With: Patient Assessment Summary: Anemia of CKD, Fluid/Volume Overload, Hypertension, Diabetes Mellitus, End Stage Renal Disease Electrolyte Assessment: Hypocalcemia, Hyponatremia Problem List: (1) ESRD (end stage renal disease) on dialysis Plan: For dialysis today - non-functioning non-tunneled catheter, and plan is for new catheter and dialysis today, with transfusion of PRBCs. Monitor electrolytes and volume status. HD today, then continue TTS HD. To get PermCath once infection is better. (2) Vulval cellulitis Plan: with sepsis, + E coli in 1/4 bottles ID following. On Ceftriaxone and Daptomycin. (3) Anemia Plan: Transfusion of PRBCs with dialysis today. Labs indicating iron deficiency avoid IV Iron in light of sepsis,on oral iron replacement Monitor Hemoglobin. Epogen SQ weekly transfuse PRN (4) DM (diabetes mellitus) Plan: blood sugars elevated but improved continue insulin monitor glucose, goal 140-180 mg/dL (5) Hypertension Plan: oral medications as ordered follow blood pressure, adjust medications as needed (6) Hyponatremia Plan: stable needs to restrict fluid intake. Plan . Problem Qualifiers (1) Anemia: Qualified Code: N18.9 - Anemia in chronic kidney disease (2) DM (diabetes mellitus): Qualified Code: E10.8 - Type 1 diabetes mellitus with complication (3) Hypertension: Qualified Code: I10 - Essential hypertension Surya Hagen MD Apr 11, 2016 14:24
[2016-04-11] MEDS: ACETAMINOPHEN/HYDROcodone 325 MG/5 MG TAB PO PRN (14:31)
[2016-04-11 15:49] LABS: RETIC % 3.3 % (0.4-3.0); REVIEW FLAG FINAL
[2016-04-11] MEDS ORDERED: IOHEXOL 350 MG/ML 50 ML BTL (for RAD DIAG) IV ONE (16:12)
[2016-04-11 16:16] LABS: LDH SERUM 243 U/L (84-246); TRANSFERRIN IRON PROFILE 75 MG/DL (200-360)
[2016-04-11 16:19] LABS: FERRITIN 561 NG/ML (8-252)
--- NOTE | 2016-04-11 16:20 | PD.RAD ---
Post Procedure Progress Note Pre Procedure Diagnosis: (1) ESRD (end stage renal disease) on dialysis (2) problem with dialysis catheter Post Procedure Diagnosis: (1) problem with dialysis catheter (2) ESRD (end stage renal disease) on dialysis Procedure Date: Apr 11, 2016 Supervising Radiologist: Tyrel Joiner Proceduralist/Assist: Marilee Krishnamurthy, RT(R)(), Raman Karimi RT(R)() Anesthesia: Local Plan of Activity Patient to Unit: Other (Dialysis) Patient Condition: Good See PACS Report for procedural detail/treatment Central Venous Access Device Procedure 1 Left Internal Jugular Hemodialysis Catheter Non-Tunneled Replacement dual lumen Sen[place]e: 14 Findings: Placed modified [address] Permcath thru same access but could not aspirate. Venogram showed no stenosis centrally. Catheter exchanged for a new 20 cm VasCath Tyrel Joiner MD Apr 11, 2016 16:20
[2016-04-11] MEDS ORDERED: SODIUM CHLORIDE 0.9% FLUSH 5 ML FLUSH IVF PRN (16:30)
[2016-04-11] MEDS ORDERED: HEPARIN SODIUM - IV 10,000 UNITS/10 ML VIAL IVF PRN (16:30)
[2016-04-11] MEDS: HEPARIN SODIUM - IV 10,000 UNITS/10 ML VIAL PRN (17:36)
[2016-04-11] MEDS: EPOETIN ALFA 10,000 UNITS/ML VIAL IV PRN (17:37)
[2016-04-11] MEDS: GENTAMICIN SULFATE (DIALYSIS USE ONLY) 20 MG/2 ML VIAL IV PRN (17:37)
[2016-04-11] MEDS: SODIUM CHLOR 0.9% 1000 ML INJ 1,000 ML IV PRN (17:38)
[2016-04-11] MEDS: cefTRIAXone INJ 2,000 MG in SODIUM CHLORIDE 0.9% INJ 100 ML IV SCH (18:00)
--- NOTE | 2016-04-11 19:02 | RADRPT ---
EXAM DATE/TIME: 04/11/2016 15:11 INDICATIONS : Patient with a history of renal disease. MEDICAL HISTORY : CAD Anemia of CKD CHF ESRD Diabetes Depression HTN Hyperlipidemia Hypothyroidism Pulmonary HTN SURGICAL HISTORY : Breast reduction CABG Coronary stent placement Cholecystectomy Peritoneal catheter ENCOUNTER: Subsequent ACUITY: 7-11 months PAIN SCORE: 3/10 LOCATION: abdomen FLUORO TIME: 3.6 minutes CONTRAST: 15 cc Omnipaque (iohexol) 350 ACCESS: Left internal jugular vein DEVICE(S): 1.) 14 Finnish dual lumen 20 cm Schon catheter PROCEDURE: CENTRAL VENOUS CATHETER REPLACEMENT, LT 1. Fluoroscopically guided central venous catheter exchange. 2. SVC venogram The risks, benefits and alternatives to the procedure were explained and verbal and written consent w as obtained. The site was prepped in sterile fashion. Full sterile technique was used, including ca p, mask, sterile gloves and gown and a large sterile sheet. Hand hygiene and 2% chlorhexidine and/or betadine/alcohol prep was utilized per protocol for cutaneous antisepsis. The skin and subcutaneous tissues were infiltrated with local anesthetic solution. With fluoroscopic guidance the previously placed central venous catheter was exchanged initially for a modified 19 cm cuff to tip PermCath catheter with the cuff removed to advance a device further into the central venous system. However, after placement, he still had difficulty aspirating from both th e red and blue ports. Therefore, venography was performed through this catheter which did not demonst rate a significant stenosis. Catheter was advanced into the central venous system but again, and unre liable function. Therefore, this catheter was removed and replaced with a 20 cm Vas-Cath catheter whi ch was advanced as far as possible into the central venous system. This catheter seemed to function a ppropriately. CONCLUSION: Venous catheter change as above. Tyrel Joiner MD on April 11, 2016 at 18:56 Board Certified Radiologist. This report was verified electronically.
[2016-04-11] MEDS: PRAMIPEXOLE DIHYDROCHLORIDE 0.25 MG TAB PO SCH (20:03)
[2016-04-11] MEDS: ATORVASTATIN 40 MG TAB PO SCH (20:04)
[2016-04-11] MEDS: ACETAMINOPHEN/HYDROcodone 325 MG/10 MG TAB PO PRN (22:23)
[2016-04-12] VITALS (20 sets, daily range): BP systolic 98–141; BP diastolic 46–68; PULSE 84–103; RESP 16–20; TEMP 98.8–99.8; O2SAT 96–98
[2016-04-12 05:41] LABS: AUTOMATED NEUTROPHIL # 8.5 TH/MM3 (1.8-7.7); BASOPHIL # 0.1 TH/MM3 (0-0.2); BASOPHIL % 0.5 % (0.0-2.0); EOSINOPHIL # 0.1 TH/MM3 (0-0.4); EOSINOPHIL % 1.2 % (0.0-4.0); HEMATOCRIT 25.1 % (35.0-46.0); HEMO FLAGS DIFF FINAL; LYMPH % 8.1 % (9.0-44.0); LYMPHOCYTE # 0.9 TH/MM3 (1.0-4.8); MEAN CELL VOLUME 89.1 FL (80.0-100.0); MEAN CORPUSCULAR HGB CONC 33.7 % (32.0-36.0); MONO % 11.7 % (0.0-8.0); NEUT % 78.5 % (16.0-70.0); PLATELET COUNT 110 TH/MM3 (150-450); RED BLOOD COUNT 2.81 MIL/MM3 (4.00-5.30); RED CELL DISTRIBUTION WIDTH 16.6 % (11.6-17.2); WHITE BLOOD COUNT 10.8 TH/MM3 (4.0-11.0)
[2016-04-12] MEDS: LEVOTHYROXINE SODIUM 88 MCG TAB PO SCH (05:42)
[2016-04-12] MEDS: metroNIDAZOLE 500 MG TAB PO SCH ×3 (05:42→20:41)
[2016-04-12 05:59] LABS: BICARBONATE 28.8 MEQ/L (21.0-32.0); MAGNESIUM 1.9 MG/DL (1.5-2.5); POTASSIUM 4.3 MEQ/L (3.5-5.1)
[2016-04-12 06:14] LABS: CALCIUM-PROTEIN CORRECTED 8.3 MG/DL (8.5-10.1)
[2016-04-12] MEDS: INSULIN ASPART SUPPLEMENTAL SCALE SQ SCH ×4 (06:22→20:39)
[2016-04-12] MEDS: SODIUM CHLORIDE 0.9% FLUSH 5 ML FLUSH FLUSH SCH ×2 (09:00→20:38)
--- NOTE | 2016-04-12 09:39 | HHI.PR ---
Subjective Remarks No new complaints. Pt still not eating much Pt and family discussing feeding tube. Objective Vitals Vital Signs Date Time Temp Pulse Resp B/P Pulse Ox O2 Delivery O2 Flow Rate FiO2 04/12/16 07:00 98.8 97 16 129/59 97 04/12/16 06:00 92 04/12/16 05:00 87 04/12/16 04:00 Nasal Cannula 2.00 04/12/16 04:00 91 04/12/16 04:00 99.1 91 18 98/46 98 04/12/16 03:00 87 04/12/16 02:00 85 04/12/16 01:00 87 04/12/16 00:00 99.0 95 18 112/49 97 04/12/16 00:00 95 04/12/16 00:00 Nasal Cannula 2.00 04/11/16 23:00 85 04/11/16 22:00 82 04/11/16 21:00 85 04/11/16 20:00 Nasal Cannula 2.00 04/11/16 20:00 98.9 97 18 122/50 95 04/11/16 20:00 97 04/11/16 17:40 98 Nasal Cannula 2.00 04/11/16 15:00 99.8 86 18 116/46 98 04/11/16 15:00 80 04/11/16 14:00 81 04/11/16 13:00 76 04/11/16 12:00 79 04/11/16 11:46 100 2.00 04/11/16 11:39 98.8 79 18 134/55 100 04/11/16 11:00 80 04/11/16 10:00 84 04/11/16 04/11/16 04/12/16 15:00 23:00 07:00 Intake Total 240 ml 480 ml Output Total 200 ml Balance 240 ml 280 ml Intake Oral 240 ml 480 ml Drainage Total 200 ml # Voids 2 2 # Bowel Movements 0 1 Result Diagram: 04/12/1652204/12/16522 Other Results Laboratory Tests Test 04/11/16 04/11/16 04/12/16 04:18 16:30 05:23 White Blood Count 13.2 TH/MM3 10.8 TH/MM3 Red Blood Count 2.35 MIL/MM3 2.81 MIL/MM3 Hemoglobin 7.1 GM/DL 8.5 GM/DL Hematocrit 21.7 % 25.1 % Mean Corpuscular Volume 92.3 FL 89.1 FL Mean Corpuscular Hemoglobin 30.3 PG 30.0 PG Mean Corpuscular Hemoglobin 32.8 % 33.7 % Concent Red Cell Distribution Width 18.2 % 16.6 % Platelet Count 123 TH/MM3 110 TH/MM3 Mean Platelet Volume 7.8 FL 7.8 FL Neutrophils (%) (Auto) 80.7 % 78.5 % Lymphocytes (%) (Auto) 8.7 % 8.1 % Monocytes (%) (Auto) 9.0 % 11.7 % Eosinophils (%) (Auto) 0.9 % 1.2 % Basophils (%) (Auto) 0.7 % 0.5 % Neutrophils # (Auto) 10.7 TH/MM3 8.5 TH/MM3 Lymphocytes # (Auto) 1.1 TH/MM3 0.9 TH/MM3 Monocytes # (Auto) 1.2 TH/MM3 1.3 TH/MM3 Eosinophils # (Auto) 0.1 TH/MM3 0.1 TH/MM3 Basophils # (Auto) 0.1 TH/MM3 0.1 TH/MM3 CBC Comment DIFF FINAL DIFF FINAL Differential Comment Reticulocyte Count 3.3 % Absolute Reticulocyte Count 76.8 MIL/L Sodium Level 133 MEQ/L 137 MEQ/L Potassium Level 5.5 MEQ/L 4.3 MEQ/L Chloride Level 97 MEQ/L 98 MEQ/L Carbon Dioxide Level 27.5 MEQ/L 28.8 MEQ/L Anion Gap 9 MEQ/L 10 MEQ/L Blood Urea Nitrogen 45 MG/DL 29 MG/DL Creatinine 6.10 MG/DL 4.64 MG/DL Estimat Glomerular Filtration 7 ML/MIN 9 ML/MIN Rate Random Glucose 88 MG/DL 104 MG/DL Calcium Level 7.4 MG/DL 7.3 MG/DL Protein Corrected Calcium 8.5 MG/DL 8.3 MG/DL Magnesium Level 2.1 MG/DL 1.9 MG/DL Iron Level 17 MCG/DL Total Iron Binding Capacity 105 MCG/DL Percent Iron Saturation 16.2 % Ferritin 561 NG/ML Lactate Dehydrogenase 243 U/L Total Protein 5.2 GM/DL 5.3 GM/DL Blood Type A POSITIVE Antibody Screen NEGATIVE Crossmatch Leukocyte-Reduced Red Blood Cells Blood Bank Comment Phosphorus Level 4.5 MG/DL Imaging Last Impressions Upper Extremity Ultrasound 1/18/17 0000 Signed Impressions: Service Date/Time: Friday, April 08, 2016 11:35 - CONCLUSION: Thrombus distal cephalic vein close to the IV site. Jose Enrique Christianson MD FACR Soft Tissue Ultrasound 04/06/16 0000 Signed Impressions: Service Date/Time: Wednesday, April 06, 2016 14:50 - CONCLUSION: Nonspecific edema in the subcutaneous soft tissues. No loculated fluid collections to indicate an abscess. Phong Johnson MD Catheter Placement X-Ray 04/03/16 0000 Signed Impressions: Service Date/Time: Sunday, April 03, 2016 08:46 - CONCLUSION: Uncomplicated line placement as above. Godfrey Griffith MD Chest X-Ray 04/02/16 0000 Signed Impressions: Service Date/Time: March 10:31 - CONCLUSION: 1. Moderate pulmonary vascular congestion bilaterally. 2. Cardiomegaly. Leonides Root MD Abdomen/Pelvis CT 03/25/16 0000 Signed Impressions: Service Date/Time: Friday, March 25, 2016 19:39 - CONCLUSION: 1. Cellulitic changes in the right groin, right perineum and right labia. No abscess or fluid collection. 2. Dialysis catheter and minimal pelvic ascites. 3. Diverticulosis without diverticulitis. 4. Status post cholecystectomy. Enrique Snyder MD Objective Remarks General: NAD, AAOx3 Chest: CTA Cardiac: Regular Abd: +BS, soft, two wound vacs in place in right groin/peroneal area Ext: Bilateral LE edema A/P Problem List: (1) Cellulitis of labia Status: Acute Plan: - comgmt with General Surgery, ID, and Palliative Medicine - Pt admitted with cellulitis of the right labia and into the right groin/inner thigh - Pt had a noted elevated WBC count of 14.4 at admission with a Lactic acid of 2.4 - Pt was given IV Vancomycin, Cefepime and Clindamycin - CT abd/pelvis (03/25/16) --> Cellulitic changes in the right groin, right perineum and right labia. No abscess or fluid collection. Dialysis catheter and minimal pelvic ascites. Diverticulosis without diverticulitis. - Blood cultures (03/25/16) with one out of 4 growing E. coli - peritoneal WBC 106 - Peritoneal fluid culture --> no growth - Wound culture (04/03/16) --> E. Coli and Enterococcus - Zosyn (03/27-04/03/16) - Flagyl IV (04/03 - 04/09) changed to Flagyl po (04/09 - present) - Ceftazidime (04/03 - 04/08) - Ceftriaxone (04/08 - present) - Daptomycin (04/07 - present) - Gentamicin prn with HD (04/03 - present) - Pt underwent debridement of necrotic skin/fat/abscess to right groin and inner thigh on 04/03. Wound vac placed. - Pt returned to OR on 04/06 and had repeat incision and debridement skin, subcu tissue, fascia, muscle of right inguinal wound and right labial/buttock wound - Pt returned to OR 04/[address] Rodas for debridement of skin and subcutaneous tissue and muscle right lower abdominal wall, right groin, right upper thigh and wound VAC placement right lower abdomen and wound VAC change right groin and right upper thigh - VAC change and debridement (04/10/16) - Possible return to OR 04/13/16 for further debridement and VAC change - Megace - encourage PO intake - Pt and family considering feeding tube. Discussed the case with GI and they would not recommend G-tube placement as it would continually leak in the setting of her ESRD with PD. Pt has been on HD for over a week. - Check Abd US to see if there is any residual dialysate in the abdomen. - guarded prognosis - DVT prophylaxis with SCDs (2) Bacteremia Status: Acute Plan: - See above (3) Anemia Status: Chronic Plan: - Related to pts ESRD - Hg 8.0 (03/29/16) --> transfused with1 units PRBC on 03/29/16 - Hg 6.9 (04/08/16) --> transfused 2 units PRBCs on 04/08/16 - Hg 7.1 (04/11/16) --> transfused 2 units PRBCs on 04/11/16 - Pt notably iron deficient and has been started on po iron - Pt to receive Epogen weekly with dialysis - Monitor H/H and transfuse as necessary (4) ESRD (end stage renal disease) on dialysis Status: Chronic Plan: - comgmt with nephrology - Pt was started on PD in 05/2015 - Pt had Vas cath placed on 04/03 and is on HD currently. - Vas cath exchanged on 04/11 - Pt to get PermCath once infection is improved - Pt is on dialysis (5) DM (diabetes mellitus) Status: Chronic Plan: - Poor po intake but stable blood sugars - NovoLog SSI - Levemir 20 qPM - Accu checks (6) Hypothyroidism Status: Chronic Plan: - Home meds continued (7) Hypertension Status: Chronic Plan: - Home meds continued (8) Deep vein thrombosis (DVT) of left upper extremity Status: Acute Plan: - distal cephalic vein - IV site changed - heating pad prn Assessment and Plan Patient examined. Assessment and plan formulated with Sharon Swenson PA-C. I agree with the above. Problem Qualifiers (1) Anemia: Qualified Code: N18.9 - Anemia in chronic kidney disease (2) DM (diabetes mellitus): (3) Hypertension: Qualified Code: I10 - Essential hypertension Sharon Swenson Apr 12, 2016 09:39 Kong Bagley DO Apr 17, 2016 10:33
[2016-04-12] MEDS: MEGESTROL ACETATE 40 MG TAB PO SCH ×2 (10:17→20:38)
[2016-04-12] MEDS: SEVELAMER CARBONATE 800 MG TAB PO SCH ×3 (10:17→17:51)
[2016-04-12] MEDS: CALCITRIOL 0.25 MCG CAP PO SCH (10:17)
[2016-04-12] MEDS: SODIUM CHLORIDE 1 GRAM TAB PO SCH (10:18)
[2016-04-12] MEDS: PANTOPRAZOLE SOD 40 MG DELAYED RELEASE TAB PO SCH (10:18)
[2016-04-12] MEDS: ASPIRIN EC 325 MG TABEC PO SCH (10:18)
[2016-04-12] MEDS: SERTRALINE HCL 100 MG TAB PO SCH (10:18)
[2016-04-12] MEDS: FERROUS SULFATE 325 MG (65 MG ELEMENTAL IRON) TAB PO SCH (10:18)
[2016-04-12] MEDS: CARVEDILOL 6.25 MG TAB PO SCH ×2 (10:18→20:38)
[2016-04-12] MEDS: CHOLECALCIFEROL (VIT D3) 5000 UNIT CAP PO SCH (10:18)
--- NOTE | 2016-04-12 13:12 | HHI.NPPN ---
Subjective General Problems: Hypertension Renal Failure: Chronic, End Stage Renal Disease Additional Remarks Patient sitting in bed, no acute distress Review of Systems General Constitutional: Fatigue Gastrointestinal Gastrointestinal: Abdominal Pain Skin Skin Remarks vaginal abscess, labial swelling with pain Objective Data Data 04/11/16 04/12/16 19:00 07:00 Intake Total 240 ml 480 ml Output Total 200 ml Balance 240 ml 280 ml Intake Oral 240 ml 480 ml Drainage Total 200 ml # Voids 2 2 # Bowel Movements 0 1 Vital Signs Date Time Temp Pulse Resp B/P Pulse Ox O2 Delivery O2 Flow Rate FiO2 04/12/16 11:00 94 04/12/16 10:00 103 04/12/16 09:00 103 04/12/16 08:00 97 Nasal Cannula 2.00 04/12/16 08:00 97 04/12/16 07:38 97 Nasal Cannula 1.00 04/12/16 07:30 97 04/12/16 07:00 98.8 97 16 129/59 97 04/12/16 07:00 101 04/12/16 06:00 92 04/12/16 05:00 87 04/12/16 04:00 Nasal Cannula 2.00 04/12/16 04:00 91 04/12/16 04:00 99.1 91 18 98/46 98 04/12/16 03:00 87 04/12/16 02:00 85 04/12/16 01:00 87 04/12/16 00:00 99.0 95 18 112/49 97 04/12/16 00:00 95 04/12/16 00:00 Nasal Cannula 2.00 04/11/16 23:00 85 04/11/16 22:00 82 04/11/16 21:00 85 04/11/16 20:00 Nasal Cannula 2.00 04/11/16 20:00 98.9 97 18 122/50 95 04/11/16 20:00 97 04/11/16 17:40 98 Nasal Cannula 2.00 04/11/16 15:00 99.8 86 18 116/46 98 04/11/16 15:00 80 04/11/16 14:00 81 -: 04/12/16 0523 04/12/16 0523 Microbiology 04/11/16 Stool Occult Blood ([facility]) - Final, Complete HEMOCCULT NEGATIVE Tubes & Lines: Tenckhoff Catheter Physical Exam General Appearance: No Acute Distress, Comfortable, Obese Throat Throat Exam: Oral Mucosa [place] & Moist Neck Neck Exam: Neck Supple Pulmonary Resp Exam: Clear Bilaterally, Breath Sounds Equal, No Distress Cardiology CV Exam: Regular, Normal Sinus Rhythm, Good Perfusion Gastrointestinal/Abdomen GI Exam: Soft, Non-Tender, Bowel Sounds Present Musculoskeletal MS Exam: Joints Intact, Good Strength Integumentary Skin Exam: Clear, Warm, Dry, Intact Extremeties Extremities Exam: Trace Edema Neurologic Neuro Exam: Speech Clear, Moving All Extremities Psychiatric Psych Exam: Appropriate Responses Assessment/Plan Discussed Condition With: Patient Assessment Summary: Anemia of CKD, Fluid/Volume Overload, Hypertension, Diabetes Mellitus, End Stage Renal Disease Electrolyte Assessment: Hypocalcemia, Hyponatremia Problem List: (1) ESRD (end stage renal disease) on dialysis Plan: HD done yesterday via new non-tunneled dialysis catheter (previous catheter non-functional). Plan next HD Wednesday, continue TTS HD. To get PermCath once infection is better. Monitor electrolytes and volume status. (2) Vulval cellulitis Plan: with sepsis, + E coli in 1/4 bottles ID following. On Ceftriaxone and Daptomycin. (3) Anemia Plan: Transfusion of 2U PRBCs with dialysis yesterday. Labs indicating iron deficiency avoid IV Iron in light of sepsis,on oral iron replacement Monitor Hemoglobin. Epogen SQ weekly transfuse PRN (4) DM (diabetes mellitus) Plan: blood sugars elevated but improved continue insulin monitor glucose, goal 140-180 mg/dL (5) Hypertension Plan: oral medications as ordered follow blood pressure, adjust medications as needed (6) Hyponatremia Plan: stable needs to restrict fluid intake. Plan . Problem Qualifiers (1) Anemia: Qualified Code: N18.9 - Anemia in chronic kidney disease (2) DM (diabetes mellitus): Qualified Code: E10.8 - Type 1 diabetes mellitus with complication (3) Hypertension: Qualified Code: I10 - Essential hypertension Surya Hagen MD Apr 12, 2016 13:12
--- NOTE | 2016-04-12 17:09 | RADRPT ---
EXAM DATE/TIME: 04/12/2016 15:41 [facility] COMPARISON: No previous studies available for comparison. INDICATIONS : Ascites. MEDICAL HISTORY : Hypercholesterolemia. Hypertension. Congestive heart failure. Peritoneal dialysis. Coronary artery di sease. SURGICAL HISTORY : CABG. Cholecystectomy. Left knee replacement. Breast reduction 1979 ENCOUNTER: Subsequent ACUITY: 1 day PAIN SCORE: 5/10 LOCATION: Abdomen. AREA EVALUATED: Abdominal quadrants. FINDINGS: Imaging of the abdomen and pelvis was performed to evaluate for ascites for possible paracentesis. N o ascites is seen. CONCLUSION: No ascites. Dada Lora MD on April 12, 2016 at 17:06 Board Certified Radiologist. This report was verified electronically.
[2016-04-12] MEDS: cefTRIAXone INJ 2,000 MG in SODIUM CHLORIDE 0.9% INJ 100 ML IV SCH ×3 (17:51→18:53)
[2016-04-12] MEDS: NYSTAT/DIPHENHY/LIDO MOUTHWASH (Adult) 120ML SWISH-SWAL PRN (18:51)
[2016-04-12] MEDS: ATORVASTATIN 40 MG TAB PO SCH (20:38)
[2016-04-12] MEDS: INSULIN DETEMIR 100 UNITS/ML VIAL SQ SCH (20:38)
[2016-04-12] MEDS: PRAMIPEXOLE DIHYDROCHLORIDE 0.25 MG TAB PO SCH (20:38)
[2016-04-12] MEDS: HYDROmorphone HCL PF 1 MG/ML VIAL IV PUSH PRN (21:02)
[2016-04-13] VITALS (18 sets, daily range): BP systolic 117–139; BP diastolic 45–64; PULSE 64–110; RESP 16–18; TEMP 97.5–99.2; O2SAT 94–100
[2016-04-13] MEDS: HYDROmorphone HCL PF 1 MG/ML VIAL IV PUSH PRN (03:33)
[2016-04-13 05:08] LABS: AUTOMATED NEUTROPHIL # 7.8 TH/MM3 (1.8-7.7); BASOPHIL # 0.1 TH/MM3 (0-0.2); BASOPHIL % 1.2 % (0.0-2.0); EOSINOPHIL # 0.1 TH/MM3 (0-0.4); EOSINOPHIL % 1.3 % (0.0-4.0); HEMATOCRIT 24.8 % (35.0-46.0); LYMPH % 9.4 % (9.0-44.0); LYMPHOCYTE # 0.9 TH/MM3 (1.0-4.8); MEAN CELL VOLUME 90.7 FL (80.0-100.0); MEAN CORPUSCULAR HEMOGLOBIN 29.9 PG (27.0-34.0); MEAN CORPUSCULAR HGB CONC 32.9 % (32.0-36.0); MONO % 10.4 % (0.0-8.0); NEUT % 77.7 % (16.0-70.0); PLATELET COUNT 128 TH/MM3 (150-450); RED BLOOD COUNT 2.74 MIL/MM3 (4.00-5.30); RED CELL DISTRIBUTION WIDTH 16.6 % (11.6-17.2)
[2016-04-13 05:14] LABS: HEMO FLAGS AUTO DIFF
[2016-04-13] MEDS: LEVOTHYROXINE SODIUM 88 MCG TAB PO SCH (05:15)
[2016-04-13] MEDS: metroNIDAZOLE 500 MG TAB PO SCH ×3 (05:15→21:20)
[2016-04-13 05:34] LABS: BICARBONATE 28.5 MEQ/L (21.0-32.0); MAGNESIUM 2.1 MG/DL (1.5-2.5); POTASSIUM 4.5 MEQ/L (3.5-5.1)
[2016-04-13] MEDS: INSULIN ASPART SUPPLEMENTAL SCALE SQ SCH ×4 (06:06→21:00)
[2016-04-13 07:50] LABS: PLATELET ESTIMATE SMEAR LOW (NORMAL); PLATELET MORPHOLOGY NORMAL (NORMAL); SCAN/DIFF AUTO DIFF CONFIRMED
[2016-04-13] MEDS: SEVELAMER CARBONATE 800 MG TAB PO SCH ×3 (08:00→17:20)
[2016-04-13] MEDS: MEGESTROL ACETATE 40 MG TAB PO SCH ×2 (09:00→21:20)
--- NOTE | 2016-04-13 09:34 | HHI.PR ---
Subjective Remarks sleeping. had pain meds prior to my arrival Objective Vitals drowsy heart reg lung course bs abd bs/soft ext right groin/labia/inner thigh 3 wound vacs noted. Vital Signs Date Time Temp Pulse Resp B/P Pulse Ox O2 Delivery O2 Flow Rate FiO2 04/13/16 08:00 90 04/13/16 07:30 98.9 89 17 128/60 94 04/13/16 06:00 78 04/13/16 05:00 85 04/13/16 04:00 83 04/13/16 03:50 98.6 83 18 124/58 97 04/13/16 03:00 87 04/13/16 02:00 79 04/13/16 01:00 86 04/13/16 00:00 99.2 94 18 134/59 97 04/13/16 00:00 94 04/12/16 23:00 89 04/12/16 22:00 85 04/12/16 21:22 Nasal Cannula 1.00 04/12/16 21:00 91 04/12/16 20:00 98.9 84 20 134/60 96 04/12/16 20:00 Nasal Cannula 2.00 04/12/16 20:00 84 04/12/16 16:00 87 04/12/16 16:00 99.8 86 16 141/68 98 04/12/16 12:00 91 04/12/16 12:00 99.0 89 16 131/60 98 04/12/16 11:00 94 04/12/16 10:00 103 04/12/16 04/12/16 04/13/16 15:00 23:00 07:00 Intake Total 242 ml Output Total 200 ml Balance 42 ml Intake Oral 240 ml IV Total 2 ml Drainage Total 200 ml # Voids 2 # Bowel Movements 1 Result Diagram: 04/13/16 0416 04/13/16 0416 Imaging Last Impressions Upper Extremity Ultrasound 04/08/16 0000 Signed Impressions: Service Date/Time: Friday, April 08, 2016 11:35 - CONCLUSION: Thrombus distal cephalic vein close to the IV site. Jose Enrique Christianson MD FACR Soft Tissue Ultrasound 04/06/16 0000 Signed Impressions: Service Date/Time: Wednesday, April 06, 2016 14:50 - CONCLUSION: Nonspecific edema in the subcutaneous soft tissues. No loculated fluid collections to indicate an abscess. Phong Johnson MD Catheter Placement X-Ray 04/03/16 0000 Signed Impressions: Service Date/Time: Sunday, April 03, 2016 08:46 - CONCLUSION: Uncomplicated line placement as above. Godfrey Griffith MD Chest X-Ray 04/02/16 0000 Signed Impressions: Service Date/Time: March 10:31 - CONCLUSION: 1. Moderate pulmonary vascular congestion bilaterally. 2. Cardiomegaly. Leonides Root MD Abdomen/Pelvis CT 03/25/16 0000 Signed Impressions: Service Date/Time: Friday, March 25, 2016 19:39 - CONCLUSION: 1. Cellulitic changes in the right groin, right perineum and right labia. No abscess or fluid collection. 2. Dialysis catheter and minimal pelvic ascites. 3. Diverticulosis without diverticulitis. 4. Status post cholecystectomy. Enrique Snyder MD A/P Problem List: (1) Cellulitis of labia Status: Acute Plan: - comgmt with General Surgery, ID, and Palliative Medicine - Pt admitted with cellulitis of the right labia and into the right groin/inner thigh - Pt had a noted elevated WBC count of 14.4 at admission with a Lactic acid of 2.4 - Pt was given IV Vancomycin, Cefepime and Clindamycin - CT abd/pelvis (03/25/16) --> Cellulitic changes in the right groin, right perineum and right labia. No abscess or fluid collection. Dialysis catheter and minimal pelvic ascites. Diverticulosis without diverticulitis. - Blood cultures (03/25/16) with one out of 4 growing E. coli - peritoneal WBC 106 - Peritoneal fluid culture --> no growth - Wound culture (04/03/16) --> E. Coli and Enterococcus - Zosyn (03/27-04/03/16) - Flagyl IV (04/03 - 04/09) changed to Flagyl po (04/09 - present) - Ceftazidime (04/03 - 04/08) - Ceftriaxone (04/08 - present) - Daptomycin (04/07 - present) - Gentamicin prn with HD (04/03 - present) - Pt underwent debridement of necrotic skin/fat/abscess to right groin and inner thigh on 04/03. Wound vac placed. - Pt returned to OR on 04/06 and had repeat incision and debridement skin, subcu tissue, fascia, muscle of right inguinal wound and right labial/buttock wound - Pt returned to OR 04/[address] Rodas for debridement of skin and subcutaneous tissue and muscle right lower abdominal wall, right groin, right upper thigh and wound VAC placement right lower abdomen and wound VAC change right groin and right upper thigh - VAC change and debridement (04/10/16) - Currently with 3 total wound vacs - Possible OR for further debridement and VAC change today - Megace - encourage PO intake - Pt and family considering feeding tube. Discussed the case with GI and they would not recommend G-tube placement as it would continually leak in the setting of her ESRD with PD. Pt has been on HD for over a week. Discussed peg with IR and they would consider it. will discuss further with family. - guarded prognosis - DVT prophylaxis with SCDs (2) Bacteremia Status: Acute Plan: - See above (3) Anemia Status: Chronic Plan: - Related to pts ESRD - Hg 8.0 (03/29/16) --> transfused with1 units PRBC on 03/29/16 - Hg 6.9 (04/08/16) --> transfused 2 units PRBCs on 04/08/16 - Hg 7.1 (04/11/16) --> transfused 2 units PRBCs on 04/11/16 - Pt notably iron deficient and has been started on po iron - Pt to receive Epogen weekly with dialysis - Monitor H/H and transfuse as necessary (4) ESRD (end stage renal disease) on dialysis Status: Chronic Plan: - comgmt with nephrology - Pt was started on PD in 05/2015 - Pt had Vas cath placed on 04/03 and is on HD currently. - Vas cath exchanged on 04/11 - Pt to get PermCath once infection is improved - Pt is on dialysis (5) DM (diabetes mellitus) Status: Chronic Plan: - Poor po intake but stable blood sugars - NovoLog SSI - Pt has been refusing levemir and bg fluctuating. (6) Hypothyroidism Status: Chronic Plan: - Home meds continued (7) Hypertension Status: Chronic Plan: - Home meds continued (8) Deep vein thrombosis (DVT) of left upper extremity Status: Acute Plan: - distal cephalic vein - IV site changed - heating pad prn Problem Qualifiers (1) Anemia: Qualified Code: N18.9 - Anemia in chronic kidney disease (2) DM (diabetes mellitus): Qualified Code: E10.8 - Type 1 diabetes mellitus with complication (3) Hypertension: Qualified Code: I10 - Essential hypertension Humza Mejia MD Apr 13, 2016 09:34
[2016-04-13] MEDS: CHOLECALCIFEROL (VIT D3) 5000 UNIT CAP PO SCH (10:31)
[2016-04-13] MEDS: PANTOPRAZOLE SOD 40 MG DELAYED RELEASE TAB PO SCH (10:31)
[2016-04-13] MEDS: ASPIRIN EC 325 MG TABEC PO SCH (10:32)
[2016-04-13] MEDS: CALCITRIOL 0.25 MCG CAP PO SCH (10:33)
[2016-04-13] MEDS: SODIUM CHLORIDE 0.9% FLUSH 5 ML FLUSH FLUSH SCH ×2 (10:33→21:21)
[2016-04-13] MEDS: FERROUS SULFATE 325 MG (65 MG ELEMENTAL IRON) TAB PO SCH (10:35)
[2016-04-13] MEDS: SERTRALINE HCL 100 MG TAB PO SCH (10:35)
[2016-04-13] MEDS: SODIUM CHLORIDE 1 GRAM TAB PO SCH (10:35)
[2016-04-13] MEDS: CARVEDILOL 6.25 MG TAB PO SCH ×2 (10:35→21:20)
--- NOTE | 2016-04-13 11:39 | HHI.NPPN ---
Subjective General Problems: Hypertension Renal Failure: Chronic, End Stage Renal Disease Additional Remarks Lying in bed. Lethargic. Ill appearing. Family at the bedside. Review of Systems General Constitutional: Fatigue Skin Skin Remarks vaginal abscess, labial swelling with pain Objective Data Data 04/12/16 04/13/16 19:00 07:00 Intake Total 242 ml Output Total 200 ml Balance 42 ml Intake Oral 240 ml IV Total 2 ml Drainage Total 200 ml # Voids 2 # Bowel Movements 1 Vital Signs Date Time Temp Pulse Resp B/P Pulse Ox O2 Delivery O2 Flow Rate FiO2 04/13/16 08:00 90 04/13/16 07:30 98.9 89 17 128/60 94 04/13/16 06:00 78 04/13/16 05:00 85 04/13/16 04:00 83 04/13/16 03:50 98.6 83 18 124/58 97 04/13/16 03:00 87 04/13/16 02:00 79 04/13/16 01:00 86 04/13/16 00:00 99.2 94 18 134/59 97 04/13/16 00:00 94 04/12/16 23:00 89 04/12/16 22:00 85 04/12/16 21:22 Nasal Cannula 1.00 04/12/16 21:00 91 04/12/16 20:00 98.9 84 20 134/60 96 04/12/16 20:00 Nasal Cannula 2.00 04/12/16 20:00 84 04/12/16 16:00 87 04/12/16 16:00 99.8 86 16 141/68 98 04/12/16 12:00 91 04/12/16 12:00 99.0 89 16 131/60 98 -: 04/13/16 0416 04/13/16 0416 Tubes & Lines: Tenckhoff Catheter Physical Exam General Appearance: No Acute Distress, Comfortable, Obese Throat Throat Exam: Oral Mucosa [place] & Moist Neck Neck Exam: Neck Supple Pulmonary Resp Exam: Clear Bilaterally, Breath Sounds Equal, No Distress Cardiology CV Exam: Regular, Normal Sinus Rhythm, Good Perfusion Gastrointestinal/Abdomen GI Exam: Soft, Non-Tender, Bowel Sounds Present Musculoskeletal MS Exam: Joints Intact, Good Strength Integumentary Skin Exam: Clear, Warm, Dry, Intact Extremeties Extremities Exam: Trace Edema Neurologic Neuro Exam: Moving All Extremities Psychiatric Psych Exam: Appropriate Responses Assessment/Plan Discussed Condition With: Patient Assessment Summary: Anemia of CKD, Fluid/Volume Overload, Hypertension, Diabetes Mellitus, End Stage Renal Disease Electrolyte Assessment: Hypocalcemia, Hyponatremia Problem List: (1) ESRD (end stage renal disease) on dialysis Plan: HD done on Wednesday. Next dialysis will be tomorrow. To get PermCath once infection is better. Monitor electrolytes and volume status. (2) Vulval cellulitis Plan: with sepsis, + E coli in 1/4 bottles ID following. On Ceftriaxone and Daptomycin. (3) Anemia Plan: Epogen with dialysis. Blood transfusion performed on Wednesday. Monitor Hemoglobin. We are avoiding IV iron in this situation due to infection. (4) DM (diabetes mellitus) Plan: blood sugars elevated but improved continue insulin monitor glucose, goal 140-180 mg/dL (5) Hypertension Plan: oral medications as ordered follow blood pressure, adjust medications as needed (6) Hyponatremia Plan: stable needs to restrict fluid intake. Plan . Problem Qualifiers (1) Anemia: Qualified Code: N18.9 - Anemia in chronic kidney disease (2) DM (diabetes mellitus): (3) Hypertension: Qualified Code: I10 - Essential hypertension Filemon Mar MD Apr 13, 2016 11:39
[2016-04-13] MEDS ORDERED: NEOSTIGMINE 3 MG/3 ML SYR IV ONE (12:00)
[2016-04-13] MEDS ORDERED: PROPOFOL 200 MG/20 ML AMP IV ONE (12:00)
[2016-04-13] MEDS: DAPTOmycin INJ 500 MG in SODIUM CHLORIDE 0.9% INJ 100 ML IV SCH ×2 (12:00→13:22)
[2016-04-13] MEDS ORDERED: SODIUM CHLORID 0.9% 500 ML INJ 500 ML IV ONE (12:00)
[2016-04-13] MEDS ORDERED: ONDANSETRON HCL 4 MG/2 ML VIAL IV PUSH ONE (12:00)
[2016-04-13] MEDS ORDERED: LACTATED RINGER'S 1000 ML INJ 1,000 ML IV ONE (12:00)
[2016-04-13] MEDS ORDERED: fentaNYL CITRATE 250 MCG/5 ML AMP ONE (15:58)
--- NOTE | 2016-04-13 16:06 | PD.OP ---
cc: Haroldo Rodas MD Operative Report Date of Surgery: Apr 13, 2016 Preoperative Diagnosis: (1) Necrotizing fasciitis (2) Right groin wound Postoperative Diagnosis: (1) Necrotizing fasciitis (2) Right groin wound Procedure: Wide debridement of right lower abdominal right groin and right upper thigh wound, wound VAC change Anesthesia: GETA Surgeon: Haroldo Rodas Armature Winder Repair(s): Kay Operation and Findings: Estimated blood loss: 300 cc Operative findings: The right lower abdominal wall, right groin, and right upper thigh/buttock wounds required further debridement. The wounds were all connected together as there was continued extensive infection. Wide debridement was performed. Procedure in detail: The patient was taken to the operating room placed in the supine position with the legs in yellowfin stirrups. General endotracheal anesthesia was induced. The right lower abdomen and right groin and upper thigh were prepped and draped in usual sterile fashion. There continued to be persistent infection along the fascial plane of deep fatty tissue. All 3 wounds were connected and the skin and subcutaneous tissue removed. In the right thigh there is quite a large area of necrotic tissue requiring debridement. Hemostasis was achieved and pulse lavage was used to copiously irrigate the entire wound. An extra large wound VAC sponge was placed using 2 separate wound vacs. She was extubated and taken to PACU in stable condition. Haroldo Rodas MD Apr 13, 2016 16:06
[2016-04-13] MEDS ORDERED: DO NOT ADM ANY ANTICOAGULANT DRUGS XX PRN (16:15)
[2016-04-13 16:53] LABS: HEMATOCRIT 28.6 % (35.0-46.0); MEAN CELL VOLUME 91.1 FL (80.0-100.0); MEAN CORPUSCULAR HEMOGLOBIN 29.8 PG (27.0-34.0); MEAN CORPUSCULAR HGB CONC 32.7 % (32.0-36.0); PLATELET COUNT 139 TH/MM3 (150-450); RED BLOOD COUNT 3.14 MIL/MM3 (4.00-5.30); RED CELL DISTRIBUTION WIDTH 15.7 % (11.6-17.2); REVIEW FLAG FINAL; WHITE BLOOD COUNT 10.6 TH/MM3 (4.0-11.0)
[2016-04-13 17:00] LABS: INTERNATIONAL NORMALIZED RATIO 1.2 RATIO; PROTHROMBIN TIME - PATIENT 13.2 SEC (9.8-11.6)
[2016-04-13 17:08] LABS: BICARBONATE 26.3 MEQ/L (21.0-32.0); POTASSIUM 5.1 MEQ/L (3.5-5.1)
[2016-04-13] MEDS: ACETAMINOPHEN/HYDROcodone 325 MG/10 MG TAB PO PRN ×2 (17:19→23:19)
[2016-04-13] MEDS: cefTRIAXone INJ 2,000 MG in SODIUM CHLORIDE 0.9% INJ 100 ML IV SCH (17:19)
--- NOTE | 2016-04-13 20:34 | RADRPT ---
EXAM DATE/TIME: 04/13/2016 19:18 [facility] COMPARISON: No previous studies available for comparison. INDICATIONS : Dobhoff tube placement. MEDICAL HISTORY : None. SURGICAL HISTORY : None. ENCOUNTER: Initial ACUITY: 1 day PAIN SCORE: 0/10 LOCATION: Left abdomen. FINDINGS: Examination of the abdomen demonstrates feeding tube tip overlying stomach. No free air. CONCLUSION: Feeding tube in distal stomach. Faisal Griffith MD on April 13, 2016 at 20:32 Board Certified Radiologist. This report was verified electronically.
[2016-04-13] MEDS: ATORVASTATIN 40 MG TAB PO SCH (21:20)
[2016-04-13] MEDS: PRAMIPEXOLE DIHYDROCHLORIDE 0.25 MG TAB PO SCH (21:21)
[2016-04-14] VITALS (14 sets, daily range): BP systolic 117–135; BP diastolic 52–67; PULSE 70–100; RESP 16–18; TEMP 98.1–98.6; O2SAT 95–100
[2016-04-14] MEDS: LACTATED RINGER'S 1000 ML IV SCH (04:02)
[2016-04-14] MEDS: LEVOTHYROXINE SODIUM 88 MCG TAB PO SCH (05:33)
[2016-04-14] MEDS: metroNIDAZOLE 500 MG TAB PO SCH ×3 (05:33→21:03)
[2016-04-14] MEDS: INSULIN ASPART SUPPLEMENTAL SCALE SQ SCH ×4 (06:29→21:00)
[2016-04-14] MEDS: SODIUM CHLORIDE 1 GRAM TAB PO SCH (08:47)
[2016-04-14] MEDS: CALCITRIOL 0.25 MCG CAP PO SCH (08:47)
[2016-04-14] MEDS: FERROUS SULFATE 325 MG (65 MG ELEMENTAL IRON) TAB PO SCH (08:47)
[2016-04-14] MEDS: MEGESTROL ACETATE 40 MG TAB PO SCH ×2 (08:47→21:03)
[2016-04-14] MEDS: SERTRALINE HCL 100 MG TAB PO SCH (08:47)
[2016-04-14] MEDS: CARVEDILOL 6.25 MG TAB PO SCH ×2 (08:47→21:02)
[2016-04-14] MEDS: SODIUM CHLORIDE 0.9% FLUSH 5 ML FLUSH FLUSH SCH ×2 (08:47→21:00)
[2016-04-14] MEDS: CHOLECALCIFEROL (VIT D3) 5000 UNIT CAP PO SCH (08:47)
[2016-04-14] MEDS: SEVELAMER CARBONATE 800 MG TAB PO SCH ×3 (08:47→17:00)
[2016-04-14] MEDS: ASPIRIN EC 325 MG TABEC PO SCH (08:47)
[2016-04-14] MEDS: PANTOPRAZOLE SOD 40 MG DELAYED RELEASE TAB PO SCH (08:48)
--- NOTE | 2016-04-14 08:56 | HHI.PR ---
Subjective Remarks Pt stable overnight. no new complaints Objective Vitals dobbhoff tube more alert but seems a bit confused heart reg lung good air entry abd s/nt ext right groin wound vac. inner thigh vac. moreira Vital Signs Date Time Temp Pulse Resp B/P Pulse Ox O2 Delivery O2 Flow Rate FiO2 04/14/16 06:50 72 04/14/16 05:00 98.3 72 18 122/52 100 04/14/16 03:00 70 04/13/16 23:31 97.5 70 16 138/63 100 04/13/16 23:00 64 04/13/16 21:15 94 21 04/13/16 19:45 97.9 73 16 135/55 100 04/13/16 19:45 2.00 04/13/16 19:00 68 04/13/16 18:30 72 04/13/16 17:36 99 Nasal Cannula 2.00 04/13/16 17:34 98.7 70 16 117/45 99 04/13/16 16:40 70 16 123/62 99 Nasal Cannula 2 04/13/16 16:30 97.8 71 16 125/60 98 Nasal Cannula 2 04/13/16 16:15 73 15 123/64 98 Nasal Cannula 2 04/13/16 16:00 72 15 122/62 97 Nasal Cannula 2 04/13/16 15:50 98.2 71 16 128/60 100 Nasal Cannula 3 04/13/16 12:00 98.5 83 17 139/64 04/13/16 12:00 96 Nasal Cannula 4.00 21 04/13/16 04/13/16 04/14/16 15:00 23:00 07:00 Intake Total 0 ml 450 ml 0 ml Output Total 75 ml 300 ml 375 ml Balance -75 ml 150 ml -375 ml IV Total 0 ml 0 ml 0 ml Packed Cells 250 ml Other 200 ml Drainage Total 75 ml 375 ml Estimated Blood Loss 300 ml Result Diagram: 04/13/16 1635 04/13/16 1635 Imaging Last Impressions Upper Extremity Ultrasound 04/08/16 0000 Signed Impressions: Service Date/Time: Friday, April 08, 2016 11:35 - CONCLUSION: Thrombus distal cephalic vein close to the IV site. Jose Enrique Christianson MD FACR Soft Tissue Ultrasound 04/06/16 0000 Signed Impressions: Service Date/Time: Wednesday, April 06, 2016 14:50 - CONCLUSION: Nonspecific edema in the subcutaneous soft tissues. No loculated fluid collections to indicate an abscess. Phong Johnson MD Catheter Placement X-Ray 04/03/16 0000 Signed Impressions: Service Date/Time: Sunday, April 03, 2016 08:46 - CONCLUSION: Uncomplicated line placement as above. Godfrey Griffith MD Chest X-Ray 04/02/16 0000 Signed Impressions: Service Date/Time: March 10:31 - CONCLUSION: 1. Moderate pulmonary vascular congestion bilaterally. 2. Cardiomegaly. Leonides Root MD Abdomen/Pelvis CT 03/25/16 0000 Signed Impressions: Service Date/Time: Friday, March 25, 2016 19:39 - CONCLUSION: 1. Cellulitic changes in the right groin, right perineum and right labia. No abscess or fluid collection. 2. Dialysis catheter and minimal pelvic ascites. 3. Diverticulosis without diverticulitis. 4. Status post cholecystectomy. Enrique Snyder MD A/P Problem List: (1) Cellulitis of labia Status: Acute Plan: - comgmt with General Surgery, ID, and Palliative Medicine - Pt admitted with cellulitis of the right labia and into the right groin/inner thigh - Pt had a noted elevated WBC count of 14.4 at admission with a Lactic acid of 2.4 - Pt was given IV Vancomycin, Cefepime and Clindamycin - CT abd/pelvis (03/25/16) --> Cellulitic changes in the right groin, right perineum and right labia. No abscess or fluid collection. Dialysis catheter and minimal pelvic ascites. Diverticulosis without diverticulitis. - Blood cultures (03/25/16) with one out of 4 growing E. coli - peritoneal WBC 106 - Peritoneal fluid culture --> no growth - Wound culture (04/03/16) --> E. Coli and Enterococcus - Zosyn (03/27-04/03/16) - Flagyl IV (04/03 - 04/09) changed to Flagyl po (04/09 - present) - Ceftazidime (04/03 - 04/08) - Ceftriaxone (04/08 - present) - Daptomycin (04/07 - present) - Gentamicin prn with HD (04/03 - present) - Pt underwent debridement of necrotic skin/fat/abscess to right groin and inner thigh on 04/03. Wound vac placed. - Pt returned to OR on 04/06 and had repeat incision and debridement skin, subcu tissue, fascia, muscle of right inguinal wound and right labial/buttock wound - Pt returned to OR 04/[address] Rodas for debridement of skin and subcutaneous tissue and muscle right lower abdominal wall, right groin, right upper thigh and wound VAC placement right lower abdomen and wound VAC change right groin and right upper thigh - VAC change and debridement last done on 04/13 - wound vacs per gen surg - Megace - encourage PO intake - DVT prophylaxis with SCDs - dobbhoff inserted on 04/13...I consulted nutrition for tf reccs and will initiate today. (2) Bacteremia Status: Acute Plan: - See above (3) Anemia Status: Chronic Plan: - Related to pts ESRD - Hg 8.0 (03/29/16) --> transfused with1 units PRBC on 03/29/16 - Hg 6.9 (04/08/16) --> transfused 2 units PRBCs on 04/08/16 - Hg 7.1 (04/11/16) --> transfused 2 units PRBCs on 04/11/16 - Pt notably iron deficient and has been started on po iron - Pt to receive Epogen weekly with dialysis - Monitor H/H and transfuse as necessary (4) ESRD (end stage renal disease) on dialysis Status: Chronic Plan: - comgmt with nephrology - Pt was started on PD in 05/2015 - Pt had Vas cath placed on 04/03 and is on HD currently. - Vas cath exchanged on 04/11 - Pt to get PermCath once infection is improved - Pt is on dialysis (5) DM (diabetes mellitus) Status: Chronic Plan: - Poor po intake but stable blood sugars - NovoLog SSI - Pt has been refusing levemir and bg fluctuating. (6) Hypothyroidism Status: Chronic Plan: - Home meds continued (7) Hypertension Status: Chronic Plan: - Home meds continued (8) Deep vein thrombosis (DVT) of left upper extremity Status: Acute Plan: - distal cephalic vein - IV site changed - heating pad prn Problem Qualifiers (1) Anemia: Qualified Code: N18.9 - Anemia in chronic kidney disease (2) DM (diabetes mellitus): (3) Hypertension: Qualified Code: I10 - Essential hypertension Humza Mejia MD Apr 14, 2016 08:56
--- NOTE | 2016-04-14 12:11 | HHI.NPPN ---
Subjective General Problems: Hypertension Renal Failure: Chronic, End Stage Renal Disease Interval History The pt seems to be doing worse. Lethargic. Dobhoff tube placed to initiate feeding as she has had minimal oral intake. Had repeat I&D of groin yesterday with 2 wound vacs placed. Due for dialysis today. (Brenna Lopez) Review of Systems General Constitutional: Fatigue (Brenna Lopez) Skin Skin Remarks vaginal abscess, labial swelling with pain (Brenna Lopez) Objective Data Data 04/13/16 04/14/16 19:00 07:00 Intake Total 450 ml 0 ml Output Total 375 ml 375 ml Balance 75 ml -375 ml IV Total 0 ml 0 ml Packed Cells 250 ml Other 200 ml Drainage Total 75 ml 375 ml Estimated Blood Loss 300 ml Vital Signs Date Time Temp Pulse Resp B/P Pulse Ox O2 Delivery O2 Flow Rate FiO2 04/14/16 11:20 98.6 74 16 135/58 96 04/14/16 10:32 95 21 04/14/16 09:50 93 04/14/16 09:50 95 Nasal Cannula 2.00 21 04/14/16 08:00 98.5 80 16 128/67 04/14/16 06:50 72 04/14/16 05:00 98.3 72 18 122/52 100 04/14/16 03:00 70 04/13/16 23:31 97.5 70 16 138/63 100 04/13/16 23:00 64 04/13/16 21:15 94 21 04/13/16 19:45 97.9 73 16 135/55 100 04/13/16 19:45 2.00 04/13/16 19:00 68 04/13/16 18:30 72 04/13/16 17:36 99 Nasal Cannula 2.00 04/13/16 17:34 98.7 70 16 117/45 99 04/13/16 16:40 70 16 123/62 99 Nasal Cannula 2 04/13/16 16:30 97.8 71 16 125/60 98 Nasal Cannula 2 04/13/16 16:15 73 15 123/64 98 Nasal Cannula 2 04/13/16 16:00 72 15 122/62 97 Nasal Cannula 2 04/13/16 15:50 98.2 71 16 128/60 100 Nasal Cannula 3 (Brenna Lopez) -: 04/13/16 1635 04/13/16 1635 Imaging Last 72 hours Impressions Abdomen X-Ray 04/13/16 0000 Signed Impressions: Service Date/Time: Wednesday, April 13, 2016 19:18 - CONCLUSION: Feeding tube in distal stomach. Faisal Griffith MD Abdomen Ultrasound 04/12/16 0000 Signed Impressions: Service Date/Time: Tuesday, April 12, 2016 15:41 - CONCLUSION: No ascites. Dada Lora MD Tubes & Lines: Vas-Cath, Tenckhoff Catheter (Brenna Lopez) Physical Exam General Appearance: No Acute Distress, Comfortable, Obese Appearance Remarks lethargic, confused, difficult to understand (Brenna Lopez) Throat Throat Remarks dry mucous membranes (Brenna Lopez) Neck Neck Exam: Neck Supple (Brenna Lopez) Pulmonary Resp Exam: Breath Sounds Equal, No Distress, Rhonchi Resp Remarks coughing (Brenna Lopez) Cardiology CV Exam: Regular, Normal Sinus Rhythm, Good Perfusion (Brenna Lopez) Gastrointestinal/Abdomen GI Exam: Soft, Non-Tender, Bowel Sounds Present (Brenna Lopez) Genitourinary Remarks deferred vaginal exam (Brenna Lopez) Musculoskeletal MS Exam: Joints Intact, Good Strength (Brenna Lopez) Integumentary Skin Exam: Clear, Warm, Dry, Intact Skin Remarks erythema left groin, wound vac in place (Brenna Lopez) Extremeties Extremities Exam: Trace Edema (Brenna Lopez) Neurologic Neuro Exam: Moving All Extremities, Stuporous Neuro Remarks lethargic (Brenna Lopez) Psychiatric Psych Exam: Appropriate Responses (Brenna Lopez) VTE Prophylaxis Device: SCDs (Brenna Lopez) Assessment/Plan Discussed Condition With: Patient Assessment Summary: Anemia of CKD, Fluid/Volume Overload, Hypertension, Diabetes Mellitus, End Stage Renal Disease Electrolyte Assessment: Hypocalcemia Problem List: (1) ESRD (end stage renal disease) on dialysis Plan: Converted to HD 04/03 as she began to develop edema, confusion, ? uremic symptoms has been on T-Th-Wed schedule, she is due today K acceptable monitor vascath function, likely will require PermCath once infection is better. Monitor electrolytes and volume status. labs in am (2) Vulval cellulitis Plan: with sepsis, + E coli in 03/25 bottles wound cx with E. coli and E. Faecalis ID has followed On Ceftriaxone, flagyl, and Daptomycin. has had multiple I&Ds since admission (3) Anemia Plan: continue Epogen with dialysis. Blood transfusion given 04/11, 2 units Monitor Hemoglobin. We are avoiding IV iron in this situation due to infection. (4) DM (diabetes mellitus) Plan: blood sugars improved, continue insulin therapy as needed monitor glucose, goal 140-180 mg/dL (5) Hypertension Plan: oral medications as ordered follow blood pressure, adjust medications as needed (6) Hyponatremia Plan: stable continue oral fluid restriction Plan . (Brenna Lopez) Plan patient was seen and examined. Agree with above assessment and plan. She is doing poorly. Dobhoff tube is placed, patient is trying to pull it. Prognosis is guarded at this time. (Filemon Mar MD) Problem Qualifiers (1) Anemia: Qualified Code: N18.9 - Anemia in chronic kidney disease (2) DM (diabetes mellitus): (3) Hypertension: Qualified Code: I10 - Essential hypertension Brenna Lopez Apr 14, 2016 12:11 Filemon Mar MD Apr 15, 2016 07:40
--- NOTE | 2016-04-14 13:12 | HHI.PR ---
Subjective Subjective Notes No distress but she is lethargic. Dobhoff is in place. Objective Vitals/I&O Vital Signs Date Time Temp Pulse Resp B/P Pulse Ox O2 Delivery O2 Flow Rate FiO2 04/14/16 12:00 96 Nasal Cannula 2.00 21 04/14/16 12:00 76 04/14/16 11:20 98.6 16 135/58 Labs Laboratory Tests Test 04/13/16 04/13/16 15:02 16:35 Blood Type A POSITIVE Crossmatch Leukocyte-Reduced Red Blood Cells Blood Bank Comment White Blood Count 10.6 Red Blood Count 3.14 Hemoglobin 9.4 Hematocrit 28.6 Mean Corpuscular Volume 91.1 Mean Corpuscular Hemoglobin 29.8 Mean Corpuscular Hemoglobin 32.7 Concent Red Cell Distribution Width 15.7 Platelet Count 139 Mean Platelet Volume 8.2 Prothrombin Time 13.2 Prothromb Time International 1.2 Ratio Sodium Level 135 Potassium Level 5.1 Chloride Level 98 Carbon Dioxide Level 26.3 Anion Gap 11 Blood Urea Nitrogen 41 Creatinine 6.47 Estimat Glomerular Filtration 6 Rate Random Glucose 127 Calcium Level 7.5 Date/Time Procedure Status Source Growth 04/11/16 20:50 Stool Occult Blood (MERRILL) - Final Complete Stool Stool HEMOCCULT NEGATIVE Narrative Exam lethargic Vac in place good seal A/P Assessment and Plan 71 yo F with right lower abdominal and groin wound from necrotizing fasciitis s/ p multiple debridements. Plan for repeat debridement tomorrow. Unsure of cause of her lethargy- I stopped all narcotics. I would recommend to go slowly with the tube feeding. ClarkHaroldo MD Apr 14, 2016 13:12
[2016-04-14] MEDS: EPOETIN ALFA 10,000 UNITS/ML VIAL IV PRN (16:59)
[2016-04-14] MEDS: GENTAMICIN SULFATE (DIALYSIS USE ONLY) 20 MG/2 ML VIAL IV PRN (16:59)
[2016-04-14] MEDS: HEPARIN SODIUM - IV 10,000 UNITS/10 ML VIAL PRN (16:59)
[2016-04-14] MEDS: cefTRIAXone INJ 2,000 MG in SODIUM CHLORIDE 0.9% INJ 100 ML IV SCH (17:38)
[2016-04-14] MEDS: ATORVASTATIN 40 MG TAB PO SCH (21:03)
[2016-04-14] MEDS: PRAMIPEXOLE DIHYDROCHLORIDE 0.25 MG TAB PO SCH (21:03)
[2016-04-14] MEDS: NYSTAT/DIPHENHY/LIDO MOUTHWASH (Adult) 120ML SWISH-SWAL PRN (21:05)
[2016-04-15] VITALS (19 sets, daily range): BP systolic 111–149; BP diastolic 52–70; PULSE 78–97; RESP 16–20; TEMP 98.1–98.8; O2SAT 92–98
[2016-04-15] MEDS: LACTATED RINGER'S 1000 ML IV SCH (04:45)
[2016-04-15] MEDS: INSULIN ASPART SUPPLEMENTAL SCALE SQ SCH ×4 (07:00→21:00)
--- NOTE | 2016-04-15 08:43 | HHI.PR ---
Subjective Remarks nursing says tf not started as pt has more surgery today. Objective Vitals confused dht heart reg lung course bs abd s/nt ext right groin/thigh wound vacs Vital Signs Date Time Temp Pulse Resp B/P Pulse Ox O2 Delivery O2 Flow Rate FiO2 04/15/16 08:34 92 21 04/15/16 06:00 86 04/15/16 05:00 83 04/15/16 04:00 88 04/15/16 03:00 98.2 83 18 122/70 98 04/15/16 03:00 88 04/15/16 02:00 82 04/15/16 01:00 79 04/15/16 00:00 98.3 93 18 120/64 98 04/15/16 00:00 78 04/14/16 23:00 84 04/14/16 23:00 98.1 95 18 123/56 98 04/14/16 22:00 88 04/14/16 22:00 98.2 94 18 117/66 98 04/14/16 21:00 90 04/14/16 20:00 88 04/14/16 19:00 88 04/14/16 19:00 98.3 97 18 132/58 98 04/14/16 19:00 98 Nasal Cannula 2.00 04/14/16 17:30 98.5 89 16 122/56 99 04/14/16 17:30 99 Nasal Cannula 2.00 04/14/16 17:30 100 04/14/16 12:00 96 Nasal Cannula 2.00 21 04/14/16 12:00 76 04/14/16 11:20 98.6 74 16 135/58 96 04/14/16 10:32 95 21 04/14/16 09:50 93 04/14/16 09:50 95 Nasal Cannula 2.00 21 04/14/16 04/14/16 04/15/16 15:00 23:00 07:00 Intake Total 90 ml Output Total 2775 ml 0 ml Balance -2775 ml 90 ml Intake Oral 0 ml IV Total 90 ml Output Urine Total 0 ml Drainage Total 275 ml Hemodialysis 2500 ml # Bowel Movements 1 Result Diagram: 04/13/16 1635 04/13/16 1635 Imaging Last Impressions Upper Extremity Ultrasound 04/08/16 0000 Signed Impressions: Service Date/Time: Friday, April 08, 2016 11:35 - CONCLUSION: Thrombus distal cephalic vein close to the IV site. Jose Enrique Christianson MD FACR Soft Tissue Ultrasound 04/06/16 0000 Signed Impressions: Service Date/Time: Wednesday, April 06, 2016 14:50 - CONCLUSION: Nonspecific edema in the subcutaneous soft tissues. No loculated fluid collections to indicate an abscess. Phong Johnson MD Catheter Placement X-Ray 04/03/16 0000 Signed Impressions: Service Date/Time: Sunday, April 03, 2016 08:46 - CONCLUSION: Uncomplicated line placement as above. Godfrey Griffith MD Chest X-Ray 04/02/16 0000 Signed Impressions: Service Date/Time: March 10:31 - CONCLUSION: 1. Moderate pulmonary vascular congestion bilaterally. 2. Cardiomegaly. Leonides Root MD Abdomen/Pelvis CT 03/25/16 0000 Signed Impressions: Service Date/Time: Friday, March 25, 2016 19:39 - CONCLUSION: 1. Cellulitic changes in the right groin, right perineum and right labia. No abscess or fluid collection. 2. Dialysis catheter and minimal pelvic ascites. 3. Diverticulosis without diverticulitis. 4. Status post cholecystectomy. Enrique Snyder MD A/P Problem List: (1) Cellulitis of labia Status: Acute Plan: - comgmt with General Surgery, ID, and Palliative Medicine - Pt admitted with cellulitis of the right labia and into the right groin/inner thigh - Pt had a noted elevated WBC count of 14.4 at admission with a Lactic acid of 2.4 - Pt was given IV Vancomycin, Cefepime and Clindamycin - CT abd/pelvis (03/25/16) --> Cellulitic changes in the right groin, right perineum and right labia. No abscess or fluid collection. Dialysis catheter and minimal pelvic ascites. Diverticulosis without diverticulitis. - Blood cultures (03/25/16) with one out of 4 growing E. coli - peritoneal WBC 106 - Peritoneal fluid culture --> no growth - Wound culture (04/03/16) --> E. Coli and Enterococcus - Zosyn (03/27-04/03/16) - Flagyl IV (04/03 - 04/09) changed to Flagyl po (04/09 - present) - Ceftazidime (04/03 - 04/08) - Ceftriaxone (04/08 - present) - Daptomycin (04/07 - present) - Gentamicin prn with HD (04/03 - present) - Pt underwent debridement of necrotic skin/fat/abscess to right groin and inner thigh on 04/03. Wound vac placed. - Pt returned to OR on 04/06 and had repeat incision and debridement skin, subcu tissue, fascia, muscle of right inguinal wound and right labial/buttock wound - Pt returned to OR 04/[address] Rodas for debridement of skin and subcutaneous tissue and muscle right lower abdominal wall, right groin, right upper thigh and wound VAC placement right lower abdomen and wound VAC change right groin and right upper thigh - VAC change and debridement last done on 04/13 - wound vacs per gen surg - Megace - encourage PO intake - DVT prophylaxis with SCDs - dobbhoff inserted on 04/13...tube feeding ordered but held per nursing as they say she has more surgery today. (2) Bacteremia Status: Acute Plan: - See above (3) Anemia Status: Chronic Plan: - Related to pts ESRD - Hg 8.0 (03/29/16) --> transfused with1 units PRBC on 03/29/16 - Hg 6.9 (04/08/16) --> transfused 2 units PRBCs on 04/08/16 - Hg 7.1 (04/11/16) --> transfused 2 units PRBCs on 04/11/16 - Pt notably iron deficient and has been started on po iron - Pt to receive Epogen weekly with dialysis - Monitor H/H and transfuse as necessary (4) ESRD (end stage renal disease) on dialysis Status: Chronic Plan: - comgmt with nephrology - Pt was started on PD in 05/2015 - Pt had Vas cath placed on 04/03 and is on HD currently. - Vas cath exchanged on 04/11 - Pt to get PermCath once infection is improved - Pt is on dialysis (5) DM (diabetes mellitus) Status: Chronic Plan: - Poor po intake but stable blood sugars - NovoLog SSI - Pt has been refusing levemir and bg fluctuating. (6) Hypothyroidism Status: Chronic Plan: - Home meds continued (7) Hypertension Status: Chronic Plan: - Home meds continued (8) Deep vein thrombosis (DVT) of left upper extremity Status: Acute Plan: - distal cephalic vein - IV site changed - heating pad prn Problem Qualifiers (1) Anemia: Qualified Code: N18.9 - Anemia in chronic kidney disease (2) DM (diabetes mellitus): (3) Hypertension: Qualified Code: I10 - Essential hypertension Humza Mejia MD Apr 15, 2016 08:43
[2016-04-15 08:44] LABS: HEMATOCRIT 25.3 % (35.0-46.0); MEAN CELL VOLUME 92.1 FL (80.0-100.0); MEAN CORPUSCULAR HEMOGLOBIN 30.8 PG (27.0-34.0); MEAN CORPUSCULAR HGB CONC 33.4 % (32.0-36.0); PLATELET COUNT 142 TH/MM3 (150-450); RED BLOOD COUNT 2.74 MIL/MM3 (4.00-5.30); RED CELL DISTRIBUTION WIDTH 15.7 % (11.6-17.2); REVIEW FLAG FINAL; WHITE BLOOD COUNT 10.2 TH/MM3 (4.0-11.0)
[2016-04-15] MEDS: CARVEDILOL 6.25 MG TAB PO SCH ×2 (09:00→20:42)
[2016-04-15] MEDS: CALCITRIOL 0.25 MCG CAP PO SCH (09:49)
[2016-04-15] MEDS: CHOLECALCIFEROL (VIT D3) 5000 UNIT CAP PO SCH (09:49)
[2016-04-15] MEDS: SERTRALINE HCL 100 MG TAB PO SCH (09:49)
[2016-04-15] MEDS: FERROUS SULFATE 325 MG (65 MG ELEMENTAL IRON) TAB PO SCH (09:49)
[2016-04-15] MEDS: PANTOPRAZOLE SOD 40 MG DELAYED RELEASE TAB PO SCH (09:49)
[2016-04-15] MEDS: MEGESTROL ACETATE 40 MG TAB PO SCH ×2 (09:50→20:42)
[2016-04-15] MEDS: ASPIRIN EC 325 MG TABEC PO SCH (09:50)
[2016-04-15] MEDS: SODIUM CHLORIDE 1 GRAM TAB PO SCH (09:50)
[2016-04-15] MEDS: SEVELAMER CARBONATE 800 MG TAB PO SCH ×2 (09:52→17:04)
[2016-04-15] MEDS: SODIUM CHLORIDE 0.9% FLUSH 5 ML FLUSH FLUSH SCH ×2 (09:53→20:42)
--- NOTE | 2016-04-15 10:05 | HHI.NPPN ---
Subjective General Problems: Hypertension Renal Failure: Chronic, End Stage Renal Disease Interval History She is more alert compared to yesterday. To have repeat I&D today. Dialyzed yesterday. (Brenna Lopez) Review of Systems General Constitutional: Fatigue (Brenna Lopez) Skin Skin Remarks vaginal abscess, labial swelling with pain (Brenna Lopez) Objective Data Data 04/14/16 04/15/16 19:00 07:00 Intake Total 90 ml Output Total 2775 ml 0 ml Balance -2775 ml 90 ml Intake Oral 0 ml IV Total 90 ml Output Urine Total 0 ml Drainage Total 275 ml Hemodialysis 2500 ml # Bowel Movements 1 Vital Signs Date Time Temp Pulse Resp B/P Pulse Ox O2 Delivery O2 Flow Rate FiO2 04/15/16 08:34 92 21 04/15/16 06:00 86 04/15/16 05:00 83 04/15/16 04:00 88 04/15/16 03:00 98.2 83 18 122/70 98 04/15/16 03:00 88 04/15/16 02:00 82 04/15/16 01:00 79 04/15/16 00:00 98.3 93 18 120/64 98 04/15/16 00:00 78 04/14/16 23:00 84 04/14/16 23:00 98.1 95 18 123/56 98 04/14/16 22:00 88 04/14/16 22:00 98.2 94 18 117/66 98 04/14/16 21:00 90 04/14/16 20:00 88 04/14/16 19:00 88 04/14/16 19:00 98.3 97 18 132/58 98 04/14/16 19:00 98 Nasal Cannula 2.00 04/14/16 17:30 98.5 89 16 122/56 99 04/14/16 17:30 99 Nasal Cannula 2.00 04/14/16 17:30 100 04/14/16 12:00 96 Nasal Cannula 2.00 21 04/14/16 12:00 76 04/14/16 11:20 98.6 74 16 135/58 96 04/14/16 10:32 95 21 (Brenna Lopez) -: 04/15/16 0824 04/13/16 1635 Tubes & Lines: Vas-Cath, Tenckhoff Catheter (Brenna Lopez) Physical Exam General Appearance: No Acute Distress, Comfortable, Obese (Brenna Lopez) Throat Throat Remarks dry mucous membranes (Brenna Lopez) Neck Neck Exam: Neck Supple (Brenna Lopez) Pulmonary Resp Exam: Breath Sounds Equal, No Distress, Rhonchi Resp Remarks coughing (Brenna Lopez) Cardiology CV Exam: Regular, Normal Sinus Rhythm, Good Perfusion (Brenna Lopez) Gastrointestinal/Abdomen GI Exam: Soft, Non-Tender, Bowel Sounds Present (Brenna Lopez) Genitourinary Remarks deferred vaginal exam (Brenna Lopez) Musculoskeletal MS Exam: Joints Intact, Good Strength (Brenna Lopez) Integumentary Skin Exam: Clear, Warm, Dry, Intact Skin Remarks erythema groin, wound vac in place (Brenna Lopez) Extremeties Extremities Exam: Trace Edema (Brenna Lopez) Neurologic Neuro Exam: Moving All Extremities, Stuporous Neuro Remarks lethargic (Brenna Lopez) Psychiatric Psych Exam: Appropriate Responses (Brenna Lopez) VTE Prophylaxis Device: SCDs (Brenna Lopez) Assessment/Plan Discussed Condition With: Patient Assessment Summary: Anemia of CKD, Fluid/Volume Overload, Hypertension, Diabetes Mellitus, End Stage Renal Disease Electrolyte Assessment: Hypocalcemia Problem List: (1) ESRD (end stage renal disease) on dialysis Plan: Converted to HD 04/03 as she began to develop edema, confusion, ? uremic symptoms has been on T-Th-Wed schedule, 2500 ml UF yesterday K has been acceptable monitor vascath function, likely will require PermCath once infection is better. Monitor electrolytes and volume status. intermittent metabolic profile (2) Vulval cellulitis Plan: with sepsis, + E coli in 1/4 bottles wound cx with E. coli and E. Faecalis ID has followed On Ceftriaxone, flagyl, and Daptomycin. has had multiple I&Ds since admission, repeat today (3) Anemia Plan: continue Epogen with dialysis. Blood transfusion given 04/11, 2 units Monitor Hemoglobin. We are avoiding IV iron in this situation due to infection. (4) DM (diabetes mellitus) Plan: blood sugars improved, continue insulin therapy as needed monitor glucose, goal 140-180 mg/dL (5) Hypertension Plan: oral medications as ordered follow blood pressure, adjust medications as needed (6) Hyponatremia Plan: stable continue oral fluid restriction (Brenna Lopez) Plan patient was seen and examined. Less confusion. More debridement surgery today. Overall poor prognosis. (Filemon Mar MD) Problem Qualifiers (1) Anemia: Qualified Code: N18.9 - Anemia in chronic kidney disease (2) DM (diabetes mellitus): (3) Hypertension: Qualified Code: I10 - Essential hypertension Brenna Lopez Apr 15, 2016 10:05 Filemon Mar MD Apr 16, 2016 14:06
[2016-04-15] MEDS ORDERED: PHENYLEPH/NS 1000 MCG/10 ML SYR IV ONE (10:35)
[2016-04-15] MEDS ORDERED: ePHEDrine/NS 50 MG/5 ML SYR IV ONE (10:35)
[2016-04-15] MEDS ORDERED: PROPOFOL 200 MG/20 ML AMP IV ONE (10:35)
[2016-04-15] MEDS ORDERED: ONDANSETRON HCL 4 MG/2 ML VIAL IV PUSH ONE (10:35)
[2016-04-15] MEDS ORDERED: NEOSTIGMINE 3 MG/3 ML SYR IV ONE (10:35)
[2016-04-15] MEDS: DAPTOmycin INJ 500 MG in SODIUM CHLORIDE 0.9% INJ 100 ML IV SCH (12:00)
--- NOTE | 2016-04-15 12:44 | HHI.HCPN ---
Reason for visit a. To assist with evaluation and management of symptoms including: postsurgical vulvar pain and debility. b. To assist medical decision maker(s) with: better understanding of current medical conditions; weighing benefits/burdens of medical treatment options; making medical treatment decisions. Subjective/Interval History Patient seen in her room, patient in bed in no acute distress. Alert to self but lethargic with periods of confusion. Endorsing abdominal pain that in worsen with movement, she tells me that we are "taking away [her] pain pills". Patient denies shortness of breath, nausea, vomiting of diarrhea. Remains NPO due to scheduled I&D today. DH in place. Daughter Terri at bedside. Plan for OR today for I & D of labia and right groin, wound vac change. Afebrile with stable BP. Labs today showing WBC 10.2, hemoglobin 8.4, platelets 142. BUN/creatinine 41/6.47. Underwent HD yesterday. Concerns about poor blood flow via Vas-Cath, unable to get PermCath at this time due to leukocytosis. Daughter Terri at bedside. Medical update provided. Daughter shared concerns about her mother's lethargy and confusion. Discussed medical treatments up today and prognosis, shared concerns regarding pt's ability to return to already debilitated baseline. Reviewed continuation of aggressive care vs transition to comfort-directed care with hospice. Reviewed patient's prognosis in the setting of necrotizing fasciitis requiring frequent I&D and multiple comorbidities including ESRD on HD, DM, malnutrition and profound physical decline. Daughter inquiring about hospice. Reviewed hospice philosophy and benefits, reviewed life expectancy in the setting of discontinuation HD. Daughter to further discuss goals of care with patient and additional family members. Palliative care to f/u. . Family/friend interactions See interval note. . Advance Directives Living Will: Never completed Health Care Surrogate: Copy in medical record Durable Power of Courier Driver: Never completed Advance Directive Specifics Date completed: 04/10/2016. Health Care Surrogate(s): Patient completed healthcare surrogate paperwork and listed her daughter Terri as healthcare surrogate. Copy sent for scanning. . Documented care wishes: No living will completed. . Significant change in goals: FULL CODE. cont of current plan of care. . Objective Vital Signs Date Time Temp Pulse Resp B/P Pulse Ox O2 Delivery O2 Flow Rate FiO2 04/15/16 08:34 92 21 04/15/16 07:00 98.1 97 18 111/52 97 04/15/16 07:00 90 04/15/16 07:00 97 Nasal Cannula 2.00 04/15/16 06:00 86 04/15/16 05:00 83 04/15/16 04:00 88 04/15/16 03:00 98.2 83 18 122/70 98 04/15/16 03:00 88 04/15/16 02:00 82 04/15/16 01:00 79 04/15/16 00:00 98.3 93 18 120/64 98 04/15/16 00:00 78 04/14/16 23:00 84 04/14/16 23:00 98.1 95 18 123/56 98 04/14/16 22:00 88 04/14/16 22:00 98.2 94 18 117/66 98 04/14/16 21:00 90 04/14/16 20:00 88 04/14/16 19:00 88 04/14/16 19:00 98.3 97 18 132/58 98 04/14/16 19:00 98 Nasal Cannula 2.00 04/14/16 17:30 98.5 89 16 122/56 99 04/14/16 17:30 99 Nasal Cannula 2.00 04/14/16 17:30 100 Intake & Output 04/15/16 04/15/16 07:00 19:00 Intake Total 90 ml Output Total 0 ml Balance 90 ml Intake Oral 0 ml IV Total 90 ml Output Urine Total 0 ml # Bowel Movements 1 Physical Exam CONSTITUTIONAL/GENERAL: This is an adequately nourished patient, in no apparent distress. sleepy and confused/forgetful. TUBES/LINES/DRAINS: LIJ hemodialysis catheter. PIV's. Wound vac to right groin/ labia. SKIN: Pale. No jaundice. Scattered ecchymoses on upper extremities. Skin temperature appropriate. Not diaphoretic. HEAD: Atraumatic. Normocephalic. EYES: Pupils equal and round and reactive. No injection or drainage. ENT: Hearing grossly normal. Nose without bleeding or purulent drainage. Throat without visible erythema, exudates, masses, or lesions. Dry oral mucosa. NECK: Trachea midline. Supple, nontender. CARDIOVASCULAR: Regular rate and rhythm without murmurs, gallops, or rubs. No JVD. Peripheral pulses symmetric. RESPIRATORY/CHEST: Symmetric, unlabored respirations. Clear, diminished lung sounds to auscultation GASTROINTESTINAL: Abdominal PD cath in place. Abdomen round, large, soft, tender. No guarding. Bowel sounds present. GENITOURINARY: Wound vac on right groin/labia with moderate amount of drainage. MUSCULOSKELETAL: Weak. Extremities without clubbing, cyanosis, or edema. No mottling or clubbing. NEUROLOGICAL: Awake. Sleepy and confused/forgetful/. Motor and sensory grossly within normal limits. Follows commands. Moves all extremities. PSYCHIATRIC: Calm with no obvious anxiety/depression. no apparent hallucinations or other psychotic thought process. . Diagnostic Tests Laboratory Laboratory Tests Test 04/13/16 04/13/16 04/13/16 04/15/16 04:16 15:02 16:35 08:24 White Blood Count 10.0 TH/MM3 10.6 TH/MM3 10.2 TH/MM3 (4.0-11.0) (4.0-11.0) (4.0-11.0) Red Blood Count 2.74 MIL/MM3 3.14 MIL/MM3 2.74 MIL/MM3 (4.00-5.30) (4.00-5.30) (4.00-5.30) Hemoglobin 8.2 GM/DL 9.4 GM/DL 8.4 GM/DL (11.6-15.3) (11.6-15.3) (11.6-15.3) Hematocrit 24.8 % 28.6 % 25.3 % (35.0-46.0) (35.0-46.0) (35.0-46.0) Mean Corpuscular Volume 90.7 FL 91.1 FL 92.1 FL (80.0-100.0) (80.0-100.0) (80.0-100.0) Mean Corpuscular Hemoglobin 29.9 PG 29.8 PG 30.8 PG (27.0-34.0) (27.0-34.0) (27.0-34.0) Mean Corpuscular Hemoglobin 32.9 % 32.7 % 33.4 % Concent (32.0-36.0) (32.0-36.0) (32.0-36.0) Red Cell Distribution Width 16.6 % 15.7 % 15.7 % (11.6-17.2) (11.6-17.2) (11.6-17.2) Platelet Count 128 TH/MM3 139 TH/MM3 142 TH/MM3 (150-450) (150-450) (150-450) Mean Platelet Volume 8.1 FL 8.2 FL 8.4 FL (7.0-11.0) (7.0-11.0) (7.0-11.0) Neutrophils (%) (Auto) 77.7 % (16.0-70.0) Lymphocytes (%) (Auto) 9.4 % (9.0-44.0) Monocytes (%) (Auto) 10.4 % (0.0-8.0) Eosinophils (%) (Auto) 1.3 % (0.0-4.0) Basophils (%) (Auto) 1.2 % (0.0-2.0) Neutrophils # (Auto) 7.8 TH/MM3 (1.8-7.7) Lymphocytes # (Auto) 0.9 TH/MM3 (1.0-4.8) Monocytes # (Auto) 1.0 TH/MM3 (0-0.9) Eosinophils # (Auto) 0.1 TH/MM3 (0-0.4) Basophils # (Auto) 0.1 TH/MM3 (0-0.2) CBC Comment AUTO DIFF Differential Comment AUTO DIFF CONFIRMED Platelet Estimate LOW (NORMAL) Platelet Morphology Comment NORMAL (NORMAL) Sodium Level 133 MEQ/L 135 MEQ/L (136-145) (136-145) Potassium Level 4.5 MEQ/L 5.1 MEQ/L (3.5-5.1) (3.5-5.1) Chloride Level 97 MEQ/L 98 MEQ/L (98-107) (98-107) Carbon Dioxide Level 28.5 MEQ/L 26.3 MEQ/L (21.0-32.0) (21.0-32.0) Anion Gap 8 MEQ/L (5-15) 11 MEQ/L (5-15) Blood Urea Nitrogen 37 MG/DL (7-18) 41 MG/DL (7-18) Creatinine 5.92 MG/DL 6.47 MG/DL (0.50-1.00) (0.50-1.00) Estimat Glomerular Filtration 7 ML/MIN (>89) 6 ML/MIN (>89) Rate Random Glucose 118 MG/DL 127 MG/DL (74-106) (74-106) Calcium Level 7.7 MG/DL 7.5 MG/DL (8.5-10.1) (8.5-10.1) Magnesium Level 2.1 MG/DL (1.5-2.5) Blood Type A POSITIVE Crossmatch Leukocyte-Reduced Red Blood Cells Blood Bank Comment Prothrombin Time 13.2 SEC (9.8-11.6) Prothromb Time International 1.2 RATIO Ratio Result Diagram: 04/15/16 0824 04/13/16 1635 Imaging Last Impressions Abdomen X-Ray 04/13/16 0000 Signed Impressions: Service Date/Time: Wednesday, April 13, 2016 19:18 - CONCLUSION: Feeding tube in distal stomach. Faisal Griffith MD Abdomen Ultrasound 04/12/16 0000 Signed Impressions: Service Date/Time: Tuesday, April 12, 2016 15:41 - CONCLUSION: No ascites. Dada Lora MD Catheter Placement X-Ray 04/11/16 0000 Signed Impressions: Service Date/Time: Monday, April 11, 2016 15:11 - CONCLUSION: Venous catheter change as above. Tyrel Joiner MD Upper Extremity Ultrasound 04/08/16 0000 Signed Impressions: Service Date/Time: Friday, April 08, 2016 11:35 - CONCLUSION: Thrombus distal cephalic vein close to the IV site. Jose Enrique Christianson MD FACR Soft Tissue Ultrasound 04/06/16 0000 Signed Impressions: Service Date/Time: Wednesday, April 06, 2016 14:50 - CONCLUSION: Nonspecific edema in the subcutaneous soft tissues. No loculated fluid collections to indicate an abscess. Phong Johnson MD Chest X-Ray 04/02/16 0000 Signed Impressions: Service Date/Time: March 10:31 - CONCLUSION: 1. Moderate pulmonary vascular congestion bilaterally. 2. Cardiomegaly. Leonides Root MD Abdomen/Pelvis CT 03/25/16 0000 Signed Impressions: Service Date/Time: Friday, March 25, 2016 19:39 - CONCLUSION: 1. Cellulitic changes in the right groin, right perineum and right labia. No abscess or fluid collection. 2. Dialysis catheter and minimal pelvic ascites. 3. Diverticulosis without diverticulitis. 4. Status post cholecystectomy. Enrique Snyder MD Procedures * 04/13/16 - Wide debridement of right lower abdominal right groin and right upper thigh wound, wound VAC change. * 04/08/16 - Debridement skin and subcutaneous tissue and muscle right lower abdominal wall, right groin, right upper thigh. Wound VAC placement right lower abdomen and wound VAC change right groin and right upper thigh. * 04/06/16 - Debridement of labia and right groin with would vac change. * 04/03/16 - Left IJ hemodialysis catheter placement. * 04/03/16 - Incision and debridement skin and subcutaneous tissue right inguinal abscess with wound VAC placement. * 04/03/16 - Incision and debridement skin and subcutaneous tissues tissue right upper inner thigh abscess. . Assessment and Plan Disease Oriented Problem List: (1) ESRD (end stage renal disease) on dialysis (2) Anemia (3) Abscess of right groin Symptom Scale: (1) Pain 0-10 Scale: 6 Comment: Acute pain to right groin/vulva secondary to necrotizing fasciitis s/ p surgical debridement and wound vac placement x4. (2) Decrease in appetite 0-10 Scale: Unable to quantify Comment: Progressive during this hospitalization. DH in place, patient to start tube feedings today. (3) Weakness 0-10 Scale: Unable to quantify Comment: Generalized weakness secondary to current hospitalization. Pertinent Non-Medical Issues Psychosocial: . Residing independently prior to this hospitalization. 1 daughter who resides in [place]. Spiritual: congregational. No moravian affiliation. Legal: No living will or HCS completed. Ethical issues impacting care: No living will or HCS completed. . Important Contacts Daughter Terri Verdugo . . Prognosis Mrs. Garrison is a 71 y/o female with a medical history significant for HTN, Diabetes mellitus, CAD s/p CABG x2 and ESRD, on dialysis since May 2015. Patient presented to the ED on 03/25/16 and admitted for management of sepsis, vulvar cellulitis. Patient is s/p incision and debridement skin and subcutaneous tissue of right inguinal abscess and right upper inner thigh abscess with wound VAC placement. Now diagnosed with necrotizing fasciitis, s/p I&D x3. Nephrology following, patient switched to HD and vascath placed on . Repeat PD cell count higher, concerns of peritonitis. Additional concerns regarding impaired wound healing secondary to ERSD, DM, malnutrition with albumin 1.6 and profound physical deconditioning. Patient is at high risk for complications, continue decline and . She is at high risk for developing significant symptom burden with a poor prognosis for increased quality of life. . Code Status: Full Code Plan * FULL CODE * Patient not capacitated at this time secondary to confusion. Unclear if she will regain. [facility] completed and named her daughter Terri as [facility]. * 04/15/16. FULL CODE and continuation of current care to include HD and surgical interventions for management of right groin/vulvar necrotizing fasciitis. Continuation of aggressive care vs. comfort-directed care with hospice has been introduced to daughter in the setting of patient's poor prognosis for an increased quality of life or survival in the setting of necrotizing fasciitis, ESRD -HD dependent, profound physical deconditioning and multiple chronic comorbidities. Daughter to discuss goals of care with patient and additional family member.s Palliative care to f/u. * Right groin/vulvar pain, acute -secondary to necrotizing fascitis s/p surgical debridement and wound vac placement x4. No history of chronic pain. [place] discontinued on 04/14 secondary to lethargy and confusion. Tylenol available as needed. * Malnutrition. Albumin 1.6. Decreased oral intake. DH placed on 04/13, patient to start tube feeding today. * Generalized weakness -profound physical deconditioning, multifactorial secondary to hospitalization, acute infectious process and lethargy. Worsening status. * Palliative care will continue to f/u patient during this hospitalization for further clarification of goals of care, completion of advanced directives and symptom management. . Time Spent Total Floor Time (mins): 38 (Total time to include review of medical records, physical exam,bedside conversation with daughter and case discussion with bedside RN.) Face to Face Time (mins): 30 >50% Counseling/Coord of Care: Yes Attestation To help prompt me to consider important information that might be impacting today's encounter and assessment, information from prior notes written by myself or my colleagues may have been "brought forward" into today's note. My signature on this note, however, is an attestation that I personally performed the exam, history, and/or decision-making noted today, and, unless otherwise indicated, the interactions with patient, family, and staff as well as the review of records all occurred today. I also attest that the listed assessment and stated plan reflect my best clinical judgment today based on the combination of historical information, prior notes, and today's exam/ interactions. When time spent is documented, it refers only to time spent today by the signer, or if indicated, combined time spent today by collaborating physician/nurse practitioner. Jeannine Woods Apr 15, 2016 12:44
--- NOTE | 2016-04-15 13:25 | HHI.PR ---
Subjective Subjective Notes Confused. Her daughter is present with her. Objective Vitals/I&O Vital Signs Date Time Temp Pulse Resp B/P Pulse Ox O2 Delivery O2 Flow Rate FiO2 04/15/16 08:34 92 21 04/15/16 07:00 98.1 97 18 111/52 04/15/16 07:00 Nasal Cannula 2.00 Labs Laboratory Tests Test 04/15/16 08:24 White Blood Count 10.2 Red Blood Count 2.74 Hemoglobin 8.4 Hematocrit 25.3 Mean Corpuscular Volume 92.1 Mean Corpuscular Hemoglobin 30.8 Mean Corpuscular Hemoglobin 33.4 Concent Red Cell Distribution Width 15.7 Platelet Count 142 Mean Platelet Volume 8.4 Date/Time Procedure Status Source Growth 04/11/16 20:50 Stool Occult Blood ([facility]) - Final Complete Stool Stool HEMOCCULT NEGATIVE Narrative Exam lethargic, confused Vac in place good seal A/P Assessment and Plan 71 yo F with right lower abdominal and groin wound from necrotizing fasciitis s/ p multiple debridements. OR today for repeat debridement. Haroldo Rodas MD Apr 15, 2016 13:25
[2016-04-15] MEDS ORDERED: fentaNYL CITRATE 250 MCG/5 ML AMP ONE (15:09)
[2016-04-15] MEDS ORDERED: SUGAMMADEX SODIUM 200 MG/2 ML VIAL IV PUSH ONE ×2 (15:10)
--- NOTE | 2016-04-15 15:34 | PD.OP ---
cc: Haroldo Rodas MD Operative Report Date of Surgery: Apr 15, 2016 Preoperative Diagnosis: (1) Right groin wound (2) Necrotizing fasciitis Postoperative Diagnosis: (1) Right groin wound (2) Necrotizing fasciitis Procedure: Irrigation and debridement right abdominal and groin wound with wound vac change Anesthesia: YOEL Surgeon: Haroldo Rodas Rugby League Footballer(s): Ifeoma Operation and Findings: Estimated blood loss: 30 cc Operative findings: The right lower abdominal wall, right groin, and right upper thigh/buttock wounds required minimal further debridement. The infection is improving. Procedure in detail: The patient was taken to the operating room placed in the supine position with the legs in yellowfin stirrups. General endotracheal anesthesia was induced. The right lower abdomen and right groin and upper thigh were prepped and draped in usual sterile fashion. In right thigh/buttock area skin and SQ tissue was sharply debrided. Otherwise, min continued debridement was required. The entire wound was copiously irrigated with pulse labage. An extra large wound VAC sponge was placed using 2 separate wound vacs. She was extubated and taken to PACU in stable condition. Haroldo Rodas MD Apr 15, 2016 15:34
[2016-04-15] MEDS ORDERED: DO NOT ADM ANY ANTICOAGULANT DRUGS XX PRN (15:44)
--- NOTE | 2016-04-15 16:39 | RADRPT ---
EXAM DATE/TIME: 04/15/2016 16:12 [facility] COMPARISON: CHEST SINGLE AP, April 02, 2016, 10:31. INDICATIONS : Right side attempted central line placement. MEDICAL HISTORY : Hypercholesterolemia. Hypertension. Congestive heart failure. Peritoneal dialysis. Coronary artery di sease SURGICAL HISTORY : CABG. Cholecystectomy. Left knee replacement. Breast reduction 1979 ENCOUNTER: Subsequent ACUITY: 1 day PAIN SCORE: Non-responsive. LOCATION: Bilateral chest FINDINGS: Again noted is evidence of prior median sternotomy with probable left ventricular cardiomegaly dimini shed inspiratory effort with prominent vascularity suggesting pulmonary vascular congestion. The a le ft jugular venous catheter is in place crossing midline terminating history of vena cava with no defi nite evidence of pneumothorax in the right lung is clear with a small nasogastric tube Dobbhoff tube progressing into the stomach. CONCLUSION: There is placement of a multi-lumen left-sided venous catheter terminating in superior vena cava wit h no pneumothorax. NG tube Dobbhoff tube placed into the stomach. Otherwise stable chest. Jairo Knapp MD on April 15, 2016 at 16:35 Board Certified Radiologist. This report was verified electronically.
[2016-04-15] MEDS: cefTRIAXone INJ 2,000 MG in SODIUM CHLORIDE 0.9% INJ 100 ML IV SCH (17:04)
[2016-04-15] MEDS: PRAMIPEXOLE DIHYDROCHLORIDE 0.25 MG TAB PO SCH (20:42)
[2016-04-15] MEDS: metroNIDAZOLE 500 MG TAB PO SCH (20:42)
[2016-04-15] MEDS: ATORVASTATIN 40 MG TAB PO SCH (20:42)
[2016-04-16] VITALS (18 sets, daily range): BP systolic 128–134; BP diastolic 48–63; PULSE 75–100; RESP 20; TEMP 97.8–98.5; O2SAT 98
[2016-04-16] MEDS: LACTATED RINGER'S 1000 ML IV SCH (04:45)
[2016-04-16] MEDS: LEVOTHYROXINE SODIUM 88 MCG TAB PO SCH ×2 (06:00→06:26)
[2016-04-16] MEDS: metroNIDAZOLE 500 MG TAB PO SCH ×2 (06:26→14:00)
[2016-04-16] MEDS: INSULIN ASPART SUPPLEMENTAL SCALE SQ SCH ×2 (06:27→11:00)
[2016-04-16 07:21] LABS: BICARBONATE 22.3 MEQ/L (21.0-32.0); POTASSIUM 5.1 MEQ/L (3.5-5.1)
[2016-04-16] MEDS: SODIUM CHLORIDE 0.9% FLUSH 5 ML FLUSH FLUSH SCH (07:34)
[2016-04-16] MEDS: SEVELAMER CARBONATE 800 MG TAB PO SCH ×2 (08:00→12:06)
[2016-04-16] MEDS: GENTAMICIN SULFATE (DIALYSIS USE ONLY) 20 MG/2 ML VIAL IV PRN (08:50)
[2016-04-16] MEDS: EPOETIN ALFA 10,000 UNITS/ML VIAL IV PRN (08:50)
[2016-04-16] MEDS: HEPARIN SODIUM - IV 10,000 UNITS/10 ML VIAL PRN (08:50)
[2016-04-16] MEDS: SODIUM CHLOR 0.9% 1000 ML INJ 1,000 ML IV PRN (08:51)
--- NOTE | 2016-04-16 08:56 | HHI.PR ---
Subjective Remarks lethargic. brother at bedside. Objective Vitals lethargic seems confused heart reg abd s/bs ext right groin/thigh large wound vac Vital Signs Date Time Temp Pulse Resp B/P Pulse Ox O2 Delivery O2 Flow Rate FiO2 04/16/16 05:00 98 04/16/16 04:00 100 04/16/16 03:08 97.8 98 20 130/63 98 04/16/16 03:00 92 04/16/16 02:00 100 04/16/16 01:00 94 04/16/16 00:01 98.5 99 20 128/51 98 04/16/16 00:00 93 04/15/16 23:00 95 04/15/16 22:00 92 04/15/16 21:00 84 04/15/16 20:00 82 04/15/16 19:26 98 Room Air 04/15/16 19:26 98.5 88 20 131/63 98 04/15/16 19:00 92 04/15/16 18:00 82 04/15/16 17:00 98 Room Air 04/15/16 17:00 78 04/15/16 16:50 80 16 95 Room Air 04/15/16 16:45 97.8 81 16 104/62 95 Room Air 04/15/16 16:30 79 15 102/58 94 Room Air 04/15/16 16:15 78 15 100/56 94 Room Air 04/15/16 16:00 75 15 98/51 93 Room Air 04/15/16 16:00 98.8 78 20 119/56 98 04/15/16 16:00 86 04/15/16 15:45 68 14 102/48 100 Simple Mask 8 04/15/16 15:40 98.0 62 14 111/45 98 Simple Mask 8 04/15/16 13:27 98.3 85 16 149/66 98 04/15/16 13:27 85 04/15/16 04/15/16 04/16/16 15:00 23:00 07:00 Intake Total 863 ml 240 ml Output Total 50 ml 0 ml Balance 813 ml 240 ml Intake Oral 240 ml 240 ml IV Total 423 ml Other 200 ml Output Urine Total 0 ml Estimated Blood Loss 50 ml # Voids 0 # Bowel Movements 0 Result Diagram: 04/15/16 0824 04/16/16 0545 Imaging Last Impressions Upper Extremity Ultrasound 04/08/16 0000 Signed Impressions: Service Date/Time: Friday, April 08, 2016 11:35 - CONCLUSION: Thrombus distal cephalic vein close to the IV site. Jose Enrique Christianson MD FACR Soft Tissue Ultrasound 04/06/16 0000 Signed Impressions: Service Date/Time: Wednesday, April 06, 2016 14:50 - CONCLUSION: Nonspecific edema in the subcutaneous soft tissues. No loculated fluid collections to indicate an abscess. Phong Johnson MD Catheter Placement X-Ray 04/03/16 0000 Signed Impressions: Service Date/Time: Sunday, April 03, 2016 08:46 - CONCLUSION: Uncomplicated line placement as above. Godfrey Griffith MD Chest X-Ray 04/02/16 0000 Signed Impressions: Service Date/Time: March 10:31 - CONCLUSION: 1. Moderate pulmonary vascular congestion bilaterally. 2. Cardiomegaly. Leonides Root MD Abdomen/Pelvis CT 03/25/16 0000 Signed Impressions: Service Date/Time: Friday, March 25, 2016 19:39 - CONCLUSION: 1. Cellulitic changes in the right groin, right perineum and right labia. No abscess or fluid collection. 2. Dialysis catheter and minimal pelvic ascites. 3. Diverticulosis without diverticulitis. 4. Status post cholecystectomy. Enrique Snyder MD A/P Problem List: (1) Cellulitis of labia Status: Acute Plan: - comgmt with General Surgery, ID, and Palliative Medicine - Pt admitted with cellulitis of the right labia and into the right groin/inner thigh - Pt had a noted elevated WBC count of 14.4 at admission with a Lactic acid of 2.4 - Pt was given IV Vancomycin, Cefepime and Clindamycin - CT abd/pelvis (03/25/16) --> Cellulitic changes in the right groin, right perineum and right labia. No abscess or fluid collection. Dialysis catheter and minimal pelvic ascites. Diverticulosis without diverticulitis. - Blood cultures (03/25/16) with one out of 4 growing E. coli - peritoneal WBC 106 - Peritoneal fluid culture --> no growth - Wound culture (04/03/16) --> E. Coli and Enterococcus - Zosyn (03/27-04/03/16) - Flagyl IV (04/03 - 04/09) changed to Flagyl po (04/09 - present) - Ceftazidime (04/03 - 04/08) - Ceftriaxone (04/08 - present) - Daptomycin (04/07 - present) - Gentamicin prn with HD (04/03 - present) - Pt underwent debridement of necrotic skin/fat/abscess to right groin and inner thigh on 04/03. Wound vac placed. - Pt returned to OR on 04/06 and had repeat incision and debridement skin, subcu tissue, fascia, muscle of right inguinal wound and right labial/buttock wound - Pt returned to OR 04/[address] Rodas for debridement of skin and subcutaneous tissue and muscle right lower abdominal wall, right groin, right upper thigh and wound VAC placement right lower abdomen and wound VAC change right groin and right upper thigh - VAC change and debridement last done on 04/15 - wound vacs per gen surg - Megace - encourage PO intake - DVT prophylaxis with SCDs - dobbhoff inserted on 04/13.it's nonfunctioning and nursing staff working to fix it..tube feeding -poor prognosis. discussed with brother about hospice. He and family will decide today if they want to meet with palliative or hospice. (2) Bacteremia Status: Acute Plan: - See above (3) Anemia Status: Chronic Plan: - Related to pts ESRD - Hg 8.0 (03/29/16) --> transfused with1 units PRBC on 03/29/16 - Hg 6.9 (04/08/16) --> transfused 2 units PRBCs on 04/08/16 - Hg 7.1 (04/11/16) --> transfused 2 units PRBCs on 04/11/16 - Pt notably iron deficient and has been started on po iron - Pt to receive Epogen weekly with dialysis - Monitor H/H and transfuse as necessary (4) ESRD (end stage renal disease) on dialysis Status: Chronic Plan: - comgmt with nephrology - Pt was started on PD in 05/2015 - Pt had Vas cath placed on 04/03 and is on HD currently. - Vas cath exchanged on 04/11 - Pt to get PermCath once infection is improved - Pt is on [facility] dialysis (5) DM (diabetes mellitus) Status: Chronic Plan: - Poor po intake but stable blood sugars - NovoLog SSI - Pt has been refusing levemir and bg fluctuating. (6) Hypothyroidism Status: Chronic Plan: - Home meds continued (7) Hypertension Status: Chronic Plan: - Home meds continued (8) Deep vein thrombosis (DVT) of left upper extremity Status: Acute Plan: - distal cephalic vein - IV site changed - heating pad prn Problem Qualifiers (1) Anemia: Qualified Code: N18.9 - Anemia in chronic kidney disease (2) DM (diabetes mellitus): (3) Hypertension: Qualified Code: I10 - Essential hypertension Humza Mejia MD Apr 16, 2016 08:55
--- NOTE | 2016-04-16 10:10 | HHI.NPPN ---
Subjective Complaints: Confused General Problems: Hypertension Renal Failure: Chronic, End Stage Renal Disease Interval History She had another I&D yesterday. Per operative reports wound is improving. Seen during dialysis today. She is awake, confused, unable to follow commands. Dobhoff tube has been removed. (Brenna Lopez) Review of Systems General Constitutional: Fatigue General Remarks difficult to obtain due to mental status (Brenna Lopez) Skin Skin Remarks vaginal abscess, labial swelling with pain (Brenna Lopez) Objective Data Data 04/15/16 04/16/16 19:00 07:00 Intake Total 863 ml 240 ml Output Total 50 ml 0 ml Balance 813 ml 240 ml Intake Oral 240 ml 240 ml IV Total 423 ml Other 200 ml Output Urine Total 0 ml Estimated Blood Loss 50 ml # Voids 0 # Bowel Movements 0 Vital Signs Date Time Temp Pulse Resp B/P Pulse Ox O2 Delivery O2 Flow Rate FiO2 04/16/16 08:10 98.1 95 20 134/58 04/16/16 05:00 98 04/16/16 04:00 100 04/16/16 03:08 97.8 98 20 130/63 98 04/16/16 03:00 92 04/16/16 02:00 100 04/16/16 01:00 94 04/16/16 00:01 98.5 99 20 128/51 98 04/16/16 00:00 93 04/15/16 23:00 95 04/15/16 22:00 92 04/15/16 21:00 84 04/15/16 20:00 82 04/15/16 19:26 98 Room Air 04/15/16 19:26 98.5 88 20 131/63 98 04/15/16 19:00 92 04/15/16 18:00 82 04/15/16 17:00 98 Room Air 04/15/16 17:00 78 04/15/16 16:50 80 16 95 Room Air 04/15/16 16:45 97.8 81 16 104/62 95 Room Air 04/15/16 16:30 79 15 102/58 94 Room Air 04/15/16 16:15 78 15 100/56 94 Room Air 04/15/16 16:00 75 15 98/51 93 Room Air 04/15/16 16:00 98.8 78 20 119/56 98 04/15/16 16:00 86 04/15/16 15:45 68 14 102/48 100 Simple Mask 8 04/15/16 15:40 98.0 62 14 111/45 98 Simple Mask 8 04/15/16 13:27 98.3 85 16 149/66 98 04/15/16 13:27 85 (Brenna Lopez) -: 04/15/16 0824 04/16/16 0545 Tubes & Lines: Vas-Cath, Tenckhoff Catheter (Brenna Lopez) Physical Exam General Appearance: No Acute Distress, Comfortable, Obese (Brenna Lopez) Throat Throat Remarks dry mucous membranes (Brenna Lopez) Neck Neck Exam: Neck Supple, Trachea Midline (Brenna Lopez) Pulmonary Resp Exam: Breath Sounds Equal, No Distress, Rhonchi (Brenna Lopez) Cardiology CV Exam: Regular, Normal Sinus Rhythm, Good Perfusion (Brenna Lopez) Gastrointestinal/Abdomen GI Exam: Soft, Non-Tender, Bowel Sounds Present (Brenna Lopez) Genitourinary Remarks deferred vaginal exam (Brenna Lopez) Musculoskeletal MS Exam: Joints Intact, Good Strength (Brenna Lopez) Integumentary Skin Exam: Clear, Warm, Dry, Intact Skin Remarks erythema groin, wound vac in place (Brenna Lopez) Extremeties Extremities Exam: Trace Edema (Brenna Lopez) Neurologic Neuro Exam: Moving All Extremities, Stuporous Neuro Remarks lethargic (Brenna Lopez) Psychiatric Psych Exam: Appropriate Responses (Brenna Lopez) VTE Prophylaxis Device: SCDs (Brenna Lopez) Assessment/Plan Discussed Condition With: Patient Assessment Summary: Anemia of CKD, Fluid/Volume Overload, Hypertension, Diabetes Mellitus, End Stage Renal Disease Electrolyte Assessment: Hypocalcemia Problem List: (1) ESRD (end stage renal disease) on dialysis Plan: Previously CCPD, was converted to HD 04/03 as she began to develop edema, confusion, possible uremic symptoms, and evidence of fluid overload has been on T-Th-Wed schedule, seen during dialysis today on a 2K, 250 BFR, goal 3 liters UF monitor vascath function, will require PermCath once infection is better. Monitor electrolytes and volume status. intermittent metabolic profile, K has been acceptable encouraged nutrition, started on Megace, hydration encouraged phosphorus elevated, PhosLo initiated for metabolic bone disorder (2) Vulval cellulitis Plan: with sepsis, + E coli in 03/25 bottles wound cx with E. coli and E. Faecalis ID has followed On Ceftriaxone, flagyl, and Daptomycin. has had multiple I&Ds since admission, most recent 04/15 palliative care/hospice have evaluated per daughter's request (3) Anemia Plan: continue Epogen with dialysis. Multiple blood transfusions since admission, most recent 04/13 Monitor Hemoglobin. We are avoiding IV iron in this situation due to infection. minimal blood loss during I&D yesterday (4) DM (diabetes mellitus) Plan: blood sugars acceptable, continue insulin therapy as needed monitor glucose, goal 140-180 mg/dL (5) Hypertension Plan: oral medications as ordered follow blood pressure, adjust medications as needed (6) Hyponatremia Plan: stable continue oral fluid restriction (Brenna Lopez) Plan patient was seen and examined. Patient's family has decided to transfer to hospice care. (Filemon Mar MD) Problem Qualifiers (1) Anemia: Qualified Code: N18.9 - Anemia in chronic kidney disease (2) DM (diabetes mellitus): (3) Hypertension: Qualified Code: I10 - Essential hypertension Brenna Lopez Apr 16, 2016 10:10 Filemon Mar MD Apr 16, 2016 14:34
[2016-04-16] MEDS: NYSTAT/DIPHENHY/LIDO MOUTHWASH (Adult) 120ML SWISH-SWAL PRN (12:03)
[2016-04-16] MEDS: CARVEDILOL 6.25 MG TAB PO SCH (12:03)
[2016-04-16] MEDS: ASPIRIN EC 325 MG TABEC PO SCH (12:03)
[2016-04-16] MEDS: CHOLECALCIFEROL (VIT D3) 5000 UNIT CAP PO SCH (12:04)
[2016-04-16] MEDS: FERROUS SULFATE 325 MG (65 MG ELEMENTAL IRON) TAB PO SCH (12:04)
[2016-04-16] MEDS: MEGESTROL ACETATE 40 MG TAB PO SCH (12:04)
[2016-04-16] MEDS: PANTOPRAZOLE SOD 40 MG DELAYED RELEASE TAB PO SCH (12:04)
[2016-04-16] MEDS: SODIUM CHLORIDE 1 GRAM TAB PO SCH (12:04)
[2016-04-16] MEDS: CALCITRIOL 0.25 MCG CAP PO SCH (12:04)
[2016-04-16] MEDS: SERTRALINE HCL 100 MG TAB PO SCH (12:06)
[2016-04-16] MEDS ORDERED: HYDROmorphone HCL PF 1 MG/ML VIAL IV PUSH PRN (12:30)
--- NOTE | 2016-04-16 12:34 | HHI.HCPN ---
Reason for visit a. To assist with evaluation and management of symptoms including: postsurgical vulvar pain and debility. b. To assist medical decision maker(s) with: better understanding of current medical conditions; weighing benefits/burdens of medical treatment options; making medical treatment decisions. Subjective/Interval History Patient seen in dialysis room. She was awake and alert to self, confused as to place and situation. Lethargic with slurred speech. Denies pain, shortness of breath or n/v. Underwent yesterday I & D of labia and right groin, wound vac change. Afebrile with stable BP. Na 132, K 5.1, BUN/creatinine 37/6.06. Spoke with brother Colten, medical update provided. Brother with good understanding of patient's debilitated condition and very poor prognosis for increased quality of life or survival. He tells me that pt's daughter Terri has contacted most of his family and they are considering transition patient to comfort-directed care under hospice. Reviewed hospice philosophy and benefits, discussed life expectancy once HD is discontinued in regards to ESRD and multiple acute/chronic comorbidities. Brother appropriately tearful, ongoing emotional support provided. Palliative care to f/u this afternoon with pt's daughter Terri. 13:35: Family meeting, patient unable to participate secondary to lethargy and severe confusion. In attendance pt's daughter Terri, sister Leticia Simms, Brother Anand and Anand's . Medical update provided. Discussed medical treatments up today and prognosis, shared concerns regarding pt's ability to return to already debilitated baseline. Reviewed continuation of aggressive care vs transition to comfort-directed care with hospice. Reviewed patient's prognosis in the setting of necrotizing fasciitis requiring frequent I&D and multiple comorbidities including ESRD on HD, DM, malnutrition and profound physical decline. Reviewed hospice philosophy and benefits, reviewed life expectancy in the setting of discontinuation HD. Family electing to transition patient to comfort-directed care with hospice. Patient to be transfer to hospice care center for pain and EOL management. Discussed prognosis of hours to days if illness runs its natural course. Family in agreement of stopping hemodialysis, IV antibiotics, feeding tube and IV hydration. . Family/friend interactions See interval note. . Advance Directives Living Will: Never completed Health Care Surrogate: Copy in medical record Durable Power of Classer: Never completed Advance Directive Specifics Date completed: 04/10/2016. Health Care Surrogate(s): Patient completed healthcare surrogate paperwork and listed her daughter Terri as healthcare surrogate. Copy sent for scanning. . Documented care wishes: No living will completed. . Significant change in goals: NO CODE. transition to comfort-directed care with hospice. . Objective Vital Signs Date Time Temp Pulse Resp B/P Pulse Ox O2 Delivery O2 Flow Rate FiO2 04/16/16 11:06 98.3 91 20 130/48 04/16/16 08:10 98.1 95 20 134/58 04/16/16 08:00 94 04/16/16 07:00 98 Room Air 04/16/16 07:00 94 04/16/16 05:00 98 04/16/16 04:00 100 04/16/16 03:08 97.8 98 20 130/63 98 04/16/16 03:00 92 04/16/16 02:00 100 04/16/16 01:00 94 04/16/16 00:01 98.5 99 20 128/51 98 04/16/16 00:00 93 04/15/16 23:00 95 04/15/16 22:00 92 04/15/16 21:00 84 04/15/16 20:00 82 04/15/16 19:26 98 Room Air 04/15/16 19:26 98.5 88 20 131/63 98 04/15/16 19:00 92 04/15/16 18:00 82 04/15/16 17:00 98 Room Air 04/15/16 17:00 78 04/15/16 16:50 80 16 95 Room Air 04/15/16 16:45 97.8 81 16 104/62 95 Room Air 04/15/16 16:30 79 15 102/58 94 Room Air 04/15/16 16:15 78 15 100/56 94 Room Air 04/15/16 16:00 75 15 98/51 93 Room Air 04/15/16 16:00 98.8 78 20 119/56 98 04/15/16 16:00 86 04/15/16 15:45 68 14 102/48 100 Simple Mask 8 04/15/16 15:40 98.0 62 14 111/45 98 Simple Mask 8 04/15/16 13:27 98.3 85 16 149/66 98 04/15/16 13:27 85 Intake & Output 04/16/16 04/16/16 07:00 19:00 Intake Total 240 ml Output Total 0 ml 3000 ml Balance 240 ml -3000 ml Intake Oral 240 ml Output Urine Total 0 ml Hemodialysis 3000 ml Physical Exam CONSTITUTIONAL/GENERAL: This is an adequately nourished patient, in no apparent distress. lethargic, confused. TUBES/LINES/DRAINS: LIJ hemodialysis catheter. PIV's. Wound vac to right groin/ labia. SKIN: Pale. No jaundice. Scattered ecchymoses on upper extremities. Skin temperature appropriate. Not diaphoretic. HEAD: Atraumatic. Normocephalic. EYES: Pupils equal and round and reactive. No injection or drainage. ENT: Hearing grossly normal. Nose without bleeding or purulent drainage. Dry oral mucosa. NECK: Trachea midline. Supple, nontender. CARDIOVASCULAR: Regular rate and rhythm without murmurs, gallops, or rubs. No JVD. Peripheral pulses symmetric. Edema to BLE. RESPIRATORY/CHEST: Symmetric, unlabored respirations. Clear, diminished lung sounds to auscultation GASTROINTESTINAL: Abdominal PD cath in place. Abdomen round, large, soft, tender. No guarding. Bowel sounds present. GENITOURINARY: Wound vac on right groin/labia with moderate amount of serosanguineous drainage. MUSCULOSKELETAL: Weak. Extremities without clubbing, cyanosis, or edema. No mottling or clubbing. NEUROLOGICAL: Awake. lethargic, confused. Follows some commands. PSYCHIATRIC: Calm with no obvious anxiety/depression. Visual and auditory hallucinations reported, reaching out with her hands. . Diagnostic Tests Laboratory Laboratory Tests Test 04/13/16 04/13/16 04/15/16 04/16/16 15:02 16:35 08:24 05:45 Blood Type A POSITIVE Crossmatch Leukocyte-Reduced Red Blood Cells Blood Bank Comment White Blood Count 10.6 TH/MM3 10.2 TH/MM3 (4.0-11.0) (4.0-11.0) Red Blood Count 3.14 MIL/MM3 2.74 MIL/MM3 (4.00-5.30) (4.00-5.30) Hemoglobin 9.4 GM/DL 8.4 GM/DL (11.6-15.3) (11.6-15.3) Hematocrit 28.6 % 25.3 % (35.0-46.0) (35.0-46.0) Mean Corpuscular Volume 91.1 FL 92.1 FL (80.0-100.0) (80.0-100.0) Mean Corpuscular Hemoglobin 29.8 PG 30.8 PG (27.0-34.0) (27.0-34.0) Mean Corpuscular Hemoglobin 32.7 % 33.4 % Concent (32.0-36.0) (32.0-36.0) Red Cell Distribution Width 15.7 % 15.7 % (11.6-17.2) (11.6-17.2) Platelet Count 139 TH/MM3 142 TH/MM3 (150-450) (150-450) Mean Platelet Volume 8.2 FL 8.4 FL (7.0-11.0) (7.0-11.0) Prothrombin Time 13.2 SEC (9.8-11.6) Prothromb Time International 1.2 RATIO Ratio Sodium Level 135 MEQ/L 132 MEQ/L (136-145) (136-145) Potassium Level 5.1 MEQ/L 5.1 MEQ/L (3.5-5.1) (3.5-5.1) Chloride Level 98 MEQ/L 95 MEQ/L (98-107) (98-107) Carbon Dioxide Level 26.3 MEQ/L 22.3 MEQ/L (21.0-32.0) (21.0-32.0) Anion Gap 11 MEQ/L (5-15) 15 MEQ/L (5-15) Blood Urea Nitrogen 41 MG/DL (7-18) 37 MG/DL (7-18) Creatinine 6.47 MG/DL 6.06 MG/DL (0.50-1.00) (0.50-1.00) Estimat Glomerular Filtration 6 ML/MIN (>89) 7 ML/MIN (>89) Rate Random Glucose 127 MG/DL 141 MG/DL (74-106) (74-106) Calcium Level 7.5 MG/DL 7.2 MG/DL (8.5-10.1) (8.5-10.1) Phosphorus Level 6.1 MG/DL (2.5-4.9) Albumin 1.3 GM/DL (3.4-5.0) Result Diagram: 04/15/16 0824 04/16/16 0545 Procedures * 04/16/16 - Irrigation and debridement right abdominal and groin wound with wound vac change. * 04/13/16 - Wide debridement of right lower abdominal right groin and right upper thigh wound, wound VAC change. * 04/10/16 - Debridement of right abdominal wall, right groin, and right upper thigh/buttock wounds with wound VAC change. * 04/08/16 - Debridement skin and subcutaneous tissue and muscle right lower abdominal wall, right groin, right upper thigh. Wound VAC placement right lower abdomen and wound VAC change right groin and right upper thigh. * 04/06/16 - Debridement of labia and right groin with would vac change. * 04/03/16 - Left IJ hemodialysis catheter placement. * 04/03/16 - Incision and debridement skin and subcutaneous tissue right inguinal abscess with wound VAC placement. * 04/03/16 - Incision and debridement skin and subcutaneous tissues tissue right upper inner thigh abscess. . Assessment and Plan Disease Oriented Problem List: (1) ESRD (end stage renal disease) on dialysis (2) Anemia (3) Abscess of right groin Symptom Scale: (1) Pain 0-10 Scale: 6 Comment: Acute pain to right groin/vulva secondary to necrotizing fasciitis s/ p surgical debridement and wound vac placement x5. (2) Decrease in appetite 0-10 Scale: Unable to quantify Comment: Progressive during this hospitalization. (3) Weakness 0-10 Scale: Unable to quantify Comment: Generalized weakness secondary to current hospitalization. Pertinent Non-Medical Issues Psychosocial: . Residing independently prior to this hospitalization. 1 daughter who resides in [place]. Spiritual: lutheran. No tenriism affiliation. Legal: No living will or HCS completed. Ethical issues impacting care: No living will or HCS completed. . Important Contacts Daughter Terri Verdugo . . Prognosis Mrs. Garrison is a 71 y/o female with a medical history significant for HTN, Diabetes mellitus, CAD s/p CABG x2 and ESRD, on dialysis since May 2015. Patient presented to the ED on 03/25/16 and admitted for management of sepsis, vulvar cellulitis. Patient is s/p incision and debridement skin and subcutaneous tissue of right inguinal abscess and right upper inner thigh abscess with wound VAC placement. Now diagnosed with necrotizing fasciitis, s/p I&D x3. Nephrology following, patient switched to HD and vascath placed on . Repeat PD cell count higher, concerns of peritonitis. Additional concerns regarding impaired wound healing secondary to ERSD, DM, malnutrition with albumin 1.6 and profound physical deconditioning. Patient is at high risk for complications, continue decline and . Patient's prognosis is poor with a life expectancy of hours to days if illness runs its natural course. She is definitely hospice appropriate. . Code Status: No Code Plan * NO CODE -DNR/DNI. Allow a natural . * Patient not capacitated at this time secondary to confusion. Unclear if she will regain. [facility] completed and named her daughter Terri as [facility]. * 04/16/16. NO CODE. Family electing to transition patient to comfort-directed care with hospice setting of very poor prognosis secondary to necrotizing fasciitis requiring frequent I&D and multiple comorbidities including ESRD on HD , DM, malnutrition and profound physical decline. Family electing to stop HD, IV antibiotics, surgical procedures, and artificial nutrition and hydration. Patient to be transferred to hospice care center for pain management/EOL. * Right groin/vulvar pain, acute -secondary to necrotizing fascitis s/p surgical debridement and wound vac placement x5. No history of chronic pain. [place] discontinued on 04/14 secondary to lethargy and confusion. Tylenol available as needed. * Malnutrition. Albumin 1.6. Decreased oral intake. DH placed on 04/13 and removed 04/16 due to malfunction. * Generalized weakness -profound physical deconditioning, multifactorial secondary to hospitalization, acute infectious process and lethargy. Worsening status. * case discussed with Dr. Mejia and parts person Guillermina. * Anticipatory guidance provided to family regarding prognosis and signs/ symptoms of EOL. * Ongoing emotional support and active listening provided. . Time Spent Time Periods: Bedside family meeting from 13:35 to 14:10. Total Floor Time (mins): 70 (Total time to include review of medical records, physical exam, bedside conversation with brother, bedside family meeting for discussion of EOL and hospice and case discussion with Dr. Mejia and parts person. ) Face to Face Time (mins): 46 >50% Counseling/Coord of Care: Yes Attestation To help prompt me to consider important information that might be impacting today's encounter and assessment, information from prior notes written by myself or my colleagues may have been "brought forward" into today's note. My signature on this note, however, is an attestation that I personally performed the exam, history, and/or decision-making noted today, and, unless otherwise indicated, the interactions with patient, family, and staff as well as the review of records all occurred today. I also attest that the listed assessment and stated plan reflect my best clinical judgment today based on the combination of historical information, prior notes, and today's exam/ interactions. When time spent is documented, it refers only to time spent today by the signer, or if indicated, combined time spent today by collaborating physician/nurse practitioner. Jeannine Woods Apr 16, 2016 12:34
[2016-04-16] MEDS ORDERED: CALCIUM ACETATE 667 MG CAP PO SCH (13:00)
--- NOTE | 2016-05-06 10:29 | HHI.DS ---
Discharge Summary Admission Date Mar 25, 2016 at 16:44 Discharge Date: Apr 16, 2016 Admitting Diagnosis vulval cellulitis (1) Cellulitis of labia Diagnosis: Principal (2) Bacteremia Diagnosis: Principal (3) Anemia Diagnosis: Secondary (4) ESRD (end stage renal disease) on dialysis Diagnosis: Secondary (5) DM (diabetes mellitus) Diagnosis: Secondary (6) Hypothyroidism Diagnosis: Secondary (7) Hypertension Diagnosis: Secondary (8) Deep vein thrombosis (DVT) of left upper extremity Diagnosis: Secondary Brief History Ms. Garrison is a pleasant 71 y/o WF with multiple medical problems including IDDM, HTN, CAD, ESRD on peritoneal dialysis since May 2015. Pt presented to the ER at [facility] with complaints of a painful swollen lesion in her perineal area that started 4 days ago with subjective fever and chills and generalized weakness worsening over last 2 days. Patient states that she had noticed a painful lesion in her right vulvar area which was soft. She was soaking it at home but over the last 2 days it has become larger and hardened. Denies any vaginal discharge or bleeding. She is uncertain if it has drained as she cannot adequately visualize it. She states the pain does radiate into her right lower quadrant. She denies any chest pain or shortness of breath. Pt reports having vomiting 2 days and did vomited twice today. She is on peritoneal dialysis daily and completed dialysis last night. Denies vaginal discharge, odor, itch. Denies urinary symptoms. Denies abdominal pain. Does have history of peritonitis. Dr. Lexus Nolasco is her primary care provider. Pt was noted to have an elevated WBC count of 14.4, elevated Lactic acid of 2.4. She was noted to be tachycardic and febrile at admission as well. Pt was given IV Vancomycin, Cefepime, and Clindamycin in the ER. Hospital Course - Pt admitted with cellulitis of the right labia and into the right groin/inner thigh - CT abd/pelvis (03/25/16) --> Cellulitic changes in the right groin, right perineum and right labia. No abscess or fluid collection. Dialysis catheter and minimal pelvic ascites. Diverticulosis without diverticulitis. - Blood cultures (03/25/16) with one out of 4 growing E. coli - peritoneal WBC 106 - Peritoneal fluid culture --> no growth - Wound culture (04/03/16) --> E. Coli and Enterococcus - Pt underwent debridement of necrotic skin/fat/abscess to right groin and inner thigh on 04/03. Wound vac placed. - Pt returned to OR on 04/06 and had repeat incision and debridement skin, subcu tissue, fascia, muscle of right inguinal wound and right labial/buttock wound - Pt returned to OR 04/[address] Rodas for debridement of skin and subcutaneous tissue and muscle right lower abdominal wall, right groin, right upper thigh and wound VAC placement right lower abdomen and wound VAC change right groin and right upper thigh - VAC change and debridement last done on 04/15 -poor prognosis. discussed with brother about hospice. He and family ultimately decided on hospice and she was transferred to [facility]. Pt Condition on Discharge: Deteriorating Discharge Disposition: Hospice/Med Facility Discharge Instructions DIET: Follow Instructions for: As Tolerated, No Restrictions Activities you can perform: Regular-No Restrictions Humza Mejia MD May 06, 2016 10:29
== END 2016-04-16 17:45 | disposition hospice, inpatient (51) | DRG 749 ==
LOC: NEPE 10:36 → NEDA 16:44 → NEDH 03-26 02:30 → H1EA 03-26 10:45 → HOCA 03-27 00:46 → HCIS 04-08 17:33
PROVIDERS: ADMIT Hospitalist; ATTEND Hospitalist
PROC: 0HBAXZZ Excision of Inguinal Skin, External Approach (ICD-10-PCS; 2016-04-03)
PROC: 0JBC0ZZ Excision of Pelvic Region Subcutaneous Tissue and Fascia, Open Approach (ICD-10-PCS; 2016-04-06)
PROC: 30243N1 Transfusion of Nonautologous Red Blood Cells into Central Vein, Percutaneous Approach (ICD-10-PCS; 2016-04-08)
PROC: 05HN33Z Insertion of Infusion Device into Left Internal Jugular Vein, Percutaneous Approach (ICD-10-PCS; principal; 2016-04-11)
PROC: 0HB9XZZ Excision of Perineum Skin, External Approach (ICD-10-PCS; 2016-04-13)
PROC: 0JB90ZZ Excision of Buttock Subcutaneous Tissue and Fascia, Open Approach (ICD-10-PCS; 2016-04-15)
PROC: 0JBL0ZZ Excision of Right Upper Leg Subcutaneous Tissue and Fascia, Open Approach (ICD-10-PCS; 2016-04-15)
DX: N76.2 Acute vulvitis (principal); M72.6 Necrotizing fasciitis; N18.6 End stage renal disease; I12.0 Hypertensive chronic kidney disease with stage 5 chronic kidney disease or end stage renal disease; R78.81 Bacteremia; I82.622 Acute embolism and thrombosis of deep veins of left upper extremity; E10.22 Type 1 diabetes mellitus with diabetic chronic kidney disease; I25.810 Atherosclerosis of coronary artery bypass graft(s) without angina pectoris; E87.1 Hypo-osmolality and hyponatremia; B96.20 Unspecified Escherichia coli [E. coli] as the cause of diseases classified elsewhere; Z99.2 Dependence on renal dialysis; D63.1 Anemia in chronic kidney disease; E88.09 Other disorders of plasma-protein metabolism, not elsewhere classified; E87.70 Fluid overload, unspecified; A08.8 Other specified intestinal infections; E83.51 Hypocalcemia; K57.90 Diverticulosis of intestine, part unspecified, without perforation or abscess without bleeding; E03.9 Hypothyroidism, unspecified
CPT/HCPCS: 36430; 36556; 36580; 36598; 71010; 74000; 74176; 76705; 76937; 76999; 77001; 80048; 80053; 80069; 80074; 80202; 82272; 82550; 82552; 82728; 82948; 83540; 83550; 83605; 83615; 83735; 84100; 84132; 84155; 84484; 85007; 85025; 85027; 85044; 85610; 85730; 86850; 86900; 86901; 86920; 87015; 87040; 87070; 87077; 87102; 87116; 87176; 87186; 87205; 87206; 87493; 89051; 90935; 93005; 93971; 94664; 96374; 96375; C1750; C1752; C1769; J0692; J0696; J0713; J0878; J1170; J1580; J1644; J1815; J2250; J2270; J2370; J2405; J2543; J2710; J3010; J3370; J7030; J7040; J7050; J7120; J7613; P9016; P9035; P9047; Q4081; Q9963; Q9967